=== PATIENT | female | born 1995 | race Caucasian/White ===

== ENCOUNTER 2023-05-11 10:51 | Emergency (ER) | payer BC, SELFPAY ==
[2023-05-11 10:57] VITALS: BP 110/87; PULSE 101; RESP 18; TEMP 36.6; O2SAT 100; BMI 22.8
--- NOTE | 2023-05-11 11:11 | PC.NURSE ---
PT 7 WEEKS . C/O NAUSEA AND VOMITING X 2 WEEKS.. PT HAS ZOFRAN AT HOME AND STATES NOT HELPING. PT ALSO HAS PHENERGAN AT HOME BUT DOESN'T WANT TO TAKE IT BECAUSE IT MAKES HER TIRED
--- NOTE | 2023-05-11 11:36 | ED_ITS ---
HPI - Nausea/Vomiting/Diarrhea General Chief complaint: Nausea/Vomiting/Diarrhea Stated complaint: ISSUES 7 WEEKS Time Seen by Provider: 05/11/23 11:36 Source: patient Mode of arrival: walk-in Limitations: no limitations History of Present Illness HPI Narrative: this patient's here with continued nausea and vomiting. She is seven weeks by dates. She has an appointment see her INSTRUCTOR WARPER in about two weeks. She does not have a bleeding spotting or abdominal pain cramping or any type of discomfort. Just has the nausea. She has by mouth Zofran but no sublingual Zofran. She says that the Phenergan seems to make her sleepy. She is voiding a little bit less than usual. She does not have a burning discomfort or symptoms of urinary tract infection. Related Data Allergies Allergy/AdvReac Type Severity Reaction Status Date / Time No Known Drug Allergies Allergy Verified 05/11/23 10:57 Exam Narrative Exam Narrative: awake alert appears in no distress vital signs are stable slight increase in pulse rate. She has no abdominal tenderness her skin color is good mucous membranes are moist and pink she does not appear ill. Constitutional Vital Signs - 24 hr 05/11/23 10:57 Temperature 97.8 F Pulse Rate [Monitor] 101 H Respiratory Rate 18 Blood Pressure [Left Arm] 110/87 H Pulse Oximetry 100 Oxygen Delivery Method Room Air Course Vital Signs Vital signs: Vital Signs Temperature 97.8 F 05/11/23 10:57 Pulse Rate 101 H 05/11/23 10:57 Respiratory Rate 18 05/11/23 10:57 Blood Pressure 110/87 H 05/11/23 10:57 Pulse Oximetry 100 05/11/23 10:57 Oxygen Delivery Method Room Air 05/11/23 10:57 Temperature 97.8 F 05/11/23 10:57 Pulse Rate 101 H 05/11/23 10:57 Respiratory Rate 18 05/11/23 10:57 Blood Pressure 110/87 H 05/11/23 10:57 Pulse Oximetry 100 05/11/23 10:57 Oxygen Delivery Method Room Air 05/11/23 10:57 MDM - Nausea/Vomiting/Diarrhea MDM Narrative Medical decision making narrative: patient's comprehensive metabolic profile and CBC are unremarkable. She was given nearly 2 L of crystalloid fluid and does show some improvement. We will give her prescription for sublingual Zofran. She does not have a specific INSTRUCTOR W[employer]PER complaints at this time. She already has a follow-up appointment with her INSTRUCTOR WARPER. Discharge Plan Discharge Chief Complaint: Nausea/Vomiting/Diarrhea Clinical Impression: Hyperemesis affecting , antepartum Patient Disposition: Home, Self-Care Time of Disposition Decision: 13:10 Instructions: Hyperemesis Gravidarum (ED) Stand Alone Forms: Portal Instructions Referrals: Victorino Deleon MD [Primary Care Provider] - 1 week
[2023-05-11 11:57] LABS: Basophils Percent Auto 0.3 % (0.2-2.0); Eosinophils Percent Auto 0.1 % (0.9-7.0); Hematocrit 41.1 % (36.0-48.0); Hemoglobin 14.7 g/dL (12.0-16.0); Immature Granulocytes Abs Auto 0.04 10^3/uL (0.00-0.03); Immature Granulocytes Pct Auto 0.4 % (0.0-0.5); Lymphocytes Absolute Auto 1.8 10^3/uL (1.2-3.8); Lymphocytes Percent Auto 17.1 % (20.5-60.0); Mean Corpuscular HGB Conc 35.8 g/dL (29.9-35.2); Mean Corpuscular Hemoglobin 31.8 pg (26.7-34.0); Mean Platelet Volume 10.2 fL (9.5-13.5); Monocytes Absolute Auto 0.6 10^3/uL (0.3-0.8); Monocytes Percent Auto 6.2 % (1.7-12.0); Neutrophils Absolute Auto 7.8 10^3/uL (1.4-6.5); Neutrophils Percent Auto 75.9 % (43.0-75.0); Platelet Count 260 10^3/uL (150-450); Red Blood Count 4.62 10^6/uL (4.20-5.40); Red Cell Distribution Width 11.3 % (11.0-15.0); White Blood Count 10.3 10^3/uL (4.0-11.0)
[2023-05-11] MEDS: 0.9 % SODIUM CHLORIDE 1,000 ML 999 ML IV ×2 (12:04→12:45)
[2023-05-11] MEDS: ONDANSETRON PF 4 MG/2 ML VIAL IV (12:05)
[2023-05-11 12:13] LABS: Alanine Aminotransferase 20 U/L (14-59); Albumin Level 3.8 g/dL (3.4-5.0); Alkaline Phosphatase 55 U/L (46-116); Anion Gap 13.8; Aspartate Amino Transferase 13 U/L (15-37); BUN Creatinine Ratio 13.8; Bilirubin Total 0.7 mg/dL (0.2-1.0); Calcium 9.3 mg/dL (8.5-10.1); Carbon Dioxide 25.3 mmol/L (21.0-32.0); Chloride 102 mmol/L (98-107); Estimated GFR (African America >60 (>=60); Estimated GFR (Non-African Ame >60 (>=60); Globulin 3.9 g/dL; Glucose 89 mg/dL (74-106); Potassium 4.1 mmol/L (3.5-5.1); Sodium 137 mmol/L (136-145); Total Protein 7.7 g/dL (6.4-8.2)
[2023-05-11 12:15] LABS: Lactate/Lactic Acid 1.1 mmol/L (0.4-2.0)
== END 2023-05-11 13:27 | disposition home or self-care (01) ==
PROVIDERS: Emergency Provider Emergency Medicine Emergency Medical Services; PCP Family Medicine
DX: O21.0 Mild hyperemesis gravidarum (principal); Z3A.01 Less than 8 weeks gestation of pregnancy
CPT/HCPCS: 36415; 80053; 81003; 83605; 85025; 96374; 99284

== ENCOUNTER 2023-05-22 08:27 | Outpatient (OUT) | payer BC, SELFPAY ==
--- NOTE | 2023-05-22 08:31 | US_ITS ---
The [address] [address] Patient Name: SURJIT MORALES MRN: [id number] date: 1995 Sex: F Assigned Patient Location: US Current Patient Location: US Accession/Order Number: [id number] Exam Date: 05/22/2023 08:32 Report Date: 05/22/2023 19:12 At the request of: HARSHA OCHOA Procedure: US OB transvaginal EXAMINATION: US OB transvaginal HISTORY: MISSED PERIOD COMPARISON: No relevant comparison available. FINDINGS: GESTATIONAL SAC: Present and normal appearing. YOLK SAC: Present and normal appearing. POLE: Present and normal appearing. CARDIAC: Present. UTERUS: Normal size and appearance. OVARIES: Right: Normal. Left: Normal. CERVIX: 4.0 cm in length and closed. CUL-DE-SAC: Normal. OTHER: None. AGE BY LMP: 9 weeks 0 days ADRIANA BY LMP: 12/25/2023 AGE BY US CRL: 9 weeks 3 days ADRIANA BY US CRL: 12/22/2023 US/US OB transvaginal IMPRESSION: 1. Single live intrauterine . Electronically authenticated by: CHANEL LING Date: 05/22/2023 19:12
== END 2023-05-22 08:28 | disposition home or self-care (01) ==
LOC: US 08:27
PROVIDERS: PCP Family Medicine; Visit Provider Obstetrics & Gynecology
DX: Z34.91 Encounter for supervision of normal pregnancy, unspecified, first trimester (principal); Z3A.09 9 weeks gestation of pregnancy; N92.6 Irregular menstruation, unspecified
CPT/HCPCS: 76817

== ENCOUNTER 2023-05-23 12:40 | Emergency (ER) | payer BC, SELFPAY ==
[2023-05-23 12:45] VITALS: BP 110/85; PULSE 100; RESP 18; TEMP 36.6; O2SAT 97; BMI 22.1
--- NOTE | 2023-05-23 15:00 | ED.GENADUL1 ---
HPI - General Adult General Chief complaint: Nausea/Vomiting/Diarrhea Stated complaint: 9 weeks , states need fluids Time Seen by Provider: 05/23/23 15:00 Source: patient Mode of arrival: walk-in Limitations: no limitations History of Present Illness HPI narrative: He should persist emergency department requesting IV fluids. Patient states she is 9 weeks gestation and she had nausea and vomiting at least 6 times every day from the . She states she was seen here a week ago had IV fluids and Zofran via IV to help her symptoms. She has anti-emetics at home but she did not try any today. She denies any weakness, fever, chills, cough, chest pain, shortness of breath. She denies any abdominal pain. She denies any flank pain, hematuria, dysuria. She denies any vaginal bleeding, discharge. Related Data Home Medications Medication Instructions Recorded Confirmed ondansetron HCl 4 mg tablet 4 mg PO Q6H PRN nausea and vomiting 05/11/23 05/11/23 metoclopramide HCl 10 mg tablet 10 mg PO Q6H PRN nausea and 05/23/23 05/23/23 vomiting Allergies Allergy/AdvReac Type Severity Reaction Status Date / Time No Known Drug Allergies Allergy Verified 05/11/23 10:57 Review of Systems ROS Status of ROS 10 or more systems reviewed and unremarkable except as noted in history and below Exam Narrative Exam Narrative: Nurses notes and vital signs reviewed and patient is not hypoxic. General: Nontoxic, Well-appearing and in no apparent distress. Skin: Warm, dry, no pallor noted. No Rash Head: Normocephalic, atraumatic. Neck: Supple, non-tender. Eye: Pupils are equal, round and EOMI. No scleral icterus. Ears, Nose, Mouth, and Throat: TM clear, no posterior oropharynx erythema or nasal mucosal hypertrophy, uvula is mid-line Oral mucosa is moist Cardiovascular: Regular Rate and Rhythm without murmur, gallop or rub. Respiratory: No accessory muscle use or respiratory distress. Lungs are clear to auscultation, no wheezing, rales or rhonchi Chest Wall: no tenderness Back: No midline thoracic or lumbar vertebral tenderness. No CVA tenderness Musculoskeletal: normal ROM, no calf or popliteal tenderness, no lower extremity edema/swelling GI: Abdomen is soft, non-distended. Normal bowel sounds. No masses appreciated. No tenderness to palpation. No rebound, guarding, or rigidity noted. Neurological: A&O x4. No cranial nerve dysfunction observed. No truncal ataxia. Moves all extremities. Sensation intact. Psychiatric: Cooperative and interactive. Normal mood and affect. Constitutional Vital Signs, click to edit/add: Last Vital Signs Temp 98 F 05/23/23 12:45 Pulse 100 H 05/23/23 12:45 Resp 18 05/23/23 12:45 BP 110/85 H 05/23/23 12:45 Pulse Ox 97 05/23/23 12:45 Course Vital Signs Vital signs: Vital Signs Temperature 98 F 05/23/23 12:45 Pulse Rate 100 H 05/23/23 12:45 Respiratory Rate 18 05/23/23 12:45 Blood Pressure 110/85 H 05/23/23 12:45 Pulse Oximetry 97 05/23/23 12:45 Temperature 98 F 05/23/23 12:45 Pulse Rate 100 H 05/23/23 12:45 Respiratory Rate 18 05/23/23 12:45 Blood Pressure 110/85 H 05/23/23 12:45 Pulse Oximetry 97 05/23/23 12:45 Medical Decision Making MDM Narrative Medical decision making narrative: Lab work was ordered and a urinalysis was ordered. The patient refused any blood work stating that she did not need to have this done as she had blood work done last week and she was here only to get IV fluids. Patient was given 1 L normal saline. She was discharged home with Zofran. The patient has remained hemodynamically stable. No additional indication for emergent studies at this time. I answered all questions. Discussed discharge instructions including standard anticipatory guidance and what should prompt a return to the emergency department, including if they get worse are not getting better or develops any new or concerning symptoms. I've given them specific time frame in which to follow-up, and who to follow-up with. The patient demonstrates understanding. Patient is nontoxic and stable for discharge with outpatient follow-up. This note was created with the assistance of a speech recognition program. Although the intention is to generate documents that actually reflects the content of the visit, no guarantees can be provided that every mistake has been identified and corrected by editing. Discharge Plan Discharge Chief Complaint: Nausea/Vomiting/Diarrhea Clinical Impression: Nausea & vomiting Patient Disposition: Home, Self-Care Time of Disposition Decision: 16:06 Condition: Good Mode of Transportation: Private Vehicle Prescriptions / Home Meds: No Action metoclopramide HCl 10 mg tablet 10 mg PO Q6H PRN (Reason: nausea and vomiting) ondansetron HCl 4 mg tablet 4 mg PO Q6H PRN (Reason: nausea and vomiting) Instructions: Nausea and Vomiting in (ED) Stand Alone Forms: Portal Instructions Referrals: Franck Moraes DO [Physician] - 1 week Victorino Deleon MD [Primary Care Provider] - 1 week Discharge Date/Time: 05/23/23 17:16
[2023-05-23] MEDS: 0.9 % SODIUM CHLORIDE 1,000 ML 999 ML IV (15:49)
[2023-05-23] MEDS: ONDANSETRON PF 4 MG/2 ML VIAL IV (15:52)
== END 2023-05-23 17:16 | disposition home or self-care (01) ==
PROVIDERS: Emergency Provider Emergency Medicine; PCP Family Medicine
DX: O26.891 Other specified pregnancy related conditions, first trimester (principal); R11.2 Nausea with vomiting, unspecified; Z3A.09 9 weeks gestation of pregnancy
CPT/HCPCS: 80048; 81003; 85025; 96361; 96374; 99284

== ENCOUNTER 2023-05-29 09:46 | Outpatient (OUT) | payer BC, SELFPAY ==
[2023-05-29 10:41] LABS: Basophils Percent Auto 0.4 % (0.2-2.0); Eosinophils Percent Auto 0.2 % (0.9-7.0); Hematocrit 37.5 % (36.0-48.0); Hemoglobin 13.5 g/dL (12.0-16.0); Immature Granulocytes Abs Auto 0.03 10^3/uL (0.00-0.03); Immature Granulocytes Pct Auto 0.4 % (0.0-0.5); Lymphocytes Absolute Auto 1.7 10^3/uL (1.2-3.8); Mean Corpuscular Hemoglobin 32.1 pg (26.7-34.0); Mean Corpuscular Volume 89.3 fL (81.0-99.0); Mean Platelet Volume 10.9 fL (9.5-13.5); Monocytes Absolute Auto 0.5 10^3/uL (0.3-0.8); Monocytes Percent Auto 6.3 % (1.7-12.0); Neutrophils Percent Auto 72.7 % (43.0-75.0); Platelet Count 260 10^3/uL (150-450); Red Cell Distribution Width 11.7 % (11.0-15.0); White Blood Count 8.3 10^3/uL (4.0-11.0)
[2023-05-29 10:49] LABS: Estimated Average Glucose 91 mg/dL; Glycohemoglobin A1C 4.8 % (4.5-6.2)
[2023-05-29 11:20] LABS: Thyroid Stimulating Hormone 1.155 uIU/mL (0.358-3.740)
[2023-05-30 06:11] LABS: HBsAg Screen Negative (Negative); HCV Ab Non Reactive (Non Reactive); HIV Ab/p24 Ag Screen Non Reactive (Non Reactive); Rubella Antibodies, IgG <0.90 index (Immune >0.99)
[2023-05-30 09:09] LABS: Rapid Plasma Reagin, Quant Non Reactive (NonRea<1:1)
== END 2023-05-29 09:47 | disposition home or self-care (01) ==
LOC: LAB 09:47
PROVIDERS: PCP Family Medicine; Visit Provider Obstetrics & Gynecology
DX: Z34.81 Encounter for supervision of other normal pregnancy, first trimester (principal); Z31.430 Encounter of female for testing for genetic disease carrier status for procreative management; N92.6 Irregular menstruation, unspecified
CPT/HCPCS: 36415; 83036; 84443; 85025; 86592; 86706; 86762; 86803; 86850; 86900; 86901; 87086; 87389

== ENCOUNTER 2023-07-01 09:51 | Outpatient (OUT) | payer BC, SELFPAY ==
[2023-07-01 09:50] VITALS: BP 110/71; PULSE 86; RESP 18; TEMP 36.6; O2SAT 98
[2023-07-01] MEDS: MULTIVIT INFUSN,ADULT 4,VIT K 10 ML in 0.9 % SODIUM CHLORIDE 1,000 ML 500 ML IV (10:13)
== END 2023-07-01 09:52 | disposition home or self-care (01) ==
LOC: INF 09:51
PROVIDERS: PCP Family Medicine; Visit Provider Obstetrics & Gynecology
DX: O21.9 Vomiting of pregnancy, unspecified (principal); Z3A.00 Weeks of gestation of pregnancy not specified; O99.280 Endocrine, nutritional and metabolic diseases complicating pregnancy, unspecified trimester; E86.0 Dehydration
CPT/HCPCS: 96365; 96366

== ENCOUNTER 2023-07-09 09:18 | Outpatient (OUT) | payer BC, SELFPAY ==
[2023-07-09 09:26] VITALS: BP 110/74; PULSE 82; RESP 18; TEMP 36.9; O2SAT 99
[2023-07-09] MEDS: MULTIVIT INFUSN,ADULT 4,VIT K 10 ML in 0.9 % SODIUM CHLORIDE 1,000 ML 500 ML IV (09:45)
--- NOTE | 2023-07-09 10:24 | PC.NURSE ---
Patient is here hydration with multivitamins, she tolerated her previous infusion well. IV was started and tolerated well. She denies any issues or concerns at this time.
== END 2023-07-09 09:19 | disposition home or self-care (01) ==
LOC: INF 09:19
PROVIDERS: PCP Family Medicine; Visit Provider Obstetrics & Gynecology
DX: O99.280 Endocrine, nutritional and metabolic diseases complicating pregnancy, unspecified trimester (principal); E86.0 Dehydration; O21.9 Vomiting of pregnancy, unspecified; Z3A.00 Weeks of gestation of pregnancy not specified
CPT/HCPCS: 96365; 96366

== ENCOUNTER 2023-07-20 21:07 | Outpatient (REF) | payer BC, SELFPAY ==
[2023-07-24 11:08] LABS: Age Gdln ACOG Testing Note (.); IGP, rfx Aptima HPV ASCU Note (.)
== END 2023-07-20 21:08 | disposition home or self-care (01) ==
LOC: LAB 21:07
PROVIDERS: PCP Family Medicine; Visit Provider Obstetrics & Gynecology
DX: Z12.4 Encounter for screening for malignant neoplasm of cervix (principal)
CPT/HCPCS: G0145

== ENCOUNTER 2023-07-22 07:35 | Outpatient (RCR) | payer BC, SELFPAY ==
[2023-07-17 14:13] VITALS: BP 98/67; PULSE 79; RESP 16; TEMP 36.8; O2SAT 98
[2023-07-17] MEDS: MULTIVIT INFUSN,ADULT 4,VIT K 10 ML in 0.9 % SODIUM CHLORIDE 1,000 ML 500 ML IV (14:26)
--- NOTE | 2023-07-17 14:35 | PC.NURSE ---
1400- Pt arrived to unit, registration contacted and assisted with process. Pharmacy has orders, making IV fluids. Pt assisted to room IV started to left hand, attempted right arm and not successful. IV infusion running at 500mls/hr. Pt stated she is 17 weeks gestation, having excess nausea and vomiting. Provided with call light, water on table, no further needs at this time.
--- NOTE | 2023-07-17 16:33 | PC.NURSE ---
1632- IV infusion completed, IV discontinued. Pt stated she feels comfortable walking out without assistace.
[2023-07-22 13:23] VITALS: BP 115/73; PULSE 92; RESP 16; TEMP 37.1; O2SAT 98
--- NOTE | 2023-07-22 13:23 | PC.NURSE ---
1323: Pt to [facility] amb. per self. Seated in recliner. VSS. Relays feeling nauseated off and on for past couple of days. No pain or dyspnea. #24 gauge IV inserted to left arm on first attempt without difficulty. Flushes easily with good blood return. Pt. tolerates without c/o pain. IV infusion initiated as ordered. Pt. denies need for snack. Drinking water.
[2023-07-22] MEDS: MULTIVIT INFUSN,ADULT 4,VIT K 10 ML in 0.9 % SODIUM CHLORIDE 1,000 ML 500 ML IV (13:44)
--- NOTE | 2023-07-22 14:00 | PC.NURSE ---
1400: Pt. without change. Denies needs or c/o.
--- NOTE | 2023-07-22 14:56 | PC.NURSE ---
Pt. cont. to deny needs or c/o. IV site remains clear. IVF maintained.
--- NOTE | 2023-07-22 15:40 | PC.NURSE ---
1540: IV therapy complete. Pt. relays feeling good . Denies c/o. IV d/c'd, pressure to site. D/c'd amb to home.
== END 2023-08-08 23:59 | disposition home or self-care (01) ==
LOC: INF 07:35
PROVIDERS: PCP Family Medicine; Visit Provider Obstetrics & Gynecology
DX: O99.280 Endocrine, nutritional and metabolic diseases complicating pregnancy, unspecified trimester (principal); E86.0 Dehydration; O21.9 Vomiting of pregnancy, unspecified; Z3A.00 Weeks of gestation of pregnancy not specified
CPT/HCPCS: 96365; 96366

== ENCOUNTER 2023-08-08 08:56 | Outpatient (OUT) | payer BC, SELFPAY ==
--- NOTE | 2023-08-08 | US_ITS ---
[address] [address] Patient Name: SURJIT MORALES MRN: [id number] date: 1995 Sex: F Assigned Patient Location: US Current Patient Location: Accession/Order Number: [id number] Exam Date: 08/08/2023 09:05 Report Date: 08/10/2023 08:59 At the request of: KIKE PERDOMO Procedure: US OB anatomy EXAMINATION: US OB anatomy, US OB cervical length HISTORY: ENCOUNTER FOR ANATOMIC SURVEY Z36. 89 COMPARISON: No relevant comparison available. TECHNIQUE: Transabdominal sonographic examination was performed for obstetrical and evaluation. FINDINGS: Number: 1 Heart Rate: 149.2 bpm H.B. /min Amniotic Fluid Volume: Subjectively normal position: Cephalic presentation, variable lie Placental Location: ANTERIOR, grade 0. Placental edge is 7.0 cm from the internal os Cervix Length: 4.5 cm , closed Normal anatomy: Lateral ventricles, cerebellum, posterior fossa, nose, lips, orbits, four-chamber heart, RVOT, LVOT, diaphragm, stomach, kidneys, abdominal cord insertion, bladder, umbilical arteries, three-vessel cord, spine, extremities BIOMETRY: BPD: 4.8 cm 20 weeks 4 days , 69% HC: 18.3 cm 20 weeks 5 days, 68% AC: 15.2 cm 20 weeks 3 days, 52% FL: 3.1 cm 19 weeks 4 days, 23% EFW:331.7 grams; , 12 ounces, 42% FL/AC: 20.4 FL/BPD: 64.0 HC/AC: 1.2 GESTATIONAL AGE: Age by EDC: 20 weeks 1 days ADRIANA by EDC: 12/25/2023 Age by current US: 20 weeks 2 days ADRIANA by current US: 12/24/2023 US/US OB anatomy IMPRESSION: Normal anatomy scan Closed cervix measuring 4.5 cm in length *Reference: [employer] Practice Guideline for the performance of Obstetric Ultrasound Examinations, August 09, 2007. Electronically authenticated by: CARLOS MULLIGAN Date: 08/10/2023 08:59
--- NOTE | 2023-08-08 | US_ITS ---
[address] [address] Patient Name: SURJIT MORALES MRN: [id number] date: 1995 Sex: F Assigned Patient Location: US Current Patient Location: Accession/Order Number: [id number] Exam Date: 08/08/2023 09:05 Report Date: 08/10/2023 08:59 At the request of: KIKE PERDOMO Procedure: US OB cervical length EXAMINATION: US OB anatomy, US OB cervical length HISTORY: ENCOUNTER FOR ANATOMIC SURVEY Z36. 89 COMPARISON: No relevant comparison available. TECHNIQUE: Transabdominal sonographic examination was performed for obstetrical and evaluation. FINDINGS: Number: 1 Heart Rate: 149.2 bpm H.B. /min Amniotic Fluid Volume: Subjectively normal position: Cephalic presentation, variable lie Placental Location: ANTERIOR, grade 0. Placental edge is 7.0 cm from the internal os Cervix Length: 4.5 cm , closed Normal anatomy: Lateral ventricles, cerebellum, posterior fossa, nose, lips, orbits, four-chamber heart, RVOT, LVOT, diaphragm, stomach, kidneys, abdominal cord insertion, bladder, umbilical arteries, three-vessel cord, spine, extremities BIOMETRY: BPD: 4.8 cm 20 weeks 4 days , 69% HC: 18.3 cm 20 weeks 5 days, 68% AC: 15.2 cm 20 weeks 3 days, 52% FL: 3.1 cm 19 weeks 4 days, 23% EFW:331.7 grams; , 12 ounces, 42% FL/AC: 20.4 FL/BPD: 64.0 HC/AC: 1.2 GESTATIONAL AGE: Age by EDC: 20 weeks 1 days ADRIANA by EDC: 12/25/2023 Age by current US: 20 weeks 2 days ADRIANA by current US: 12/24/2023 US/US OB cervical length IMPRESSION: Normal anatomy scan Closed cervix measuring 4.5 cm in length *Reference: [employer] Practice Guideline for the performance of Obstetric Ultrasound Examinations, August 09, 2007. Electronically authenticated by: CARLOS MULLIGAN Date: 08/10/2023 08:59
[2023-08-11 22:06] LABS: AFP Value 45.3 ng/mL (.); Gest. Age on Collection Date 20.6 weeks (.); Gestat. Age Based On As provided (.); Insulin Dep Diabetes No (.); Maternal Age At EDD 28.5 yr (.); OSBR Risk 1 IN 10000 (.); Results Report (.)
== END 2023-08-08 08:57 | disposition home or self-care (01) ==
LOC: US 08:56
PROVIDERS: PCP Family Medicine; Visit Provider Physician Assistant
DX: Z34.92 Encounter for supervision of normal pregnancy, unspecified, second trimester (principal); Z36.89 Encounter for other specified antenatal screening; Z3A.20 20 weeks gestation of pregnancy
CPT/HCPCS: 36415; 76805; 76817; 82105

== ENCOUNTER 2023-09-11 08:20 | Outpatient (OUT) | payer BC, SELFPAY ==
[2023-09-11 10:09] LABS: Basophils Percent Auto 0.4 % (0.2-2.0); Eosinophils Percent Auto 0.4 % (0.9-7.0); Hematocrit 35.7 % (36.0-48.0); Hemoglobin 11.9 g/dL (12.0-16.0); Immature Granulocytes Abs Auto 0.03 10^3/uL (0.00-0.03); Immature Granulocytes Pct Auto 0.4 % (0.0-0.5); Lymphocytes Absolute Auto 1.4 10^3/uL (1.2-3.8); Lymphocytes Percent Auto 16.2 % (20.5-60.0); Mean Corpuscular HGB Conc 33.3 g/dL (29.9-35.2); Mean Corpuscular Volume 98.9 fL (81.0-99.0); Mean Platelet Volume 11.2 fL (9.5-13.5); Monocytes Absolute Auto 0.4 10^3/uL (0.3-0.8); Monocytes Percent Auto 5.2 % (1.7-12.0); Neutrophils Absolute Auto 6.6 10^3/uL (1.4-6.5); Neutrophils Percent Auto 77.4 % (43.0-75.0); Platelet Count 223 10^3/uL (150-450); Red Blood Count 3.61 10^6/uL (4.20-5.40); Red Cell Distribution Width 12.5 % (11.0-15.0); White Blood Count 8.5 10^3/uL (4.0-11.0)
[2023-09-11 10:33] LABS: Glucose 1 Hour 81 mg/dL
== END 2023-09-11 08:21 | disposition home or self-care (01) ==
LOC: LAB 08:20
PROVIDERS: PCP Family Medicine; Visit Provider Obstetrics & Gynecology
DX: Z34.92 Encounter for supervision of normal pregnancy, unspecified, second trimester (principal)
CPT/HCPCS: 36415; 82950; 85025

== ENCOUNTER 2023-11-04 10:13 | Outpatient (OUT) | payer BC, SELFPAY ==
--- NOTE | 2023-11-04 10:14 | US_ITS ---
[address] [address] Patient Name: SURJIT MORALES MRN: [id number] date: 1995 Sex: F Assigned Patient Location: US Current Patient Location: US Accession/Order Number: [id number] Exam Date: 11/04/2023 10:18 Report Date: 11/04/2023 21:42 At the request of: HARSHA OCHOA Procedure: US OB growth EXAMINATION: US OB growth HISTORY: SIZE INCONSISTENT WITH DATES O26.849 COMPARISON: Ultrasound OB anatomy 08/08/2023 FINDINGS: Heart Rate: 142.0 bpm Number: 1.0 Position: CEPHALIC Amniotic Fluid Volume: 12.8 cm Maximum Vertical Pocket: 6.3 cm BIOMETRY: BPD: 8.8 cm cm; 35 weeks 3 days; 95% HC: 32.1 cmcm; 36 weeks 1 days ; 93% AC: 27.7 cm cm; 31 weeks 5 days 23% FL: 6.2 cm cm; 32 weeks 2 days; 27% EFW: 2023.7 grams; 38% FL/AC: 22.5 FL/BPD: 71.1 HC/AC: 1.2 GESTATIONAL AGE: Age by EDC: 32 weeks 5 days ADRIANA by EDC: 12/25/2023 Age by US: 33 weeks 6 days ADRIANA by US: 12/17/2023 US/US OB growth IMPRESSION: 1. Single live intrauterine with growth detailed above. 2. Limited head measurements due to position. Electronically authenticated by: CHANEL LING Date: 11/04/2023 21:42
== END 2023-11-04 10:14 | disposition home or self-care (01) ==
LOC: US 10:13
PROVIDERS: PCP Family Medicine; Visit Provider Obstetrics & Gynecology
DX: O26.849 Uterine size-date discrepancy, unspecified trimester (principal); Z3A.32 32 weeks gestation of pregnancy
CPT/HCPCS: 76816

== ENCOUNTER 2023-11-25 22:05 | Outpatient (REF) | payer BC, SELFPAY ==
--- OUTSIDE RECORDS SUMMARY | 2023-11-25 22:08 | XMS_ITS | CCD ---
Author Name Unknown Address [address] [facility] [facility] [address] [place] [address] Organization [facility] Care Team Providers Care Physical Therapy Coordinator Name Role Phone MASON DELEON Attending Unavailable Mason Deleon Primary Care Unavailable BEBETO AMEZQUITA Referring Unavailable MASON DELEON Primary Care Unavailable BRIAN VARNER Attending Unavailable BRIAN VARNER Consulting Unavailable BRIAN VARNER Admitting Unavailable DR MASON DELEON Primary Care Unavailable KIKE PERDOMO Attending Unavailable HARSHA OCHOA Attending Unavailable HARSHA OCHOA Attending Unavailable Results Test Name Value Interpretation Reference Range [facility] HPV DNA High Riskon 12-06-19 22 HPV Interp Normal [facility] Comment on above: Result Comment: This test amplifies and detects DNA of 14 high-risk HPV types associated with cervical cancer and its precursor lesions (HPV types 16,18, 31, 33, 35, 39, 45, 51, 52, 56, 58, 59, 66, and 68). Sensitivity may be affected by specimen collection methods, stage of infection, and the presence of interfering substances. Results should be interpreted in conjunction with other available laboratory and clinical data. A negative high-risk HPV result does not exclude the possibility of future cytologic HSIL or underlying CIN2-3 or cancer. This test is intended for medical purposes only and is not valid for the evaluation of suspected sexual abuse or for other forensic purposes. Performed By: #### H PV #### [facility] [place], [place] [id number] Plate Gauger: Ulisses Gold MD HPV Type 16 Not detected Normal [facility] Comment on above: Performed By: #### H PVH #### [facility] [place] [address] Plate Gauger: Ulisses Gold MD HPV Type 18 Not detected Normal [facility] Comment on above: Performed By: #### H PVH #### [facility] [address] [place] [address] Plate Gauger: Ulisses Gold MD Other High Risk HPV Not detected [facility] Comment on above: Performed By: #### H PVH #### [facility] [address] [place] [address] Plate Gauger: Ulisses Gold MD HPV DNA High Riskon 12-05-19 22 Source .GENITAL - NOT SPECIFIED Normal [facility] Comment on above: Performed By: #### H PVH #### [address] [place] [address] Plate Gauger: Ulisses Gold MD HPV Sample .THIN PREP [facility] Comment on above: Performed By: #### H PVH #### [facility] [address] [place] [address] Plate Gauger: Ulisses Gold MD Cytologyon 12-04-2021 Cytology (NOTE) INTERPRETATION Cervical material, (ThinPrep vial, Imaging-assisted review): Specimen Adequacy: Satisfactory for evaluation. -Endocervical/transform ation zone component is absent. Descriptive Diagnosis: Negative for intraepithelial lesion or malignancy. Kitchen Help Handyman: RONY Ugalde(ASCP) Electronically Signed Out /12/17/2021 Procedure/Addendum HPV Procedure Report Date Ordered: 12/05/2021 Status: Signed Out Date Complete: 12/06/2021 By: System Interface Date Reported: 12/06/2021 Sample: HPV Type 16 Result: Not Detected Ref Range: (Not Detected) Sample: HPV Type 18 Result: Not Detected Ref Range: (Not Detected) Sample: Other High Risk HPV Result: Not Detected Ref Range: (Not Detected) Sample: HPV Interp Result: Ref Range: (Not Detected) This test amplifies and detects DNA of 14 high-risk HPV types associated with cervical cancer and its precursor lesions (HPV types 16,18, 31, 33, 35, 39, 45, 51, 52, 56, 58, 59, 66, and 68). Sensitivity may be affected by specimen collection methods, stage of infection, and the presence of interfering substances. Results should be interpreted in conjunction with other available laboratory and clinical data. A negative high-risk HPV result does not exclude the possibility of future cytologic HSIL or underlying CIN2-3 or cancer. This test is intended for medical purposes only and is not valid for the evaluation of suspected sexual abuse or for other forensic purposes. Source: 1: Cervical material, (ThinPrep vial, Imaging-assisted review) Clinical History Intrauterine device Z01.419 Routine ob/gyn physician exam without abnormal findings Co-Test: ThinPrep Pap with high risk HPV testing GYNECOLOGIC CYTOLOGY REPORT Patient Name: SURJIT MORALES [facility] Rec: [id number] Path Number: [id number] [facility] CONSULTING PATHOLOGISTS [facility] EMERGENCY DEPARTMENT ANATOMIC PATHOLOGY [address] [place] [id number] [facility] Comment on above: Performed By: #### P PPVP #### [address] [id number] Plate Gauger: Ulisses Gold MD QUANTIFERON TB GOLD PLUS (NO N-INC)on 09-05-2021 Comment Incubation performed. Normal [facility] Comment on above: Performed By: #### Q NTTBG #### [facility] [address] [place] [address] Dr. Hetal Linn Criteria Comment [facility] Comment on above: Result Comment: The QuantiFERON-TB Gold Plus result is determined by subtracting the Nil value from either TB antigen (Ag) tube. The mitogen tube serves as a control for the test. Performed By: #### Q NTTBG #### [facility] [address] [place] [address] Dr. Hetal Linn Mitogen Value >10.00 Normal [facility] Comment on above: Performed By: #### Q NTTBG #### [facility] [address] [place] [address] Dr. Hetal Linn Nill Value 0.06 IU/mL Normal [facility] Comment on above: Performed By: #### Q NTTBG #### [facility] [address] [place] [address] Dr. Hetal Linn Quantiferon Gold Plus Negative Normal Negative [facility] Comment on above: Result Comment: Chem iluminescence immunoassay methodology Performed By: #### Q NTTBG #### [facility] [address] [place] [address] Dr. Hetal Linn TB1 Ag Value 0.10 IU/mL Normal [facility] Comment on above: Performed By: #### Q NTTBG #### [facility] [address] [place] [address] Dr. Hetal Linn TB2 Ag Value 0.08 IU/mL Normal [facility] Comment on above: Performed By: #### Q NTTBG #### [facility] [address] [place] [address] Dr. Hetal Linn HEPATITIS B SURFACE ANTIBODY , QUANTon 08-31-2021 Hepatitis B Surf AB Quant 202.1 mIU/mL Normal Immunity>9.9 [facility] Comment on above: Result Comment: Stat us of Immunity Anti-HBs Level Inconsistent with Immunity 0.0 - 9.9 Consistent with Immunity >9.9 Performed By: #### H EPBSRF #### [facility] [address] [place] [address] Dr. Hetal Linn MMR IMMUNITYon 08-31-2021 Mumps Abs, IgG 24.8 AU/mL Normal Immune >10.9 [facility] Comment on above: Result Comment: Nega tive <9.0 Equivocal 9.0 - 10.9 Positive >10.9 A positive result generally indicates past exposure to Mumps virus or previous vaccination. Performed By: #### M MRIMMU #### [facility] [address] [place] [address] Dr. Hetal Linn Rubella Antibodies, IgG 1.14 index Normal Immune >0.99 [facility] Comment on above: Result Comment: Non- immune <0.90 Equivocal 0.90 - 0.99 Immune >0.99 Performed By: #### M MRIMMU #### [facility] [address] [place], [place] [address] Dr. Hetal Linn Rubeola Ab, IgG 26.6 AU/mL Normal Immune >16.4 [facility] Comment on above: Result Comment: Nega tive <13.5 Equivocal 13.5 - 16.4 Positive >16.4 Presence of antibodies to Rubeola is presumptive evidence of immunity except when acute infection is suspected. Performed By: #### M MRIMMU #### [facility] [address] [place], [place] [address] Dr. Hetal Linn VARICELLA IGG ABon 1 Varicella Zoster IgG 1376 index Normal Immune >165 [facility] Comment on above: Result Comment: Nega tive <135 Equivocal 135 - 165 Positive >165 A positive result generally indicates exposure to the pathogen or administration of specific immunoglobulins, but it is not indication of active infection or stage of disease. Performed By: #### V ARCEL #### [facility] [address] [place], [place] [address] Dr. Hetal Linn Addendum Reporton 04-10-2020 Addendum Report Missing Attachment Chartable Reference Lab Reports Can be viewed in source system Addendum Discussion [facility], MLABS, #[id number], Date reported: 04/10/2020: Diagnosis: A. Skin of right shoulder, excision: Irritated compound nevus, See comment. B. Skin of left shoulder, excision: Irritated compound nevus with congenital features. See comment. Comment: Both skin specimens demonstrate compound melanocytic nevi that are well-circumscribed and symmetrical. The lesions lack architectural features of atypical or dysplastic nevi. moreover, the dermal component of both lesions evenly matures with dermal descent and in the lesion from the left shoulder (specimen B) concentrates around adnexal epithelium and neurovascular bundles at the base in keeping with congenital features. Dermal mitoses are not observed. Both lesions show some features superimposed irritation but melanocytic atypia is not observed. [id number] NAL [id number] NAL [id number] NAL [id number] ONAL T-[id number] NAL M-[id number] NAL [id number] NAL M-[id number] NAL [id number] NAL Ronna Jenkins MD (Electronically signed by) Verified: 04/10/20 13:15 ADD Pathologist Requested Consult Comment by Ronna Jenkins M.D.: The above consultation report was reviewed. I essentially concur with the diagnosis given. Normal [facility] Comment on above: Performed By: #### C #### [facility] [address] [place] [id number] Surgery Office/Clinic Noteon 04-04-2020 Surgery Office/Clinic Note Chief Complaint Mole removal x2. History of Present Illness Patient presents for excision of two raised darkly pigmented nevi. Review of Systems Constitutional: No Unexpected weight loss No History of diabetes Respiratory: No Shortness of breath Cardiovascular: NoChest pain or pressure, NoEdema, NoHistory of [place]/CAD, NoHistory of A-Fib : NoHesitancy, NoNocturia, NoPrior kidney disease Gastrointestinal: NoAbdominal Pain, NoConstipation, NoDiarrhea, NoHeart Burn, NoDysphagia, NoNausea, NoBlack/bloody Stools, NoVomiting, NoVomiting Blood Skin: NoLesions, NoChange in moles Musculoskeletal: NoJoint Pain Neuro: NoSeizures, NoHistory of stroke Psychiatric: NoAnxiety, NoDepression Hematological/Lymphatic : NoBruising, NoBleeding Tendencies, NoHistory of Transfusions COVID-19 Questionnaire: Symptoms: Fever No Cough No Shortness of breath No Difficulty breathing No Have you traveled outside the [place] in the past 14 days? No Have you had close contact with a confirmed COVID-19 patient? No Patient asked to call office if answers change prior to appointment. Yes Patient asked to come alone or with 1 visitor. Yes Physical Exam Two raised darkly pigmented nevi one of the left posterior shoulder region and one of the right upper shoulder/back region are excised. Each of these done through a 1cm incision. The left shoulder/back lesion was approximately 3.5 to 4mm's in diameter and the right back lesion was about 3mm's to 3.5mm's in diameter. Both of these are completely excised with full thickness skin. Both sent for path analysis. Uncertain significance of both of these lesions but have some underlying potential concern for malignancy. Both closed with deep and subcuticular 5-0 undyed Vicryl. Steristrips applied. Additional Vitals No qualifying data available. Assessment/Plan Impression:Nevi left posterior shoulder, right upper shoulder/back. Plan: I will call the patient with the path result. Scribed for Dr. Dimas by Shaina Kang. Scribe Attestation: The information in this document, created by the medical administrative for me, accurately reflects the services I personally performed and the decisions made by me. Problem List/Past Medical History Ongoing Mole Historical No qualifying data Medications ibuprofen Allergies No Known Allergies Social History Tobacco Never (less than 100 in lifetime) Use:. Family History Colon cancer: Grandfather (P). Esophageal cancer: Grandfather (M). Electronically signed by ___ Charanjit Dimas MD 04/04/20 18:28 EDT Electronically signed by ___ Lexi Brown 04/03/2020 14:13 EDT Electronically signed by ___ Shaina Kang 04/04/2020 12:16 EDT Normal [facility] Surgical Pathology Reporton 04-04-2020 Surgical Pathology Report Clinical Information Procedure: Excision of right shoulder mole Pre-operative diagnosis: Mole right shoulder SP Specimen A Right Shoulder Mole B Left Shoulder Mole Gross Description Part A: Received in formalin labeled 'right shoulder mole' is an unoriented light mendoza skin ellipse measuring 0.7 x 0.2 x 0.4 cm. There is an exophytic, oblong, charles-mendoza lesion measuring 0.4 cm in greatest dimension. The excision margin is painted with black ink. The specimen is trisected and entirely submitted in cassette A1. Part B: Received in formalin labeled 'left shoulder mole' is an unoriented, light mendoza skin ellipse measuring 0.9 x 0.4 x 0.4 cm. There is an exophytic, oblong, charles-mendoza lesion measuring 0.4 cm in greatest dimension. The excision margin is painted with black ink. The specimen is trisected and entirely submitted in cassette B1. Microscopic Description Part A: The biopsy from the right shoulder shows mostly an intradermal nevus with cells showing maturation at deeper levels. At the epidermal/dermal junction however, there are clusters of atypical melanocytes and melanophages with pigment. The findings most likely represent an irritated compound nevus. The case will be sent to [facility] for consultation to rule out an atypical or dysplastic nevus. Part B: Sections show mostly intradermal nevus with maturation at deeper levels. There are clusters of markedly atypical melanocytes at the epidermal/dermal junction. There are pigment filled macrophages. The findings most likely represent an irritated compound nevus, however the case will be sent to [facility] to rule out an atypical or dysplastic nevus. Diagnosis Part A: Right shoulder, punch biopsy: Atypical melanocytic lesion. Part B: Left shoulder, biopsy: Atypical melanocytic lesion. This case is going to [facility] for consultation. [id number] NAL [id number] ONAL [id number] [facility] [id number] NAL [id number] ONAL Ronna Jenkins MD (Electronically signed by) Verified: 04/09/20 10:08 Normal [facility] Comment on above: Performed By: #### S MO #### [facility] (DEFAULT) [address] [place] [address] .eGFRon 08-04-2019 eGFR AA >60 Normal >=60 [facility] Comment on above: Result Comment: Resu lt = 0-14.9 mL/min/1.73 m2 Kidney failure or Dialysis Result = 15-29 mL/min/1.73 m2 Severe decrease in GFR Result = 30-59 mL/min/1.73 m2 Moderate decrease in GFR Result >= 60 mL/min/1.73 m2 Normal or increased GFR Performed By: #### E GFR #### [address] [address] eGFR Non-AA >60 Normal >=60 [facility] Comment on above: Result Comment: Resu lt = 0-14.9 mL/min/1.73 m2 Kidney failure or Dialysis Result = 15-29 mL/min/1.73 m2 Severe decrease in GFR Result = 30-59 mL/min/1.73 m2 Moderate decrease in GFR Result >= 60 mL/min/1.73 m2 Normal or increased GFR Chronic kidney disease is defined as either kidney damage or GFR < 60 mL/min/1.73 m2 for >= 3 months. Kidney damage is defined as pathologic abnormalities or markers of damage including abnormalities in blood or urine tests or imaging studies. This GFR is NOT used for medication dosing. Performed By: #### E GFR #### [address] [address] CBC w/ Diffon 08-04-2019 Erythrocyte distribution width (RBC) [Ratio] 12.9 % Normal 11.6-14.8 [facility] Comment on above: Performed By: #### C BC #### [address] [address] Hematocrit (Bld) [Volume fraction] 40.4 % Normal 36.0-46.0 [facility] Comment on above: Performed By: #### C BC #### [address] [address] Hemoglobin (Bld) [Mass/Vol] 13.5 g/dL Normal 12.0-16.0 [facility] Comment on above: Performed By: #### C BC #### [address] [address] MCH (RBC) [Entitic mass] 32.0 pg Normal 27.0-35.0 [facility] Comment on above: Performed By: #### C BC #### [address] [address] MCHC (RBC) [Mass/Vol] 33.5 % Normal 31.0-37.0 [facility] Comment on above: Performed By: #### C BC #### [address] [address] MCV (RBC) [Entitic vol] 95.7 fL Normal 80.0-100.0 [facility] Comment on above: Performed By: #### C BC #### [address] [address] Platelet mean volume (Bld) [Entitic vol] 9.8 fL Normal 6.7-10.6 [facility] Comment on above: Performed By: #### C BC #### [address] [address] Platelets (Bld) [#/Vol] 226 x10*3/mcL Normal 150-350 [facility] Comment on above: Performed By: #### C BC #### [address] [address] RBC (Bld) [#/Vol] 4.23 x10*6/mcL Normal 3.80-5.20 [facility] Comment on above: Performed By: #### C BC #### [address] [address] WBC (Bld) [#/Vol] 7.4 x10*3/mcL Normal 4.5-11.0 [facility] Comment on above: Performed By: #### C BC #### [address] [address] CMPon 08-04-2019 Albumin [Mass/Vol] 4.0 g/dL Normal 3.2-4.9 [facility] [place] Comment on above: Result Comment: [facility] Laboratory updated the methodology used for albumin testing on 06/16/18. Albumin measurement was performed using a bromcresol purple dye-binding assay. Performed By: #### C OMP #### [address] [address] Albumin/Globulin [Mass ratio] 1.2 {ratio} Normal 1.1-2.2 [facility] Comment on above: Performed By: #### C OMP #### [address] [address] Alk Phos 51 IU/L Normal 32-91 [facility] Comment on above: Performed By: #### C OMP #### [address] [address] ALT [Catalytic activity/Vol] 13 U/L Low 14-54 [facility] Comment on above: Performed By: #### C OMP #### [address] [address] Anion gap [Moles/Vol] 10 mmol/L Normal 7-17 [facility] Comment on above: Performed By: #### C OMP #### [address] [address] AST [Catalytic activity/Vol] 17 U/L Normal 15-41 [facility] Comment on above: Performed By: #### C OMP #### [address] [address] Bili Total 0.8 mg/dL Normal 0.3-1.2 [facility] Comment on above: Performed By: #### C OMP #### [address] [address] Calcium [Mass/Vol] 8.9 mg/dL Normal 8.5-10.3 [facility] [place] Comment on above: Performed By: #### C OMP #### [address] [address] Chloride [Moles/Vol] 107 mmol/L Normal 98-110 [facility] Comment on above: Performed By: #### C OMP #### [address] [address] CO2 [Moles/Vol] 27 mmol/L Normal 22-32 [facility] Comment on above: Performed By: #### C OMP #### [address] [address] Creatinine [Mass/Vol] 0.84 mg/dL Normal 0.44-1.03 [facility] Comment on above: Performed By: #### C OMP #### [address] [address] Glucose [Mass/Vol] 84 mg/dL Normal 74-118 [facility] [place] Comment on above: Performed By: #### C OMP #### [address] [address] Potassium [Moles/Vol] 4.3 mmol/L Normal 3.4-4.8 [facility] Comment on above: Performed By: #### C OMP #### [address] [address] Protein [Mass/Vol] 7.2 g/dL Normal 6.5-8.1 [facility] [place] Comment on above: Performed By: #### C OMP #### [address] [address] Sodium [Moles/Vol] 140 mmol/L Normal 133-142 [facility] [place] Comment on above: Performed By: #### C OMP #### [address] [address] Urea nitrogen [Mass/Vol] 10 mg/dL Normal 8-26 [facility] Comment on above: Performed By: #### C OMP #### [address] [address] Urea nitrogen/Creatinin e [Mass ratio] 11.9 mg/mg Normal 10.0-20.0 [facility] Comment on above: Performed By: #### C OMP #### [address] [address] Diff Autoon 08-04-2019 Baso Absolute 0.0 x10*3/mcL Normal 0.0-0.2 [facility] Comment on above: Performed By: #### . Automated Diff #### [address] [address] Basophils/100 WBC (Bld) 0.2 % Normal 0.0-1.5 [facility] Comment on above: Performed By: #### . Automated Diff #### [address] [address] Eos Absolute 0.0 x10*3/mcL Normal 0.0-0.4 [facility] Comment on above: Performed By: #### . Automated Diff #### [address] [address] Eosinophils/100 WBC (Bld) 0.6 % Normal 0.0-5.4 [facility] Comment on above: Performed By: #### . Automated Diff #### [address] [address] Lymphocytes (Bld) [#/Vol] 2.3 x10*3/mcL Normal 1.0-4.8 [facility] Comment on above: Performed By: #### . Automated Diff #### [address] [address] Lymphocytes/100 WBC (Bld) 30.5 % Normal 27.2-40.8 [facility] Comment on above: Performed By: #### . Automated Diff #### [address] [address] [place] Absolute 0.5 x10*3/mcL Normal 0.1-1.1 [facility] Comment on above: Performed By: #### . Automated Diff #### [address] [address] Monocytes/100 WBC (Bld) 7.0 % Normal 3.7-11.9 [facility] Comment on above: Performed By: #### . Automated Diff #### [address] [address] Neutro Absolute 4.6 x10*3/mcL Normal 1.8-7.7 [facility] [place] Comment on above: Performed By: #### . Automated Diff #### [address] [address] Neutro Auto 61.7 % Normal 47.2-70.8 [facility] Comment on above: Performed By: #### . Automated Diff #### [address] [address] Lipid Panelon 08-04-2019 Cholesterol in LDL [Mass/Vol] 79 mg/dL Normal 0-99 [facility] Comment on above: Result Comment: The equation being used in this calculation is LDL = (Chol - HDL) - (Trig / 5) The optimal value of LDL for individual patients may vary. The patient's history of Artherosclerosis and other cardiac risk factors should be considered. Performed By: #### L BONILLA #### [address] [address] Cardiac Risk 3.1 Normal [facility] Comment on above: Result Comment: Men Women 1/2 Average 3.43 3.27 Average 4.97 4.44 2x Average 9.55 7.05 3x Average 23.99 11.04 Performed By: #### L BONILLA #### [address] [address] Cholesterol [Mass/Vol] 131 mg/dL Normal 25-199 [facility] Comment on above: Result Comment: 0 - 17 years of age: Desirable 0-170 Borderline High 170-199 High >=200 18 years and older: Acceptable <200 Borderline High 200-239 High >=240 Performed By: #### L BONILLA #### [address] [address] Cholesterol in HDL [Mass/Vol] 42.0 mg/dL Normal 40.0-60.0 [facility] Comment on above: Performed By: #### L BONILLA #### [address] [address] Cholesterol in VLDL [Mass/Vol] 10 mg/dL Normal 8-39 [facility] Comment on above: Performed By: #### L BONILLA #### [address] [address] Triglyceride [Mass/Vol] 48 mg/dL Normal [facility] Comment on above: Result Comment: 0 - 17 years of age: Trig 90 - 129 Borderline High Trig => 130 High 18 years and older: Trig 150 - 199 Borderline High Trig 200 - 499 High Trig =>500 Very High Performed By: #### L BONILLA #### [address] [address] TSHon 08-04-2019 TSH Qn 1.45 mcIU/mL Normal 0.45-5.33 [facility] Comment on above: Result Comment: Refe rence Ranges for individuals from to 18 years of age were obtained from The [employer] Edmondson Handbook (20 ed) published by [facility]. Reference Ranges for Females: Females, 1st Trimester 0.05 ? 3.7 uIU/mL Females, 2nd Trimester 0.31 ? 4.35 uIU/mL Females, 3rd Trimester 0.41 ? 5.18 uIU/mL Performed By: #### T SH #### [address] [address] Total T3on 08-04-2019 T3 Total 0.95 ng/mL Normal 0.87-1.78 [facility] Comment on above: Performed By: #### T 3R #### [address] [address] Total T4on 08-04-2019 T4 Total 6.6 mcg/dL Normal 5.0-11.5 [facility] Comment on above: Performed By: #### T 4 #### [address] [address] Encounters Encounter Date Encounter Type Care Provider Facility Start: 11-19-2023 End: 11-19-2023 ambulatory HARSHA ARMASO Not Available Start: 11-04-2023 End: 11-04-2023 ambulatory KIKE PERDOMO Not Available Start: 10-13-2023 End: 10-13-2023 ambulatory HARSHA DON Not Available Start: 12-04-2021 End: 12[facility]05[facility] 09-27-[facility]21 [facility]: 08-30-2021 End: 08-31-2021 ambulatory BRIAN VARNER Facility:[facility] Start: 08-30-2021 End: 08-31-2021 Encounter for general adult medical examination without abnormal findings BRIAN VARNER Facility:[facility] Start: 08-04-2019 End: 08-05-2019 Patient encounter procedure MASON DELEON Facility:[facility] Payers Date Payer Category Payer Unknown [id number] 2019 Unknown 1995 Unknown [id number] 2.16.8 [id number] 1995 Unknown [id number] 2.16.8 [id number] 1995 Unknown [id number] 2.16.84 [id number] 1995 Unknown [id number] 2.16.84 [id number] 1995 Unknown [id number] 1995 Unknown [id number] 1959 Unknown [id number] Summary Purpose Family History No Family History Records FoundNo Family History Records FoundNo Family History Records FoundNo Family History Records Found Advance Directives No Advanced Directives Records FoundNo Advanced Directives Records FoundNo Advanced Directives Records FoundNo Advanced Directives Records Found Additional Source Comments INFORMATION SOURCE (unrecogn ized section and content) DATE CREATED AUTHOR 04/13/2020 [facility] DATE CREATED AUTHOR AUTHOR'S ORGANIZ ATION 12/17/2021 [facility] DATE CREATED AUTHOR AUTHOR'S ORGANIZ ATION 07/04/[address] [facility] DATE CREATED AUTHOR AUTHOR'S ORGANIZ ATION 11/20/2023 [facility] EPIC FOR RECORDS PERTAINING TO PATIENTS WHO ARE OR HAVE BEEN ENROLLED IN A CHEMICAL DEPENDENCY/SUBSTANCEABUSE PROGRAM, SOME INFORMATION MAY BE OMITTED. This clinical summary was aggregated from multiple sources. Caution should be exercised in using it in the provision of clinical care. This summary normalizes information from multiple sources, and as a consequence, information in this document may materially change the coding, format and clinical context of patient data. In addition, data may be omitted in some cases. CLINICAL DECISIONS SHOULD BE BASED ON THE PRIMARY CLINICAL RECORDS. [facility]. provides no warranty or guarantee of the accuracy or completeness of information in this document.
== END 2023-11-25 22:06 | disposition home or self-care (01) ==
LOC: LAB 22:05
PROVIDERS: PCP Family Medicine; Visit Provider Obstetrics & Gynecology
DX: Z34.93 Encounter for supervision of normal pregnancy, unspecified, third trimester (principal)
CPT/HCPCS: 87081

== ENCOUNTER 2023-12-26 17:00 | Inpatient (IN) | payer BC, SELFPAY ==
[2023-12-26] VITALS (27 sets, daily range): BP systolic 97–166; BP diastolic 52–77; PULSE 83–126; RESP 16–18; TEMP 36.1–36.6
--- OUTSIDE RECORDS SUMMARY | 2023-12-26 15:47 | XMS_ITS | CCD ---
Author Name Unknown Address [address] [place] [address] Organization [facility] Care Team Providers Care Campaign Advisor Name Role Phone MASON DELEON Attending Unavailable Mason Deleon Primary Care Unavailable BEBETO AMEZQUITA Referring Unavailable MASON DELEON Primary Care Unavailable BRIAN VARNER Attending Unavailable BRIAN VARNER Consulting Unavailable BRIAN VARNER Admitting Unavailable DR MASON DELEON Primary Care Unavailable aMson Deleon MD Primary Care Provider [phone] KIKE PERDOMO Attending Unavailable HARSHA MORAES Attending Unavailable DIMITRY, HARSHA Attending Unavailable KIKE PERDOMO Attending Unavailable DIMITRY, HARSHA Attending Unavailable DIMITRY, HARSHA Attending Unavailable DIMITRY, HARSHA Attending Unavailable HARSHA MORAES Attending Unavailable Problems Problem Classification Problem Date Documented Da te Episodic/Chronic Other and delivery including normal (8 sources) Third trimester ; Translations: [Encounter for supervision of normal , unspecified, third trimester] Onset: 11-19-2023 12-10-2023 Episodic Prolonged (2 sources) Post-term ; Translations: [Post-term ] 12-23-2023 Episodic Results Test Name Value Interpretation Reference Range Facility Urinalysis macro (dipstick) panel (U)on 12-23-2023 Bilirubin, UA Negative Negative - 4(70) +++ mg/dL [facility] Blood, UA Negative Negative - 50 Gulshan/mcL [facility] Clarity, UA Clear [facility] Color, UA Yellow [facility] Glucose, UA Negative Negative - 2000(110) ++++ mg/dL [facility] Interpretation and review of laboratory results Normal [facility] Ketones, UA Negative Negative - 160(16) ++++ mg/dL [facility] Leukocytes, UA Negative Negative - 500+++ Stefan/mcL [facility] Nitrite, UA Negative Negative - Positive [facility] pH, UA 5.5 5 - 9 [facility] Protein, UA Negative Negative - 1999(20) ++++ mg/dL [facility] Spec Grav, UA 1.020 1 - 1.03 [facility] Urobilinogen, UA 1.0 0.2 - 12 mg/dL [facility]inalysis macro (dipstick) panel (U)on 12-16-2023 Bilirubin, UA Negative Negative - 4(70) +++ mg/dL [facility] Blood, UA Negative Negative - 50 Gulshan/mcL [facility] Clarity, UA Clear [facility] re Color, UA Yellow [facility] Health[facility] e Glucose, UA Negative Negative - 1999(110) ++++ mg/dL [facility] Interpretation and review of laboratory results [facility] Ketones, UA Negative Negative - 160(16) ++++ mg/dL [facility] Leukocytes, UA Negative Negative - 500+++ Stefan/mcL [facility] Nitrite, UA Negative Negative - Positive [facility] pH, UA 5.5 5 - 9 [facility] Health[facility] Protein, UA Negative Negative - 1999(20) ++++ mg/dL [facility] Spec Grav, UA 1.005 1 - 1.03 [facility] Urobilinogen, UA 0.2 0.2 - 12 mg/dL [facility] HPV DNA High Riskon 12-06-19 22 [facility] Comment on above: Result Comment: This test [...] other forensic purposes. Performed By: #### H PVH #### [address] [address] Representative Personal Service: Ulisses Gold MD HPV Type 16 Not detected [facility] Comment on above: Performed By: #### H PVH #### [address] [address] Representative Personal Service: Ulisses Gold MD HPV Type 18 Not detected [facility] Comment on above: Performed By: #### H PVH #### [address] [address] Representative Personal Service: Ulisses Gold MD Other High Risk HPV Not detected [facility] Comment on above: Performed By: #### H PVH #### [address] [address] Representative Personal Service: Ulisses Gold MD HPV DNA High Riskon 12-05-19 22 Source .GENITAL - NOT SPECIFIED [facility] Comment on above: Performed By: #### H PVH #### [address] [address] Representative Personal Service: Ulisses Gold MD HPV Sample .THIN PREP [facility] Comment on above: Performed By: #### H PVH #### [address] [address] Representative Personal Service: Ulisses Gold MD Cytologyon 12-04-2021 Cytology (NOTE) INTERPRETATION Cervical material, (ThinPrep vial, Imaging-assisted review): Specimen Adequacy: Satisfactory for evaluation. -Endocervical/transfor mation zone component is absent. Descriptive Diagnosis: Negative for intraepithelial lesion or malignancy. 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 Co-Test: ThinPrep Pap with high risk HPV testing GYNECOLOGIC CYTOLOGY REPORT Patient Name: SURJIT AVINA [facility] Rec: [id number] Path Number: [id number] [facility] ANATOMIC PATHOLOGY [address] [place] [phone] Normal [facility] Comment on above: Performed By: #### P PPVP #### [facility] [employer] [address] [place] [address] [phone] Representative Personal Service: Ulisses Gold MD QUANTIFERON TB GOLD PLUS (NO N-INC)on 09-05-2021 Comment Incubation performed. Normal [facility] Comment on above: Performed By: #### Q NTTBG #### [facility] [id number] Hetal Linn Criteria Comment Normal [facility] Comment on above: Result Comment: The QuantiFERON-TB Gold Plus result is determined by subtracting the Nil value from either TB antigen (Ag) tube. The mitogen tube serves as a control for the test. Performed By: #### Q NTTBG #### [facility] [address] [place] [address] Dr. Hetal Linn Mitogen Value >10.[address] [facility] Comment on above: Performed By: #### Q NTTBG #### [facility] [address] [place] [address] Dr. Hetal Linn Nill Value 0.06 IU/mL Normal [facility] Comment on above: Performed By: #### Q NTTBG #### [facility] [address] [place] [address] Dr. Hetal Linn Quantiferon Gold Plus Negative Normal Negative [facility] Comment on above: Result Comment: Chem iluminescence immunoassay methodology Performed By: #### Q NTTBG #### [facility] [address] [place] [address] Dr. Hetal Linn TB1 Ag Value 0.10 IU/mL Normal [facility] Comment on above: Performed By: #### Q NTTBG #### [facility] [address] [place] [address] Dr. Hetal Linn TB2 Ag Value 0.08 IU/mL Normal [facility] Comment on above: Performed By: #### Q NTTBG #### [facility] [address] [place] [address] Dr. Hetal Linn HEPATITIS B SURFACE ANTIBODY , QUANTon 08-31-2021 Hepatitis B Surf AB Quant 202.1 mIU/mL Normal Immunity>9.9 [facility] Comment on above: Result Comment: Stat us of Immunity Anti-HBs Level Inconsistent with Immunity 0.0 - 9.9 Consistent with Immunity >9.9 Performed By: #### H EPBSRF #### [facility] [address] [place] [address] Dr. Hetal Linn MMR IMMUNITYon 08-31-2021 Mumps Abs, IgG 24.8 AU/mL Normal Immune >10.9 [facility] Comment on above: Result Comment: Nega tive <9.0 Equivocal 9.0 - 10.9 Positive >10.9 A positive result generally indicates past exposure to Mumps virus or previous vaccination. Performed By: #### M MRIMMU #### [facility] [address] [address] [address] Hetal Linn Rubella Antibodies, IgG 1.14 index Normal Immune >0.99 [facility] Comment on above: Result Comment: Non- immune <0.90 Equivocal 0.90 - 0.99 Immune >0.99 Performed By: #### M MRIMMU #### [facility] [address] [address] [address] Hetal Linn Rubeola Ab, IgG 26.6 AU/mL Normal Immune >16.4 [facility] Comment on above: Result Comment: Nega tive <13.5 Equivocal 13.5 - 16.4 Positive >16.4 Presence of antibodies to Rubeola is presumptive evidence of immunity except when acute infection is suspected. Performed By: #### M MRIMMU #### [facility] [address] [place] [address] Dr. Hetal Linn VARICELLA IGG ABon 1 Varicella Zoster IgG 1376 index Normal Immune >165 [facility] Comment on above: Result Comment: Nega tive <135 Equivocal 135 - 165 Positive >165 A positive result generally indicates exposure to the pathogen or administration of specific immunoglobulins, but it is not indication of active infection or stage of disease. Performed By: #### V ARCEL #### [facility] [address] [place] [address] Dr. Hetal Linn Addendum Reporton 04-10-2020 Addendum Report Missing Attachment Chartable Reference Lab Reports Can be viewed in source system Addendum Discussion [facility], SILVANA, #[id number], Date reported: 04/10/2020: Diagnosis: A. Skin of [...] irritation but melanocytic atypia is not observed. [id number] ONAL [id number] ONAL [id number] ONAL [id number] IONAL [id number] ONAL [id number] ONAL [id number] ONAL [id number] ONAL [id number] ONAL Ronna Jenkins MD (Electronically signed by) Verified: 04/10/20 13:15 ADD Pathologist Requested Consult Comment by Ronna Jenkins M.D.: The above consultation report was reviewed. I essentially concur with the diagnosis given. Normal [facility] Comment on above: Performed By: #### C #### [place] [address] Surgery Office/Clinic Noteon 04-04-2020 Surgery Office/Clinic Note Chief Complaint Mole removal x2. History of Present Illness Patient presents for excision of two raised darkly pigmented nevi. Review of Systems Constitutional: No Unexpected weight loss No History of diabetes Respiratory: No Shortness of breath Cardiovascular: NoChest pain or pressure, NoEdema, NoHistory of IN/CAD, NoHistory of A-Fib : NoHesitancy, NoNocturia, NoPrior kidney disease Gastrointestinal: NoAbdominal Pain, NoConstipation, NoDiarrhea, NoHeart Burn, NoDysphagia, NoNausea, NoBlack/bloody Stools, NoVomiting, NoVomiting Blood Skin: NoLesions, NoChange in moles Musculoskeletal: NoJoint Pain Neuro: NoSeizures, NoHistory of stroke Psychiatric: NoAnxiety, NoDepression Hematological/Lymphati c: NoBruising, NoBleeding Tendencies, NoHistory of Transfusions COVID-19 [...] in this document, created by the medical office representative for me, accurately reflects the services I personally performed and the decisions made by me. Problem List/Past Medical History Ongoing Mole Historical No qualifying data Medications ibuprofen Allergies No Known Allergies Social History Tobacco Never (less than 100 in lifetime) Use:. Family History Colon cancer: Grandfather (P). Esophageal cancer: Grandfather (M). Electronically signed by Charanjit Dimas MD 04/04/20 18:28 EDT Electronically signed by Lexi Brown 04/03/2020 14:13 EDT Electronically signed by Shaina Kang 04/04/2020 12:16 EDT Normal [facility] Surgical Pathology Reporton 04-04-2020 Surgical Pathology Report [...] case is going to [facility] for consultation. [id number] ONAL [id number] IONAL [id number] ONAL [id number] ONAL [id number] IONAL Ronna Jenkins MD (Electronically signed by) Verified: 04/09/20 10:08 Normal [facility] Comment on above: Performed By: #### S [place] #### [facility] (DEFAULT) [address] [place] [address] .eGFRon 08-04-2019 eGFR AA >60 Normal >=60 [facility] Comment on above: Result Comment: Resu lt = 0-14.9 mL/min/1.73 m2 Kidney failure or Dialysis Result = 15-29 mL/min/1.73 m2 Severe decrease in GFR Result = 30-59 mL/min/1.73 m2 Moderate decrease in GFR Result >= 60 mL/min/1.73 m2 Normal or increased GFR Performed By: #### E GFR #### [address] [address] eGFR Non-AA >60 Normal >=60 [facility] Comment on above: Result Comment: Resu lt [...] dosing. Performed By: #### E GFR #### [address] [address] CBC w/ Diffon 08-04-2019 Erythrocyte distribution width (RBC) [Ratio] 12.9 % Normal 11.6-14.8 [facility] Comment on above: Performed By: #### C BC #### [address] [address] Hematocrit (Bld) [Volume fraction] 40.4 % Normal 36.0-46.0 [facility] Comment on above: Performed By: #### C BC #### [address] [address] Hemoglobin (Bld) [Mass/Vol] 13.5 g/dL Normal 12.0-16.0 [facility] Comment on above: Performed By: #### C BC #### [address] [address] MCH (RBC) [Entitic mass] 32.0 pg Normal 27.0-35.0 [facility] Comment on above: Performed By: #### C BC #### [address] [address] MCHC (RBC) [Mass/Vol] 33.5 % Normal 31.0-37.0 [facility] Comment on above: Performed By: #### C BC #### [address] [address] MCV (RBC) [Entitic vol] 95.7 fL Normal 80.0-100.0 [facility] Comment on above: Performed By: #### C BC #### [address] [address] Platelet mean volume (Bld) [Entitic vol] 9.8 fL Normal 6.7-10.6 [facility] Comment on above: Performed By: #### C BC #### [address] [address] Platelets (Bld) [#/Vol] 226 x10*3/mcL Normal 150-350 [facility] Comment on above: Performed By: #### C BC #### [address] [address] RBC (Bld) [#/Vol] 4.23 x10*6/mcL Normal 3.80-5.20 [facility] Comment on above: Performed By: #### C BC #### [address] [address] WBC (Bld) [#/Vol] 7.4 x10*3/mcL Normal 4.5-11.0 [facility] Comment on above: Performed By: #### C BC #### [address] [address] CMPon 08-04-2019 Albumin [Mass/Vol] 4.0 g/dL Normal 3.2-4.9 [facility] Comment on above: Result Comment: [facility] Laboratory updated the methodology used for albumin testing on 06/16/18. Albumin measurement was performed using a bromcresol purple dye-binding assay. Performed By: #### C OMP #### [address] [address] Albumin/Globulin [Mass ratio] 1.2 {ratio} Normal 1.1-2.2 [facility] Comment on above: Performed By: #### C OMP #### [address] [address] Alk Phos 51 IU/L Normal 32-91 [facility] Comment on above: Performed By: #### C OMP #### [address] [address] ALT [Catalytic activity/Vol] 13 U/L Low 14-54 [facility] Comment on above: Performed By: #### C OMP #### [address] [address] Anion gap [Moles/Vol] 10 mmol/L Normal 7-17 [facility] Comment on above: Performed By: #### C OMP #### [address] [address] AST [Catalytic activity/Vol] 17 U/L Normal 15-41 [facility] Comment on above: Performed By: #### C OMP #### [address] [address] Bili Total 0.8 mg/dL Normal 0.3-1.2 [facility] Comment on above: Performed By: #### C OMP #### [address] [address] Calcium [Mass/Vol] 8.9 mg/dL Normal 8.5-10.3 [facility] Comment on above: Performed By: #### C OMP #### [address] [address] Chloride [Moles/Vol] 107 mmol/L Normal 98-110 [facility] Comment on above: Performed By: #### C OMP #### [address] [address] CO2 [Moles/Vol] 27 mmol/L Normal 22-32 [facility] Comment on above: Performed By: #### C OMP #### [address] [address] Creatinine [Mass/Vol] 0.84 mg/dL Normal 0.44-1.03 [facility] Comment on above: Performed By: #### C OMP #### [address] [address] Glucose [Mass/Vol] 84 mg/dL Normal 74-118 [facility] Comment on above: Performed By: #### C OMP #### [address] [address] Potassium [Moles/Vol] 4.3 mmol/L Normal 3.4-4.8 [facility] Comment on above: Performed By: #### C OMP #### [address] [address] Protein [Mass/Vol] 7.2 g/dL Normal 6.5-8.1 [facility] Comment on above: Performed By: #### C OMP #### [address] [address] Sodium [Moles/Vol] 140 mmol/L Normal 133-142 [facility] Comment on above: Performed By: #### C OMP #### [address] [address] Urea nitrogen [Mass/Vol] 10 mg/dL Normal 8-26 [facility] Comment on above: Performed By: #### C OMP #### [address] [place] [address] Urea nitrogen/Creatinine [Mass ratio] 11.9 mg/mg Normal 10.0-20.0 [facility] Comment on above: Performed By: #### C OMP #### [address] [address] Diff Autoon 08-04-2019 Baso Absolute 0.0 x10*3/mcL Normal 0.0-0.2 [facility] Comment on above: Performed By: #### . Automated Diff #### [address] [address] Basophils/100 WBC (Bld) 0.2 % Normal 0.0-1.5 [facility] Comment on above: Performed By: #### . Automated Diff #### [address] [address] Eos Absolute 0.0 x10*3/mcL Normal 0.0-0.4 [facility] Comment on above: Performed By: #### . Automated Diff #### [address] [address] Eosinophils/100 WBC (Bld) 0.6 % Normal 0.0-5.4 [facility] Comment on above: Performed By: #### . Automated Diff #### [address] [address] Lymphocytes (Bld) [#/Vol] 2.3 x10*3/mcL Normal 1.0-4.8 [facility] Comment on above: Performed By: #### . Automated Diff #### [address] [address] Lymphocytes/100 WBC (Bld) 30.5 % Normal 27.2-40.8 [facility] Comment on above: Performed By: #### . Automated Diff #### [address] [address] Swift Absolute 0.5 x10*3/mcL Normal 0.1-1.1 [facility] Comment on above: Performed By: #### . Automated Diff #### [address] [address] Monocytes/100 WBC (Bld) 7.0 % Normal 3.7-11.9 [facility] Comment on above: Performed By: #### . Automated Diff #### [address] [address] Neutro Absolute 4.6 x10*3/mcL Normal 1.8-7.7 [facility] Comment on above: Performed By: #### . Automated Diff #### [address] [address] Neutro Auto 61.7 % Normal 47.2-70.8 [facility] Comment on above: Performed By: #### . Automated Diff #### [address] [address] Lipid Panelon 08-04-2019 Cholesterol in LDL [Mass/Vol] 79 mg/dL Normal 0-99 [facility] Comment on above: Result Comment: The equation being used in this calculation is LDL = (Chol - HDL) - (Trig / 5) The optimal value of LDL for individual patients may vary. The patient's history of Artherosclerosis and other cardiac risk factors should be considered. Performed By: #### L BONILLA #### [address] [address] Cardiac Risk 3.1 Normal [facility] Comment on above: Result Comment: Men Women 1/2 Average 3.43 3.27 Average 4.97 4.44 2x Average 9.55 7.05 3x Average 23.99 11.04 Performed By: #### L BONILLA #### [address] [address] Cholesterol [Mass/Vol] 131 mg/dL Normal 25-199 [facility] Comment on above: Result Comment: 0 - 17 years of age: Desirable 0-170 Borderline High 170-199 High >=200 18 years and older: Acceptable <200 Borderline High 200-239 High >=240 Performed By: #### L BONILLA #### [address] [address] Cholesterol in HDL [Mass/Vol] 42.0 mg/dL Normal 40.0-60.0 [facility] Comment on above: Performed By: #### L BONILLA #### [address] [address] Cholesterol in VLDL [Mass/Vol] 10 mg/dL Normal 8-39 [facility] Comment on above: Performed By: #### L BONILLA #### [address] [address] Triglyceride [Mass/Vol] 48 mg/dL Normal [facility] Comment on above: Result Comment: 0 - 17 years of age: Trig 90 - 129 Borderline High Trig => 130 High 18 years and older: Trig 150 - 199 Borderline High Trig 200 - 499 High Trig =>500 Very High Performed By: #### L BONILLA #### [address] [address] TSHon 08-04-2019 TSH Qn 1.45 mcIU/mL Normal 0.45-5.33 [facility] Comment on above: Result Comment: Refe rence Ranges for individuals from to 18 years of age were obtained from The [employer] Handbook (20 ed) published by [facility]. Reference Ranges for Females: Females, 1st Trimester 0.05 ? 3.7 uIU/mL Females, 2nd Trimester 0.31 ? 4.35 uIU/mL Females, 3rd Trimester 0.41 ? 5.18 uIU/mL Performed By: #### T SH #### [address] [address] Total T3on 08-04-2019 T3 Total 0.95 ng/mL Normal 0.87-1.78 [facility] Comment on above: Performed By: #### T 3R #### [address] [address] Total T4on 08-04-2019 T4 Total 6.6 mcg/dL Normal 5.0-11.5 [facility] Comment on above: Performed By: #### T 4 #### [address] [address] Vital Signs Date Time Vital Sign Value Performing Clinician [place] 12-23-2023 14:45-0500 Body mass index (BMI) [Ratio] 29.49 kg/m2 Harsha Dimitry DO Work Phone: [facility] 12-23-2023 14:45-0500 Body weight 77.93 kg Harsha Dimitry DO Work Phone: [facility] 12-23-2023 14:45-0500 Diastolic blood pressure 76 mm[Hg] Harsha Dimitry DO Work Phone: [facility] 12-23-2023 14:45-0500 Systolic blood pressure 118 mm[Hg] Harsha Dimitry DO Work Phone: [facility] 12-16-2023 14:06-0500 Body mass index (BMI) [Ratio] 29.32 kg/m2 Harsha Dimitry DO Work Phone: [facility] 12-16-2023 14:06-0500 Body weight 77.47 kg Harsha Dimitry DO Work Phone: [facility] 12-16-2023 14:06-0500 Diastolic blood pressure 70 mm[Hg] Harsha Dimitry DO Work Phone: [facility] 12-16-2023 14:06-0500 Systolic blood pressure 120 mm[Hg] Harsha Dimitry DO Work Phone: [facility] Healthcare Encounters Encounter Date Encounter Type Care Provider Facility Start: 12-23-2023 End: 12-23-2023 ambulatory HARSHA DIMITRY Not Available Start: 12-23-2023 End: 12-23-2023 flow sheet Harsha Dimitry DO Work Phone: [facility] Comment on above: Third trimester preg rajinder; Post term over 40 weeks Start: 12-16-2023 End: 12-16-2023 ambulatory HARSHA DIMITRY Not Available Start: 12-16-2023 End: 12-16-2023 flow sheet Harsha Dimitry DO Work Phone: [facility] Comment on above: Third trimester preg rajinder Start: 12-09-2023 End: 12-09-2023 ambulatory HARSHA DIMITRY Not Available Start: 12-03-2023 End: 12-03-2023 ambulatory KIKE PERDOMO Not Available Start: 11-25-2023 End: 11-25-2023 ambulatory HARSHA DIMITRY Not Available Start: 11-19-2023 End: 11-19-2023 ambulatory HARSHA DIMITRY Not Available Start: 11-04-2023 End: 11-04-2023 ambulatory KIKE PERDOMO Not Available Start: 10-13-2023 End: 10-13-2023 ambulatory HARSHA DIMITRY Not Available Start: 12-04-2021 End: 12-05-2021 [facility] Start: 09-27-2021 Encounter for genera l adult medical examination without abnormal findings BRIAN VARNER [facility] Start: 08-30-2021 End: 08-31-2021 ambulatory BRIAN VARNER Facility:[facility] Start: 08-30-2021 End: 08-31-2021 Encounter for general adult medical examination without abnormal findings BRIAN VARNER Facility: Start: 08-04-2019 End: 08-05-2019 Patient encounter procedure MASON DELEON Facility:[facility] Procedures Date Procedure Procedure Detail Performing Clinician Start: 12-23-2023 Urnls dip stick/tabl et rgnt non-auto w/o micrscp Harsha Dimitry DO Work Phone: Start: 12-16-2023 Urnls dip stick/tabl et rgnt non-auto w/o micrscp Harsha Dimitry DO Work Phone: Plan of Treatment Date Care Activity Detail Author Start: 12-23-2023 End: 12-23-2023 Patient encounter procedure 12/23/2023 2:30 PM EST Routine [facility] [address] [place] [id number] Harsha Moraes, DO [address] [place] [address] Third trimester [facility] Comment on above: Third trimester preg rajinder Start: 12-23-2023 End: 12-23-2024 US biophysical profile w non stress test US biophysical profile w non stress test Imaging Routine Post term over 40 weeks Expected: 12/23/2023 (Approximate), Expires: 12/23/2024 [facility] Healthcare Work Phone: Comment on above: Expected: 12/23/2023 (Approximate), Expires: 12/23/2024 Payers Date Payer Category Payer Unknown [id number] 2019 Unknown 1995 Unknown [id number] 2.16.8 [id number] 1995 Unknown [id number] 2.16.8 [id number] 1995 Unknown [id number] 2.16.84 [id number] 1995 Unknown [id number] 2.16.84 [id number] 1995 Unknown [id number] 2.16.84 [id number] 1995 Unknown [id number] 2.16.84 [id number] 1995 Unknown [id number] 2.16.84 [id number] 1995 Unknown [id number] 2.16.84 [id number] 1995 Unknown [id number] 2.16.84 [id number] 1995 Unknown [id number] 2.16.840 .[id number] 1995 Unknown [id number] 2.16.840 .[id number] 1959 Unknown [id number] Social History Date Type Detail Facility Start: 06-18-2023 Tobacco smoking status HIIS Never sm oked tobacco [facility] Start: 12-16-2023 End: 12-23-2023 Alcohol intake Current drinker of alcohol (finding) [facility] Start: 06-18-2023 End: 08-31-2023 [facility] of [facility] Start: 06-18-2023 End: 08-31-2023 Alcohol Use Disorder Identification Test - Consumption [AUDIT-C] [facility] Frequency of Alcohol Consumption Not on file [facility] How often do you hav e 6 or more drinks on 1 occasion? Never [facility] Start: 04-03-2023 [facility] Start: 1995 Sex Assigned At Female [facility] Start: 04-23-2023 Gender identity Identifies as female gender (finding) [facility] Start: 04-23-2023 Sexual orientation Heterosexual (fin ding) [facility] History of Present illness Narrative 12-23-2023 Payton Mauro, FORD - 12/23/2023 2:30 PM EST Note Date & Type Note Facility 12-23-2023 History of Presen t illness Narrative Reason for Appointment: Patient ID: Surjit Avina is a 28 y.o. female who presents for Routine Visit Patient presents today for Return OB appointment. Current Medications: currently has no medications in their medication list. Medical History: Active Ambulatory Problems Diagnosis Date Noted Third trimester 11/19/2023 Resolved Ambulatory Problems Diagnosis Date Noted No Resolved Ambulatory Problems No Additional Past Medical History No family history on file. Social History Tobacco Use Smoking status: Never Smokeless tobacco: Not on file Substance Use Topics Alcohol use: Yes Drug use: Not on file History reviewed. No pertinent surgical history. No Known Allergies Review of Systems: Review of Systems Constitutional: Negative. HENT: Negative. Eyes: Negative. Respiratory: Negative. Cardiovascular: Negative. Gastrointestinal: Negative. Genitourinary: Negative. Musculoskeletal: Negative. Skin: Negative. Neurological: Negative. All other systems reviewed and are negative. Hematological: Negative. Endocrine: Negative. Allergic/Immunologic: Negative. Objective Physical Exam Constitutional: Appearance: Normal appearance. She is well-developed. Genitourinary: Vulva normal. Cardiovascular: Rate and Rhythm: Normal rate and regular rhythm. Pulmonary: Effort: Pulmonary effort is normal. Breath sounds: Normal breath sounds. Abdominal: General: Bowel sounds are normal. There is no distension. Palpations: Abdomen is soft. Tenderness: There is no abdominal tenderness. There is no guarding or rebound. Musculoskeletal: General: No swelling. Normal range of motion. Right lower leg: No edema. Left lower leg: No edema. Neurological: Mental Status: She is alert and oriented to person, place, and time. Skin: General: Skin is warm and dry. Psychiatric: Mood and Affect: Mood normal. Behavior: Behavior normal. Vitals and nursing note reviewed. Exam conducted with a senior sales assistant present. Vitals: Estimated body mass index is 29.49 kg/m as calculated from the following: Height as of 05/22/23: 5' 4 . Weight as of this encounter: 171 lb 12.8 oz. BP: 118/76 Patient's last menstrual period was 03/20/2023 (exact date). Assessment/Plan Encounter Diagnosis Name Primary? Third trimester Patient presents today for a routine obstetrics appointment. Patient is currently 39w5d . Patient states she is doing well but has complaints of being tired due to current . Patient has verbalizes frequent movement. labor precautions was discussed/given and patient was instructed to perform kick counts three times a day. Pt is getting to postdates- NST/BPPs ordered Follow Up: Patient is to return to office in 1 week for routine OB appointment. Documented by Payton Mauro LPN on behalf of: Harsha Moraes DO documented in this encounter [facility] History of Present illness Narrative 12-16-2023 Payton Mauro LPN - 12/16/2023 2:00 PM EST Note Date & Type Note Facility 12-16-2023 History of Presen t illness Narrative Reason for Appointment: Patient ID: Surjit Avina is a 28 y.o. female who presents for Routine Visit Patient presents today for Return OB appointment. Current Medications: currently has no medications in their medication list. Medical History: Active Ambulatory Problems Diagnosis Date Noted Third trimester 11/19/2023 Resolved Ambulatory Problems Diagnosis Date Noted No Resolved Ambulatory Problems No Additional Past Medical History No family history on file. Social History Tobacco Use Smoking status: Never Smokeless tobacco: Not on file Substance Use Topics Alcohol use: Yes Drug use: Not on file History reviewed. No pertinent surgical history. No Known Allergies Review of Systems: Review of Systems Constitutional: Negative. HENT: Negative. Eyes: Negative. Respiratory: Negative. Cardiovascular: Negative. Gastrointestinal: Negative. Genitourinary: Negative. Musculoskeletal: Negative. Skin: Negative. Neurological: Negative. All other systems reviewed and are negative. Hematological: Negative. Endocrine: Negative. Allergic/Immunologic: Negative. Objective Physical Exam Constitutional: Appearance: Normal appearance. She is well-developed. Genitourinary: Vulva normal. Cardiovascular: Rate and Rhythm: Normal rate and regular rhythm. Pulmonary: Effort: Pulmonary effort is normal. Breath sounds: Normal breath sounds. Abdominal: General: Bowel sounds are normal. There is no distension. Palpations: Abdomen is soft. Tenderness: There is no abdominal tenderness. There is no guarding or rebound. Musculoskeletal: General: No swelling. Normal range of motion. Right lower leg: No edema. Left lower leg: No edema. Neurological: Mental Status: She is alert and oriented to person, place, and time. Skin: General: Skin is warm and dry. Psychiatric: Mood and Affect: Mood normal. Behavior: Behavior normal. Vitals and nursing note reviewed. Exam conducted with a senior sales assistant present. Vitals: Estimated body mass index is 29.32 kg/m as calculated from the following: Height as of 05/22/23: 5' 4 . Weight as of this encounter: 170 lb 12.8 oz. BP: 120/70 Patient's last menstrual period was 03/20/2023 (exact date). Assessment/Plan Encounter Diagnosis Name Primary? Third trimester Patient presents today for a routine obstetrics appointment. Patient is currently 38w5d . Patient states she is doing well but has complaints of being tired due to current . Patient has verbalizes frequent movement. labor precautions was discussed/given and patient was instructed to perform kick counts three times a day. Follow Up: Patient is to return to office in 1 week for routine OB appointment. Documented by Payton Mauro LPN on behalf of: Harsha Moraes DO documented in this encounter [facility] Evaluation note Note Date & Type Note Facility Evaluation note Diagnosis Third trimester state, incidental Third trimester state, incidental documented in this encounter [facility] Evaluation note Note Date & Type Note Facility Evaluation note Diagnosis Third trimester state, incidental Post term over 40 weeks documented in this encounter [facility] Summary Purpose Family History No Family History Records FoundNo Family History Records FoundNo Family History Records FoundNo Family History Records Found Advance Directives No Advanced Directives Records FoundNo Advanced Directives Records FoundNo Advanced Directives Records FoundNo Advanced Directives Records Found Additional Source Comments INFORMATION SOURCE (unrecogn ized section and content) DATE CREATED AUTHOR 04/13/2020 [facility] DATE CREATED AUTHOR AUTHOR'S ORGANIZ ATION 12/17/2021 [facility] DATE CREATED AUTHOR AUTHOR'S ORGANIZ ATION 07/04/2022 [facility] DATE CREATED AUTHOR AUTHOR'S ORGANIZ ATION 12/25/2023 [facility] EP[facility] Reason for Visit (unrecogniz ed section and content) Reason Comments Routine Visit Care Teams (unrecognized sec tion and content) Campaign Advisor Relationship Specialty Start Date End Date Mason Deleon MD [address] [place] [id number] PCP - General 05/15/23 FOR RECORDS PERTAINING TO PATIENTS WHO ARE [...] BE BASED ON THE PRIMARY CLINICAL RECORDS. [facility] [employer] [facility]. provides no warranty or guarantee of the accuracy or completeness of information in this document.
[2023-12-26 16:59] LABS: Bilirubin Urine NEGATIVE (NEGATIVE); Blood Urine MODERATE (NEGATIVE); Clarity Urine CLEAR (CLEAR); Color Urine LT. YELLOW (YELLOW); Glucose Urine UA NEGATIVE (NEGATIVE); Ketones Urine 15 mg/dL (NEGATIVE); Leukocyte Esterase Urine LARGE (NEGATIVE); Nitrite Urine NEGATIVE (NEGATIVE); Protein Urine NEGATIVE (NEG/TRACE); Specific Gravity Urine 1.025 (1.005-1.025); Urobilinogen Urine 0.2 EU/dL (0.2-1.0)
[2023-12-26 17:03] LABS: Urine Microscopic Indicated YES
[2023-12-26 17:11] LABS: Bacteria Urine MODERATE #/HPF (NONE SEEN); Mucus Urine NONE SEEN (NONE SEEN); Squamous Epithelial Cell Urine MODERATE #/LPF (NONE/RARE); WBC Urine 20-50 #/HPF (NONE SEEN)
[2023-12-26 17:12] LABS: Cast Seen? NONE SEEN #/LPF (NONE SEEN); Crystals Seen? None Seen #/HPF (None Seen); Urine Culture Indicated YES
--- OUTSIDE RECORDS SUMMARY | 2023-12-26 17:14 | XMS_ITS | CCD ---
Author Name Unknown Address [address] [place] [address] Organization [facility] Care Team Providers Care Hog Sticker Name Role Phone MASON DELEON Attending Unavailable Mason Deleon Primary Care Unavailable BEBETO AMEZQUITA Referring Unavailable MASON DELEON Primary Care Unavailable BRIAN VARNER Attending Unavailable BRIAN VARNER Consulting Unavailable BRIAN VARNER Admitting Unavailable DR MASON DELEON Primary Care Unavailable Mason Deleon MD Primary Care Provider [phone] KIKE PERDOMO Attending Unavailable HARSHA MORAES Attending [...] UA Negative Negative - 4(70) +++ mg/dL [facility] Blood, UA Negative Negative - 50 Gulshan/mcL [facility] Clarity, UA Clear [facility] Color, UA Yellow [facility] Glucose, UA Negative Negative - 2000(110) ++++ mg/dL [facility] Interpretation and review of laboratory results Normal [facility] Ketones, UA Negative Negative - 160(16) ++++ mg/dL [facility] Leukocytes, UA Negative Negative - 500+++ Stefan/mcL [facility] Nitrite, UA Negative Negative - Positive [facility] pH, UA 5.5 5 - 9 [facility] Protein, UA Negative Negative - 1999(20) ++++ mg/dL [facility] Spec Grav, UA 1.020 1 - 1.03 [facility] Urobilinogen, UA 1.0 0.2 - 12 mg/dL [facility] Urinalysis macro (dipstick) panel (U)on 12-16-2023 Bilirubin, UA Negative Negative - 4(70) +++ mg/dL [facility] Blood, UA Negative Negative - 50 Gulshan/mcL [facility] Clarity, UA Clear [facility] re Color, UA Yellow [facility] Glucose, UA Negative Negative - 1999(110) ++++ mg/dL [facility] Interpretation and review of laboratory results [facility] Ketones, UA Negative Negative - 160(16) ++++ mg/dL [facility] Leukocytes, UA Negative Negative - 500+++ Stefan/mcL [facility] Nitrite, UA Negative Negative - Positive [facility] pH, UA 5.5 5 - 9 [facility] Protein, UA Negative Negative - 1999(20) ++++ mg/dL [facility] Spec Grav, UA 1.005 1 - 1.03 [facility] Urobilinogen, UA 0.2 0.2 - 12 mg/dL [facility] HPV DNA High Riskon 12-06-19 22 HPV [facility] Comment on above: Result Comment: This [...] purposes. Performed By: #### H PVH #### [address] [address] Cloud Security Architect: Ulisses Gold MD HPV Type 16 Not detected [facility] Comment on above: Performed By: #### H PVH #### [address] [address] Cloud Security Architect: Ulisses Gold MD HPV Type 18 Not detected [facility] Comment on above: Performed By: #### H PVH #### [address] [address] Cloud Security Architect: Ulisses Gold MD Other High Risk HPV Not detected [facility] Comment on above: Performed By: #### H PVH #### [address] [address] Cloud Security Architect: Ulisses Gold MD HPV DNA High Riskon 12-05-19 22 Source .GENITAL - NOT SPECIFIED [facility] Comment on above: Performed By: #### H PVH #### [address] [address] Cloud Security Architect: Ulisses Gold MD HPV Sample .THIN PREP [facility] Comment on above: Performed By: #### H PVH #### [address] [address] Cloud Security Architect: Ulisses Gold MD Cytologyon 12-04-2021 Cytology (NOTE) INTERPRETATION Cervical material, (ThinPrep vial, Imaging-assisted review): Specimen Adequacy: Satisfactory for evaluation. -Endocervical/transfor mation zone component is absent. Descriptive Diagnosis: Negative for intraepithelial lesion or malignancy. Marshmallow Machine Worker: RONY Ugalde(ASCP) Electronically Signed Out ss/12/17/2021 Procedure/Addendum [...] review) Clinical History Intrauterine device Z01.419 Routine dietetic technician registered exam without abnormal findings Co-Test: ThinPrep Pap with high risk HPV testing GYNECOLOGIC CYTOLOGY REPORT Patient Name: SURJIT AVINA [facility] Rec: [id number] Path Number: [id number] [facility] [employer] [facility] ANATOMIC PATHOLOGY [address] [place] [phone] Normal [facility] Comment on above: Performed By: #### P PPVP #### [facility] [employer] [address] [place] [address] [id number] Cloud Security Architect: Ulisses Gold MD QUANTIFERON TB GOLD PLUS (NO N-INC)on 09-05-2021 Comment Incubation performed. Normal [facility] Comment on above: Performed By: #### Q NTTBG #### [facility] [address] [id number] Hetal Linn Criteria Comment Normal [facility] Comment on above: Result Comment: The QuantiFERON-TB Gold Plus result is determined by subtracting the Nil value from either TB antigen (Ag) tube. The mitogen tube serves as a control for the test. Performed By: #### Q NTTBG #### [facility] [address] [place] [address] Dr. Hetal Linn Mitogen Value >10.00 Normal [facility] Comment on above: Performed By: #### Q NTTBG #### [facility] [address] [place] [address] Dr. Hetal Linn Nill Value 0.06 IU/mL Normal [facility] Comment on above: Performed By: #### Q NTTBG #### [facility] [address] [place] [address] Dr. Hetal Linn Quantiferon Gold Plus Negative Normal Negative [facility] Comment on above: Result Comment: Chem iluminescence immunoassay methodology Performed By: #### Q NTTBG #### [facility] [address] [place] [address] Dr. Hetal Linn TB1 Ag Value 0.10 IU/mL Normal [facility] Comment on above: Performed By: #### Q NTTBG #### [facility] [address] [place] [address] Dr. Hetal Linn TB2 Ag Value 0.08 IU/mL Normal [facility] Comment on above: Performed By: #### Q NTTBG #### [facility] [address] [place] [address] Dr. Hetal Linn HEPATITIS B SURFACE ANTIBODY , QUANTon 08-31-2021 Hepatitis B Surf AB Quant 202.1 mIU/mL Normal Immunity>9.9 [facility] Comment on above: Result Comment: Stat us of Immunity Anti-HBs Level Inconsistent with Immunity 0.0 - 9.9 Consistent with Immunity >9.9 Performed By: #### H EPBSRF #### [facility] [address] [place] [address] Dr. Hetal Linn MMR IMMUNITYon 08-31-2021 Mumps Abs, IgG 24.8 AU/mL Normal Immune >10.9 [facility] Comment on above: Result Comment: Nega tive <9.0 Equivocal 9.0 - 10.9 Positive >10.9 A positive result generally indicates past exposure to Mumps virus or previous vaccination. Performed By: #### M MRIMMU #### [facility] [address] [address] [address] Hetal Linn Rubella Antibodies, IgG 1.14 index Normal Immune >0.99 [facility] Comment on above: Result Comment: Non- immune <0.90 Equivocal 0.90 - 0.99 Immune >0.99 Performed By: #### M MRIMMU #### [facility] [address] [address] [address] Hetal Linn Rubeola Ab, IgG 26.6 AU/mL Normal Immune >16.4 [facility] Comment on above: Result Comment: Nega tive <13.5 Equivocal 13.5 - 16.4 Positive >16.4 Presence of antibodies to Rubeola is presumptive evidence of immunity except when acute infection is suspected. Performed By: #### M MRIMMU #### [facility] [address] [place] [address] Dr. Hetal Linn VARICELLA IGG ABon 1 Varicella Zoster IgG 1376 index Normal Immune >165 [facility] Comment on above: Result Comment: Nega tive <135 Equivocal 135 - 165 Positive >165 A positive result generally indicates exposure to the pathogen or administration of specific immunoglobulins, but it is not indication of active infection or stage of disease. Performed By: #### V ARCEL #### [facility] [address] [place] [address] Dr. Hetal Linn Addendum Reporton 04-10-2020 Addendum Report Missing Attachment Chartable Reference Lab Reports Can be viewed in source system Addendum Discussion [facility], SILVANA, #[id number], Date reported: 04/10/2020: Diagnosis: A. Skin of [...] irritation but melanocytic atypia is not observed. [id number] ONAL [id number] ONAL [id number] ONAL [id number] IONAL [id number] ONAL M-[id number] ONAL [id number] ONAL [id number] ONAL [id number] ONAL Ronna Jenkins MD (Electronically signed by) Verified: 04/10/20 13:15 ADD Pathologist Requested Consult Comment by Ronna Jenkins M.D.: The above consultation report was reviewed. I essentially concur with the diagnosis given. Normal [facility] Comment on above: Performed By: #### C #### [place] [address] Surgery Office/Clinic Noteon 04-04-2020 Surgery Office/Clinic Note Chief Complaint Mole removal x2. History of Present Illness Patient presents for excision of two raised darkly pigmented nevi. Review of Systems Constitutional: No Unexpected weight loss No History of diabetes Respiratory: No Shortness of breath Cardiovascular: NoChest pain or pressure, NoEdema, NoHistory of PA/CAD, NoHistory of A-Fib : NoHesitancy, NoNocturia, NoPrior [...] in this document, created by the medical technologist for me, accurately reflects the services I [...] by Shaina Kang 04/04/2020 12:16 EDT Normal [facility] Surgical Pathology Reporton 04-04-2020 Surgical Pathology Report [...] case is going to [facility] for consultation. [id number] ONAL [id number] IONAL [id number] ONAL [id number] ONAL [id number] IONAL Ronna Jenkins MD (Electronically signed by) Verified: 04/09/20 10:08 Normal [facility] Comment on above: Performed By: #### S PA #### [facility] (DEFAULT) [address] [place] [address] .eGFRon 08-04-2019 eGFR AA >60 Normal >=60 [facility] Comment on above: Result Comment: Resu lt = 0-14.9 mL/min/1.73 m2 Kidney failure or Dialysis Result = 15-29 mL/min/1.73 m2 Severe decrease in GFR Result = 30-59 mL/min/1.73 m2 Moderate decrease in GFR Result >= 60 mL/min/1.73 m2 Normal or increased GFR Performed By: #### E GFR #### [address] [address] eGFR Non-AA >60 Normal >=60 [facility] Comment on above: Result Comment: Resu lt [...] dosing. Performed By: #### E GFR #### [address] [address] CBC w/ Diffon 08-04-2019 Erythrocyte distribution width (RBC) [Ratio] 12.9 % Normal 11.6-14.8 [facility] Comment on above: Performed By: #### C BC #### [address] [address] Hematocrit (Bld) [Volume fraction] 40.4 % Normal 36.0-46.0 [facility] Comment on above: Performed By: #### C BC #### [address] [address] Hemoglobin (Bld) [Mass/Vol] 13.5 g/dL Normal 12.0-16.0 [facility] Comment on above: Performed By: #### C BC #### [address] [address] MCH (RBC) [Entitic mass] 32.0 pg Normal 27.0-35.0 [facility] Comment on above: Performed By: #### C BC #### [address] [address] MCHC (RBC) [Mass/Vol] 33.5 % Normal 31.0-37.0 [facility] Comment on above: Performed By: #### C BC #### [address] [address] MCV (RBC) [Entitic vol] 95.7 fL Normal 80.0-100.0 [facility] Comment on above: Performed By: #### C BC #### [address] [address] Platelet mean volume (Bld) [Entitic vol] 9.8 fL Normal 6.7-10.6 [facility] Comment on above: Performed By: #### C BC #### [address] [address] Platelets (Bld) [#/Vol] 226 x10*3/mcL Normal 150-350 [facility] Comment on above: Performed By: #### C BC #### [address] [address] RBC (Bld) [#/Vol] 4.23 x10*6/mcL Normal 3.80-5.20 [facility] Comment on above: Performed By: #### C BC #### [address] [address] WBC (Bld) [#/Vol] 7.4 x10*3/mcL Normal 4.5-11.[address] [facility] Comment on above: Performed By: #### C BC #### [address] [address] CMPon 08-04-2019 Albumin [Mass/Vol] 4.0 g/dL Normal 3.2-4.9 [facility] Comment on above: Result Comment: [facility] Laboratory updated the methodology used for albumin testing on 06/16/18. Albumin measurement was performed using a bromcresol purple dye-binding assay. Performed By: #### C OMP #### [address] [address] Albumin/Globulin [Mass ratio] 1.2 {ratio} Normal 1.1-2.2 [facility] Comment on above: Performed By: #### C OMP #### [address] [address] Alk Phos 51 IU/L Normal 32-91 [facility] Comment on above: Performed By: #### C OMP #### [address] [address] ALT [Catalytic activity/Vol] 13 U/L Low 14-54 [facility] Comment on above: Performed By: #### C OMP #### [address] [address] Anion gap [Moles/Vol] 10 mmol/L Normal 7-17 [facility] Comment on above: Performed By: #### C OMP #### [address] [address] AST [Catalytic activity/Vol] 17 U/L Normal 15-41 [facility] Comment on above: Performed By: #### C OMP #### [address] [address] Bili Total 0.8 mg/dL Normal 0.3-1.2 [facility] Comment on above: Performed By: #### C OMP #### [address] [address] Calcium [Mass/Vol] 8.9 mg/dL Normal 8.5-10.3 [facility] Comment on above: Performed By: #### C OMP #### [address] [address] Chloride [Moles/Vol] 107 mmol/L Normal 98-110 [facility] Comment on above: Performed By: #### C OMP #### [address] [address] CO2 [Moles/Vol] 27 mmol/L Normal 22-32 [facility] Comment on above: Performed By: #### C OMP #### [address] [address] Creatinine [Mass/Vol] 0.84 mg/dL Normal 0.44-1.03 [facility] Comment on above: Performed By: #### C OMP #### [address] [address] Glucose [Mass/Vol] 84 mg/dL Normal 74-118 [facility] Comment on above: Performed By: #### C OMP #### [address] [address] Potassium [Moles/Vol] 4.3 mmol/L Normal 3.4-4.8 [facility] Comment on above: Performed By: #### C OMP #### [address] [address] Protein [Mass/Vol] 7.2 g/dL Normal 6.5-8.1 [facility] Comment on above: Performed By: #### C OMP #### [address] [address] Sodium [Moles/Vol] 140 mmol/L Normal 133-142 [facility] Comment on above: Performed By: #### C OMP #### [address] [address] Urea nitrogen [Mass/Vol] 10 mg/dL Normal 8-26 [facility] Comment on above: Performed By: #### C OMP #### [address] [place] [address] Urea nitrogen/Creatinine [Mass ratio] 11.9 mg/mg Normal 10.0-20.0 [facility] Comment on above: Performed By: #### C OMP #### [address] [address] Diff Autoon 08-04-2019 Baso Absolute 0.0 x10*3/mcL Normal 0.0-0.2 [facility] Comment on above: Performed By: #### . Automated Diff #### [address] [address] Basophils/100 WBC (Bld) 0.2 % Normal 0.0-1.5 [facility] Comment on above: Performed By: #### . Automated Diff #### [address] [address] Eos Absolute 0.0 x10*3/mcL Normal 0.0-0.4 [facility] Comment on above: Performed By: #### . Automated Diff #### [address] [address] Eosinophils/100 WBC (Bld) 0.6 % Normal 0.0-5.4 [facility] Comment on above: Performed By: #### . Automated Diff #### [address] [address] Lymphocytes (Bld) [#/Vol] 2.3 x10*3/mcL Normal 1.0-4.8 [facility] Comment on above: Performed By: #### . Automated Diff #### [address] [address] Lymphocytes/100 WBC (Bld) 30.5 % Normal 27.2-40.8 [facility] Comment on above: Performed By: #### . Automated Diff #### [address] [address] [place] Absolute 0.5 x10*3/mcL Normal 0.1-1.1 [facility] Comment on above: Performed By: #### . Automated Diff #### [address] [address] Monocytes/100 WBC (Bld) 7.0 % Normal 3.7-11.9 [facility] Comment on above: Performed By: #### . Automated Diff #### [address] [address] Neutro Absolute 4.6 x10*3/mcL Normal 1.8-7.7 [facility] Comment on above: Performed By: #### . Automated Diff #### [address] [address] Neutro Auto 61.7 % Normal 47.2-70.8 [facility] Comment on above: Performed By: #### . Automated Diff #### [address] [address] Lipid Panelon 08-04-2019 Cholesterol in LDL [Mass/Vol] 79 mg/dL Normal 0-99 [facility] Comment on above: Result Comment: The equation being used in this calculation is LDL = (Chol - HDL) - (Trig / 5) The optimal value of LDL for individual patients may vary. The patient's history of Artherosclerosis and other cardiac risk factors should be considered. Performed By: #### L BONILLA #### [address] [address] Cardiac Risk 3.1 Normal [facility] Comment on above: Result Comment: Men Women 1/2 Average 3.43 3.27 Average 4.97 4.44 2x Average 9.55 7.05 3x Average 23.99 11.04 Performed By: #### L BONILLA #### [address] [address] Cholesterol [Mass/Vol] 131 mg/dL Normal 25-199 [facility] Comment on above: Result Comment: 0 - 17 years of age: Desirable 0-170 Borderline High 170-199 High >=200 18 years and older: Acceptable <200 Borderline High 200-239 High >=240 Performed By: #### L BONILLA #### [address] [address] Cholesterol in HDL [Mass/Vol] 42.0 mg/dL Normal 40.0-60.0 [facility] Comment on above: Performed By: #### L BONILLA #### [address] [address] Cholesterol in VLDL [Mass/Vol] 10 mg/dL Normal 8-39 [facility] Comment on above: Performed By: #### L BONILLA #### [address] [address] Triglyceride [Mass/Vol] 48 mg/dL Normal [facility] Comment on above: Result Comment: 0 - 17 years of age: Trig 90 - 129 Borderline High Trig => 130 High 18 years and older: Trig 150 - 199 Borderline High Trig 200 - 499 High Trig =>500 Very High Performed By: #### L BONILLA #### [address] [address] TSHon 08-04-2019 TSH Qn 1.45 mcIU/mL Normal 0.45-5.33 [facility] Comment on above: Result Comment: Refe rence Ranges for individuals from to 18 years of age were obtained from The Marychuy Edmondson Handbook (20 ed) published by [facility]. Reference Ranges for Females: Females, 1st Trimester 0.05 ? 3.7 uIU/mL Females, 2nd Trimester 0.31 ? 4.35 uIU/mL Females, 3rd Trimester 0.41 ? 5.18 uIU/mL Performed By: #### T SH #### [address] [address] Total T3on 08-04-2019 T3 Total 0.95 ng/mL Normal 0.87-1.78 [facility] Comment on above: Performed By: #### T 3R #### [address] [address] Total T4on 08-04-2019 T4 Total 6.6 mcg/dL Normal 5.0-11.5 [facility] Comment on above: Performed By: #### T 4 #### [address] [address] Vital Signs Date Time Vital Sign Value Performing Clinician [place]iana park 12-23-2023 14:45-0500 Body mass index (BMI) [Ratio] 29.49 kg/m2 Harsha Dimitry DO Work Phone: [facility] 12-23-2023 14:45-0500 Body weight 77.93 kg Harsha Dimitry DO Work Phone: [facility] 12-23-2023 14:45-0500 Diastolic blood pressure 76 mm[Hg] Harsha Dimitry DO Work Phone: [facility] 12-23-2023 14:45-0500 Systolic blood pressure 118 mm[Hg] Harsha Dimitry DO Work Phone: [facility] 12-16-2023 14:06-0500 Body mass index (BMI) [Ratio] 29.32 kg/m2 Harsha Dimitry DO Work Phone: [facility] 12-16-2023 14:06-0500 Body weight 77.47 kg Harsha Dimitry DO Work Phone: [facility] 12-16-2023 14:06-0500 Diastolic blood pressure 70 mm[Hg] Harsha Dimitry DO Work Phone: [facility] 12-16-2023 14:06-0500 Systolic blood pressure 120 mm[Hg] Harsha Dimitry DO Work Phone: [facility] Encounters Encounter Date Encounter Type Care [...] Start: 12-04-2021 End: 12-05-2021 ambulatory [facility]QU[facility] Start: 09-27-2021 Encounter for genera l adult medical examination without abnormal findings BRIAN VARNER [facility] Start: 08-30-2021 End: 08-31-2021 ambulatory BRIAN VARNER Facility:[facility] Start: 08-30-2021 End: 08-31-2021 Encounter for general adult medical examination without abnormal findings BRIAN VARNER Facility: Start: 08-04-2019 End: 08-05-2019 Patient encounter procedure MASON DELEON Facility:[facility] Procedures Date Procedure Procedure Detail Performing Clinician Start: 12-23-2023 Urnls dip stick/tabl et rgnt non-auto w/o micrscp Harsha Dimitry DO Work Phone: Start: 12-16-2023 Urnls dip stick/tabl et rgnt non-auto w/o micrscp Harsha Dimitry DO Work Phone: Plan of Treatment Date Care Activity Detail Author Start: 12-23-2023 End: 12-23-2023 Patient encounter procedure 12/23/2023 2:30 PM EST Routine [facility] [address] [place] [id number] Harsha Moraes, DO [address] [place] [address] Third trimester [facility] Comment on above: Third trimester preg rajinder Start: 12-23-2023 End: 12-23-2024 US biophysical profile w non stress test US biophysical profile w non stress test Imaging Routine Post term over 40 weeks Expected: 12/23/2023 (Approximate), Expires: 12/23/2024 [facility] Work Phone: Comment on above: Expected: 12/23/2023 (Approximate), Expires: 12/23/2024 Payers Date Payer Category Payer Unknown [id number] 2019 Unknown 1995 Unknown [id number] 2.16.8 [id number] 1995 Unknown [id number] 2.16.8 [id number] 1995 Unknown [id number] 2.16.84 [id number] 1995 Unknown [id number] 2.16.84 [id number] 1995 Unknown [id number] 2.16.84 [id number] 1995 Unknown [id number] 2.16.84 [id number] 1995 Unknown [id number] 2.16.84 [id number] 1995 Unknown [id number] 2.16.84 [id number] 1995 Unknown [id number] 2.16.84 [id number] 1995 Unknown [id number] 2.16.840 .[id number] 1995 Unknown [id number] 2.16.840 .[id number] 1959 Unknown [id number] Social History Date Type Detail Facility Start: 06-18-2023 Tobacco smoking status NCIS Never sm oked tobacco [facility] Start: [...] Start: 04-23-2023 Sexual orientation Heterosexual (fin ding) [facility] History of Present illness Narrative 12-23-2023 [...] nursing note reviewed. Exam conducted with a electrical project manager present. Vitals: Estimated body mass index is [...] nursing note reviewed. Exam conducted with a electrical project manager present. Vitals: Estimated body mass index is [...] section and content) DATE CREATED AUTHOR 04/13/2020 [facility] DATE CREATED AUTHOR AUTHOR'S ORGANIZ ATION 12/17/2021 [facility] DATE CREATED AUTHOR AUTHOR'S ORGANIZ ATION 07/04/2022 [facility] DATE CREATED AUTHOR AUTHOR'S ORGANIZ ATION 12/25/2023 [facility] d[facility] Specialists [employer] Reason for Visit (unrecogniz ed section and content) Reason Comments Routine Visit Care Teams (unrecognized sec tion and content) Hog Sticker Relationship Specialty Start Date End Date Mason Deleon MD [address] [place] [address] PCP - General 05/15/23 FOR RECORDS PERTAINING [...] BE BASED ON THE PRIMARY CLINICAL RECORDS. [facility] [employer] [facility]. provides no warranty or guarantee of the accuracy or completeness of information in this document.
[2023-12-26 17:38] LABS: Basophils Percent Auto 0.2 % (0.2-2.0); Eosinophils Percent Auto 0.2 % (0.9-7.0); Hematocrit 33.2 % (36.0-48.0); Hemoglobin 10.7 g/dL (12.0-16.0); Immature Granulocytes Abs Auto 0.11 10^3/uL (0.00-0.03); Immature Granulocytes Pct Auto 0.7 % (0.0-0.5); Lymphocytes Absolute Auto 2.1 10^3/uL (1.2-3.8); Lymphocytes Percent Auto 13.1 % (20.5-60.0); Mean Corpuscular HGB Conc 32.2 g/dL (29.9-35.2); Mean Corpuscular Hemoglobin 29.7 pg (26.7-34.0); Mean Corpuscular Volume 92.2 fL (81.0-99.0); Mean Platelet Volume 10.7 fL (9.5-13.5); Monocytes Percent Auto 6.1 % (1.7-12.0); Neutrophils Absolute Auto 12.7 10^3/uL (1.4-6.5); Neutrophils Percent Auto 79.7 % (43.0-75.0); Platelet Count 233 10^3/uL (150-450); Red Cell Distribution Width 14.2 % (11.0-15.0); White Blood Count 15.9 10^3/uL (4.0-11.0)
[2023-12-26 17:39] LABS: Amphetamine Screen Urine NEGATIVE (NEGATIVE); Barbiturates Screen Urine NEGATIVE (NEGATIVE); Benzodiazepines Screen Urine NEGATIVE (NEGATIVE); Buprenorphine Screen Urine NEGATIVE (NEGATIVE); Cannabinoid Screen Urine NEGATIVE (NEGATIVE); Cocaine Screen Urine NEGATIVE (NEGATIVE); Methadone Screen Urine NEGATIVE (NEGATIVE); Methamphetamines Screen Urine NEGATIVE (NEGATIVE); Opiate Screen Urine NEGATIVE (NEGATIVE); Oxycodone Screen Urine NEGATIVE (NEGATIVE); Phencyclidine Screen Urine NEGATIVE (NEGATIVE); Tricyclic Antidepressant Urine NEGATIVE (NEGATIVE)
[2023-12-26] MEDS: 0.9 % SODIUM CHLORIDE 1,000 ML 125 ML IV (18:58)
[2023-12-26] MEDS: ROPIVACAINE HCL/PF 400 MG/200 ML PREMIX 6 MG EPIDURAL (19:30)
[2023-12-26] MEDS: OXYTOCIN/0.9 % SODIUM CHLORIDE 20 UNITS/1,000 ML PLAST..BAG 125 UNIT IV (20:10)
--- NOTE | 2023-12-26 20:21 | PM.OBPRCVD ---
Procedure Intrapartal events: None Induction method: none Delivery augmentation: rupture of membranes Delivery monitor: external FHT and external uterine Route of delivery: L&D Laceration Description: periurethral - 1st degree Delivery repair: Vicryl Estimated blood loss (mL): 200 Anesthesia type: Epidural Disposition: floor Delivery date: 12/26/23 Gender: female presentation: vertex Placental delivery description: Spontaneous cord description: 3 Vessels
--- NOTE | 2023-12-26 22:16 | PC.NURSE ---
247-Epidural removed. Tip intact
[2023-12-27 00:05] VITALS: BP 111/62; PULSE 95; TEMP 36.1
[2023-12-27 00:15] VITALS: RESP 16; TEMP 36.1
--- NOTE | 2023-12-27 04:15 | P.OBPN_ITS ---
OB - PN: Subj Subjective Patient comments: no complaints [place] status: doing well Exam Constitutional Vital Signs, click to edit/add: Last Vital Signs Temp 97.0 F L 12/27/23 00:15 Pulse 95 H 12/27/23 00:05 Resp 16 12/27/23 00:15 BP 111/62 12/27/23 00:05 O2 Del Method Room Air 12/27/23 00:15 Documenting provider has reviewed patient's vital signs: yes Common normals: no apparent distress Respiratory Common normals: clear to auscultation bilaterally Cardio Common normals: regular rate and regular rhythm GI Common normals: Normal to inspection, nondistended, normoactive bowel sounds present Extremity Common normals: no clubbing, cyanosis or edema Results Labs Labs: Short CBC 12/26/23 Range/Units 17:33 WBC 15.9 H (4.0-11.0) 10^3/uL Hgb 10.7 L (12.0-16.0) g/dL Hct 33.2 L (36.0-48.0) % Plt Count 233 (150-450) 10^3/uL Urine 12/26/23 Range/Units 16:15 Urine Color Lt. yellow (YELLOW) Urine Clarity Clear (CLEAR) Urine pH 7.0 (5.0-9.0) Ur Specific [place] 1.025 (1.005-1.025) Urine Protein Negative (NEG/TRACE) mg/dL Urine Glucose (UA) Negative (NEGATIVE) mg/dL OB - PN: A/P Plan - Vaginal Delivery day: 1 Plan: routine care Time Spent with Patient Time: Total time spent is greater than 50% in coordination of care (as documented) at patient's floor/unit and/or counseling patient: Total time spent with greater than 50% in coordination of care (as documented) at patient's floor/unit and/or counseling patient: less than 15 minutes
[2023-12-27 06:24] LABS: Basophils Percent Auto 0.2 % (0.2-2.0); Eosinophils Percent Auto 0.1 % (0.9-7.0); Hematocrit 30.8 % (36.0-48.0); Hemoglobin 9.9 g/dL (12.0-16.0); Immature Granulocytes Abs Auto 0.09 10^3/uL (0.00-0.03); Immature Granulocytes Pct Auto 0.5 % (0.0-0.5); Lymphocytes Absolute Auto 2.4 10^3/uL (1.2-3.8); Lymphocytes Percent Auto 14.6 % (20.5-60.0); Mean Corpuscular HGB Conc 32.1 g/dL (29.9-35.2); Mean Corpuscular Hemoglobin 29.7 pg (26.7-34.0); Mean Corpuscular Volume 92.5 fL (81.0-99.0); Monocytes Absolute Auto 1.4 10^3/uL (0.3-0.8); Monocytes Percent Auto 8.4 % (1.7-12.0); Neutrophils Absolute Auto 12.5 10^3/uL (1.4-6.5); Neutrophils Percent Auto 76.2 % (43.0-75.0); Platelet Count 223 10^3/uL (150-450); Red Blood Count 3.33 10^6/uL (4.20-5.40); Red Cell Distribution Width 14.4 % (11.0-15.0); White Blood Count 16.5 10^3/uL (4.0-11.0)
--- NOTE | 2023-12-27 06:30 | PC.NURSE ---
Assesments done by nurse management internship found to be true and accurate by this RN.
--- NOTE | 2023-12-27 07:12 | PC.NURSE ---
Report given to Frantz Carr RN.
[2023-12-27 08:48] VITALS: BP 100/70; PULSE 80; RESP 16; TEMP 36.7
[2023-12-27] MEDS: DOCUSATE SODIUM 100 MG CAPSULE PO ×2 (08:51→20:02)
[2023-12-27 17:00] VITALS: BP 110/73; PULSE 71; RESP 16; TEMP 36.9
[2023-12-27] MEDS: IBUPROFEN 600 MG TABLET PO ×2 (17:00→23:25)
[2023-12-27 23:25] VITALS: RESP 16
[2023-12-27 23:27] VITALS: BP 117/72; PULSE 89
--- NOTE | 2023-12-28 05:45 | PM.OBPN ---
OB - PN: Subj Subjective Patient comments: no complaints and pain well controlled [place] status: doing well Exam Constitutional Vital Signs, click to edit/add: Last Vital Signs Temp 98.4 F 12/27/23 17:00 Pulse 89 12/27/23 23:27 Resp 16 12/27/23 23:25 BP 117/72 12/27/23 23:27 O2 Del Method Room Air 12/27/23 23:25 Documenting provider has reviewed patient's vital signs: yes Common normals: no apparent distress Respiratory Common normals: clear to auscultation bilaterally Cardio Common normals: regular rate and regular rhythm GI Common normals: Normal to inspection, nondistended, normoactive bowel sounds present Extremity Common normals: no calf tenderness Results Labs Labs: Short CBC 12/27/23 Range/Units 06:14 WBC 16.5 H (4.0-11.0) 10^3/uL Hgb 9.9 L (12.0-16.0) g/dL Hct 30.8 L (36.0-48.0) % Plt Count 223 (150-450) 10^3/uL OB - PN: A/P Plan - Vaginal Delivery day: 1 Plan: routine care, discharge home and follow up 6 weeks Time Spent with Patient Time: Total time spent is greater than 50% in coordination of care (as documented) at patient's floor/unit and/or counseling patient: Total time spent with greater than 50% in coordination of care (as documented) at patient's floor/unit and/or counseling patient: less than 15 minutes
[2023-12-28 07:24] VITALS: BP 110/70; PULSE 73
[2023-12-28 07:35] VITALS: BP 110/70; PULSE 73; RESP 18; TEMP 36.7
--- NOTE | 2023-12-28 09:23 | W.PC.ACHO ---
Registration Status: ADM IN Primary Language: Cambodian Preferred Language: Cambodian Report given to Ava Joy RN at 0710. Active Medications Generic Name Dose Route Start Last Admin Trade Name Freq PRN Reason Stop Dose Admin Acetaminophen 650 mg 12/26/23 20:22 Acetaminophen 325 Mg Tablet PO Q6H PRN Mild Pain Al Hydroxide/Mg Hydroxide 2,400 mg 12/26/23 20:22 Magnesium Hydroxide 2,400 Mg/10 Ml Oral.Susp PO Q6H PRN Dyspepsia Benzocaine/Menthol 1 applic 12/26/23 20:22 Benzocaine/Menthol 85 Gram [place] Bottle TOPICAL Q2H PRN Pain Docusate Sodium 100 mg 12/27/23 09:00 12/27/23 20:02 Docusate Sodium 100 Mg Capsule PO 100 mg BID MALLORY Administration Sodium Chloride 1,000 mls @ 125 mls/hr 12/26/23 17:30 12/26/23 18:58 Sodium Chloride 0.9% 1,000 Ml IV 125 mls/hr .Q8H MALLORY Administration Ibuprofen 600 mg 12/26/23 20:22 12/27/23 23:25 Ibuprofen 600 Mg Tablet PO 600 mg Q6H PRN Administration Moderate Pain Ondansetron HCl 4 mg 12/26/23 17:17 Ondansetron Pf 4 Mg/2 Ml Vial IV Q6H PRN Nausea And Vomiting Ondansetron HCl 4 mg 12/26/23 17:17 Ondansetron 4 Mg Rapdis Tablet SL Q6H PRN Nausea And Vomiting Senna 17.2 mg 12/26/23 20:00 Sennosides 8.6 Mg Tablet PO QHS PRN Constipation Simethicone 80 mg 12/26/23 20:22 Simethicone 80 Mg Tab.Chew PO QID PRN Abdominal Distention Temazepam 15 mg 12/26/23 20:22 Temazepam 15 Mg Capsule PO QHS PRN Sleep Witch Rosario/Glycerin 1 pad 12/26/23 20:22 Glycerin/Witch Rosario Pads TOPICAL Q2H PRN Pain Respiratory Oxygen Delivery Method Room Air Oxygen Delivery Method Room Air Bowels Bowel Pattern No Bowel Movement Renal Bladder Pattern Continent Bladder Pattern Continent
--- NOTE | 2023-12-28 09:23 | PC.NURSE ---
Awake and talking with . Making plans for discharge today. States is feeling well, no complaints to offer at this time. States had successful feed at 0505, latched baby independently for 25 min on left side. State last few feeds have been very good Denies nipple pain or damage at this time.
[2023-12-28] MEDS: MEASLES,MUMPS,RUBELLA VACC/PF 0.5 ML VIAL SQ (12:28)
--- NOTE | 2023-12-28 13:41 | PC.NURSE ---
Leaves unit without complaints, NB in car seat and driving. Will return 12/30/2023 for follow up appointment at [facility]. No distress in NB or mom noted at time of discharge.
== END 2023-12-28 12:45 | disposition home or self-care (01) | DRG 807 ==
LOC: FBCO 17:13 → FBC 17:13
PROVIDERS: Admitting Provider Obstetrics & Gynecology; PCP Family Medicine; Visit Provider Obstetrics & Gynecology
DX: O48.0 Post-term pregnancy (principal); Z37.0 Single live birth; O70.0 First degree perineal laceration during delivery; Z3A.40 40 weeks gestation of pregnancy
CPT/HCPCS: 36415; 59050; 59410; 80307; 81001; 85025; 86850; 86900; 86901; 87086; 90471; 90707; 96374; J2795

== ENCOUNTER 2023-12-30 08:30 | Outpatient (OUT) | payer BC, SELFPAY ==
--- OUTSIDE RECORDS SUMMARY | 2023-12-30 09:01 | XMS_ITS | CCD ---
Author Name Unknown Address [address] [place] [address] Organization [facility] Care Team Providers Care Disability Case Manager Name Role Phone MASON DELEON Attending Unavailable Mason Deleon Primary Care Unavailable BEBETO AMEZQUITA Referring Unavailable MASON DELEON Primary Care Unavailable BRIAN VARNER Attending Unavailable BRIAN VARNER Consulting Unavailable BRIAN VARNER Admitting Unavailable DR MASON DELEON Primary Care Unavailable Mason Deleon MD Primary Care Provider [phone] KIKE PERDOMO Attending Unavailable HARSHA MORAES Attending [...] UA Negative Negative - 4(70) +++ mg/dL [facility] Blood, UA Negative Negative - 50 Gulshan/mcL [facility] Clarity, UA Clear [facility] Color, UA Yellow [facility] Glucose, UA Negative Negative - 2000(110) ++++ mg/dL [facility] Interpretation and review of laboratory results Normal [facility] re Ketones, UA Negative Negative - 160(16) ++++ mg/dL [facility] Leukocytes, UA Negative Negative - 500+++ Stefan/mcL [facility] Nitrite, UA Negative Negative - Positive [facility] pH, UA 5.5 5 - 9 [facility] e Protein, UA Negative Negative - 1999(20) ++++ mg/dL [facility] Spec Grav, UA 1.020 1 - 1.03 [facility] Urobilinogen, UA 1.0 0.2 - 12 mg/dL [facility]inalysis macro (dipstick) panel (U)on 12-16-2023 Bilirubin, UA Negative Negative - 4(70) +++ mg/dL [facility] Blood, UA Negative Negative - 50 Gulshan/mcL [facility] Clarity, UA [facility] re Color, UA Yellow [facility] Healthcar e Glucose, UA Negative Negative - 1999(110) ++++ mg/dL [facility] Interpretation and review of laboratory results [facility] Ketones, UA Negative Negative - 160(16) ++++ mg/dL [facility] Leukocytes, UA Negative Negative - 500+++ Stefan/mcL [facility] Nitrite, UA Negative Negative - Positive [facility] pH, UA 5.5 5 - 9 [facility] e Protein, UA Negative Negative - 1999(20) ++++ mg/dL [facility] Spec Grav, UA 1.005 1 - 1.03 [facility] Urobilinogen, UA 0.2 0.2 - 12 mg/dL [facility] HPV DNA High Riskon 12-06-19 22 HPV [facility] Comment on above: Result Comment: [...] purposes. Performed By: #### H PVH #### [address] [address] Relationship Consultant: Ulisses Gold MD HPV Type 16 Not detected [facility] Comment on above: Performed By: #### H PVH #### [address] [address] Relationship Consultant: Ulisses Gold MD HPV Type 18 Not detected [facility] Comment on above: Performed By: #### H PVH #### [address] [address] Relationship Consultant: Ulisses Gold MD Other High Risk HPV Not detected [facility] Comment on above: Performed By: #### H PVH #### [address] [address] Relationship Consultant: Ulisses Gold MD HPV DNA High Riskon 12-05-19 22 Source .GENITAL - NOT SPECIFIED [facility] Comment on above: Performed By: #### H PVH #### [address] [address] Relationship Consultant: Ulisses Gold MD HPV Sample .THIN PREP [facility] Comment on above: Performed By: #### H PVH #### [address] [address] Relationship Consultant: Ulisses Gold MD Cytologyon 12-04-2021 Cytology (NOTE) INTERPRETATION Cervical material, (ThinPrep vial, Imaging-assisted review): Specimen Adequacy: Satisfactory for evaluation. -Endocervical/transfor mation zone component is absent. Descriptive Diagnosis: Negative for intraepithelial lesion or malignancy. 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 Comment on above: Performed By: #### P PPVP #### [facility] Keegy [address] [place] [address] [id number] Relationship Consultant: Ulisses Gold MD QUANTIFERON TB GOLD PLUS (NO N-INC)on 09-05-2021 Comment Incubation performed. Normal [facility] Comment on above: Performed By: #### Q NTTBG #### [facility] [id number] Hetal Linn Criteria Comment Normal [facility] Comment on above: Result Comment: The QuantiFERON-TB Gold Plus result is determined by subtracting the Nil value from either TB antigen (Ag) tube. The mitogen tube serves as a control for the test. Performed By: #### Q NTTBG #### [facility] [address] [place] [address] Dr. Hetal Linn Mitogen Value >10.00 Normal [facility] Comment on above: Performed By: #### Q NTTBG #### [facility] [address] [place] [address] Dr. Hetal Linn Nill Value 0.06 IU/mL Normal [facility] Comment on above: Performed By: #### Q NTTBG #### [facility] [address] [place] [address] Dr. Hetal Linn Quantiferon Gold Plus Negative Normal Negative [facility] Comment on above: Result Comment: Chem iluminescence immunoassay methodology Performed By: #### Q NTTBG #### [facility] [address] [place] [address] Dr. Hetal Linn TB1 Ag Value 0.10 IU/mL Normal [facility] Comment on above: Performed By: #### Q NTTBG #### [facility] [address] [place] [address] Dr. Hetal Linn TB2 Ag Value 0.08 IU/mL Normal [facility] Comment on above: Performed By: #### Q NTTBG #### [facility] [address] [place] [address] Dr. Hetal Linn HEPATITIS B SURFACE ANTIBODY , QUANTon 08-31-2021 Hepatitis B Surf AB Quant 202.1 mIU/mL Normal Immunity>9.9 [facility] Comment on above: Result Comment: Stat us of Immunity Anti-HBs Level Inconsistent with Immunity 0.0 - 9.9 Consistent with Immunity >9.9 Performed By: #### H EPBSRF #### [facility] [address] [place] [address] Dr. Hetal Linn MMR IMMUNITYon 08-31-2021 Mumps Abs, IgG 24.8 AU/mL Normal Immune >10.9 [facility] Comment on above: Result Comment: Nega tive <9.0 Equivocal 9.0 - 10.9 Positive >10.9 A positive result generally indicates past exposure to Mumps virus or previous vaccination. Performed By: #### M MRIMMU #### [facility] [address] [address] [address] Hetal Linn Rubella Antibodies, IgG 1.14 index Normal Immune >0.99 [facility] Comment on above: Result Comment: Non- immune <0.90 Equivocal 0.90 - 0.99 Immune >0.99 Performed By: #### M MRIMMU #### [facility] [address] [address] [address] Hetal Linn Rubeola Ab, IgG 26.6 AU/mL Normal Immune >16.4 [facility] Comment on above: Result Comment: Nega tive <13.5 Equivocal 13.5 - 16.4 Positive >16.4 Presence of antibodies to Rubeola is presumptive evidence of immunity except when acute infection is suspected. Performed By: #### M MRIMMU #### [facility] [address] [place] [address] Dr. Hetal Linn VARICELLA IGG ABon 1 Varicella Zoster IgG 1376 index Normal Immune >165 [facility] Comment on above: Result Comment: Nega tive <135 Equivocal 135 - 165 Positive >165 A positive result generally indicates exposure to the pathogen or administration of specific immunoglobulins, but it is not indication of active infection or stage of disease. Performed By: #### V ARCEL #### [facility] [address] [place] [address] Dr. Hetal Linn Addendum Reporton 04-10-2020 Addendum Report Missing Attachment Chartable Reference Lab Reports Can be viewed in source system Addendum Discussion [facility], SILVA[place], #[id number], Date reported: 04/10/2020: Diagnosis: A. Skin of [...] irritation but melanocytic atypia is not observed. [id number] ONAL [id number] ONAL [id number] ONAL [id number] IONAL [id number] ONAL M-[id number] ONAL [id number] ONAL [id number] ONAL [id number] ONAL Ronna Jenkins MD (Electronically signed by) Verified: 04/10/20 13:15 ADD Pathologist Requested Consult Comment by Ronna Jenkins M.D.: The above consultation report was reviewed. I essentially concur with the diagnosis given. Normal [facility] Comment on above: Performed By: #### C #### [place] [address] Surgery Office/Clinic Noteon 04-04-2020 Surgery Office/Clinic Note Chief Complaint Mole removal x2. History of Present Illness Patient presents for excision of two raised darkly pigmented nevi. Review of Systems Constitutional: No Unexpected weight loss No History of diabetes Respiratory: No Shortness of breath Cardiovascular: NoChest pain or pressure, NoEdema, NoHistory of OK/CAD, NoHistory of A-Fib : NoHesitancy, NoNocturia, NoPrior [...] in this document, created by the medical donation professional for me, accurately reflects the services I [...] by Shaina Kang 04/04/2020 12:16 EDT Normal [facility] Surgical Pathology Reporton 04-04-2020 Surgical Pathology Report [...] case is going to [facility] for consultation. [id number] ONAL [id number] IONAL [id number] ONAL [id number] ONAL [id number] IONAL Ronna Jenkins MD (Electronically signed by) Verified: 04/09/20 10:08 Normal [facility] Comment on above: Performed By: #### S MO #### [facility] (DEFAULT) [address] [place] [address] .eGFRon 08-04-2019 eGFR AA >60 Normal >=60 [facility] Comment on above: Result Comment: Resu lt = 0-14.9 mL/min/1.73 m2 Kidney failure or Dialysis Result = 15-29 mL/min/1.73 m2 Severe decrease in GFR Result = 30-59 mL/min/1.73 m2 Moderate decrease in GFR Result >= 60 mL/min/1.73 m2 Normal or increased GFR Performed By: #### E GFR #### [address] [address] eGFR Non-AA >60 Normal >=60 [facility] Comment on above: Result Comment: Resu lt [...] dosing. Performed By: #### E GFR #### [address] [address] CBC w/ Diffon 08-04-2019 Erythrocyte distribution width (RBC) [Ratio] 12.9 % Normal 11.6-14.8 [facility] Comment on above: Performed By: #### C BC #### [address] [address] Hematocrit (Bld) [Volume fraction] 40.4 % Normal 36.0-46.0 [facility] Comment on above: Performed By: #### C BC #### [address] [address] Hemoglobin (Bld) [Mass/Vol] 13.5 g/dL Normal 12.0-16.0 [facility] Comment on above: Performed By: #### C BC #### [address] [address] MCH (RBC) [Entitic mass] 32.0 pg Normal 27.0-35.0 [facility] Comment on above: Performed By: #### C BC #### [address] [address] MCHC (RBC) [Mass/Vol] 33.5 % Normal 31.0-37.0 [facility] Comment on above: Performed By: #### C BC #### [address] [address] MCV (RBC) [Entitic vol] 95.7 fL Normal 80.0-100.0 [facility] Comment on above: Performed By: #### C BC #### [address] [address] Platelet mean volume (Bld) [Entitic vol] 9.8 fL Normal 6.7-10.6 [facility] Comment on above: Performed By: #### C BC #### [address] [address] Platelets (Bld) [#/Vol] 226 x10*3/mcL Normal 150-350 [facility] Comment on above: Performed By: #### C BC #### [address] [address] RBC (Bld) [#/Vol] 4.23 x10*6/mcL Normal 3.80-5.20 [facility] Comment on above: Performed By: #### C BC #### [address] [address] WBC (Bld) [#/Vol] 7.4 x10*3/mcL Normal 4.5-11.0 [facility] Comment on above: Performed By: #### C BC #### [address] [address] CMPon 08-04-2019 Albumin [Mass/Vol] 4.0 g/dL Normal 3.2-4.9 [facility] Comment on above: Result Comment: [facility] Laboratory updated the methodology used for albumin testing on 06/16/18. Albumin measurement was performed using a bromcresol purple dye-binding assay. Performed By: #### C OMP #### [address] [address] Albumin/Globulin [Mass ratio] 1.2 {ratio} Normal 1.1-2.2 [facility] Comment on above: Performed By: #### C OMP #### [address] [address] Alk Phos 51 IU/L Normal 32-91 [facility] Comment on above: Performed By: #### C OMP #### [address] [address] ALT [Catalytic activity/Vol] 13 U/L Low 14-54 [facility] Comment on above: Performed By: #### C OMP #### [address] [address] Anion gap [Moles/Vol] 10 mmol/L Normal 7-17 [facility] Comment on above: Performed By: #### C OMP #### [address] [address] AST [Catalytic activity/Vol] 17 U/L Normal 15-41 [facility] Comment on above: Performed By: #### C OMP #### [address] [address] Bili Total 0.8 mg/dL Normal 0.3-1.2 [facility] Comment on above: Performed By: #### C OMP #### [address] [address] Calcium [Mass/Vol] 8.9 mg/dL Normal 8.5-10.3 [facility] Comment on above: Performed By: #### C OMP #### [address] [address] Chloride [Moles/Vol] 107 mmol/L Normal 98-110 [facility] Comment on above: Performed By: #### C OMP #### [address] [address] CO2 [Moles/Vol] 27 mmol/L Normal 22-32 [facility] Comment on above: Performed By: #### C OMP #### [address] [address] Creatinine [Mass/Vol] 0.84 mg/dL Normal 0.44-1.03 [facility] Comment on above: Performed By: #### C OMP #### [address] [address] Glucose [Mass/Vol] 84 mg/dL Normal 74-118 [facility] Comment on above: Performed By: #### C OMP #### [address] [address] Potassium [Moles/Vol] 4.3 mmol/L Normal 3.4-4.8 [facility] Comment on above: Performed By: #### C OMP #### [address] [address] Protein [Mass/Vol] 7.2 g/dL Normal 6.5-8.1 [facility] Comment on above: Performed By: #### C OMP #### [address] [address] Sodium [Moles/Vol] 140 mmol/L Normal 133-142 [facility] Comment on above: Performed By: #### C OMP #### [address] [address] Urea nitrogen [Mass/Vol] 10 mg/dL Normal 8-26 [facility] Comment on above: Performed By: #### C OMP #### [address] [place] [address] Urea nitrogen/Creatinine [Mass ratio] 11.9 mg/mg Normal 10.0-20.0 [facility] Comment on above: Performed By: #### C OMP #### [address] [address] Diff Autoon 08-04-2019 Baso Absolute 0.0 x10*3/mcL Normal 0.0-0.2 [facility] Comment on above: Performed By: #### . Automated Diff #### [address] [address] Basophils/100 WBC (Bld) 0.2 % Normal 0.0-1.5 [facility] Comment on above: Performed By: #### . Automated Diff #### [address] [address] Eos Absolute 0.0 x10*3/mcL Normal 0.0-0.4 [facility] Comment on above: Performed By: #### . Automated Diff #### [address] [address] Eosinophils/100 WBC (Bld) 0.6 % Normal 0.0-5.4 [facility] Comment on above: Performed By: #### . Automated Diff #### [address] [address] Lymphocytes (Bld) [#/Vol] 2.3 x10*3/mcL Normal 1.0-4.8 [facility] Comment on above: Performed By: #### . Automated Diff #### [address] [address] Lymphocytes/100 WBC (Bld) 30.5 % Normal 27.2-40.8 [facility] Comment on above: Performed By: #### . Automated Diff #### [address] [address] Kinney Absolute 0.5 x10*3/mcL Normal 0.1-1.1 [facility] Comment on above: Performed By: #### . Automated Diff #### [address] [address] Monocytes/100 WBC (Bld) 7.0 % Normal 3.7-11.9 [facility] Comment on above: Performed By: #### . Automated Diff #### [address] [address] Neutro Absolute 4.6 x10*3/mcL Normal 1.8-7.7 [facility] Comment on above: Performed By: #### . Automated Diff #### [address] [address] Neutro Auto 61.7 % Normal 47.2-70.8 [facility] Comment on above: Performed By: #### . Automated Diff #### [address] [address] Lipid Panelon 08-04-2019 Cholesterol in LDL [Mass/Vol] 79 mg/dL Normal 0-99 [facility] Comment on above: Result Comment: The equation being used in this calculation is LDL = (Chol - HDL) - (Trig / 5) The optimal value of LDL for individual patients may vary. The patient's history of Artherosclerosis and other cardiac risk factors should be considered. Performed By: #### L BONILLA #### [address] [address] Cardiac Risk 3.1 Normal [facility] Comment on above: Result Comment: Men Women 1/2 Average 3.43 3.27 Average 4.97 4.44 2x Average 9.55 7.05 3x Average 23.99 11.04 Performed By: #### L BONILLA #### [address] [address] Cholesterol [Mass/Vol] 131 mg/dL Normal 25-199 [facility] Comment on above: Result Comment: 0 - 17 years of age: Desirable 0-170 Borderline High 170-199 High >=200 18 years and older: Acceptable <200 Borderline High 200-239 High >=240 Performed By: #### L BONILLA #### [address] [address] Cholesterol in HDL [Mass/Vol] 42.0 mg/dL Normal 40.0-60.0 [facility] Comment on above: Performed By: #### L BONILLA #### [address] [address] Cholesterol in VLDL [Mass/Vol] 10 mg/dL Normal 8-39 [facility] Comment on above: Performed By: #### L BONILLA #### [address] [address] Triglyceride [Mass/Vol] 48 mg/dL Normal [facility] Comment on above: Result Comment: 0 - 17 years of age: Trig 90 - 129 Borderline High Trig => 130 High 18 years and older: Trig 150 - 199 Borderline High Trig 200 - 499 High Trig =>500 Very High Performed By: #### L BONILLA #### [address] [address] TSHon 08-04-2019 TSH Qn 1.45 mcIU/mL Normal 0.45-5.33 [facility] Comment on above: Result Comment: Refe rence Ranges for individuals from to 18 years of age were obtained from The Marychuy Edmondson Handbook (20 ed) published by [facility]. Reference Ranges for Females: Females, 1st Trimester 0.05 ? 3.7 uIU/mL Females, 2nd Trimester 0.31 ? 4.35 uIU/mL Females, 3rd Trimester 0.41 ? 5.18 uIU/mL Performed By: #### T SH #### [address] [address] Total T3on 08-04-2019 T3 Total 0.95 ng/mL Normal 0.87-1.78 [facility] Comment on above: Performed By: #### T 3R #### [address] [address] Total T4on 08-04-2019 T4 Total 6.6 mcg/dL Normal 5.0-11.5 [facility] Comment on above: Performed By: #### T 4 #### [address] [address] Vital Signs Date Time Vital Sign Value Performing Clinician [place] 12-23-2023 14:45-0500 Body mass index (BMI) [Ratio] 29.49 kg/m2 Harsha Dimitry DO Work Phone: [facility] 12-23-2023 14:45-0500 Body weight 77.93 kg Harsha Dimitry DO Work Phone: [facility] 12-23-2023 14:45-0500 Diastolic blood pressure 76 mm[Hg] Harsha Dimitry DO Work Phone: [facility] 12-23-2023 14:45-0500 Systolic blood pressure 118 mm[Hg] Harsha Dimitry DO Work Phone: [facility] 12-16-2023 14:06-0500 Body mass index (BMI) [Ratio] 29.32 kg/m2 Harsha Dimitry DO Work Phone: [facility] 12-16-2023 14:06-0500 Body weight 77.47 kg Harsha Dimitry DO Work Phone: [facility] 12-16-2023 14:06-0500 Diastolic blood pressure 70 mm[Hg] Harsha Dimitry DO Work Phone: [facility] 12-16-2023 14:06-0500 Systolic blood pressure 120 mm[Hg] Harsha Dimitry DO Work Phone: [facility] Healthcare Encounters Encounter Date Encounter Type [...] Start: 12-04-2021 End: 12-05-2021 ambulatory [facility]O [facility]QU[facility] Start: 09-27-2021 Encounter for genera l adult medical examination without abnormal findings BRIAN VARNER [facility] Start: 08-30-2021 End: 08-31-2021 ambulatory BRIAN VARNER Facility:[facility] Start: 08-30-2021 End: 08-31-2021 Encounter for general adult medical examination without abnormal findings BRIAN VARNER Facility: Start: 08-04-2019 End: 08-05-2019 Patient encounter procedure MASON DELEON Facility:[facility] Procedures Date Procedure Procedure Detail Performing [...] Routine [facility] [address] [place] [id number] Harsha Moraes, DO [address] [place] [address] Third trimester [facility] Comment on above: Third trimester preg rajinder Start: 12-23-2023 End: 12-23-2024 US biophysical profile w non stress test US biophysical profile w non stress test Imaging Routine Post term over 40 weeks Expected: 12/23/2023 (Approximate), Expires: 12/23/2024 [facility] Work Phone: Comment on above: Expected: 12/23/2023 (Approximate), Expires: 12/23/2024 Payers Date Payer Category Payer Unknown [id number] 2019 Unknown 1995 Unknown [id number] 2.16.8 [id number] 1995 Unknown [id number] 2.16.8 [id number] 1995 Unknown [id number] 2.16.84 [id number] 1995 Unknown [id number] 2.16.84 [id number] 1995 Unknown [id number] 2.16.84 [id number] 1995 Unknown [id number] 2.16.84 [id number] 1995 Unknown [id number] 2.16.84 [id number] 1995 Unknown [id number] 2.16.84 [id number] 1995 Unknown [id number] 2.16.84 [id number] 1995 Unknown [id number] 2.16.840 .[id number] 1995 Unknown [id number] 2.16.840 .[id number] 1959 Unknown [id number] Social History Date Type Detail Facility Start: 06-18-2023 Tobacco smoking status UTIS Never sm oked tobacco [facility] Start: [...] Start: 04-23-2023 Sexual orientation Heterosexual (fin ding) [facility] History of Present illness Narrative [...] nursing note reviewed. Exam conducted with a varnish cooker present. Vitals: Estimated body mass index is [...] nursing note reviewed. Exam conducted with a varnish cooker present. Vitals: Estimated body mass index is [...] section and content) DATE CREATED AUTHOR 04/13/2020 [facility] DATE CREATED AUTHOR AUTHOR'S ORGANIZ ATION 12/17/2021 [facility] DATE CREATED AUTHOR AUTHOR'S ORGANIZ ATION 07/04/2022 [facility] DATE CREATED AUTHOR AUTHOR'S ORGANIZ ATION 12/25/2023 [facility] Special[facility] EPIC Reason for Visit (unrecogniz ed section and content) Reason Comments Routine Visit Care Teams (unrecognized sec tion and content) Disability Case Manager Relationship Specialty Start Date End Date Mason Deleon MD [address] [place] [address] PCP - General 05/15/23 FOR RECORDS PERTAINING [...] BE BASED ON THE PRIMARY CLINICAL RECORDS. [facility] [employer] [facility]. provides no warranty or guarantee of the accuracy or completeness of information in this document.
--- NOTE | 2023-12-30 13:07 | PC.NURSE ---
Mery an 4 day old Sandra arrive for follow up visit. Mery states doing pretty good States is tired, but does nap during the day when the baby naps. States milk came in yesterday PM. Remains full and firm, has pumped after feeds to make it go away Reviewed engorgement and care of breasts. Reviewed appropriate pumping for relief, motrin and cool compresses. Verbalized understanding. Mery's VSS and assessment WNL. No concerns voiced regarding her recovery post delivery. Sandra out of car seat, and assessed. VSS and assessment WNL. 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 Mom does have concerns with infant as she continues to have mucous emesis throughout the day. Denies projectile vomiting, or green colored emesis. Just clear mucus and small amount of yellow/cream colored milk does become gaggy during assessment, easily brings up mucus to mouth, swallows prior to being able to remove from mouth. No color changes, no resp distress, or other concerns noted. clears mucus on her own. Offered breast, infant not interested in latch. Mom reports she nursed just prior to leaving the house. Baby to be seen on Thursday by PCP and will return 01/04/2024 for further support. Mom aware of support group and to call as needs for questions. Leaves ambulatory for home.
[2023-12-30 13:09] VITALS: BP 127/82; PULSE 110; RESP 18; TEMP 36.7; O2SAT 97
== END 2023-12-30 10:00 | disposition home or self-care (01) ==
LOC: FBCO 08:42
PROVIDERS: PCP Family Medicine; Visit Provider Obstetrics & Gynecology
DX: Z39.2 Encounter for routine postpartum follow-up (principal)

== ENCOUNTER 2024-01-04 08:54 | Outpatient (OUT) | payer BC, SELFPAY | END 2024-01-04 08:55 | disposition home or self-care (01) | LOC: FBCO 08:55 | PROVIDERS: PCP Family Medicine; Visit Provider Obstetrics & Gynecology | DX: Z39.2 Encounter for routine postpartum follow-up (principal) | CPT/HCPCS: G0463 ==

== ENCOUNTER 2024-12-07 07:35 | Outpatient (RCR) | payer BC, SELFPAY ==
[2024-12-07 10:01] VITALS: BP 109/76; PULSE 81; TEMP 36.5; O2SAT 97
[2024-12-07] MEDS: MULTIVIT INFUSN,ADULT 4,VIT K 10 ML in 0.9 % SODIUM CHLORIDE 1,000 ML 500 ML IV (10:13)
== END 2024-12-09 23:59 | disposition home or self-care (01) ==
LOC: INF 07:35
PROVIDERS: PCP Family Medicine; Visit Provider Obstetrics & Gynecology
DX: O21.1 Hyperemesis gravidarum with metabolic disturbance (principal); Z3A.00 Weeks of gestation of pregnancy not specified
CPT/HCPCS: 96365; 96366

== ENCOUNTER 2024-12-10 09:20 | Outpatient (OUT) | payer BC, SELFPAY ==
--- OUTSIDE RECORDS SUMMARY | 2024-12-10 09:25 | XMS_ITS | CCD ---
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 Name Role Phone MASON DELEON Attending Unavailable Mason Deleon Primary Care Unavailable BEBETO AMEZQUITA Referring Unavailable MASON DELEON Primary Care Unavailable BRIAN VARNER Attending Unavailable BRIAN VARNER Consulting Unavailable BRIAN VARNER Admitting Unavailable DR MASON DELEON Primary Care Unavailable Mason Deleon MD Primary Care Provider [phone] KIKE PERDOMO Attending Unavailable HARSHA MORAES Attending Unavailable HARSHA MORAES Attending Unavailable KIKE PERDOMO Attending Unavailable HARSHA MORAES Attending Unavailable HARSHA MORAES Attending Unavailable HARSHA MORAES Attending Unavailable KIKE PERDOMO Attending Unavailable HARSHA MORAES Attending Unavailable Medications Current Medications Medication Drug Class(es) Dates Sig (Normalized) Sig (Original) ondansetron 4 mg disintegrating oral tablet (1 source) Serotonin-3 Receptor Antagonist Start: 11-29-2024 take 1 tablet by mouth every six hours as needed for nausea and vomiting and nausea and nausea ondansetron ODT (Zofran-ODT) 4 MG disintegrating tablet Indications: Nausea Take 1 tablet (4 mg) by mouth every 6 (six) hours if needed for nausea or vomiting for up to 30 doses 30 tablet 3 11/29/2024 Active Problems Problem Classification Problem Date Documented Da te Episodic/Chronic Menstrual disorders (1 source) Missed period; Translations: [Irregular menstruation, unspecified] 12-09-2024 Chronic Other and delivery including normal (11 sources) Third trimester ; Translations: [Encounter for supervision of normal , unspecified, third trimester] Onset: 11-19-2023 12-10-2023 Episodic Prolonged (2 sources) Post-term ; Translations: [Post-term ] 12-23-2023 Episodic Results Test Name Value Interpretation Reference Range Facility HCG ( test) Ql (U)o n 12-09-2024 Interpretation and review of laboratory results Abnormal [facility] Preg Test, Ur Positive Negative [facility] care [facility] Urinalysis macro (dipstick) panel (U)on 12-09-2024 Bilirubin, UA Negative Negative - 4(70) +++ mg/dL [facility] Blood, UA Negative Negative - 50 Gulshan/mcL [facility] Healthcare Clarity, UA Clear [facility] Color, UA Yellow [facility] Glucose, UA Negative Negative - 1999(110) ++++ mg/dL [facility] Interpretation and review of laboratory results Abnormal [facility] Ketones, UA Positive Negative - 160(16) ++++ mg/dL [facility] Comment on above: trace Leukocytes, UA Negative Negative - 500+++ Stefan/mcL [facility] Nitrite, UA Negative Negative - Positive [facility] pH, UA 5.5 5 - 9 [facility] Protein, UA Positive Negative - 1999(20) ++++ mg/dL [facility] Comment on above: 30 Spec Grav, UA 1.03 1 - 1.03 [facility] Urobilinogen, UA 0.2 0.2 - 12 mg/dL [facility] Urinalysis macro (dipstick) panel (U)on 12-23-2023 Bilirubin, UA Negative Negative - 4(70) +++ mg/dL [facility] Blood, UA Negative Negative - 50 Gulshan/mcL [facility] Clarity, UA Clear [facility] Color, UA Yellow [facility] Glucose, UA Negative Negative - 1999(110) ++++ mg/dL [facility] Interpretation and review of laboratory results [facility] Ketones, UA Negative Negative - 160(16) ++++ mg/dL [facility] Leukocytes, UA Negative Negative - 500+++ Stefan/mcL [facility] Nitrite, UA Negative Negative - Positive [facility] pH, UA 5.5 5 - 9 [facility] Protein, UA Negative Negative - 1999(20) ++++ mg/dL [facility] Spec Grav, UA 1.020 1 - 1.[address] [facility] Urobilinogen, UA 1.0 0.2 - 12 mg/dL [facility] Urinalysis macro (dipstick) panel (U)on 12-16-2023 Bilirubin, UA Negative Negative - 4(70) +++ mg/dL [facility] Blood, UA Negative Negative - 50 Gulshan/mcL [facility] Clarity, UA Clear [facility] Color, UA Yellow [facility] Glucose, UA Negative Negative - 1999(110) ++++ mg/dL [facility] Interpretation and review of laboratory results Normal [facility] Ketones, UA Negative Negative - 160(16) ++++ mg/dL [facility] Leukocytes, UA Negative Negative - 500+++ Stefan/mcL [facility] Nitrite, UA Negative Negative - Positive [facility] pH, UA 5.5 5 - 9 [facility] Protein, UA Negative Negative - 1999(20) ++++ mg/dL [facility] Spec Grav, UA 1.005 1 - 1.03 [facility] Urobilinogen, UA 0.2 0.2 - 12 mg/dL [facility] HPV DNA High Riskon 12-06-19 22 HPV Interp [facility] Comment on above: [...] purposes. Performed By: #### H PV #### [facility] [place] [address] Branch Associate Teller: Ulisses Gold MD HPV Type 16 Not detected [facility] Comment on above: Performed By: #### H PV #### [facility] [address] [place] [address] Branch Associate Teller: Ulisses Gold MD HPV Type 18 Not detected [facility] Comment on above: Performed By: #### H PVH #### [facility] [address] [place] [address] Branch Associate Teller: Ulisses Gold MD Other High Risk HPV Not detected Normal [facility] Comment on above: Performed By: #### H PVH #### [facility] [address] [place] [address] Branch Associate Teller: Ulisses Gold MD HPV DNA High Riskon 12-05-19 22 Source .GENITAL - NOT SPECIFIED Normal [facility] Comment on above: Performed By: #### H PVH #### [facility] [address] [place] [address] Branch Associate Teller: Ulisses oGld MD HPV Sample .THIN PREP [facility] Comment on above: Performed By: #### H PVH #### [facility] [address] [place] [address] Branch Associate Teller: Ulisses Gold MD Cytologyon 12-04-2021 Cytology (NOTE) INTERPRETATION Cervical material, (ThinPrep vial, Imaging-assisted review): Specimen Adequacy: Satisfactory for evaluation. -Endocervical/transfor mation zone component is absent. Descriptive Diagnosis: Negative for intraepithelial lesion or malignancy. 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 Comment on above: Performed By: #### P PPVP #### [address] [id number] Branch Associate Teller: Ulisses Gold MD QUANTIFERON TB GOLD PLUS (NO N-INC)on 09-05-2021 Comment Incubation performed. Normal [facility] Comment on above: Performed By: #### Q NTTBG #### [facility] [address] [place] [address] Dr. Hetal Linn Criteria Comment [facility] Comment on above: Result Comment: The QuantiFERON-TB Gold Plus result is determined by subtracting the Nil value from either TB antigen (Ag) tube. The mitogen tube serves as a control for the test. Performed By: #### Q NTTBG #### [facility] [address] [place] [address] Dr. Hetal Linn Mitogen Value >10.00 Normal [facility] Comment on above: Performed By: #### Q NTTBG #### [facility] [address] [place] [address] Dr. Hetal Linn Nill Value 0.06 IU/mL Normal [facility] Comment on above: Performed By: #### Q NTTBG #### [facility] [address] [place] [address] Dr. Hetal Linn Quantiferon Gold Plus Negative Normal Negative [facility] Comment on above: Result Comment: Chem iluminescence immunoassay methodology Performed By: #### Q NTTBG #### [facility] [address] [place] [address] Dr. Hetal Linn TB1 Ag Value 0.10 IU/mL Normal [facility] Comment on above: Performed By: #### Q NTTBG #### [facility] [address] [place] [address] Dr. Hetal Linn TB2 Ag Value 0.08 IU/mL Normal [facility] Comment on above: Performed By: #### Q NTTBG #### [facility] [address] [place] [address] Dr. Hetal Linn HEPATITIS B SURFACE ANTIBODY , QUANTon 08-31-2021 Hepatitis B Surf AB Quant 202.1 mIU/mL Normal Immunity>9.9 [facility] Comment on above: Result Comment: Stat us of Immunity Anti-HBs Level Inconsistent with Immunity 0.0 - 9.9 Consistent with Immunity >9.9 Performed By: #### H EPBSRF #### [facility] [address] [place] [address] Dr. Hetal Linn MMR IMMUNITYon 08-31-2021 Mumps Abs, IgG 24.8 AU/mL Normal Immune >10.9 [facility] Comment on above: Result Comment: Nega tive <9.0 Equivocal 9.0 - 10.9 Positive >10.9 A positive result generally indicates past exposure to Mumps virus or previous vaccination. Performed By: #### M MRIMMU #### [facility] [address] [place] [address] Dr. Hetal Linn Rubella Antibodies, IgG 1.14 index Normal Immune >0.99 [facility] Comment on above: Result Comment: Non- immune <0.90 Equivocal 0.90 - 0.99 Immune >0.99 Performed By: #### M MRIMMU #### [facility] [address] [place], [place] [address] Dr. Hetal Linn Rubeola Ab, IgG 26.6 AU/mL Normal Immune >16.4 [facility] Comment on above: Result Comment: Nega tive <13.5 Equivocal 13.5 - 16.4 Positive >16.4 Presence of antibodies to Rubeola is presumptive evidence of immunity except when acute infection is suspected. Performed By: #### M MRIMMU #### [facility] [address] [place], [place] [address] Dr. Hetal Linn VARICELLA IGG ABon 1 Varicella Zoster IgG 1376 index Normal Immune >165 [facility] Comment on above: Result Comment: Nega tive <135 Equivocal 135 - 165 Positive >165 A positive result generally indicates exposure to the pathogen or administration of specific immunoglobulins, but it is not indication of active infection or stage of disease. Performed By: #### V ARCEL #### [facility] [address] [place] [id number] [address] Hetal Linn Addendum Reporton 04-10-2020 Addendum Report Missing Attachment Chartable Reference Lab Reports Can be viewed in source system Addendum Discussion [facility], MLABS, #[id number], Date reported: 04/10/2020: Diagnosis: A. Skin of [...] irritation but melanocytic atypia is not observed. [id number] ONAL [id number] ONAL [id number] ONAL [id number] IONAL [id number] ONAL M-[id number] ONAL [id number] ONAL M-[id number] ONAL [id number] ONAL Ronna Jenkins MD (Electronically signed by) Verified: 04/10/20 13:15 ADD Pathologist Requested Consult Comment by Ronna Jenkins M.D.: The above consultation report was reviewed. I essentially concur with the diagnosis given. Normal [facility] Comment on above: Performed By: #### C #### [facility] [address] [place] [address] Surgery Office/Clinic Noteon 04-04-2020 Surgery Office/Clinic Note Chief Complaint Mole removal x2. History of Present Illness Patient presents for excision of two raised darkly pigmented nevi. Review of Systems Constitutional: No Unexpected weight loss No History of diabetes Respiratory: No Shortness of breath Cardiovascular: NoChest pain or pressure, NoEdema, NoHistory of CO/CAD, NoHistory of A-Fib : NoHesitancy, NoNocturia, NoPrior [...] in this document, created by the medical record transcriber for me, accurately reflects the services I [...] by Shaina Kang 04/04/2020 12:16 EDT Normal [facility] Surgical Pathology Reporton 04-04-2020 Surgical [...] case is going to [facility] for consultation. [id number] ONAL [id number] IONAL [id number] ONAL [id number] ONAL [id number] IONAL Ronna Jenkins MD (Electronically signed by) Verified: 04/09/20 10:08 Normal [facility] Comment on above: Performed By: #### S NE #### [facility] (DEFAULT) [address] [place] [address] .eGFRon 08-04-2019 eGFR AA >60 Normal >=60 [facility] Comment on above: Result Comment: Resu lt = 0-14.9 mL/min/1.73 m2 Kidney failure or Dialysis Result = 15-29 mL/min/1.73 m2 Severe decrease in GFR Result = 30-59 mL/min/1.73 m2 Moderate decrease in GFR Result >= 60 mL/min/1.73 m2 Normal or increased GFR Performed By: #### E GFR #### [place] [id number] eGFR Non-AA >60 Normal >=60 [facility] Comment on above: Result Comment: [...] dosing. Performed By: #### E GFR #### [address] [address] CBC w/ Diffon 08-04-2019 Erythrocyte distribution width (RBC) [Ratio] 12.9 % Normal 11.6-14.8 [facility] Comment on above: Performed By: #### C BC #### [address] [address] Hematocrit (Bld) [Volume fraction] 40.4 % Normal 36.0-46.0 [facility] Comment on above: Performed By: #### C BC #### [address] [address] Hemoglobin (Bld) [Mass/Vol] 13.5 g/dL Normal 12.0-16.0 [facility] Comment on above: Performed By: #### C BC #### [address] [address] MCH (RBC) [Entitic mass] 32.0 pg Normal 27.0-35.0 [facility] Comment on above: Performed By: #### C BC #### [address] [address] MCHC (RBC) [Mass/Vol] 33.5 % Normal 31.0-37.0 [facility] Comment on above: Performed By: #### C BC #### [address] [address] MCV (RBC) [Entitic vol] 95.7 fL Normal 80.0-100.0 [facility] Comment on above: Performed By: #### C BC #### [address] [address] Platelet mean volume (Bld) [Entitic vol] 9.8 fL Normal 6.7-10.6 [facility] Comment on above: Performed By: #### C BC #### [address] [address] Platelets (Bld) [#/Vol] 226 x10*3/mcL Normal 150-350 [facility] Comment on above: Performed By: #### C BC #### [address] [address] RBC (Bld) [#/Vol] 4.23 x10*6/mcL Normal 3.80-5.20 [facility] Comment on above: Performed By: #### C BC #### [address] [address] WBC (Bld) [#/Vol] 7.4 x10*3/mcL Normal 4.5-11.0 [facility] Comment on above: Performed By: #### C BC #### [address] [address] CMPon 08-04-2019 Albumin [Mass/Vol] 4.0 g/dL Normal 3.2-4.[address] [facility] Comment on above: Result Comment: [facility] Laboratory updated the methodology used for albumin testing on 06/16/18. Albumin measurement was performed using a bromcresol purple dye-binding assay. Performed By: #### C OMP #### [address] [address] Albumin/Globulin [Mass ratio] 1.2 {ratio} Normal 1.1-2.2 [facility] Comment on above: Performed By: #### C OMP #### [address] [address] Alk Phos 51 IU/L Normal 32-91 [facility] Comment on above: Performed By: #### C OMP #### [address] [address] ALT [Catalytic activity/Vol] 13 U/L Low 14-54 [facility] Comment on above: Performed By: #### C OMP #### [address] [address] Anion gap [Moles/Vol] 10 mmol/L Normal 7-17 [facility] Comment on above: Performed By: #### C OMP #### [address] [address] AST [Catalytic activity/Vol] 17 U/L Normal 15-41 [facility] Comment on above: Performed By: #### C OMP #### [address] [address] Bili Total 0.8 mg/dL Normal 0.3-1.2 [facility] Comment on above: Performed By: #### C OMP #### [address] [address] Calcium [Mass/Vol] 8.9 mg/dL Normal 8.5-10.[address] [facility] Comment on above: Performed By: #### C OMP #### [address] [address] Chloride [Moles/Vol] 107 mmol/L Normal 98-110 [facility] Comment on above: Performed By: #### C OMP #### [address] [address] CO2 [Moles/Vol] 27 mmol/L Normal 22-32 [facility] Comment on above: Performed By: #### C OMP #### [address] [address] Creatinine [Mass/Vol] 0.84 mg/dL Normal 0.44-1.03 [facility] Comment on above: Performed By: #### C OMP #### [address] [address] Glucose [Mass/Vol] 84 mg/dL Normal 74-[address] [facility] Comment on above: Performed By: #### C OMP #### [address] [address] Potassium [Moles/Vol] 4.3 mmol/L Normal 3.4-4.8 [facility] Comment on above: Performed By: #### C OMP #### [address] [address] Protein [Mass/Vol] 7.2 g/dL Normal 6.5-8.[address] [facility] Comment on above: Performed By: #### C OMP #### [address] [address] Sodium [Moles/Vol] 140 mmol/L Normal 133-[address] [facility] Comment on above: Performed By: #### C OMP #### [address] [address] Urea nitrogen [Mass/Vol] 10 mg/dL Normal 8-26 [facility] Comment on above: Performed By: #### C OMP #### [address] [address] Urea nitrogen/Creatinine [Mass ratio] 11.9 mg/mg Normal 10.0-20.0 [facility] Comment on above: Performed By: #### C OMP #### [address] [address] Diff Autoon 08-04-2019 Baso Absolute 0.0 x10*3/mcL Normal 0.0-0.2 [facility] Comment on above: Performed By: #### . Automated Diff #### [address] [address] Basophils/100 WBC (Bld) 0.2 % Normal 0.0-1.5 [facility] Comment on above: Performed By: #### . Automated Diff #### [address] [address] Eos Absolute 0.0 x10*3/mcL Normal 0.0-0.4 [facility] Comment on above: Performed By: #### . Automated Diff #### [address] [address] Eosinophils/100 WBC (Bld) 0.6 % Normal 0.0-5.4 [facility] Comment on above: Performed By: #### . Automated Diff #### [address] [address] Lymphocytes (Bld) [#/Vol] 2.3 x10*3/mcL Normal 1.0-4.8 [facility] Comment on above: Performed By: #### . Automated Diff #### [address] [address] Lymphocytes/100 WBC (Bld) 30.5 % Normal 27.2-40.8 [facility] Comment on above: Performed By: #### . Automated Diff #### [address] [address] [place] Absolute 0.5 x10*3/mcL Normal 0.1-1.1 [facility] Comment on above: Performed By: #### . Automated Diff #### [address] [address] Monocytes/100 WBC (Bld) 7.0 % Normal 3.7-11.9 [facility] Comment on above: Performed By: #### . Automated Diff #### [address] [address] Neutro Absolute 4.6 x10*3/mcL Normal 1.8-7.[address] [facility] Comment on above: Performed By: #### . Automated Diff #### [address] [address] Neutro Auto 61.7 % Normal 47.2-70.8 [facility] Comment on above: Performed By: #### . Automated Diff #### [address] [address] Lipid Panelon 08-04-2019 Cholesterol in LDL [Mass/Vol] 79 mg/dL Normal 0-99 [facility] Comment on above: Result Comment: The equation being used in this calculation is LDL = (Chol - HDL) - (Trig / 5) The optimal value of LDL for individual patients may vary. The patient's history of Artherosclerosis and other cardiac risk factors should be considered. Performed By: #### L BONILLA #### [address] [address] Cardiac Risk 3.1 Normal [facility] Comment on above: Result Comment: Men Women 1/2 Average 3.43 3.27 Average 4.97 4.44 2x Average 9.55 7.05 3x Average 23.99 11.04 Performed By: #### L BONILLA #### [address] [address] Cholesterol [Mass/Vol] 131 mg/dL Normal 25-199 [facility] Comment on above: Result Comment: 0 - 17 years of age: Desirable 0-170 Borderline High 170-199 High >=200 18 years and older: Acceptable <200 Borderline High 200-239 High >=240 Performed By: #### L BONILLA #### [address] [address] Cholesterol in HDL [Mass/Vol] 42.0 mg/dL Normal 40.0-60.0 [facility] Comment on above: Performed By: #### L BONILLA #### [address] [address] Cholesterol in VLDL [Mass/Vol] 10 mg/dL Normal 8-39 [facility] Comment on above: Performed By: #### L BONILLA #### [address] [address] Triglyceride [Mass/Vol] 48 mg/dL Normal [facility] Comment on above: Result Comment: 0 - 17 years of age: Trig 90 - 129 Borderline High Trig => 130 High 18 years and older: Trig 150 - 199 Borderline High Trig 200 - 499 High Trig =>500 Very High Performed By: #### L BONILLA #### [address] [address] TSHon 08-04-2019 TSH Qn 1.45 mcIU/mL Normal 0.45-5.33 [facility] Comment on above: Result Comment: Refe rence Ranges for individuals from to 18 years of age were obtained from The [employer] Edmondson Handbook (20 ed) published by [facility]. Reference Ranges for Females: Females, 1st Trimester 0.05 ? 3.7 uIU/mL Females, 2nd Trimester 0.31 ? 4.35 uIU/mL Females, 3rd Trimester 0.41 ? 5.18 uIU/mL Performed By: #### T SH #### [address] [address] Total T3on 08-04-2019 T3 Total 0.95 ng/mL Normal 0.87-1.78 [facility] Comment on above: Performed By: #### T 3R #### [address] [address] Total T4on 08-04-2019 T4 Total 6.6 mcg/dL Normal 5.0-11.5 [facility] Comment on above: Performed By: #### T 4 #### [address] [address] Vital Signs Date Time Vital Sign Value Performing Clinician Faci lity 12-09-2024 10:33-0500 Body mass index (BMI) [Ratio] 23.69 kg/m2 Nom Nurse [facility] 12-09-2024 10:33-0500 Body weight 62.6 kg [facility] Nurse [facility] 12-09-2024 10:33-0500 Diastolic blood pressure 70 mm[Hg] [facility] Nurse [facility] 12-09-2024 10:33-0500 Systolic blood pressure 118 mm[Hg] [facility] Nurse [facility] 12-23-2023 14:45-0500 Body mass index (BMI) [Ratio] 29.49 kg/m2 Harsha Dimitry DO Work Phone: [facility] 12-23-2023 14:45-0500 Body weight 77.93 kg Harsha Dimitry DO Work Phone: [facility] 12-23-2023 14:45-0500 Diastolic blood pressure 76 mm[Hg] Harsha Dimitry DO Work Phone: [facility] 12-23-2023 14:45-0500 Systolic blood pressure 118 mm[Hg] Harsha Dimitry DO Work Phone: [facility] 12-16-2023 14:06-0500 Body mass index (BMI) [Ratio] 29.32 kg/m2 Harsha Dimitry DO Work Phone: [facility] 12-16-2023 14:06-0500 Body weight 77.47 kg Harsha Dimitry DO Work Phone: [facility] 12-16-2023 14:06-0500 Diastolic blood pressure 70 mm[Hg] Harsha Dimitry DO Work Phone: [facility] [facility] 12-16-2023 14:06-0500 Systolic blood pressure 120 mm[Hg] Harsha Dimitry DO Work Phone: [facility] Healthcare Encounters Encounter Date Encounter Type Care Provider Facility Start: 12-09-2024 End: 12-09-2024 Office outpatient visit 5 minutes [facility] Dimitry Nurse [facility] Comment on above: GA: 8w6d Start: 02-08-2024 End: 02-08-2024 ambulatory KIKE LEANNE Not Available Start: 12-23-2023 End: 12-23-2023 ambulatory HARSHA DIMITRY Not Available Start: 12-23-2023 End: 12-23-2023 flow sheet Harsha Dimitry DO Work Phone: [facility] Comment on above: Third trimester [...] Available Start: 11-04-2023 End: 11-04-2023 ambulatory KIKE LEANNE Not Available Start: 10-13-2023 End: 10-13-2023 ambulatory HARSHA DIMITRY Not Available Start: 12-04-2021 End: 12-05-2021 [facility] Start: 09-27-2021 Encounter for genera l adult medical examination without abnormal findings BRIAN VARNER [facility] Start: 08-30-2021 End: 08-31-2021 ambulatory BRIAN VARNER Facility:[facility] Start: 08-30-2021 End: 08-31-2021 Encounter for general adult medical examination without abnormal findings BRIAN VARNER Facility:[facility] Start: 08-04-2019 End: 08-05-2019 Patient encounter procedure MASON SIN GABBY Facility:[facility] Procedures Date Procedure Procedure Detail Performing Clinician Start: 12-09-2024 Urnls dip stick/tabl et rgnt non-auto w/o micrscp Harsha Dimitry DO Work Phone: Start: 12-23-2023 Urnls dip stick/tabl et rgnt non-auto w/o micrscp Harsha Dimitry DO Work Phone: Start: 12-16-2023 Urnls dip stick/tabl et rgnt non-auto w/o micrscp Harsha Dimitry DO Work Phone: Plan of Treatment Date Care Activity Detail Author Start: 01-10-2025 End: 01-10-2025 Patient encounter procedure 01/10/2025 9:10 AM EST Routine [facility] [address] [place] [id number] Harsha Moraes, [address] [place], [place] [address] [address] [facility] Start: 12-09-2024 End: 12-09-2025 ABO/Rh ABO/Rh Lab Routine Missed menses , unspecified gestational age Expected: 12/09/2024 (Approximate), Expires: 12/09/2025 [facility] Healthcare Comment on above: Expected: 12/09/2024 (Approximate), Expires: 12/09/2025 Start: 12-09-2024 End: 12-09-2025 Blood type and Indirect antibody screen panel - Blood Type and screen Lab Routine Missed menses , unspecified gestational age Expected: 12/09/2024 (Approximate), Expires: 12/09/2025 [facility] Work Phone: Comment on above: Expected: 12/09/2024 (Approximate), Expires: 12/09/2025 Start: 12-09-2024 End: 12-09-2025 Drugs of abuse panel - Urine by Screen method Rapid drug screen, urine Lab Routine , unspecified gestational age Encounter for supervision of normal first in first trimester Expected: 12/09/2024 (Approximate), Expires: 12/09/2025 [facility] Comment on above: Expected: 12/09/2024 (Approximate), Expires: 12/09/2025 Start: 12-23-2023 End: 12-23-2023 Patient encounter procedure 12/23/2023 2:30 PM EST Routine [facility] [address] [place] [id number] Harsha Moraes, [address] [place] [address] Third trimester [facility] Comment on above: Third trimester preg rajinder Start: 12-23-2023 End: 12-23-2024 US biophysical profile w non stress test US biophysical profile w non stress test Imaging Routine Post term over 40 weeks Expected: 12/23/2023 (Approximate), Expires: 12/23/2024 [facility] Work Phone: Comment on above: Expected: 12/23/2023 (Approximate), Expires: 12/23/2024 Bacteria identified in Urine by Culture Urine culture Microbiology Routine Missed menses Ordered: 12/09/2024 [facility] Comment on above: Ordered: 12/09/2024 CBC W Auto Different ial panel - Blood CBC and differential Lab Routine Missed menses , unspecified gestational age Ordered: 12/09/2024 [facility] Comment on above: Ordered: 12/09/2024 Hemoglobin A1c/Hemoglobin.total in Blood Hemoglobin A1c Lab Routine Missed menses , unspecified gestational age Ordered: 12/09/2024 [facility] Comment on above: Ordered: 12/09/2024 Hepatitis B virus surface Ag [Presence] in Serum or Plasma by Immunoassay Hepatitis B surface antigen Lab Routine Missed menses , unspecified gestational age Ordered: 12/09/2024 [facility] Comment on above: Ordered: 12/09/2024 Hepatitis C virus Ab [Presence] in Serum or Plasma by Immunoassay Hepatitis C antibody Lab Routine Missed menses , unspecified gestational age Ordered: 12/09/2024 [facility] Comment on above: Ordered: 12/09/2024 HIV-1/HIV-2 antigen/antibody combination immunoassay HIV-1 and HIV-2 antibodies Lab Routine Missed menses , unspecified gestational age Ordered: 12/09/2024 [facility] Comment on above: Ordered: 12/09/2024 Reagin Ab [Presence] in Serum by RPR RPR Lab Routine Missed menses , unspecified gestational age Ordered: 12/09/2024 [facility] Comment on above: Ordered: 12/09/2024 Rubella antibody, IgG Rubella an tibody, IgG Lab Routine Missed menses , unspecified gestational age Ordered: 12/09/2024 [facility] Comment on above: Ordered: 12/09/2024 Payers Date Payer Category Payer [employer] [place] [employer] [id number] 2022 Unknown [id number] 2019 Unknown 1995 Unknown [id number]. 2.196 1995 Unknown [id number] [id number]. 2.173 1995 Unknown [id number] 2.16.840.1.166032.3.579. 2.593 1995 Unknown [id number] 2.16.840.1.568031.3.579. 2.9 1995 Unknown [id number] 2.16.840.1.894251.3.579. 2.9 1995 Unknown [id number] 2.16.840.1.388512.3.579. 2.1259 1995 Unknown [id number] 2.16.840.1.976760.3.579. 2.1259 1995 Unknown [id number] 2.16.840.1.055703.3.579. 2.9 1995 Unknown [id number] 2.16.840.1.789397.3.579. 2.1259 1995 Unknown [id number] 2.16.840.1.846810.3.579. 2.9 1995 Unknown [id number] 2.16.840.1.825330.3.579. 2.1259 1995 Unknown [id number] [id number]. 2.1259 1959 Unknown [id number] Social History Date Type Detail Facility Start: 06-18-2023 Tobacco smoking status NHIS Never sm oked tobacco [facility] Start: 12-16-2023 End: 12-09-2024 Alcohol intake Current drinker of alcohol (finding) [facility] Start: 08-31-2023 End: 12-16-2023 [facility] Start: 08-31-2023 End: 12-16-2023 Alcohol Use Disorder Identification Test - Consumption [AUDIT-C] [facility] Frequency of Alcohol Consumption Not on file [facility] How often do you hav e 6 or more drinks on 1 occasion? Never [facility] Start: 04-03-2023 [facility] Start: 1995 Sex Assigned At Female [facility] Start: 04-23-2023 Gender identity Identifies as female gender (finding) [facility] Start: 04-23-2023 Sexual orientation Heterosexual (fin ding) [facility] History of Present illness Narrative 12-09-2024 Albania Garay MA - 12/09/2024 10:30 AM EST Note Date & Type Note Facility 12-09-2024 History of Presen t illness Narrative Reason for Appointment: Patient ID: Surjit Avina is a 29 y.o. female who presents for Routine Visit Patient presents today for a Nurse OB Intake appointment. Patient is 8w6d with a Estimated Date of Delivery: 07/15/25 OB History Para Term AB Living 2 1 1 1 SAB IAB Ectopic Multiple Live Births 1 # Outcome Date GA Lbr Cortes/2nd Weight Sex Type Anes PTL Lv 2 Current 1 Term 12/26/23 40w1d F Vag-Spont NIKOLAI Current Medications: has a current medication list which includes the following prescription(s): ondansetron odt. Medical History: Active Ambulatory Problems Diagnosis Date Noted Third trimester 11/19/2023 Resolved Ambulatory Problems Diagnosis Date Noted No Resolved Ambulatory Problems No Additional Past Medical History No family history on file. Social History Tobacco Use Smoking status: Never Smokeless tobacco: Not on file Substance Use Topics Alcohol use: Yes Drug use: Not on file History reviewed. No pertinent surgical history. No Known Allergies Vitals: Estimated body mass index is 23.69 kg/m as calculated from the following: Height as of 05/22/23: 5' 4 . Weight as of this encounter: 138 lb. BP: 118/70 Patient's last menstrual period was 10/08/2024. Assessment/Plan Diagnoses and all orders for this visit: Missed menses - Type and screen; Future - ABO/Rh; Future - CBC and differential - Hemoglobin A1c - RPR - Rubella antibody, IgG - Hepatitis B surface antigen - Hepatitis C antibody - HIV-1 and HIV-2 antibodies - Urine culture - POCT , urine manually resulted - POCT urinalysis dipstick manually resulted , unspecified gestational age - Type and screen; Future - ABO/Rh; Future - CBC and differential - Hemoglobin A1c - RPR - Rubella antibody, IgG - Hepatitis B surface antigen - Hepatitis C antibody - HIV-1 and HIV-2 antibodies - Rapid drug screen, urine; Future Encounter for supervision of normal first in first trimester - Rapid drug screen, urine; Future Nurse Note: OB Intake: Patient presents today for first OB visit. Patients history has been reviewed in great detail including any potential risks. Patient signed consent forms and patient desires testing in both trimesters. Patient currently has no complaints and has been advised to drink 6-8 glasses of water a day, eat no raw or undercooked meat, and stay away from [facility]. Patient has also been advised to not change litter boxes and eat 6 small meals a day. Patient has been consulted regarding the do's and don'ts of . Patient was given labs and all questions and concerns were answered. Follow Up: Patient is to return in 4 weeks for routine OB appointment. Follow Up: Patient is to have labs drawn at directed and return to office for initial OB appointment with provider. Patient may call office as needed with any concerns or questions. Nurse Visit Completed by: [place] Garay MA documented in this encounter [facility] History of Present illness Narrative 12-23-2023 Payton aMuro LPN - 12/23/2023 2:30 PM EST Note Date [...] nursing note reviewed. Exam conducted with a infantry officer present. Vitals: Estimated body mass index is [...] nursing note reviewed. Exam conducted with a infantry officer present. Vitals: Estimated body mass index is [...] weeks documented in this encounter [facility] Evaluation note Note Date & Type Note Facility Evaluation note Diagnosis Missed menses , unspecified gestational age Encounter for supervision of normal first in first trimester documented in this encounter [facility] Summary Purpose Family History No Family History Records FoundNo Family History Records FoundNo Family History Records FoundNo Family History Records Found Advance Directives No Advanced Directives Records FoundNo Advanced Directives Records FoundNo Advanced Directives Records FoundNo Advanced Directives Records Found Additional Source Comments INFORMATION SOURCE (unrecogn ized section and content) DATE CREATED AUTHOR 04/13/2020 [facility] DATE CREATED AUTHOR 'S ORGANIZ ATION 12/17/2021 [facility] DATE CREATED AUTHOR AUTHOR'S ORGANIZ ATION 07/04/2022 [facility] DATE CREATED AUTHOR AUTHOR'S ORGANIZ ATION 02/09/2024 [facility] EPIC Reason for Visit (unrecogniz ed section and content) Reason Comments Routine Visit Care Teams (unrecognized sec tion and content) 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 [facility] [employer]. provides no warranty or guarantee of the accuracy or completeness of information in this document.
[2024-12-10 09:47] LABS: Basophils Percent Auto 0.4 % (0.2-2.0); Eosinophils Absolute Auto 0.1 10^3/uL (0.0-0.7); Eosinophils Percent Auto 0.7 % (0.9-7.0); Hematocrit 37.5 % (36.0-48.0); Hemoglobin 12.6 g/dL (12.0-16.0); Immature Granulocytes Abs Auto 0.03 10^3/uL (0.00-0.03); Immature Granulocytes Pct Auto 0.4 % (0.0-0.5); Lymphocytes Absolute Auto 1.9 10^3/uL (1.2-3.8); Lymphocytes Percent Auto 22.5 % (20.5-60.0); Mean Corpuscular HGB Conc 33.6 g/dL (29.9-35.2); Mean Corpuscular Hemoglobin 30.7 pg (26.7-34.0); Mean Corpuscular Volume 91.5 fL (81.0-99.0); Mean Platelet Volume 10.1 fL (9.5-13.5); Monocytes Absolute Auto 0.5 10^3/uL (0.3-0.8); Monocytes Percent Auto 5.6 % (1.7-12.0); Neutrophils Absolute Auto 5.8 10^3/uL (1.4-6.5); Neutrophils Percent Auto 70.4 % (43.0-75.0); Platelet Count 305 10^3/uL (150-450); Red Cell Distribution Width 12.5 % (11.0-15.0); White Blood Count 8.3 10^3/uL (4.0-11.0)
[2024-12-10 09:59] LABS: Estimated Average Glucose 100 mg/dL; Glycohemoglobin A1C 5.1 % (4.5-6.2)
[2024-12-10 09:59] LABS: Amphetamine Screen Urine NEGATIVE (NEGATIVE); Barbiturates Screen Urine NEGATIVE (NEGATIVE); Benzodiazepines Screen Urine NEGATIVE (NEGATIVE); Buprenorphine Screen Urine NEGATIVE (NEGATIVE); Cannabinoid Screen Urine NEGATIVE (NEGATIVE); Cocaine Screen Urine NEGATIVE (NEGATIVE); Methadone Screen Urine NEGATIVE (NEGATIVE); Methamphetamines Screen Urine NEGATIVE (NEGATIVE); Opiate Screen Urine NEGATIVE (NEGATIVE); Oxycodone Screen Urine NEGATIVE (NEGATIVE); Phencyclidine Screen Urine NEGATIVE (NEGATIVE); Tricyclic Antidepressant Urine NEGATIVE (NEGATIVE)
[2024-12-10 10:06] LABS: BOX Test Reference Lab UNITY; BOX Test Sent Out UNITY
[2024-12-11 08:10] LABS: HBsAg Screen Negative (Negative); HCV Ab Non Reactive (Non Reactive); HIV Ab/p24 Ag Screen Non Reactive (Non Reactive)
[2024-12-11 09:09] LABS: Rapid Plasma Reagin, Quant Non Reactive titer (NonRea<1:1); Rubella Antibodies, IgG 1.51 index (Immune >0.99)
== END 2024-12-10 09:21 | disposition home or self-care (01) ==
LOC: LAB 09:20
PROVIDERS: PCP Family Medicine; Visit Provider Obstetrics & Gynecology
DX: Z34.01 Encounter for supervision of normal first pregnancy, first trimester (principal); Z36.0 Encounter for antenatal screening for chromosomal anomalies; N92.6 Irregular menstruation, unspecified
CPT/HCPCS: 36415; 80307; 83036; 85025; 86592; 86762; 86803; 86850; 86900; 86901; 87086; 87340; 87389

== ENCOUNTER 2024-12-30 07:42 | Outpatient (RCR) | payer BC, SELFPAY ==
[2024-12-13 12:57] VITALS: BP 103/72; PULSE 83; TEMP 36.1; O2SAT 98
[2024-12-13] MEDS: MULTIVIT INFUSN,ADULT 4,VIT K 10 ML in 0.9 % SODIUM CHLORIDE 1,000 ML 500 ML IV (13:15)
--- NOTE | 2024-12-13 15:22 | PC.NURSE ---
Pt rec'd hydration + multivitamin over 2 hrs w/o incident, d/c'd stable.
[2024-12-21 12:36] VITALS: BP 113/72; PULSE 80; TEMP 36; O2SAT 98
[2024-12-21] MEDS: MULTIVIT INFUSN,ADULT 4,VIT K 10 ML in 0.9 % SODIUM CHLORIDE 1,000 ML 500 ML IV (12:51)
[2024-12-30 12:47] VITALS: BP 110/75; PULSE 80; TEMP 36.8; O2SAT 98
[2024-12-30] MEDS: MULTIVIT INFUSN,ADULT 4,VIT K 10 ML in 0.9 % SODIUM CHLORIDE 1,000 ML 500 ML IV (12:54)
== END 2025-01-06 23:59 | disposition home or self-care (01) ==
LOC: INF 07:42
PROVIDERS: PCP Family Medicine; Visit Provider Obstetrics & Gynecology
DX: O21.9 Vomiting of pregnancy, unspecified (principal); O99.280 Endocrine, nutritional and metabolic diseases complicating pregnancy, unspecified trimester; E86.0 Dehydration; Z3A.00 Weeks of gestation of pregnancy not specified
CPT/HCPCS: 96365; 96366

== ENCOUNTER 2025-02-07 14:36 | Outpatient (REF) | payer BC, SELFPAY ==
[2025-02-09 11:10] LABS: Age Gdln ACOG Testing Note (.); IGP, rfx Aptima HPV ASCU Note (.)
== END 2025-02-07 14:37 | disposition home or self-care (01) ==
LOC: LAB 14:36
PROVIDERS: PCP Family Medicine; Visit Provider Physician Assistant
DX: Z01.419 Encounter for gynecological examination (general) (routine) without abnormal findings (principal)
CPT/HCPCS: 88175

== ENCOUNTER 2025-02-25 09:51 | Outpatient (OUT) | payer BC, SELFPAY ==
--- NOTE | 2025-02-25 | US_ITS ---
The [address] [address] Patient Name: SURJIT MORALES MRN: [id number] date: 1995 Sex: F Assigned Patient Location: Current Patient Location: Accession/Order Number: [id number] Exam Date: 02/27/2025 09:44 Report Date: 02/27/2025 09:52 At the request of: KIKE PERDOMO Procedure: US OB cervical length Obstetrical Ultrasound for Fetus greater than 14 weeks HISTORY: anatomy assessment heart rate is 148 bpm. The fetus is in transverse presentation. Transverse lie. The placenta is in a posterior position with marginalappearance. Amniotic fluid index is subjectively normal The cervix is closed. The estimated weight is 382 g. with percentile of 88.7%. The ovaries are not visualized. No fluid identified in the cul-de-sac. Following anatomy identifiedlateral ventricles, cerebellum, posterior fossa, nose and lips, orbits, four-chamber heart, diaphragm, stomach, kidneys, cord insertion, bladder, umbilical arteries, two-vessel cord, spine, extremities visualized. There is suboptimal assessment of the right ventricular outflow track and the left ventricular outflow track. The biparietal diameter measures 5.1cm consistent with 21 weeks 4 days. Head circumference measures 18.5cm consistent with 20 weeks 6 days. Abdominal circumference measures 16.4cm consistent with 21 weeks 3 days. Femur length is 3.2cm consistent with 20 weeks 1 day. The average gestational age is 21 weeks 0 days. Estimated due date is 07/08/2025. somatic motion identified. US/US OB cervical length IMPRESSION: Single live intrauterine gestation 21 weeks 0 days. The anatomy as above. Limited assessment of the right and left ventricular outflow tract. Impression dictated by: Rick Garsia M.D.02/27/2025 9:52 AM Dictation Location: [place] [address] Electronically authenticated by: [id number] Y Date: 02/27/2025 09:52
--- OUTSIDE RECORDS SUMMARY | 2025-02-25 09:54 | XMS_ITS | CCD ---
Author Organization [facility] [place] [facility] Care Team Providers Care Auto Locator Name Role Phone MASON DELEON Attending Unavailable Mason Deleon Primary Care Unavailable BEBETO AMEZQUITA Referring Unavailable MASON DELEON Primary Care Unavailable BRIAN VARNER Attending Unavailable BRIAN VARNER Consulting Unavailable BRIAN VARNER Admitting Unavailable DR MASON DELEON Primary Care Unavailable Mason Deleon MD Primary Care Provider [phone] HARSHA MORAES Attending Unavailable FAWN PERDOMO Attending Unavailable Medications Current Medications Medication Drug Class(es) Dates Sig (Normalized) Sig (Original) ondansetron 4 mg disintegrating oral tablet (10 sources) Serotonin-3 Receptor Antagonist Start: 11-29-2024 take 1 tablet by mouth every six hours as needed for nausea and vomiting and nausea and nausea ondansetron ODT (Zofran-ODT) 4 MG disintegrating tablet Indications: Nausea Take 1 tablet (4 mg) by mouth every 6 (six) hours if needed for nausea or vomiting for up to 30 doses 30 tablet 3 11/29/2024 Active Problems Active Problems Problem Classification Problem Date Documented Da te Episodic/Chronic Immunizations and screening for infectious disease (2 sources) Exposure to sexually transmissible disorder; Translations: [Contact with and (suspected) exposure to infections with a predominantly sexual mode of transmission] 02-07-2025 Episodic Menstrual disorders (1 source) Missed period; Translations: [Irregular menstruation, unspecified] 12-09-2024 Chronic Other screening for suspected conditions (not mental disorders or infectious disease) (4 sources) Alpha-fetoprotein blood test status; Translations: [Encounter for screening for raised alphafetoprotein level] 02-07-2025 Episodic Prolonged (2 sources) Post-term ; Translations: [Post-term ] 12-23-2023 Episodic Residual codes; unclassified (2 sources) Gestation period, 13 weeks; Translations: [13 weeks gestation of ] 01-10-2025 Episodic Residual codes; unclassified (2 sources) Gestation period, 16 weeks; Translations: [16 weeks gestation of ] 02-07-2025 Episodic Past or Other Problems Problem Classification Problem Date Documented Da te Episodic/Chronic Other and delivery including normal (20 sources) Third trimester ; Translations: [Encounter for supervision of normal , unspecified, third trimester] Onset: 11-19-2023 12-10-2023 Episodic Results Test Name Value Interpretation Reference Range Facility IGP,APTIMA HPV,AGE GDLNon AGE GDLN ACOG TESTING Note . [facility] Comment on above: TESTS RESULT FLAG UN ITS REF RANGE LAB Clinician Provided Cytology Information Source.............Cervix Other.............. No. of containers..01 ThinPrep Vial Age Algo ACOG Tracie... 21- 01 FLAG LEGEND: L-Low Normal,H-High Normal,LL-Alert Low,HH-Alert High <-Panic Low,>-Panic High,A-Abnormal,AA-Critical Abnormal Performed at: 01 =G [facility] [address] [address] Socorro Benavidez MD, IGP, RFX APTIMA HPV ASCU Note . [facility] Comment on above: TESTS RESULT FLAG UN ITS REF RANGE LAB DIAGNOSIS: 02 NEGATIVE FOR INTRAEPITHELIAL LESION OR MALIGNANCY. Specimen adequacy: 02 Satisfactory for evaluation. No endocervical component is identified. An endocervical component is not commonly seen in the patient. Performed by: 02 Pema Gonzalez, Textiles And Clothing Teacher ([facility]) . 02 Note: Note 02 The Pap smear is a screening test designed to aid in the detection of premalignant and malignant conditions of the uterine cervix. It is not a diagnostic procedure and should not be used as the sole means of detecting cervical cancer. Both false-positive and false-negative reports do occur. Test Methodology: Note 02 This liquid based ThinPrep(R) pap test was screened with the use of an image guided system. . 02 The HPV DNA reflex criteria were not met with this specimen result therefore, no HPV testing was performed. FLAG LEGEND: L-Low Normal,H-High Normal,LL-Alert Low,HH-Alert High <-Panic Low,>-Panic High,A-Abnormal,AA-Critical Abnormal Performed at: [address] [place] [address] Socorro Benavidez MD, Performed at: = - [facility] [id number] Glaze Handler: Socorro Benavidez MD, Phone: [phone] Performed at: [facility] [id number] Glaze Handler: Socorro Benavidez MD, Phone: [phone] SPATULA-ALONE CERVIX [facility] Healthcar e RECURRENT VAGINITIS (HTRX)on 02-08-2025 ATOPOBIUM VAGINAE 0 [facility] ATOPOBIUM VAGINAE Not detected [facility] BVAB 2,3 (BACTERIAL VAGINOSIS ASSOCIATED BACTERIA 2, 3); MOBILUNCUS SPP 26.639 Abnormal [facility] BVAB 2,3 (BACTERIAL VAGINOSIS ASSOCIATED BACTERIA 2, 3); MOBILUNCUS SPP Detected Abnormal [facility] VIVIANA ALBICANS, PARAPSILOSIS, TROPICALIS 0 [facility] VIVIANA ALBICANS, PARAPSILOSIS, TROPICALIS Not detected [facility] Healthcare VIVIANA GLABRATA 0 [facility] Hea lthcare VIVIANA GLABRATA Not detected [facility] ealthcare VIVIANA KRUSEI 0 [facility] Healt hcare VIVIANA KRUSEI Not detected [facility] Hea lthcare CHLAMYDIA TRACHOMATIS 0 [facility] CHLAMYDIA TRACHOMATIS Not detected [facility] Healthcare GARDNERELLA VAGINALIS 0 [facility] GARDNERELLA VAGINALIS Not detected [facility] Interpretation and review of laboratory results Abnormal [facility] Healthca re MEGASPHAERA (TYPES 1, 2) 0 [facility] Healthcare MEGASPHAERA (TYPES 1, 2) Not detected [facility] MYCOPLASMA GENITALIUM 0 [facility] MYCOPLASMA GENITALIUM Not detected [facility] NEISSERIA GONORRHOEAE 0 [facility] NEISSERIA GONORRHOEAE Not detected [facility] TRICHOMONAS VAGINALIS 0 [facility] TRICHOMONAS VAGINALIS Not detected [facility] Urinalysis macro (dipstick) panel (U)on 02-07-2025 Bilirubin, UA Negative Negative - 4(70) +++ mg/dL [facility] Blood, UA Negative Negative - 50 Gulshan/mcL [facility] Clarity, UA Clear [facility] Healthca re Color, UA Yellow [facility] Glucose, UA Negative Negative - 2000(110) ++++ mg/dL [facility] Interpretation and review of laboratory results Normal [facility] Healthca re Ketones, UA Negative Negative - 160(16) ++++ mg/dL [facility] Leukocytes, UA Trace Negative - 500+++ Stefan/mcL [facility] Nitrite, UA Negative Negative - Positive [facility] pH, UA 5.5 5 - 9 [facility] Healthcar e Protein, UA Negative Negative - 1999(20) ++++ mg/dL [facility] Spec Grav, UA 1.025 1 - 1.03 [facility] Urobilinogen, UA 0.2 0.2 - 12 mg/dL [facility] Health[facility] e Urinalysis macro (dipstick) panel (U)on 01-10-2025 Bilirubin, UA Positive Negative - 4(70) +++ mg/dL [facility] Comment on above: small Blood, UA Negative Negative - 50 Gulshan/mcL [facility] Clarity, UA Clear [facility] re Color, UA Yellow [facility] Glucose, UA Negative Negative - 1999(110) ++++ mg/dL [facility] Interpretation and review of laboratory results Abnormal [facility] Ketones, UA Negative Negative - 160(16) ++++ mg/dL [facility] Leukocytes, UA Negative Negative - 500+++ Stefan/mcL [facility] Nitrite, UA Negative Negative - Positive [facility] pH, UA 5.5 5 - 9 [facility] Healthcar e Protein, UA Positive Negative - 1999(20) ++++ mg/dL [facility] Comment on above: 30mg/dL Spec Grav, UA 1.03 1 - 1.03 [facility] Urobilinogen, UA 0.2 0.2 - 12 mg/dL [facility] Healthcar e ALL CBC WITH AUTO DIFFon BASOPHILS ABSOLUTE AUTO 0 [facility] Basophils/100 WBC (Bld) 0.4 % 0.2 - 2.0 % [facility] Eosinophils/100 WBC (Bld) 0.7 % Low 0.9 - 7.0 % [facility] Erythrocyte distribution width (RBC) [Ratio] 12.5 % 11.0 - 15.0 % [facility] Hematocrit (Bld) [Volume fraction] 37.5 % 36.0 - 48.0 % [facility] Healthcar e Hemoglobin (Bld) [Mass/Vol] 12.6 g/dL 12.0 - 16.0 g/dL [facility] IMMATURE GRANULOCYTES ABS AUTO 0.03 [facility] Immature granulocytes/100 WBC (Bld) 0.4 % 0.0 - 0.5 % [facility] Interpretation and review of laboratory results Abnormal [facility] LYMPHOCYTES ABSOLUTE AUTO 1.9 [facility] Lymphocytes/100 WBC (Bld) 22.5 % 20.5 - 60.0 % [facility] MCH (RBC) [Entitic mass] 30.7 pg 26.7 - 34.0 pg [facility] MCHC (RBC) [Mass/Vol] 33.6 g/dL 29.9 - 35.2 g/dL [facility] MCV (RBC) [Entitic vol] 91.5 fL 81.0 - 99.0 fL [facility] MONOCYTES ABSOLUTE AUTO 0.5 [facility] Monocytes/100 WBC (Bld) 5.6 % 1.7 - 12.0 % [facility] NEUTROPHILS ABSOLUTE AUTO 5.8 [facility] Neutrophils/100 WBC (Bld) 70.4 % 43.0 - 75.0 % [facility] Platelet mean volume (Bld) [Entitic vol] 10.1 fL 9.5 - 13.5 fL [facility] TBH EO # 0.1 [facility] Healthcar e TBH PLT 305 [facility] e TB RBC 4.1 Low [facility] Healthcar e TBH WBC 8.3 [facility] Healthcar e [facility] Healthcar e HCG ( test) Ql (U)o n 12-09-2024 Interpretation and review of laboratory results Abnormal [facility] re Preg Test, Ur Positive Negative [facility] Health[facility] e US OB TRANSVAGINALon 025 US OB TRANSVAGINAL TITLE OF EXAM: OB Ultrasound: REASON FOR EXAM: Dating. COMPARISON: None TECHNIQUE: Grayscale and M-mode Doppler imaging is performed. FINDINGS: Measurements: heart rate: 178 bpm Sac: 4.0 cm CRL: 2.5 cm GA for sonogram: 9.2 wk (08.5-10.0) based on (CRL) Cervix Length: 3.8 cm ADRIANA: 07/15/2025 Anatomy Observed: Gestational Sac: Visualized Yolk Sac: Visualized Pole: Visualized Cardiac Activity: Visualized 177 bpm Uterus: Normal Uterine Position: Retroverted, retroflexed Right Ovary: 3.3 x 2.0 x 2.6 cm Volume: 9.1 cc Corpus luteal Left Ovary: 2.4 x 1.4 x 1.5 cm Volume: 2.7 cc Cervical Length: 3.8 cm Closed AUA: 9 w 1 d ADRIANA: 07/13/2025 LMP: 8 w 6 d ADRIANA: 07/15/2025 IMPRESSION: 1. Single living intrauterine gestation. cardiac activity 177 bpm. 8.9 weeks gestational age based on LMP. ADRIANA July 15, 2025. 2. Follow-up ultrasound at 20 to 22 weeks gestational age for growth and anatomy. 3. Small right corpus luteum ovarian cyst. 4. Retroverted retroflexed uterus. *This report is generated using voice recognition reporting (HackerRank). On occasion [employer] erroneously drops words from the report or replaces the spoken word with similar sounding words. Please call with any questions/concerns regarding this report.* Dictated and transcribed 12/09/24/dpd This report has been electronically signed and approved by the interpreting radiologist. Normal Not Available Comment on above: Order Comment: US OB TRANSVAGINAL No LMP recorded. Urinalysis macro (dipstick) panel (U)on 12-09-2024 Bilirubin, UA Negative Negative - 4(70) +++ mg/dL [facility] Blood, UA Negative Negative - 50 Gulshan/mcL [facility] Clarity, UA Clear [facility] Healthca re Color, UA Yellow [facility] Healthcar e Glucose, UA Negative Negative - 1999(110) ++++ mg/dL [facility] Interpretation and review of laboratory results Abnormal [facility] Ketones, UA Positive Negative - 160(16) ++++ mg/dL [facility] Comment on above: trace Leukocytes, UA Negative Negative - 500+++ Stefan/mcL [facility] Nitrite, UA Negative Negative - Positive [facility] pH, UA 5.5 5 - 9 [facility] Healthcar e Protein, UA Positive Negative - 1999(20) ++++ mg/dL [facility] Comment on above: 30 Spec Grav, UA 1.03 1 - 1.03 [facility] Urobilinogen, UA 0.2 0.2 - 12 mg/dL [facility] Urinalysis macro (dipstick) panel (U)on 12-23-2023 Bilirubin, UA Negative Negative - 4(70) +++ mg/dL [facility] Blood, UA Negative Negative - 50 Gulshan/mcL [facility] Clarity, UA Clear [facility] Color, UA Yellow [facility] Healthcar e Glucose, UA Negative Negative - 1999(110) ++++ mg/dL [facility] Interpretation and review of laboratory results Normal [facility] Healthca re Ketones, UA Negative Negative - 160(16) ++++ mg/dL [facility] Leukocytes, UA Negative Negative - 500+++ Stefan/mcL [facility] Nitrite, UA Negative Negative - Positive [facility] pH, UA 5.5 5 - 9 [facility] Healthcar e Protein, UA Negative Negative - 1999(20) ++++ mg/dL [facility] Spec Grav, UA 1.020 1 - 1.03 [facility] Urobilinogen, UA 1.0 0.2 - 12 mg/dL [facility] Urinalysis macro (dipstick) panel (U)on 12-16-2023 Bilirubin, UA Negative Negative - 4(70) +++ mg/dL [facility] Blood, UA Negative Negative - 50 Gulshan/mcL [facility] Clarity, UA Clear [facility] re Color, UA Yellow [facility] Healthcar e Glucose, UA Negative Negative - 1999(110) ++++ mg/dL [facility] Interpretation and review of laboratory results Normal [facility] Healthca re Ketones, UA Negative Negative - 160(16) ++++ mg/dL [facility] Leukocytes, UA Negative Negative - 500+++ Stefan/mcL [facility] Nitrite, UA Negative Negative - Positive [facility] pH, UA 5.5 5 - 9 [facility] Healthcar e Protein, UA Negative Negative - 1999(20) ++++ mg/dL [facility] Spec Grav, UA 1.005 1 - 1.03 [facility] Urobilinogen, UA 0.2 0.2 - 12 mg/dL [facility] Health[facility] e HPV DNA High Riskon 12-06-19 22 HPV Inter Normal [facility] Comment on above: Result Comment: This test [...] purposes. Performed By: #### H PVH #### [address] [place] [address] Glaze Handler: Ulisses Gold MD HPV Type 16 Not detected [facility] Comment on above: Performed By: #### H PVH #### [address] [address] Glaze Handler: Ulisses Gold MD HPV Type 18 Not detected [facility] Comment on above: Performed By: #### H PVH #### [address] [address] Glaze Handler: Ulisses Gold MD Other High Risk HPV Not detected [facility] Comment on above: Performed By: #### H PVH #### [address] [address] Glaze Handler: Ulisses Gold MD HPV DNA High Riskon 12-05-19 22 Source .GENITAL - NOT SPECIFIED [facility] Comment on above: Performed By: #### H PVH #### [address] [address] Glaze Handler: Ulisses Gold MD HPV Sample .THIN PREP [facility] Comment on above: Performed By: #### H PVH #### [address] [address] Glaze Handler: Ulisses Gold MD Cytologyon 12-04-2021 Cytology (NOTE) INTERPRETATION Cervical material, (ThinPrep vial, Imaging-assisted review): Specimen Adequacy: Satisfactory for evaluation. -Endocervical/transfor mation zone component is absent. Descriptive Diagnosis: Negative for intraepithelial lesion or malignancy. Textiles And Clothing Teacher: RONY Ugalde(ASCP) Electronically Signed Out ss/12/17/2021 Procedure/Addendum [...] review) Clinical History Intrauterine device Z01.419 Routine [employer] exam without abnormal findings Co-Test: ThinPrep Pap with high risk HPV testing GYNECOLOGIC CYTOLOGY REPORT Patient Name: SURJIT AVINA [facility] Rec: [id number] Path Number: [id number] [facility] [employer] CONSULTING PATHOLOGISTS [facility] [address] [place], [place] [address] Normal [facility] Comment on above: Performed By: #### P PPVP #### [facility] [address] [place] [address] Glaze Handler: Ulisses Gold MD QUANTIFERON TB GOLD PLUS (NO N-INC)on 09-05-2021 Comment Incubation performed. [facility] Comment on above: Performed By: #### Q NTTBG #### [facility] [address] [place], [place] [address] Dr. Hetal Linn Criteria Comment [facility] Comment on above: Result Comment: The QuantiFERON-TB Gold Plus result is determined by subtracting the Nil value from either TB antigen (Ag) tube. The mitogen tube serves as a control for the test. Performed By: #### Q NTTBG #### [facility] [address] [place] [address] Dr. Hetal Linn Mitogen Value >10.00 Normal [facility] Comment on above: Performed By: #### Q NTTBG #### [facility] [address] [place] [address] Dr. Hetal Linn Nill Value 0.06 IU/mL Normal [facility] Comment on above: Performed By: #### Q NTTBG #### [facility] [address] [place] [address] Dr. Hetal Linn Quantiferon Gold Plus Negative Normal Negative [facility] Comment on above: Result Comment: Chem iluminescence immunoassay methodology Performed By: #### Q NTTBG #### [facility] [address] [place] [address] Dr. Hetal Linn TB1 Ag Value 0.10 IU/mL Normal [facility] Comment on above: Performed By: #### Q NTTBG #### [facility] [address] [place] [address] Dr. Hetal Linn TB2 Ag Value 0.08 IU/mL Normal [facility] Comment on above: Performed By: #### Q NTTBG #### [facility] [address] [place] [address] Dr. Hetal Linn HEPATITIS B SURFACE ANTIBODY , QUANTon 08-31-2021 Hepatitis B Surf AB Quant 202.1 mIU/mL Normal Immunity>9.9 [facility] Comment on above: Result Comment: Stat us of Immunity Anti-HBs Level Inconsistent with Immunity 0.0 - 9.9 Consistent with Immunity >9.9 Performed By: #### H EPBSRF #### [facility] [address] [place] [address] Dr. Hetal Linn MMR IMMUNITYon 08-31-2021 Mumps Abs, IgG 24.8 AU/mL Normal Immune >10.9 [facility] Comment on above: Result Comment: Nega tive <9.0 Equivocal 9.0 - 10.9 Positive >10.9 A positive result generally indicates past exposure to Mumps virus or previous vaccination. Performed By: #### M MRIMMU #### [facility] [address] [address] [address] Hetal Linn Rubella Antibodies, IgG 1.14 index Normal Immune >0.99 [facility] Comment on above: Result Comment: Non- immune <0.90 Equivocal 0.90 - 0.99 Immune >0.99 Performed By: #### M MRIMMU #### [facility] [address] [address] [address] Heatl Linn Rubeola Ab, IgG 26.6 AU/mL Normal Immune >16.4 [facility] Comment on above: Result Comment: Nega tive <13.5 Equivocal 13.5 - 16.4 Positive >16.4 Presence of antibodies to Rubeola is presumptive evidence of immunity except when acute infection is suspected. Performed By: #### M MRIMMU #### [facility] [address] [address] [address] Hetal Linn VARICELLA IGG ABon Varicella Zoster IgG 1376 index Normal Immune >165 [facility] Comment on above: Result Comment: Nega tive <135 Equivocal 135 - 165 Positive >165 A positive result generally indicates exposure to the pathogen or administration of specific immunoglobulins, but it is not indication of active infection or stage of disease. Performed By: #### V ARCEL #### [facility] [address] [address] [address] Hetal Linn Addendum Reporton 04-10-2020 Addendum Report Missing Attachment Chartable Reference Lab Reports Can be viewed in source system Addendum Discussion [facility], MLSILVANA, #[id number], Date reported: 04/10/2020: Diagnosis: A. Skin of [...] irritation but melanocytic atypia is not observed. T-[id number] ONAL [id number] ONAL [id number] ONAL [id number] IONAL T-[id number] ONAL [id number] ONAL [id number] ONAL [id number] ONAL [id number] ONAL Ronna Jenkins MD (Electronically signed by) Verified: 04/10/20 13:15 ADD Pathologist Requested Consult Comment by Ronna Jenkins M.D.: The above consultation report was reviewed. I essentially concur with the diagnosis given. Normal [facility] Comment on above: Performed By: #### C #### [id number] Surgery Office/Clinic Noteon 04-04-2020 Surgery Office/Clinic Note Chief Complaint Mole removal x2. History of Present Illness Patient presents for excision of two raised darkly pigmented nevi. Review of Systems Constitutional: No Unexpected weight loss No History of diabetes Respiratory: No Shortness of breath Cardiovascular: NoChest pain or pressure, NoEdema, NoHistory of ND/CAD, NoHistory of A-Fib : NoHesitancy, NoNocturia, NoPrior [...] in this document, created by the medical secretary receptionist for me, accurately reflects the services I [...] by Shaina Kang 04/04/2020 12:16 EDT Normal [facility] Surgical Pathology Reporton 04-04-2020 Surgical Pathology Report [...] case is going to [facility] for consultation. -[id number] ONAL [id number] IONAL [id number] ONAL [id number] ONAL [id number] IONAL Ronna Jenkins MD (Electronically signed by) Verified: 04/09/20 10:08 Normal [facility] Comment on above: Performed By: #### S [place] #### [facility] (DEFAULT) [address] [place] [address] .eGFRon 08-04-2019 eGFR AA >60 Normal >=60 [facility] Comment on above: Result Comment: Resu lt = 0-14.9 mL/min/1.73 m2 Kidney failure or Dialysis Result = 15-29 mL/min/1.73 m2 Severe decrease in GFR Result = 30-59 mL/min/1.73 m2 Moderate decrease in GFR Result >= 60 mL/min/1.73 m2 Normal or increased GFR Performed By: #### E GFR #### [id number] eGFR Non-AA >60 Normal >=60 [facility] Comment on above: Result Comment: Resu lt [...] dosing. Performed By: #### E GFR #### [facility] [address] [place] [id number] CBC w/ Diffon 08-04-2019 Erythrocyte distribution width (RBC) [Ratio] 12.9 % Normal 11.6-14.8 [facility] Comment on above: Performed By: #### C BC #### [address] [address] Hematocrit (Bld) [Volume fraction] 40.4 % Normal 36.0-46.0 [facility] Comment on above: Performed By: #### C BC #### [address] [address] Hemoglobin (Bld) [Mass/Vol] 13.5 g/dL Normal 12.0-16.0 [facility] Comment on above: Performed By: #### C BC #### [address] [address] MCH (RBC) [Entitic mass] 32.0 pg Normal 27.0-35.0 [facility] Comment on above: Performed By: #### C BC #### [address] [address] MCHC (RBC) [Mass/Vol] 33.5 % Normal 31.0-37.0 [facility] Comment on above: Performed By: #### C BC #### [address] [address] MCV (RBC) [Entitic vol] 95.7 fL Normal 80.0-100.0 [facility] Comment on above: Performed By: #### C BC #### [address] [address] Platelet mean volume (Bld) [Entitic vol] 9.8 fL Normal 6.7-10.6 [facility] Comment on above: Performed By: #### C BC #### [address] [address] Platelets (Bld) [#/Vol] 226 x10*3/mcL Normal 150-350 [facility] Comment on above: Performed By: #### C BC #### [address] [address] RBC (Bld) [#/Vol] 4.23 x10*6/mcL Normal 3.80-5.20 [facility] Comment on above: Performed By: #### C BC #### [address] [address] WBC (Bld) [#/Vol] 7.4 x10*3/mcL Normal 4.5-11.0 [facility] Comment on above: Performed By: #### C BC #### [address] [address] CMPon 08-04-2019 Albumin [Mass/Vol] 4.0 g/dL Normal 3.2-4.9 [facility] Comment on above: Result Comment: [facility] Laboratory updated the methodology used for albumin testing on 06/16/18. Albumin measurement was performed using a bromcresol purple dye-binding assay. Performed By: #### C OMP #### [address] [address] Albumin/Globulin [Mass ratio] 1.2 {ratio} Normal 1.1-2.2 [facility] Comment on above: Performed By: #### C OMP #### [address] [address] Alk Phos 51 IU/L Normal 32-91 [facility] Comment on above: Performed By: #### C OMP #### [address] [address] ALT [Catalytic activity/Vol] 13 U/L Low 14-54 [facility] Comment on above: Performed By: #### C OMP #### [address] [address] Anion gap [Moles/Vol] 10 mmol/L Normal 7-17 [facility] Comment on above: Performed By: #### C OMP #### [address] [address] AST [Catalytic activity/Vol] 17 U/L Normal 15-41 [facility] Comment on above: Performed By: #### C OMP #### [address] [address] Bili Total 0.8 mg/dL Normal 0.3-1.2 [facility] Comment on above: Performed By: #### C OMP #### [address] [address] Calcium [Mass/Vol] 8.9 mg/dL Normal 8.5-10.3 [facility] Comment on above: Performed By: #### C OMP #### [address] [address] Chloride [Moles/Vol] 107 mmol/L Normal 98-110 [facility] Comment on above: Performed By: #### C OMP #### [address] [address] CO2 [Moles/Vol] 27 mmol/L Normal 22-32 [facility] Comment on above: Performed By: #### C OMP #### [address] [address] Creatinine [Mass/Vol] 0.84 mg/dL Normal 0.44-1.03 [facility] Comment on above: Performed By: #### C OMP #### [address] [address] Glucose [Mass/Vol] 84 mg/dL Normal 74-118 [facility] Comment on above: Performed By: #### C OMP #### [address] [address] Potassium [Moles/Vol] 4.3 mmol/L Normal 3.4-4.8 [facility] Comment on above: Performed By: #### C OMP #### [address] [address] Protein [Mass/Vol] 7.2 g/dL Normal 6.5-8.1 [facility] Comment on above: Performed By: #### C OMP #### [address] [address] Sodium [Moles/Vol] 140 mmol/L Normal 133-142 [facility] Comment on above: Performed By: #### C OMP #### [address] [address] Urea nitrogen [Mass/Vol] 10 mg/dL Normal 8-26 [facility] Comment on above: Performed By: #### C OMP #### [address] [address] Urea nitrogen/Creatinine [Mass ratio] 11.9 mg/mg Normal 10.0-20.0 [facility] Comment on above: Performed By: #### C OMP #### [address] [address] Diff Autoon 08-04-2019 Baso Absolute 0.0 x10*3/mcL Normal 0.0-0.2 [facility] Comment on above: Performed By: #### . Automated Diff #### [address] [address] Basophils/100 WBC (Bld) 0.2 % Normal 0.0-1.5 [facility] Comment on above: Performed By: #### . Automated Diff #### [address] [address] Eos Absolute 0.0 x10*3/mcL Normal 0.0-0.4 [facility] Comment on above: Performed By: #### . Automated Diff #### [address] [address] Eosinophils/100 WBC (Bld) 0.6 % Normal 0.0-5.4 [facility] Comment on above: Performed By: #### . Automated Diff #### [address] [address] Lymphocytes (Bld) [#/Vol] 2.3 x10*3/mcL Normal 1.0-4.8 [facility] Comment on above: Performed By: #### . Automated Diff #### [address] [address] Lymphocytes/100 WBC (Bld) 30.5 % Normal 27.2-40.8 [facility] Comment on above: Performed By: #### . Automated Diff #### [address] [address] [place] Absolute 0.5 x10*3/mcL Normal 0.1-1.1 [facility] Comment on above: Performed By: #### . Automated Diff #### [address] [address] Monocytes/100 WBC (Bld) 7.0 % Normal 3.7-11.9 [facility] Comment on above: Performed By: #### . Automated Diff #### [address] [address] Neutro Absolute 4.6 x10*3/mcL Normal 1.8-7.7 [facility] Comment on above: Performed By: #### . Automated Diff #### [address] [address] Neutro Auto 61.7 % Normal 47.2-70.8 [facility] Comment on above: Performed By: #### . Automated Diff #### [address] [address] Lipid Panelon 08-04-2019 Cholesterol in LDL [Mass/Vol] 79 mg/dL Normal 0-99 [facility] Comment on above: Result Comment: The equation being used in this calculation is LDL = (Chol - HDL) - (Trig / 5) The optimal value of LDL for individual patients may vary. The patient's history of Artherosclerosis and other cardiac risk factors should be considered. Performed By: #### L BONILLA #### [address] [address] Cardiac Risk 3.1 Normal [facility] Comment on above: Result Comment: Men Women 1/2 Average 3.43 3.27 Average 4.97 4.44 2x Average 9.55 7.05 3x Average 23.99 11.04 Performed By: #### L BONILLA #### [address] [address] Cholesterol [Mass/Vol] 131 mg/dL Normal 25-199 [facility] Comment on above: Result Comment: 0 - 17 years of age: Desirable 0-170 Borderline High 170-199 High >=200 18 years and older: Acceptable <200 Borderline High 200-239 High >=240 Performed By: #### L BONILLA #### [address] [address] Cholesterol in HDL [Mass/Vol] 42.0 mg/dL Normal 40.0-60.0 [facility] Comment on above: Performed By: #### L BONILLA #### [address] [address] Cholesterol in VLDL [Mass/Vol] 10 mg/dL Normal 8-39 [facility] Comment on above: Performed By: #### L BONILLA #### [address] [address] Triglyceride [Mass/Vol] 48 mg/dL Normal [facility] Comment on above: Result Comment: 0 - 17 years of age: Trig 90 - 129 Borderline High Trig => 130 High 18 years and older: Trig 150 - 199 Borderline High Trig 200 - 499 High Trig =>500 Very High Performed By: #### L BONILLA #### [address] [address] TSHon 08-04-2019 TSH Qn 1.45 mcIU/mL Normal 0.45-5.33 [facility] Comment on above: Result Comment: Refe rence Ranges for individuals from to 18 years of age were obtained from The Marychuy Edmondson Handbook (20 ed) published by [facility]. Reference Ranges for Females: Females, 1st Trimester 0.05 ? 3.7 uIU/mL Females, 2nd Trimester 0.31 ? 4.35 uIU/mL Females, 3rd Trimester 0.41 ? 5.18 uIU/mL Performed By: #### T SH #### [address] [address] Total T3on 08-04-2019 T3 Total 0.95 ng/mL Normal 0.87-1.78 [facility] Comment on above: Performed By: #### T 3R #### [address] [address] Total T4on 08-04-2019 T4 Total 6.6 mcg/dL Normal 5.0-11.5 [facility] Comment on above: Performed By: #### T 4 #### [address] [address] Vital Signs Date Time Vital Sign Value Performing Clinician Liliana park 02-07-2025 09:49-0400 Body mass index (BMI) [Ratio] 25.06 kg/m2 Fawn PIONN Work Phone: [facility] 02-07-2025 09:49-0400 Body weight 66.22 kg Fawn Abdulkadir PINON Work Phone: [facility] 02-07-2025 09:49-0400 Diastolic blood pressure 70 mm[Hg] Fawn Abdulkadir PA Work Phone: [facility] 02-07-2025 09:49-0400 Systolic blood pressure 112 mm[Hg] Fawn Abdulkadir PA Work Phone: [facility] 01-10-2025 09:27-0500 Body mass index (BMI) [Ratio] 24.2 kg/m2 Harsha Dimitry DO Work Phone: [facility] 01-10-2025 09:27-0500 Body weight 63.96 kg Harsha Dimitry DO Work Phone: [facility] 01-10-2025 09:27-0500 Diastolic blood pressure 72 mm[Hg] Harsha Dimitry DO Work Phone: [facility] 01-10-2025 09:27-0500 Systolic blood pressure 102 mm[Hg] Harsha Dimitry DO Work Phone: [facility] 12-09-2024 10:33-0500 Body mass index (BMI) [Ratio] 23.69 kg/m2 [facility] Nurse [facility] 12-09-2024 10:33-0500 Body weight 62.6 kg [facility] Nurse [facility] 12-09-2024 10:33-0500 Diastolic blood pressure 70 mm[Hg] [facility] Nurse [facility] 12-09-2024 10:33-0500 Systolic blood pressure 118 mm[Hg] [facility] Nurse [facility] 12-23-2023 14:45-0500 Body mass index (BMI) [Ratio] 29.49 kg/m2 Harsha Dimitry DO Work Phone: [facility] 12-23-2023 14:45-0500 Body weight 77.93 kg Harsha Dimitry DO Work Phone: [facility] 12-23-2023 14:45-0500 Diastolic blood pressure 76 mm[Hg] Harsha Dimitry DO Work Phone: [facility] 12-23-2023 14:45-0500 Systolic blood pressure 118 mm[Hg] Harsha Dimitry DO Work Phone: [facility] 12-16-2023 14:06-0500 Body mass index (BMI) [Ratio] 29.32 kg/m2 Harsha Dimitry DO Work Phone: [facility] 12-16-2023 14:06-0500 Body weight 77.47 kg Harsha Dimitry DO Work Phone: [facility] 12-16-2023 14:06-0500 Diastolic blood pressure 70 mm[Hg] Harsha Dimitry DO Work Phone: [facility] 12-16-2023 14:06-0500 Systolic blood pressure 120 mm[Hg] Harsha Dimitry DO Work Phone: [facility] Healthcare Encounters Encounter Date Encounter Type Care Provider Facility Start: 02-07-2025 End: 02-07-2025 Bamboo flowsheet Fawn PINON Work Phone: [facility] Start: 02-07-2025 End: 02-09-2025 Bamboo flowsheet Fawn PINON Work Phone: [facility] Start: 02-07-2025 End: 02-09-2025 Clinisync Result Encounter Fawn PINON Work Phone: [facility] External Department Unsolicited Start: 02-07-2025 End: 02-08-2025 External Result Encounter Fawn PINON Work Phone: [facility] External Department Unsolicited Start: 02-07-2025 End: 02-07-2025 Patient encounter procedure Fawn PINON Work Phone: [facility] Healthcare Start: 02-07-2025 End: 02-07-2025 Periodic preventive med est patient 18-39 yrs Fawn Perdomo PA Work Phone: [facility] Comment on above: Well woman exam with routine gynecological exam; Exposure to STD; Need for maternal serum alpha-protein (MSAFP) screening; Second trimester ; 16 weeks gestation of ; Screening, , for anatomic survey Start: 02-07-2025 End: 02-07-2025 ambulatory FAWN PERDOMO Not Available Start: 01-10-2025 End: 01-10-2025 Bamboo flowsheet Harsha Dimitry DO Work Phone: [facility] Start: 01-10-2025 End: 01-10-2025 Bamboo flowsheet Harsha Dimitry DO Work Phone: [facility] Start: 01-10-2025 End: 01-10-2025 flow sheet Harsha Dimitry DO Work Phone: [facility] Comment on above: First trimester preg rajinder; 13 weeks gestation of Start: 01-10-2025 End: 01-10-2025 ambulatory HARSHA DIMITRY Not Available Start: 12-10-2024 End: 12-10-2024 Clinisync Result Encounter Harsha Dimitry DO Work Phone: [facility] External Department Unsolicited Start: 12-10-2024 End: 12-10-2024 Clinisync Result Encounter Harsha Dimitry DO Work Phone: [facility] Unsolicited Start: 12-09-2024 End: 12-09-2024 Office outpatient visit 5 minutes [facility] Dimitry Nurse [facility] Comment on above: GA: 8w6d Start: 12-09-2024 End: 12-09-2024 ambulatory HARSHA DIMITRY Not Available Start: 12-23-2023 End: 12-23-2023 flow sheet Harsha Dimitry DO Work Phone: [facility] Comment on above: Third trimester preg rajinder; Post term over 40 weeks Start: 12-16-2023 End: 12-16-2023 flow sheet Harsha Dimitry DO Work Phone: [facility] Comment on above: Third trimester preg rajinder Start: 12-04-2021 End: 12-05-2021 ambulatory [facility] Start: 09-27-2021 Encounter for genera l adult medical examination without abnormal findings BRIANLEIGH HALLMER [facility] Start: 08-30-2021 End: 08-31-2021 ambulatory BRIAN VARNER Facility:[facility] Start: 08-30-2021 End: 08-31-2021 Encounter for general adult medical examination without abnormal findings BRIANLEIGH HALLMER Facility:[facility] Start: 08-04-2019 End: 08-05-2019 Patient encounter procedure MASON SIN Allan Facility:[facility] Procedures Date Procedure Procedure Detail Performing Clinician Start: 02-07-2025 RECURRENT VAGINITIS (HTRX) Fawn PINON Work Phone: Start: 02-07-2025 Urnls dip stick/tabl et rgnt non-auto w/o micrscp Fawn PINON Work Phone: Start: 02-07-2025 IGP,APTIMA HPV,AGE GDLN Fawn PINON Work Phone: Start: 01-10-2025 Urnls dip stick/tabl et rgnt non-auto w/o micrscp Harsha Dimitry DO Work Phone: Start: 12-10-2024 ALL CBC WITH AUTO DIFF Harsha Dimitry DO Work Phone: Start: 12-09-2024 Urnls dip stick/tabl et rgnt non-auto w/o micrscp Harsha Dimitry DO Work Phone: Start: 12-23-2023 Urnls dip stick/tabl et rgnt non-auto w/o micrscp Harsha Dimitry DO Work Phone: Start: 12-16-2023 Urnls dip stick/tabl et rgnt non-auto w/o micrscp Harsha Dimitry DO Work Phone: Plan of Treatment Date Care Activity Detail Author Start: 03-07-2025 End: 03-07-2025 Patient encounter procedure 03/07/2025 10:20 AM EDT Routine [facility] [address] [place] [id number] Harsha Moraes, [address] [place] [address] [place] [address] [facility] Start: 02-07-2025 End: 03-09-2025 Alpha fetoprotein, maternal Alpha fetoprotein, maternal Lab Routine Need for maternal serum alpha-protein (MSAFP) screening Expected: 02/07/2025 (Approximate), Expires: 03/09/2025 [facility] Healthcare Comment on above: Expected: 02/07/2025 (Approximate), Expires: 03/09/2025 Start: 02-07-2025 End: 02-07-2026 US for US OB 14+ weeks anatomy scan Imaging Routine Screening, , for anatomic survey Expected: 02/07/2025, Expires: 02/07/2026 [facility] Healthcare Comment on above: Expected: 02/07/2025 , Expires: 02/07/2026 Start: 02-07-2025 End: 02-07-2025 Patient encounter procedure [facility] Comment on above: Arrived Start: 01-10-2025 End: 01-10-2025 Patient encounter procedure [facility] Comment on above: Arrived Start: 12-09-2024 End: 12-09-2025 ABO/Rh ABO/Rh Lab Routine Missed menses , unspecified gestational age Expected: 12/09/2024 (Approximate), Expires: 12/09/2025 [facility] Healthcare Comment on above: Expected: 12/09/2024 (Approximate), Expires: 12/09/2025 Start: 12-09-2024 End: 12-09-2025 Blood type and Indirect antibody screen panel - Blood Type and screen Lab Routine Missed menses , unspecified gestational age Expected: 12/09/2024 (Approximate), Expires: 12/09/2025 [facility] Work Phone: Comment on above: Expected: 12/09/2024 (Approximate), Expires: 12/09/2025 Start: 12-09-2024 End: 12-09-2025 Drugs of abuse panel - Urine by Screen method Rapid drug screen, urine Lab Routine , unspecified gestational age Encounter for supervision of normal first in first trimester Expected: 12/09/2024 (Approximate), Expires: 12/09/2025 [facility] Healthcare Comment on above: Expected: 12/09/2024 (Approximate), Expires: 12/09/2025 Start: 12-23-2023 End: 12-23-2023 Patient encounter procedure 12/23/2023 2:30 PM EST Routine [facility] [address] [place] [place] [phone] Harsha Moraes DO [address] [place] [address] Third trimester [facility] Comment on above: Third trimester preg rajinder Start: 12-23-2023 End: 12-23-2024 US biophysical profile w non stress test US biophysical profile w non stress test Imaging Routine Post term over 40 weeks Expected: 12/23/2023 (Approximate), Expires: 12/23/2024 [facility] Work Phone: Comment on above: Expected: 12/23/2023 (Approximate), Expires: 12/23/2024 Bacteria identified in Urine by Culture Urine culture Microbiology Routine Missed menses Ordered: 12/09/2024 [facility] Comment on above: Ordered: 12/09/2024 CBC W Auto Different ial panel - Blood CBC and differential Lab Routine Missed menses , unspecified gestational age Ordered: 12/09/2024 [facility] Comment on above: Ordered: 12/09/2024 CHLAMYDIA TRACHOMATI S (GENITO/STI) CHLAMYDIA TRACHOMATIS (GENITO/STI) Lab Routine Exposure to STD Ordered: 02/07/2025 [facility] Comment on above: Ordered: 02/07/2025 Cytology Cervical or vaginal smear or scraping study Pap Smear Pathology and Cytology Routine Well woman exam with routine gynecological exam Ordered: 02/07/2025 [facility] Work Phone: Comment on above: Ordered: 02/07/2025 Hemoglobin A1c/Hemoglobin.total in Blood Hemoglobin A1c Lab Routine Missed menses , unspecified gestational age Ordered: 12/09/2024 [facility] Comment on above: Ordered: 12/09/2024 Hepatitis B virus surface Ag [Presence] in Serum or Plasma by Immunoassay Hepatitis B surface antigen Lab Routine Missed menses , unspecified gestational age Ordered: 12/09/2024 [facility] Comment on above: Ordered: 12/09/2024 Hepatitis C virus Ab [Presence] in Serum or Plasma by Immunoassay Hepatitis C antibody Lab Routine Missed menses , unspecified gestational age Ordered: 12/09/2024 [facility] Comment on above: Ordered: 12/09/2024 HIV-1/HIV-2 antigen/antibody combination immunoassay HIV-1 and HIV-2 antibodies Lab Routine Missed menses , unspecified gestational age Ordered: 12/09/2024 [facility] Comment on above: Ordered: 12/09/2024 Neisseria gonorrhoea e DNA [Presence] in Unspecified specimen by LAZARA with probe detection Neisseria gonorrhea DNA probe, direct Lab Routine Exposure to STD Ordered: 02/07/2025 [facility] Comment on above: Ordered: 02/07/2025 Reagin Ab [Presence] in Serum by RPR RPR Lab Routine Missed menses , unspecified gestational age Ordered: 12/09/2024 [facility] Comment on above: Ordered: 12/09/2024 Rubella antibody, IgG Rubella an tibody, IgG Lab Routine Missed menses , unspecified gestational age Ordered: 12/09/2024 [facility] Comment on above: Ordered: 12/09/2024 SURESWAB(R) ADVANCED VAGINITIS PLUS, TMA SURESWAB(R) ADVANCED VAGINITIS PLUS, TMA Pathology and Cytology Routine Exposure to STD Ordered: 02/07/2025 [facility] Comment on above: Ordered: 02/07/2025 Payers Date Payer Category [id number] 2022 Unknown [id number] 2019 Unknown 1995 Unknown [id number] [id number] 1995 Unknown [id number] [id number] 1995 Unknown [id number] [id number] 1995 Unknown [id number] [id number] 1995 Unknown [id number] [id number] 1995 Unknown [id number] 1995 Unknown [id number] 1959 Unknown [id number] Social History Date Type Detail Facility Start: 06-18-2023 Tobacco smoking status DEIS Never sm oked tobacco [facility] Start: 12-16-2023 End: 02-07-2025 Alcohol intake Current drinker of alcohol (finding) [facility] Start: 08-31-2023 End: 02-08-2024 [facility] Start: 08-31-2023 End: 02-08-2024 Alcohol Use Disorder Identification Test - Consumption [AUDIT-C] [facility] Frequency of Alcohol Consumption Not on file [facility] How often do you hav e 6 or more drinks on 1 occasion? Never [facility] Start: 04-03-2023 [facility] Start: 1995 Sex Assigned At Female [facility] Start: 04-23-2023 Gender identity Identifies as female gender (finding) [facility] Start: 04-23-2023 Sexual orientation Heterosexual (fin ding) [facility] History of Present illness Narrative 02-07-2025 ZI Collins - 02/07/2025 9:30 AM EDT Note Date & Type Note Facility 02-07-2025 History of Presen t illness Narrative Reason for Appointment: Patient ID: Surjit Avina is a 29 y.o. female who presents for Routine Visit Patient presents today for Annual Exam., STD Check., and Return OB appointment. MEDICATIONS Current Outpatient Medications Medication Instructions ondansetron ODT (ZOFRAN-ODT) 4 mg, Oral, Every 6 hours PRN ALLERGIES No Known Allergies PROBLEMS Active Ambulatory Problems Diagnosis Date Noted Third trimester 11/19/2023 Resolved Ambulatory Problems Diagnosis Date Noted No Resolved Ambulatory Problems No Additional Past Medical History HISTORY PAST MEDICAL HISTORY SOCIAL HISTORY No past medical history on file. Social History Tobacco Use Smoking status: Never Smokeless tobacco: Not on file Substance Use Topics Alcohol use: Yes Drug use: Not on file FAMILY HISTORY No family history on file. SURGICAL HISTORY History reviewed. No pertinent surgical history. REVIEW OF SYSTEMS Review of Systems: Review of Systems Constitutional: Negative. HENT: Negative. Eyes: Negative. Respiratory: Negative. Cardiovascular: Negative. Gastrointestinal: Negative. Genitourinary: Negative. Musculoskeletal: Negative. Skin: Negative. Neurological: Negative. All other systems reviewed and are negative. Hematological: Negative. Endocrine: Negative. Allergic/Immunologic: Negative. OBJECTIVE Objective: Physical Exam Constitutional: Appearance: Normal appearance. Genitourinary: Right Adnexa: not tender and no mass present. Left Adnexa: not tender and no mass present. No cervical discharge. Breasts: Breasts are soft. Right: Normal. Left: Normal. HENT: Head: Normocephalic. Nose: Nose normal. Mouth/Throat: Mouth: Mucous membranes are moist. Cardiovascular: Rate and Rhythm: Normal rate. Pulmonary: Effort: Pulmonary effort is normal. Abdominal: General: Bowel sounds are normal. Palpations: Abdomen is soft. Musculoskeletal: General: Normal range of motion. Cervical back: Normal range of motion. Neurological: General: No focal deficit present. Mental Status: She is alert. Skin: General: Skin is warm and dry. Psychiatric: Mood and Affect: Mood normal. Vitals and nursing note reviewed. Exam conducted with a promotions executive present. Vitals: Estimated body mass index is 25.06 kg/m as calculated from the following: Height as of 05/22/23: 5' 4 . Weight as of this encounter: 146 lb. BP: 112/70 Patient's last menstrual period was 10/08/2024. ASSESSMENT & PLAN ICD-10-CM 1. Well woman exam with routine gynecological exam Z01.419 Pap Smear 2. Exposure to STD Z20.2 SURESWAB(R) ADVANCED VAGINITIS PLUS, TMA CHLAMYDIA TRACHOMATIS (GENITO/STI) Neisseria gonorrhea DNA probe, direct 3. Need for maternal serum alpha-protein (MSAFP) screening Z36.1 Alpha fetoprotein, maternal Alpha fetoprotein, maternal 4. Second trimester Z34.92 POCT urinalysis dipstick manually resulted 5. 16 weeks gestation of Z3A.16 6. Screening, , for anatomic survey Z36.89 US OB 14+ weeks anatomy scan Return OB/Annual Exam: Patient presents today for an annual exam/routine obstetrics appointment. Patient is currently 17w3d . Patient is doing well and states she has no complaints. Pap/cultures was obtained without difficulty and patient was given msAFP and anatomy scan order to have obtained. Orders Placed This Encounter Procedures US OB 14+ weeks anatomy scan Alpha fetoprotein, maternal CHLAMYDIA TRACHOMATIS (GENITO/STI) Neisseria gonorrhea DNA probe, direct POCT urinalysis dipstick manually resulted Follow Up: Patient is to return to our office in 4 weeks for routine OB appointment Documented by Payton Mauro LPN on behalf of: ZI Collins documented in this encounter [facility] History of Present illness Narrative 01-10-2025 Audra Franco LPN - 01/10/2025 9:10 AM EST Note Date & Type Note Facility 01-10-2025 History of Presen t illness Narrative Reason for Appointment: Patient ID: Surjit Avina is a 29 y.o. female who presents for Routine Visit Patient presents today for Return OB appointment. MEDICATIONS Current Outpatient Medications Medication Instructions ondansetron ODT (ZOFRAN-ODT) 4 mg, Oral, Every 6 hours PRN ALLERGIES No Known Allergies PROBLEMS Active Ambulatory Problems Diagnosis Date Noted Third trimester 11/19/2023 Resolved Ambulatory Problems Diagnosis Date Noted No Resolved Ambulatory Problems No Additional Past Medical History HISTORY PAST MEDICAL HISTORY SOCIAL HISTORY No past medical history on file. Social History Tobacco Use Smoking status: Never Smokeless tobacco: Not on file Substance Use Topics Alcohol use: Yes Drug use: Not on file FAMILY HISTORY No family history on file. SURGICAL HISTORY No past surgical history on file. REVIEW OF SYSTEMS Review of Systems: Review of Systems All other systems reviewed and are negative. OBJECTIVE Objective: Physical Exam Constitutional: Appearance: Normal appearance. She is well-developed. Cardiovascular: Rate and Rhythm: Normal rate and [...] nursing note reviewed. Exam conducted with a promotions executive present. Vitals: Estimated body mass index is 24.2 kg/m as calculated from the following: Height as of 05/22/23: 5' 4 . Weight as of this encounter: 141 lb. BP: 102/72 Patient's last menstrual period was 10/08/2024. ASSESSMENT & PLAN ICD-10-CM 1. First trimester Z34.91 POCT urinalysis dipstick manually resulted 2. 13 weeks gestation of Z3A.13 New OB: Patient presents today for 1st time obstetrics appointment with provider. Patient is currently 13w3d . Patients history has been reviewed in great detail including any potential risks. Patient stated she currently has no complaints. Expectations throughout regarding labs, ultrasounds, and appointments have been discussed with the patient in detail. It was reiterated that the patient is to drink 6-8 glasses of water a day, eat 6 small meals a day, do not consume raw or undercooked meat, and stay away from [facility]. Patient has been consulted regarding any further do's and don'ts of . Patient voiced understanding and all questions and concerns were answered. Orders Placed This Encounter Procedures POCT urinalysis dipstick manually resulted Follow Up: Patient is to return in 4 weeks for routine OB appointment. Documented by Audra Franco LPN on behalf of: Harsha Moraes DO documented in this encounter [facility] History of Present illness Narrative 12-09-2024 [...] or undercooked meat, and stay away from [facility]. Patient has also been advised to [...] History of Present illness Narrative 12-23-2023 Payton Mauro LPN - 12/23/2023 2:30 PM EST Note [...] nursing note reviewed. Exam conducted with a promotions executive present. Vitals: Estimated body mass index is [...] Harsha Moraes DO documented in this encounter [facility] History of Present illness Narrative 12-16-2023 Payton MauroFORD - 12/16/2023 2:00 PM EST Note Date [...] nursing note reviewed. Exam conducted with a promotions executive present. Vitals: Estimated body mass index is [...] trimester documented in this encounter [facility] Evaluation note Note Date & Type Note Facility Evaluation note Diagnosis First trimester state, incidental 13 weeks gestation of documented in this encounter [facility] Evaluation note Note Date & Type Note Facility Evaluation note Diagnosis Well woman exam with routine gynecological exam Routine gynecological examination Exposure to STD Need for maternal serum alpha-protein (MSAFP) screening Second trimester state, incidental 16 weeks gestation of Screening, , for anatomic survey Encounter for anatomic survey documented in this encounter [facility] Summary Purpose Family History No Family History Records FoundNo Family History Records FoundNo Family History Records FoundNo Family History Records Found Advance Directives No Advanced Directives Records FoundNo Advanced Directives Records FoundNo Advanced Directives Records FoundNo Advanced Directives Records Found Additional Source Comments INFORMATION SOURCE (unrecogn ized section and content) DATE CREATED AUTHOR 04/13/2020 [facility] DATE CREATED AUTHOR AUTHOR'S ORGANIZ ATION 12/17/2021 [facility] DATE CREATED AUTHOR AUTHOR'S ORGANIZ ATION 07/04/2022 [facility] DATE CREATED AUTHOR AUTHOR'S ORGANIZ ATION 02/08/2025 [facility] EP[facility] Reason for Visit (unrecogniz ed section and content) Reason Comments Routine Visit Care Teams (unrecognized sec tion and content) Auto Locator Relationship Specialty Start Date End Date Mason Deleon MD [address] [place] [address] PCP - General 05/15/23 Auto Locator Relationship Specialty Start Date End Date Mason Deleon MD [address] [place] [address] PCP - General 05/15/23 Auto Locator Relationship Specialty Start Date End Date Mason Deleon MD [address] [place] [address] PCP - General 05/15/23 Auto Locator Relationship Specialty Start Date End Date Mason Deleon MD [address] [place] [address] PCP - General 05/15/23 Auto Locator Relationship Specialty Start Date End Date Mason Deleon MD [address] [facility] [place] [address] PCP - General 05/15/23 FOR RECORDS PERTAINING [...] BE BASED ON THE PRIMARY CLINICAL RECORDS. [facility] [employer] [facility]. provides no warranty or guarantee of the accuracy or completeness of information in this document.
== END 2025-02-25 09:52 | disposition home or self-care (01) ==
LOC: US 09:52
PROVIDERS: PCP Family Medicine; Visit Provider Physician Assistant
DX: Z36.89 Encounter for other specified antenatal screening (principal); Z3A.21 21 weeks gestation of pregnancy
CPT/HCPCS: 76805; 76817

== ENCOUNTER 2025-03-25 09:47 | Outpatient (OUT) | payer BC, SELFPAY ==
--- NOTE | 2025-03-25 | US_ITS ---
The [address] [address] Patient Name: SURJIT MORALES MRN: [id number] date: 1995 Sex: F Assigned Patient Location: US Current Patient Location: US Accession/Order Number: [id number] Exam Date: 03/25/2025 10:55 Report Date: 03/25/2025 10:57 At the request of: HARSHA OCHOA DO Procedure: US OB incomplete anatomy Limited obstetrical ultrasound HISTORY: Follow-up assessment for left ventricular outflow track and right ventricular outflow track Fetus in cephalic presentation with longitudinal lie. The amniotic fluid is subjectively normal. The heart rate is 150 bpm. Left ventricular outflow track and right ventricular outflow track and 4 chambered heart unremarkable. US/US OB incomplete anatomy IMPRESSION: Unremarkable left ventricular outflow track and right ventricular outflow track and 4 chambered heart. Impression dictated by: Rick Garsia M.D. 03/25/2025 10:57 AM Dictation Location: [place]nary Electronically authenticated by: [id number] Y Date: 03/25/2025 10:57
--- OUTSIDE RECORDS SUMMARY | 2025-03-25 09:49 | XMS_ITS | CCD ---
Author Organization [facility] Care Team Providers Care Warehouse Director Name Role Phone MASON DELEON Attending Unavailable Mason Deleon Primary Care Unavailable BEBETO AMEZQUITA Referring Unavailable MASON DELEON Primary Care Unavailable BRIAN VARNER Attending Unavailable BRIAN VARNER Consulting Unavailable BRIAN VARNER Admitting Unavailable DR MASON DELEON Primary Care Unavailable Mason Deleon MD Primary Care Provider [phone] HARSHA MORAES Attending Unavailable FAWN PERDOMO Attending Unavailable HASRHA MORAES Attending Unavailable Medications Current Medications Medication Drug Class(es) Dates Sig (Normalized) Sig (Original) ondansetron 4 mg disintegrating oral tablet (14 sources) Serotonin-3 Receptor Antagonist Start: 11-29-2024 End: 03-07-2025 take 1 tablet by mouth every six hours as needed for nausea and vomiting and nausea and nausea ondansetron ODT (Zofran-ODT) 4 MG disintegrating tablet Indications: Nausea Take 1 tablet (4 mg) by mouth every 6 (six) hours if needed for nausea or vomiting for up to 30 doses 30 tablet 3 11/29/2024 03/07/2025 Discontinued (Therapy completed) Problems Problem Classification Problem Date Documented Date Episodic/Chronic Immunizations and screening for infectious disease (2 sources) Exposure to sexually transmissible disorder; Translations: [Contact with and (suspected) exposure to infections with a predominantly sexual mode of transmission] 02-07-2025 Episodic Menstrual disorders (1 source) Missed period; Translations: [Irregular menstruation, unspecified] 12-09-2024 Chronic Other and delivery including normal (20 sources) Third trimester ; Translations: [Encounter for supervision of normal , unspecified, third trimester] Onset: 11-19-2023 12-10-2023 Episodic Other screening for suspected conditions (not mental [...] [16 weeks gestation of ] 02-07-2025 Episodic Residual codes; unclassified (2 sources) Gestation period, 21 weeks; Translations: [21 weeks gestation of ] 03-07-2025 Episodic Results Test Name Value Interpretation Reference Range Facility Urinalysis macro (dipstick) panel (U)on 03-07-2025 Bilirubin, UA Negative Negative - 4(70) +++ mg/dL [facility] Blood, UA Negative Negative - 50 Gulshan/mcL [facility] Clarity, UA Clear [facility] re Color, UA Yellow [facility] Healthcar e Glucose, UA Negative Negative - 1999(110) ++++ mg/dL [facility] Interpretation and review of laboratory results Normal [facility] re Ketones, UA Negative Negative - 160(16) ++++ mg/dL [facility] Leukocytes, UA Negative Negative - 500+++ Stefan/mcL [facility] Nitrite, UA Negative Negative - Positive [facility] pH, UA 5.5 5 - 9 [facility] Healthcar e Protein, UA Negative Negative - 1999(20) ++++ mg/dL [facility] Spec Grav, UA 1.03 1 - 1.03 [facility] Urobilinogen, UA 0.2 0.2 - 12 mg/dL [facility] CERVICAL LENGTHon 02-08 [place] [address] Ultrasound Report Signed Patient: SURJIT AVINA MR#: [id number] : 1995 Acct:[id number] Age/Sex: 29 / F ADM Date: 02/25/25 Loc: US Attending Dr: Fawn Perdomo Ordering Physician: Fawn Perdomo Date of Service: 02/25/25 Procedure(s): US OB cervical length Accession Number(s): [id number] cc: Fawn Perdomo; Mason Deleon M.D. The [place] [id number] Patient Name: SURJIT AVINA MRN: [id number] date: 1995 Sex: F Assigned Patient Location: US Current Patient Location: Accession/Order Number: [id number] Exam Date: 02/27/2025 09:44 Report Date: 02/27/2025 09:52 At the request of: FAWN PERDOMO Procedure: US OB cervical length Obstetrical Ultrasound for Fetus greater than 14 weeks HISTORY: anatomy assessment heart rate is 148 bpm. The fetus is in transverse presentation. Transverse lie. The placenta is in a posterior position with marginalappearance. Amniotic fluid index is subjectively normal The cervix is closed. The estimated weight is 382 g. with percentile of 88.7%. The ovaries are not visualized. No fluid identified in the cul-de-sac. Following anatomy identifiedlateral ventricles, cerebellum, posterior fossa, nose and lips, orbits, four-chamber heart, diaphragm, stomach, kidneys, cord insertion, bladder, umbilical arteries, two-vessel cord, spine, extremities visualized. There is suboptimal assessment of the right ventricular outflow track and the left ventricular outflow track. The biparietal diameter measures 5.1cm consistent with 21 weeks 4 days. Head circumference measures 18.5cm consistent with 20 weeks 6 days. Abdominal circumference measures 16.4cm consistent with 21 weeks 3 days. Femur length is 3.2cm consistent with 20 weeks 1 day. The average gestational age is 21 weeks 0 days. Estimated due date is 07/08/2025. somatic motion identified. US/US OB cervical length IMPRESSION: Single live intrauterine gestation 21 weeks 0 days. The anatomy as above. Limited assessment of the right and left ventricular outflow tract. Impression dictated by: Rick Garsia M.D.02/27/2025 9:52 AM Dictation Location: [place] [address] Electronically authenticated by: [id number] Y Date: 02/27/2025 09:52 Dictated By: Rick Garsia D.O. Signed By: 02/27/25 0954 DD/ 0952 TD/TT: Senior Safety Management Consultant: [facility] Radiology, Radiologist, MD - 02/27/[address] [address] Ultrasound Report Signed Patient: SURJIT AVINA MR#: [id number] : 1995 Acct:[id number] Age/Sex: 29 / F ADM Date: 02/25/25 Loc: US Attending Dr: Fawn Perdomo Ordering Physician: Fawn Perdomo Date of Service: 02/25/25 Procedure(s): US OB cervical length Accession Number(s): [id number] cc: Fawn Perdomo; Mason Deleon M.D. The [address] [address] Patient Name: SURJIT AVINA MRN: [facility]:[id number] date: 1995 Sex: F Assigned Patient Location: US Current Patient Location: Accession/Order Number: [id number] Exam Date: 02/27/2025 09:44 Report Date: 02/27/2025 09:52 At the request of: FAWN PERDOMO Procedure: US OB cervical length Obstetrical Ultrasound for Fetus greater than 14 weeks HISTORY: anatomy assessment heart rate is 148 bpm. The fetus is in transverse presentation. Transverse lie. The placenta is in a posterior position with marginalappearance. Amniotic fluid index is subjectively normal The cervix is closed. The estimated weight is 382 g. with percentile of 88.7%. The ovaries are not visualized. No fluid identified in the cul-de-sac. Following anatomy identifiedlateral ventricles, cerebellum, posterior fossa, nose and lips, orbits, four-chamber heart, diaphragm, stomach, kidneys, cord insertion, bladder, umbilical arteries, two-vessel cord, spine, extremities visualized. There is suboptimal assessment of the right ventricular outflow track and the left ventricular outflow track. The biparietal diameter measures 5.1cm consistent with 21 weeks 4 days. Head circumference measures 18.5cm consistent with 20 weeks 6 days. Abdominal circumference measures 16.4cm consistent with 21 weeks 3 days. Femur length is 3.2cm consistent with 20 weeks 1 day. The average gestational age is 21 weeks 0 days. Estimated due date is 07/08/2025. somatic motion identified. US/US OB cervical length IMPRESSION: Single live intrauterine gestation 21 weeks 0 days. The anatomy as above. Limited assessment of the right and left ventricular outflow tract. Impression dictated by: Rick Garsia M.D.02/27/2025 9:52 AM Dictation Location: [employer] Electronically authenticated by: [id number] Y Date: 02/27/2025 09:52 Dictated By: Rick aGrsia D.O. Signed By: 02/27/2554 DD/ 1 TD/TT: Senior Safety Management Consultant: [employer] Radiology Study observation (narrative) [facility] [employer] US OB CERVICAL LENGTHOrdered By: Radiologist Radiology on 02-27-2025 [employer] Work Phone: IGP,APTIMA HPV,AGE GDLNon AGE GDLN ACOG TESTING Note . [facility] [employer] Comment on above: TESTS RESULT FLAG UN ITS REF RANGE LAB Clinician Provided Cytology Information Source.............Cervix Other.............. No. of containers..01 ThinPrep Vial Age Algo ACOG Tracie... FLAG LEGEND: L-Low Normal,H-High Normal,LL-Alert Low,HH-Alert High <-Panic Low,>-Panic High,A-Abnormal,AA-Critical Abnormal Performed at: 01 =G [facility] [place] [address] Socorro Benavidez MD, IGP, RFX APTIMA HPV ASCU Note . [facility] Comment on above: TESTS RESULT FLAG UN ITS REF RANGE LAB DIAGNOSIS: 02 NEGATIVE FOR INTRAEPITHELIAL LESION OR MALIGNANCY. Specimen adequacy: 02 Satisfactory for evaluation. No endocervical component is identified. An endocervical component is not commonly seen in the patient. Performed by: 02 Pema Gonzalez, Gas Main Fitter Helper ([facility]) . 02 Note: Note 02 [...] <-Panic Low,>-Panic High,A-Abnormal,AA-Critical Abnormal Performed at: 02 WB [facility] [address] [facility], [place] [address] Socorro Benavidez MD, Performed at: = - [facility] [id number] Value Analysis Coordinator: Socorro Benavidez MD, Phone: [phone] Performed at: [facility] [address] [id number] Value Analysis Coordinator: Socorro Benavidez MD, Phone: [phone] SPATULA[facility]AL[facility]IX [facility] RECURRENT VAGINITIS (HTRX)on 02-08-2025 ATOPOBIUM VAGINAE 0 [facility] ATOPOBIUM VAGINAE Not detected [facility] BVAB 2,3 (BACTERIAL VAGINOSIS ASSOCIATED BACTERIA 2, 3); MOBILUNCUS SPP 26.639 Abnormal [facility] BVAB 2,3 (BACTERIAL VAGINOSIS ASSOCIATED BACTERIA 2, 3); MOBILUNCUS SPP Detected Abnormal [facility] Healthcare VIVIANA ALBICANS, PARAPSILOSIS, TROPICALIS 0 [facility] VIVIANA ALBICANS, PARAPSILOSIS, TROPICALIS Not detected [facility] VIVIANA GLABRATA 0 [facility] VIVIANA GLABRATA Not detected [facility] VIVIANA KRUSEI 0 [facility] VIVIANA KRUSEI Not detected N[facility] CHLAMYDIA TRACHOMATIS 0 [facility] CHLAMYDIA TRACHOMATIS Not detected [facility] GARDNERELLA VAGINALIS 0 [facility] GARDNERELLA VAGINALIS Not detected [facility] Interpretation and review of laboratory results Abnormal [facility] Healthca re MEGASPHAERA (TYPES 1, 2) 0 [facility] MEGASPHAERA (TYPES 1, 2) Not detected [facility] MYCOPLASMA GENITALIUM 0 [facility] MYCOPLASMA GENITALIUM Not detected [facility] NEISSERIA GONORRHOEAE 0 [facility] NEISSERIA GONORRHOEAE Not detected [facility] TRICHOMONAS VAGINALIS 0 [facility] TRICHOMONAS VAGINALIS Not detected [facility] Urinalysis macro (dipstick) panel (U)on 02-07-2025 Bilirubin, UA Negative Negative - 4(70) +++ mg/dL [facility] Blood, UA Negative Negative - 50 Gulshan/mcL [facility] Clarity, UA Clear [facility] Color, UA Yellow [facility] Healthcar e Glucose, UA Negative Negative - 2000(110) ++++ mg/dL [facility] Interpretation and review of laboratory results Normal [facility] re Ketones, UA Negative Negative - 160(16) ++++ mg/dL [facility] Leukocytes, UA Trace Negative - 500+++ Stefan/mcL [facility] Nitrite, UA Negative Negative - Positive [facility] pH, UA 5.5 5 - 9 [facility] Healthcar e Protein, UA Negative Negative - 1999(20) ++++ mg/dL [facility] Spec Grav, UA 1.025 1 - 1.03 [facility] Urobilinogen, UA 0.2 0.2 - 12 mg/dL [facility] Health[facility] e Urinalysis macro (dipstick) panel (U)on 01-10-2025 Bilirubin, UA Positive Negative - (70) +++ mg/dL [facility] Comment on above: small Blood, UA Negative Negative - 50 Gulshan/mcL [facility] Clarity, UA Clear [facility] re Color, UA Yellow [facility] Healthcar e Glucose, UA Negative Negative - 1999(110) ++++ mg/dL [facility] Interpretation and review of laboratory results Abnormal [facility] re Ketones, UA Negative Negative - 160(16) ++++ mg/dL [facility] Leukocytes, UA Negative Negative - 500+++ Stefan/mcL [facility] Nitrite, UA Negative Negative - Positive [facility] pH, UA 5.5 5 - 9 [facility] Healthcar e Protein, UA Positive Negative - 1999(20) ++++ mg/dL [facility] Comment on above: 30mg/dL Spec Grav, UA 1.03 1 - 1.03 [facility] Urobilinogen, UA 0.2 0.2 - 12 mg/dL [facility] Health[facility] e ALL CBC WITH AUTO DIFFon BASOPHILS ABSOLUTE AUTO 0 [facility] Basophils/100 WBC (Bld) 0.4 % 0.2 - 2.0 % [facility] Eosinophils/100 WBC (Bld) 0.7 % Low 0.9 - 7.0 % [facility] Erythrocyte distribution width (RBC) [Ratio] 12.5 % 11.0 - 15.0 % [facility] Hematocrit (Bld) [Volume fraction] 37.5 % 36.0 - 48.0 % [facility] Healthcar e Hemoglobin (Bld) [Mass/Vol] 12.6 g/dL 12.0 - 16.0 g/dL [facility] IMMATURE GRANULOCYTES ABS AUTO 0.03 [facility] Immature granulocytes/100 WBC (Bld) 0.4 % 0.0 - 0.5 % [facility] Interpretation and review of laboratory results Abnormal [facility] Healthca re LYMPHOCYTES ABSOLUTE AUTO 1.9 [facility] Lymphocytes/100 WBC (Bld) 22.5 % 20.5 - 60.0 % [facility] MCH (RBC) [Entitic mass] 30.7 pg 26.7 - 34.0 pg [facility] MCHC (RBC) [Mass/Vol] 33.6 g/dL 29.9 - 35.2 g/dL [facility] MCV (RBC) [Entitic vol] 91.5 fL 81.0 - 99.0 fL [facility] MONOCYTES ABSOLUTE AUTO 0.5 [facility] Monocytes/100 WBC (Bld) 5.6 % 1.7 - 12.0 % [facility] NEUTROPHILS ABSOLUTE AUTO 5.8 [facility] Neutrophils/100 WBC (Bld) 70.4 % 43.0 - 75.0 % [facility] Platelet mean volume (Bld) [Entitic vol] 10.1 fL 9.5 - 13.5 fL [facility] TBH EO # 0.1 [facility] Healthcar e TBH PLT 305 [facility] TB RBC 4.1 Low [facility] Health[facility] e TBH WBC 8.3 [facility] Healthcar e [facility] Health[facility] e HCG ( test) Ql (U)o n 12-09-2024 Interpretation and review of laboratory results Abnormal [facility] re Preg Test, Ur Positive Negative [facility] OB TRANSVAGINALon 025 US [...] report is generated using voice recognition reporting (Vovici). On occasion Vovici erroneously drops words from the report or [...] UA Negative Negative - 4(70) +++ mg/dL [facility] Blood, UA Negative Negative - 50 Gulshan/mcL [facility] Clarity, UA Clear [facility] re Color, UA Yellow [facility] Glucose, UA Negative Negative - 1999(110) ++++ mg/dL [facility] Interpretation and review of laboratory results Abnormal [facility] re Ketones, UA Positive Negative - 160(16) ++++ mg/dL [facility] Comment on above: trace Leukocytes, UA Negative Negative - 500+++ Stefan/mcL [facility] Nitrite, UA Negative Negative - Positive [facility] pH, UA 5.5 5 - 9 [facility] Protein, UA Positive Negative - 1999(20) ++++ mg/dL [facility] Comment on above: 30 Spec Grav, UA 1.03 1 - 1.03 [facility] Urobilinogen, UA 0.2 0.2 - 12 mg/dL [facility] Urinalysis macro (dipstick) panel (U)on 12-23-2023 Bilirubin, UA Negative Negative - 4(70) +++ mg/dL [facility] Blood, UA Negative Negative - 50 Gulshan/mcL [facility] Clarity, UA Clear [facility] Color, UA Yellow [facility] Glucose, UA Negative Negative - 1999(110) ++++ mg/dL [facility] Interpretation and review of laboratory results Normal [facility] Ketones, UA Negative Negative - 160(16) ++++ mg/dL [facility] Leukocytes, UA Negative Negative - 500+++ Stefan/mcL [facility] Nitrite, UA Negative Negative - Positive [facility] pH, UA 5.5 5 - 9 [facility] Protein, UA Negative Negative - 1999(20) ++++ mg/dL [facility] Spec Grav, UA 1.020 1 - 1.03 [facility] Urobilinogen, UA 1.0 0.2 - 12 mg/dL [facility] Urinalysis macro (dipstick) panel (U)on 12-16-2023 Bilirubin, UA Negative Negative - 4(70) +++ mg/dL [facility] Healthcare Blood, UA Negative Negative - 50 Gulshan/mcL [facility] Clarity, UA Clear [facility] Color, UA Yellow [facility] Glucose, UA Negative Negative - 1999(110) ++++ mg/dL [facility] Healthcare Interpretation and review of laboratory results Normal [facility] Ketones, UA Negative Negative - 160(16) ++++ mg/dL [facility] Leukocytes, UA Negative Negative - 500+++ Stefan/mcL [facility] Nitrite, UA Negative Negative - Positive [facility] pH, UA 5.5 5 - 9 [facility] Protein, UA Negative Negative - 1999(20) ++++ mg/dL [facility] Spec Grav, UA 1.005 1 - 1.03 [facility] Urobilinogen, UA 0.2 0.2 - 12 mg/dL [facility] HPV DNA High Riskon 12-06-19 22 [facility] Comment on above: Result Comment: This [...] purposes. Performed By: #### H PVH #### [address] [address] Value Analysis Coordinator: Ulisses Gold MD HPV Type 16 Not detected [facility] Comment on above: Performed By: #### H PVH #### [address] [address] Value Analysis Coordinator: Ulisses Gold MD HPV Type 18 Not detected [facility] Comment on above: Performed By: #### H PVH #### [address] [address] Value Analysis Coordinator: Ulisses Gold MD Other High Risk HPV Not detected [facility] Comment on above: Performed By: #### H PVH #### [address] [address] Value Analysis Coordinator: Ulisses Gold MD HPV DNA High Riskon 12-05-19 22 Source .GENITAL - NOT SPECIFIED [facility] Comment on above: Performed By: #### H PVH #### [facility] [address] [place] [address] Value Analysis Coordinator: Ulisses Gold MD HPV Sample .THIN PREP [facility] Comment on above: Performed By: #### H PVH #### [address] [address] Value Analysis Coordinator: Ulisses Gold MD Cytologyon 12-04-2021 Cytology (NOTE) INTERPRETATION Cervical material, (ThinPrep vial, Imaging-assisted review): Specimen Adequacy: Satisfactory for evaluation. -Endocervical/transfor mation zone component is absent. Descriptive Diagnosis: Negative for intraepithelial lesion or malignancy. Gas Main Fitter Helper: RONY Ugalde(ASCP) Electronically Signed Out 12/17/2021 Procedure/Addendum HPV Procedure Report Date Ordered: 12/05/2021 [...] review) Clinical History Intrauterine device Z01.419 Routine agricultural engineer exam without abnormal findings Co-Test: ThinPrep Pap with high risk HPV testing GYNECOLOGIC CYTOLOGY REPORT Patient Name: SURJIT AVINA [facility] Rec: [id number] Path Number: [id number] [facility] ANATOMIC PATHOLOGY [address] [place] [id number] [facility] Comment on above: Performed By: #### P PPVP #### [employer] [address] [place] [address] Value Analysis Coordinator: Ulisses Gold MD QUANTIFERON TB GOLD PLUS (NO N-INC)on 09-05-2021 Comment Incubation performed. Normal [facility] Comment on above: Performed By: #### Q NTTBG #### [facility] [address] [place] [address] Dr. Hetal Linn Criteria Comment Normal [facility] Comment on above: Result Comment: The QuantiFERON-TB Gold Plus result is determined by subtracting the Nil value from either TB antigen (Ag) tube. The mitogen tube serves as a control for the test. Performed By: #### Q NTTBG #### [facility] [address] [place] [address] Dr. Hetal Linn Mitogen Value >10.00 Normal [facility] Comment on above: Performed By: #### Q NTTBG #### [facility] [address] [place] [address] Dr. Hetal Linn Nill Value 0.06 IU/mL Normal [facility] Comment on above: Performed By: #### Q NTTBG #### [facility] [address] [place] [address] Dr. Hetal Linn Quantiferon Gold Plus Negative Normal Negative [facility] Comment on above: Result Comment: Chem iluminescence immunoassay methodology Performed By: #### Q NTTBG #### [facility] [address] [place] [address] Dr. Hetal Linn TB1 Ag Value 0.10 IU/mL Normal [facility] Comment on above: Performed By: #### Q NTTBG #### [facility] [address] [place] [address] Dr. Hetal Linn TB2 Ag Value 0.08 IU/mL Normal [facility] Comment on above: Performed By: #### Q NTTBG #### [facility] [address] [place] [address] Dr. Hetal Linn HEPATITIS B SURFACE ANTIBODY , QUANTon 08-31-2021 Hepatitis B Surf AB Quant 202.1 mIU/mL Normal Immunity>9.9 [facility] Comment on above: Result Comment: Stat us of Immunity Anti-HBs Level Inconsistent with Immunity 0.0 - 9.9 Consistent with Immunity >9.9 Performed By: #### H EPBSRF #### [facility] [address] [place] [address] Dr. Hetal Linn MMR IMMUNITYon 08-31-2021 Mumps Abs, IgG 24.8 AU/mL Normal Immune >10.9 [facility] Comment on above: Result Comment: Nega tive <9.0 Equivocal 9.0 - 10.9 Positive >10.9 A positive result generally indicates past exposure to Mumps virus or previous vaccination. Performed By: #### M MRIMMU #### [facility] [address] [place] [address] Dr. Hetal Linn Rubella Antibodies, IgG 1.14 index Normal Immune >0.99 [facility] Comment on above: Result Comment: Non- immune <0.90 Equivocal 0.90 - 0.99 Immune >0.99 Performed By: #### M MRIMMU #### [facility] [address] [place] [address] Dr. Hetal Linn Rubeola Ab, IgG 26.6 AU/mL Normal Immune >16.4 [facility] Comment on above: Result Comment: Nega tive <13.5 Equivocal 13.5 - 16.4 Positive >16.4 Presence of antibodies to Rubeola is presumptive evidence of immunity except when acute infection is suspected. Performed By: #### M MRIMMU #### [facility] [address] [place] [address] Dr. Hetal Linn VARICELLA IGG ABon Varicella Zoster IgG 1376 index Normal Immune >165 [facility] Comment on above: Result Comment: Nega tive <135 Equivocal 135 - 165 Positive >165 A positive result generally indicates exposure to the pathogen or administration of specific immunoglobulins, but it is not indication of active infection or stage of disease. Performed By: #### V ARCEL #### [facility] [address] [place] [address] Dr. Hetal Linn Addendum Reporton 04-10-2020 Addendum Report Missing Attachment Chartable Reference Lab Reports Can be viewed in source system Addendum Discussion [facility], MLSILVANA, #[id number], Date reported: 04/10/2020: Diagnosis: A. Skin of [...] irritation but melanocytic atypia is not observed. [id number] ONAL [id number] ONAL [id number] ONAL [id number] IONAL [id number] ONAL M-[id number] ONAL [id number] ONAL [id number] ONAL T-[id number] ONAL Ronna Jenkins MD (Electronically signed by) Verified: 04/10/20 13:15 ADD Pathologist Requested Consult Comment by Ronna Jenkins M.D.: The above consultation report was reviewed. I essentially concur with the diagnosis given. Normal [facility] Comment on above: Performed By: #### C #### [address] [address] Surgery Office/Clinic Noteon 04-04-2020 Surgery Office/Clinic Note [...] in this document, created by the medical radiation therapist for me, accurately reflects the services I [...] by Shaina Kang 04/04/2020 12:16 EDT Normal [facility] Surgical Pathology Reporton 04-04-2020 Surgical Pathology [...] case is going to [facility] for consultation. T-[id number] ONAL [id number] IONAL [id number] ONAL [id number] ONAL [id number] IONAL Ronna Jenkins MD (Electronically signed by) Verified: 04/09/20 10:08 Normal [facility] Comment on above: Performed By: #### S OK #### [facility] (DEFAULT) [address] [place] [id number] .eGFRon 08-04-2019 eGFR AA >60 Normal >=60 [facility] Comment on above: Result Comment: Resu lt = 0-14.9 mL/min/1.73 m2 Kidney failure or Dialysis Result = 15-29 mL/min/1.73 m2 Severe decrease in GFR Result = 30-59 mL/min/1.73 m2 Moderate decrease in GFR Result >= 60 mL/min/1.73 m2 Normal or increased GFR Performed By: #### E GFR #### [place] [id number] eGFR Non-AA >60 Normal >=60 [facility] Comment on above: Result Comment: Resu [...] dosing. Performed By: #### E GFR #### [place] [id number] CBC w/ Diffon 08-04-2019 Erythrocyte distribution width (RBC) [Ratio] 12.9 % Normal 11.6-14.8 [facility] Comment on above: Performed By: #### C BC #### [address] [address] Hematocrit (Bld) [Volume fraction] 40.4 % Normal 36.0-46.0 [facility] Comment on above: Performed By: #### C BC #### [address] [address] Hemoglobin (Bld) [Mass/Vol] 13.5 g/dL Normal 12.0-16.0 [facility] Comment on above: Performed By: #### C BC #### [address] [address] MCH (RBC) [Entitic mass] 32.0 pg Normal 27.0-35.0 [facility] Comment on above: Performed By: #### C BC #### [address] [address] MCHC (RBC) [Mass/Vol] 33.5 % Normal 31.0-37.0 [facility] Comment on above: Performed By: #### C BC #### [address] [address] MCV (RBC) [Entitic vol] 95.7 fL Normal 80.0-100.0 [facility] Comment on above: Performed By: #### C BC #### [address] [address] Platelet mean volume (Bld) [Entitic vol] 9.8 fL Normal 6.7-10.6 [facility] Comment on above: Performed By: #### C BC #### [address] [address] Platelets (Bld) [#/Vol] 226 x10*3/mcL Normal 150-350 [facility] Comment on above: Performed By: #### C BC #### [address] [address] RBC (Bld) [#/Vol] 4.23 x10*6/mcL Normal 3.80-5.20 [facility] Comment on above: Performed By: #### C BC #### [address] [address] WBC (Bld) [#/Vol] 7.4 x10*3/mcL Normal 4.5-11.0 [facility] Comment on above: Performed By: #### C BC #### [address] [address] CMPon 08-04-2019 Albumin [Mass/Vol] 4.0 g/dL Normal 3.2-4.9 [facility] Comment on above: Result Comment: [facility] Laboratory updated the methodology used for albumin testing on 06/16/18. Albumin measurement was performed using a bromcresol purple dye-binding assay. Performed By: #### C OMP #### [address] [address] Albumin/Globulin [Mass ratio] 1.2 {ratio} Normal 1.1-2.2 [facility] Comment on above: Performed By: #### C OMP #### [address] [address] Alk Phos 51 IU/L Normal 32-91 [facility] Comment on above: Performed By: #### C OMP #### [address] [address] ALT [Catalytic activity/Vol] 13 U/L Low 14-54 [facility] Comment on above: Performed By: #### C OMP #### [address] [address] Anion gap [Moles/Vol] 10 mmol/L Normal 7-17 [facility] Comment on above: Performed By: #### C OMP #### [address] [address] AST [Catalytic activity/Vol] 17 U/L Normal 15-41 [facility] Comment on above: Performed By: #### C OMP #### [address] [address] Bili Total 0.8 mg/dL Normal 0.3-1.2 [facility] Comment on above: Performed By: #### C OMP #### [address] [address] Calcium [Mass/Vol] 8.9 mg/dL Normal 8.5-10.3 [facility] Comment on above: Performed By: #### C OMP #### [address] [address] Chloride [Moles/Vol] 107 mmol/L Normal 98-110 [facility] Comment on above: Performed By: #### C OMP #### [address] [address] CO2 [Moles/Vol] 27 mmol/L Normal 22-32 [facility] Comment on above: Performed By: #### C OMP #### [address] [address] Creatinine [Mass/Vol] 0.84 mg/dL Normal 0.44-1.03 [facility] Comment on above: Performed By: #### C OMP #### [address] [address] Glucose [Mass/Vol] 84 mg/dL Normal 74-118 [facility] Comment on above: Performed By: #### C OMP #### [address] [address] Potassium [Moles/Vol] 4.3 mmol/L Normal 3.4-4.8 [facility] Comment on above: Performed By: #### C OMP #### [address] [address] Protein [Mass/Vol] 7.2 g/dL Normal 6.5-8.1 [facility] Comment on above: Performed By: #### C OMP #### [address] [address] Sodium [Moles/Vol] 140 mmol/L Normal 133-142 [facility] Comment on above: Performed By: #### C OMP #### [address] [address] Urea nitrogen [Mass/Vol] 10 mg/dL Normal 8-26 [facility] Comment on above: Performed By: #### C OMP #### [address] [address] Urea nitrogen/Creatinine [Mass ratio] 11.9 mg/mg Normal 10.0-20.0 [facility] Comment on above: Performed By: #### C OMP #### [address] [address] Diff Autoon 08-04-2019 Baso Absolute 0.0 x10*3/mcL Normal 0.0-0.2 [facility] Comment on above: Performed By: #### . Automated Diff #### [address] [address] Basophils/100 WBC (Bld) 0.2 % Normal 0.0-1.5 [facility] Comment on above: Performed By: #### . Automated Diff #### [address] [address] Eos Absolute 0.0 x10*3/mcL Normal 0.0-0.4 [facility] Comment on above: Performed By: #### . Automated Diff #### [address] [address] Eosinophils/100 WBC (Bld) 0.6 % Normal 0.0-5.4 [facility] Comment on above: Performed By: #### . Automated Diff #### [address] [address] Lymphocytes (Bld) [#/Vol] 2.3 x10*3/mcL Normal 1.0-4.8 [facility] Comment on above: Performed By: #### . Automated Diff #### [address] [address] Lymphocytes/100 WBC (Bld) 30.5 % Normal 27.2-40.8 [facility] Comment on above: Performed By: #### . Automated Diff #### [address] [address] Cooke Absolute 0.5 x10*3/mcL Normal 0.1-1.1 [facility] Comment on above: Performed By: #### . Automated Diff #### [address] [address] Monocytes/100 WBC (Bld) 7.0 % Normal 3.7-11.9 [facility] Comment on above: Performed By: #### . Automated Diff #### [address] [address] Neutro Absolute 4.6 x10*3/mcL Normal 1.8-7.7 [facility] Comment on above: Performed By: #### . Automated Diff #### [address] [address] Neutro Auto 61.7 % Normal 47.2-70.8 [facility] Comment on above: Performed By: #### . Automated Diff #### [address] [address] Lipid Panelon 08-04-2019 Cholesterol in LDL [Mass/Vol] 79 mg/dL Normal 0-99 [facility] Comment on above: Result Comment: The equation being used in this calculation is LDL = (Chol - HDL) - (Trig / 5) The optimal value of LDL for individual patients may vary. The patient's history of Artherosclerosis and other cardiac risk factors should be considered. Performed By: #### L BONILLA #### [address] [address] Cardiac Risk 3.1 Normal [facility] Comment on above: Result Comment: Men Women 1/2 Average 3.43 3.27 Average 4.97 4.44 2x Average 9.55 7.05 3x Average 23.99 11.04 Performed By: #### L BONILLA #### [address] [address] Cholesterol [Mass/Vol] 131 mg/dL Normal 25-199 [facility] Comment on above: Result Comment: 0 - 17 years of age: Desirable 0-170 Borderline High 170-199 High >=200 18 years and older: Acceptable <200 Borderline High 200-239 High >=240 Performed By: #### L BONILLA #### [address] [address] Cholesterol in HDL [Mass/Vol] 42.0 mg/dL Normal 40.0-60.0 [facility] Comment on above: Performed By: #### L BONILLA #### [address] [address] Cholesterol in VLDL [Mass/Vol] 10 mg/dL Normal 8-39 [facility] Comment on above: Performed By: #### L BONILLA #### [address] [address] Triglyceride [Mass/Vol] 48 mg/dL Normal [facility] Comment on above: Result Comment: 0 - 17 years of age: Trig 90 - 129 Borderline High Trig => 130 High 18 years and older: Trig 150 - 199 Borderline High Trig 200 - 499 High Trig =>500 Very High Performed By: #### L BONILLA #### [address] [address] TSHon 08-04-2019 TSH Qn 1.45 mcIU/mL Normal 0.45-5.33 [facility] Comment on above: Result Comment: Refe rence Ranges for individuals from to 18 years of age were obtained from The Marychuy Edmondson Handbook (20 ed) published by [facility]. Reference Ranges for Females: Females, 1st Trimester 0.05 ? 3.7 uIU/mL Females, 2nd Trimester 0.31 ? 4.35 uIU/mL Females, 3rd Trimester 0.41 ? 5.18 uIU/mL Performed By: #### T SH #### [address] [address] Total T3on 08-04-2019 T3 Total 0.95 ng/mL Normal 0.87-1.78 [facility] Comment on above: Performed By: #### T 3R #### [address] [place] [address] Total T4on 08-04-2019 T4 Total 6.6 mcg/dL Normal 5.0-11.5 [facility] Comment on above: Performed By: #### T 4 #### [facility] [address] [place] [address] Vital Signs Date Time Vital Sign Value Performing Clinician [place]iana park 03-07-2025 10:39-0400 Body mass index (BMI) [Ratio] 26.52 kg/m2 Harsha Dimitry DO Work Phone: [facility] 03-07-2025 10:39-0400 Body weight 70.08 kg Harsha Dimitry DO Work Phone: [facility] 03-07-2025 10:39-0400 Diastolic blood pressure 74 mm[Hg] Harsha Dimitry DO Work Phone: [facility] 03-07-2025 10:39-0400 Systolic blood pressure 106 mm[Hg] Harsha Dimitry DO Work Phone: [facility] 02-07-2025 09:49-0400 Body mass index (BMI) [Ratio] 25.06 kg/m2 Fawn PINON Work Phone: [facility] 02-07-2025 09:49-0400 Body weight 66.22 kg Fawn Perdomo PA Work Phone: [facility] 02-07-2025 09:49-0400 Diastolic blood pressure 70 mm[Hg] Fawn Perdomo PA Work Phone: [facility] 02-07-2025 09:49-0400 Systolic blood pressure 112 mm[Hg] Fawn Perdomo PA Work Phone: [facility] 01-10-2025 09:27-0500 Body mass index (BMI) [Ratio] 24.2 kg/m2 Harsha Dimitry DO Work Phone: [facility] 01-10-2025 09:27-0500 Body weight 63.96 kg Harsha Dimitry DO Work Phone: [facility] 01-10-2025 09:27-0500 Diastolic blood pressure 72 mm[Hg] Harsha Dimitry DO Work Phone: [facility] 01-10-2025 09:27-0500 Systolic blood pressure 102 mm[Hg] Harsha Dimitry DO Work Phone: [facility] 12-09-2024 10:33-0500 Body mass index (BMI) [Ratio] 23.69 kg/m2 Nom Nurse [facility] 12-09-2024 10:33-0500 Body weight 62.6 kg Nom Nurse [facility] 12-09-2024 10:33-0500 Diastolic blood pressure 70 mm[Hg] [facility] Nurse [facility] 12-09-2024 10:33-0500 Systolic blood pressure 118 mm[Hg] [facility] Nurse [facility] 12-23-2023 14:45-0500 Body mass index (BMI) [Ratio] 29.49 kg/m2 Harsha Dimitry DO Work Phone: [facility] 12-23-2023 14:45-0500 Body weight 77.93 kg Harsha Dimitry DO Work Phone: [facility] 12-23-2023 14:45-0500 Diastolic blood pressure 76 mm[Hg] Harsha Dimitry DO Work Phone: [facility] 12-23-2023 14:45-0500 Systolic blood pressure 118 mm[Hg] Harsha Dimitry DO Work Phone: [facility] 12-16-2023 14:06-0500 Body mass index (BMI) [Ratio] 29.32 kg/m2 Harsha Dimitry DO Work Phone: [facility] 12-16-2023 14:06-0500 Body weight 77.47 kg Harsha Dimitry DO Work Phone: [facility] 12-16-2023 14:06-0500 Diastolic blood pressure 70 mm[Hg] Harsha Dimitry DO Work Phone: [facility] 12-16-2023 14:06-0500 Systolic blood pressure 120 mm[Hg] Harsha Dimitry DO Work Phone: [facility] Encounters Encounter Date Encounter Type Care Provider Facility Start: 03-07-2025 End: 03-07-2025 Bamboo flowsheet Harsha Dimitry DO Work Phone: [facility] Start: 03-07-2025 End: 03-07-2025 Bamboo flowsheet Harsha Dimitry DO Work Phone: [facility] Start: 03-07-2025 End: 03-07-2025 flow sheet Harsha Dimitry DO Work Phone: [facility] Comment on above: Second trimester pre gnancy; 21 weeks gestation of Start: 03-07-2025 End: 03-07-2025 ambulatory HARSHA DIIMTRY Not Available Start: 02-27-2025 End: 02-27-2025 Clinisync Result Encounter Fawn PINON Work Phone: [facility] Unsolicited Start: 02-27-2025 End: 02-27-2025 Clinisync Result Encounter Fawn PINON Work Phone: [facility]solic[facility] Start: 02-07-2025 End: 02-07-2025 Bamboo flowsheet Fawn PINON Work Phone: [facility] Start: 02-07-2025 End: 02-09-2025 Bamboo flowsheet Fawn PINON Work Phone: [facility] Start: 02-07-2025 End: 02-09-2025 Clinisync Result Encounter Fawn PINON Work Phone: [facility] Unsolicited Start: 02-07-2025 End: 02-08-2025 External Result Encounter Fawn PINON Work Phone: [facility] Unsolic[facility] Start: 02-07-2025 End: 02-07-2025 Patient encounter procedure Fawn PINON Work Phone: [facility] Start: 02-07-2025 End: 02-07-2025 Periodic preventive med est patient 18-39 yrs Fawn Guadalupita PA Work Phone: [facility] Comment [...] Start: 12-04-2021 End: 12-05-2021 ambulatory [facility] Start: 09-27-2021 Encounter for genera l adult medical examination without abnormal findings BRIAN VARNER [facility] Start: 08-30-2021 End: 08-31-2021 ambulatory BRIAN VARNER Facility:[facility] Start: 08-30-2021 End: 08-31-2021 Encounter for general adult medical examination without abnormal findings BRIANLEIGH VARNER Facility:[facility] Start: 08-04-2019 End: 08-05-2019 Patient encounter procedure MASON DELEON Facility:[facility] Procedures Date Procedure Procedure Detail Performing Clinician Start: 03-07-2025 Urnls dip stick/tabl et rgnt non-auto w/o micrscp Harsha Dimitry DO Work Phone: Start: 02-27-2025 US OB CERVICAL LENGTH A tushar PINON Work Phone: Start: 02-07-2025 RECURRENT VAGINITIS (HTRX) Fawn PINON [...] stick/tabl et rgnt non-auto w/o micrscp Harsha Moraes DO Work Phone: Plan of Treatment Date Care Activity Detail Author Start: 04-05-2025 End: 04-05-2025 Patient encounter procedure 04/05/2025 8:30 AM EDT Routine [facility] [address] [place] [id number] Fawn Perdomo PA [address] [place] [address] [facility] Start: 03-07-2025 End: 03-07-2025 Patient encounter procedure [facility] Comment on above: Arrived Start: 02-07-2025 End: 03-09-2025 Alpha fetoprotein, maternal Alpha fetoprotein, maternal Lab Routine Need for maternal serum alpha-protein (MSAFP) screening Expected: 02/07/2025 (Approximate), Expires: 03/09/2025 [facility] Comment on above: Expected: 02/07/2025 (Approximate), Expires: 03/09/2025 Start: 02-07-2025 End: 02-07-2026 US for US OB 14+ weeks anatomy scan Imaging Routine Screening, , for anatomic survey Expected: 02/07/2025, Expires: 02/07/2026 [facility] Comment on above: Expected: 02/07/2025 , Expires: 02/07/2026 Start: 02-07-2025 End: 02-07-2025 Patient encounter procedure [facility] Comment on above: Arrived Start: 01-10-2025 End: 01-10-2025 Patient encounter procedure [facility] Comment on above: Arrived Start: 12-09-2024 End: 12-09-2025 ABO/Rh ABO/Rh Lab Routine Missed menses , unspecified gestational age Expected: 12/09/2024 (Approximate), Expires: 12/09/2025 [facility] Comment on above: Expected: 12/09/2024 (Approximate), [...] first trimester Expected: 12/09/2024 (Approximate), Expires: 12/09/2025 [facility] Comment on above: Expected: 12/09/2024 (Approximate), Expires: 12/09/2025 Start: 12-23-2023 End: 12-23-2023 Patient encounter procedure 12/23/2023 2:30 PM EST Routine [facility] [address] [place] [id number] Harsha Moraes DO [address] [place] [address] Third trimester [facility] Comment on above: Third trimester preg rajinder Start: 12-23-2023 End: 12-23-2024 US biophysical profile w non stress test US biophysical profile w non stress test Imaging Routine Post term over 40 weeks Expected: 12/23/2023 (Approximate), Expires: 12/23/2024 [facility] Work Phone: Comment on above: Expected: 12/23/2023 (Approximate), Expires: 12/23/2024 Bacteria identified in Urine by Culture Urine culture Microbiology Routine Missed menses Ordered: 12/09/2024 [facility] Comment on above: Ordered: 12/09/2024 CBC W Auto Different ial panel - Blood CBC and differential Lab Routine Missed menses , unspecified gestational age Ordered: 12/09/2024 [facility] Comment on above: Ordered: 12/09/2024 CHLAMYDIA TRACHOMATI S (GENITO/STI) CHLAMYDIA TRACHOMATIS (GENITO/STI) Lab Routine Exposure to STD Ordered: 02/07/2025 [facility] Comment on above: Ordered: 02/07/2025 Cytology Cervical or vaginal smear or scraping study Pap Smear Pathology and Cytology Routine Well woman exam with routine gynecological exam Ordered: 02/07/2025 [facility] Work Phone: Comment on above: Ordered: 02/07/2025 Hemoglobin A1c/Hemoglobin.total in Blood Hemoglobin A1c Lab Routine Missed menses , unspecified gestational age Ordered: 12/09/2024 [facility] Comment on above: Ordered: 12/09/2024 Hepatitis B virus surface Ag [Presence] in Serum or Plasma by Immunoassay Hepatitis B surface antigen Lab Routine Missed menses , unspecified gestational age Ordered: 12/09/2024 [facility] Comment on above: Ordered: 12/09/2024 Hepatitis C virus Ab [Presence] in Serum or Plasma by Immunoassay Hepatitis C antibody Lab Routine Missed menses , unspecified gestational age Ordered: 12/09/2024 [facility] Comment on above: Ordered: 12/09/2024 HIV-1/HIV-2 antigen/antibody combination immunoassay HIV-1 and HIV-2 antibodies Lab Routine Missed menses , unspecified gestational age Ordered: 12/09/2024 [facility] Comment on above: Ordered: 12/09/2024 Neisseria gonorrhoea e DNA [Presence] in Unspecified specimen by LAZARA with probe detection Neisseria gonorrhea DNA probe, direct Lab Routine Exposure to STD Ordered: 02/07/2025 [facility] Comment on above: Ordered: 02/07/2025 Reagin Ab [Presence] in Serum by RPR RPR Lab Routine Missed menses , unspecified gestational age Ordered: 12/09/2024 [facility] Comment on above: Ordered: 12/09/2024 Rubella antibody, IgG Rubella an tibody, IgG Lab Routine Missed menses , unspecified gestational age Ordered: 12/09/2024 [facility] Comment on above: Ordered: 12/09/2024 SURESWAB(R) ADVANCED VAGINITIS PLUS, TMA SURESWAB(R) ADVANCED VAGINITIS PLUS, TMA Pathology and Cytology Routine Exposure to STD Ordered: 02/07/2025 [facility] Comment on above: Ordered: 02/07/2025 Payers Date Payer Category Payer [facility] [id number] 2022 Unknown [id number] 2019 Unknown 1995 Unknown [id number] [id number] 1995 Unknown [id number] [id number] 1995 Unknown [id number] [id number] 1995 Unknown [id number] [id number] 1995 Unknown [id number] [id number] 1995 Unknown [id number] [id number] 1995 Unknown [id number] [id number]. 2.9 1995 Unknown [id number] [id number] 1959 Unknown [id number] Social History Date Type Detail Facility Start: 08-10-2023 Tobacco smoking status NHIS Never sm oked tobacco [facility] Start: 12-16-2023 End: 02-07-2025 Alcohol intake Current drinker of alcohol (finding) [facility] Start: 08-31-2023 End: 02-08-2024 [facility] of Social [facility] Start: 08-31-2023 End: 02-08-2024 Alcohol Use Disorder Identification Test - Consumption [AUDIT-C] [facility] Frequency of Alcohol Consumption Not on file [facility] How often do you hav e 6 or more drinks on 1 occasion? Never [facility] Start: 04-03-2023 [facility] Start: 1995 Sex Assigned At Female [facility] Start: 04-23-2023 Gender identity Identifies as female gender (finding) [facility] Start: 04-23-2023 Sexual orientation Heterosexual (fin ding) [facility] Clinical Notes 12-16-2023 to 03-07-2025 Payton Mauro, [facility] - 03/07/2025 10:20 AM ZI Bear - 02/07/2025 9:30 AM Uriah Franco [employer] DEVEL[employer] - 01/10/2025 9:10 AM Rahel Garay MA - 12/09/2024 10:30 AM EST Note Date & Type Note Facility 03-07-2025 History of Presen t illness Narrative Reason for Appointment: Patient ID: Surjit Avina is a 29 y.o. female who presents for Routine Visit Patient presents today for Return OB appointment. MEDICATIONS No current outpatient medications ALLERGIES No Known Allergies PROBLEMS Active Ambulatory [...] nursing note reviewed. Exam conducted with a cyber reverse engineer present. Vitals: Estimated body mass index is 26.52 kg/m as calculated from the following: Height as of 05/22/23: 5' 4 . Weight as of this encounter: 154 lb 8 oz. BP: 106/74 Patient's last menstrual period was 10/08/2024. ASSESSMENT & PLAN ICD-10-CM 1. Second trimester Z34.92 POCT urinalysis dipstick manually resulted 2. 21 weeks gestation of Z3A.21 Patient presents today for a routine obstetrics appointment. Patient is currently 21w3d with a Estimated Date of Delivery: 07/15/25. Pt given repeat ultrasound to view for outflow tracts. Pt to return in 4 weeks for scheduled OB appt. Documented by Payton Mauro LPN on behalf of: Harsha Moraes DO documented in this encounter [facility] 02-07-2025 History of Presen t illness Narrative [...] nursing note reviewed. Exam conducted with a cyber reverse engineer present. Vitals: Estimated body mass index is [...] of: ZI Collins documented in this encounter [facility] 01-10-2025 History of Presen t illness Narrative [...] nursing note reviewed. Exam conducted with a cyber reverse engineer present. Vitals: Estimated body mass index is [...] undercooked meat, and stay away from [facility]. Patient has been consulted regarding any further do's and don'ts of . Patient voiced understanding and all questions and concerns were answered. Orders Placed This Encounter Procedures POCT urinalysis dipstick manually resulted Follow Up: Patient is to return in 4 weeks for routine OB appointment. Documented by Audra Franco LPN on behalf of: Harsha Moraes DO documented in this encounter [facility] 12-09-2024 History of Presen t illness Narrative [...] undercooked meat, and stay away from [facility]. Patient has also been advised to [...] Albania Garay MA documented in this encounter [facility] 12-23-2023 History of Presen t illness Narrative [...] nursing note reviewed. Exam conducted with a cyber reverse engineer present. Vitals: Estimated body mass index is [...] Harsha Moraes DO documented in this encounter [facility] 12-16-2023 History of Presen t illness Narrative [...] nursing note reviewed. Exam conducted with a cyber reverse engineer present. Vitals: Estimated body mass index is [...] Harsha Moraes DO documented in this encounter [facility] Healthcare Evaluation note Diagnosis Third trimester state, incidental Third trimester state, incidental documented [facility] Diagnosis Third trimester state, incidental Post term over 40 weeks documented [facility] this encounter [facility]* Diagnosis Missed menses , unspecified gestational age Encounter for supervision of normal first in first trimester documented [facility] this encounter [facility] Diagnosis First trimester state, incidental 13 weeks gestation of documented [facility] this encounter [facility]* Diagnosis Well woman exam with routine gynecological exam Routine gynecological examination Exposure to STD Need for maternal serum alpha-protein (MSAFP) screening Second trimester state, incidental 16 weeks gestation of Screening, , for anatomic survey Encounter for anatomic survey documented [facility] Diagnosis Second trimester state, incidental 21 weeks gestation of documented in this encounter [facility] Summary Purpose Family History No Family History Records FoundNo Family History Records FoundNo Family History Records FoundNo Family History Records Found Advance Directives No Advanced Directives Records FoundNo Advanced Directives Records FoundNo Advanced Directives Records FoundNo Advanced Directives Records Found Additional Source Comments INFORMATION SOURCE (unrecogn ized section and content) DATE CREATED AUTHOR 04/13/2020 [facility] DATE CREATED AUTHOR AUTHOR'S ORGANIZ ATION 12/17/2021 [facility] DATE CREATED AUTHOR AUTHOR'S ORGANIZ ATION 07/04/2022 [facility] DATE CREATED AUTHOR AUTHOR'S ORGANIZ ATION 03/08/2025 [facility] EPIC Reason for Visit (unrecogniz ed section and content) Reason Comments Routine Visit Care Teams (unrecognized sec tion and content) Warehouse Director Relationship Specialty Start Date End Date Mason Deleon MD [address] [place] [address] PCP - General 05/15/23 Warehouse Director Relationship Specialty Start Date End Date Mason Deleon MD [address] [place] [address] PCP - General 05/15/23 Warehouse Director Relationship Specialty Start Date End Date Mason Deleon MD [address] [place] [address] PCP - General 05/15/23 Warehouse Director Relationship Specialty Start Date End Date Mason Deleon MD [address] [place] [address] PCP - General 05/15/23 Warehouse Director Relationship Specialty Start Date End Date Mason Deleon MD [address] [place] [address] PCP - General 05/15/23 FOR RECORDS PERTAINING [...] BE BASED ON THE PRIMARY CLINICAL RECORDS. [facility]. provides no warranty or guarantee of the accuracy or completeness of information in this document.
== END 2025-03-25 09:48 | disposition home or self-care (01) ==
LOC: US 09:47
PROVIDERS: PCP Family Medicine; Visit Provider Obstetrics & Gynecology
DX: Z34.92 Encounter for supervision of normal pregnancy, unspecified, second trimester (principal); Z36.1 Encounter for antenatal screening for raised alphafetoprotein level; Z36.2 Encounter for other antenatal screening follow-up
CPT/HCPCS: 36415; 76815; 82105

== ENCOUNTER 2025-03-25 09:55 | Outpatient (OUT) | payer BC, SELFPAY ==
--- OUTSIDE RECORDS SUMMARY | 2025-03-25 09:58 | XMS_ITS | CCD ---
Author Organization [facility] CliniSyin Care Team Providers Care Customs Officer Name Role Phone MASON DELEON Attending Unavailable Mason Deleon Primary Care Unavailable BEBETO AMEZQUITA Referring Unavailable MASON DELEON Primary Care Unavailable BRIAN VARNER Attending Unavailable BRIAN VARNER Consulting Unavailable BRIAN VARNER Admitting Unavailable DR MASON DELEON Primary Care Unavailable Mason Deleon MD Primary Care Provider [phone] HARSHA MORAES Attending Unavailable FAWN PERDOMO Attending Unavailable HARSHA MORAES Attending Unavailable [...] UA Negative Negative - 4(70) +++ mg/dL [facility] Blood, UA Negative Negative - 50 Gulshan/mcL [facility] Clarity, UA Clear [facility] re Color, UA Yellow [facility] Glucose, UA Negative Negative - 1999(110) ++++ mg/dL [facility] Interpretation and review of laboratory results Normal [facility] re Ketones, UA Negative Negative - 160(16) ++++ mg/dL [facility] Leukocytes, UA Negative Negative - 500+++ Stefan/mcL [facility] Nitrite, UA Negative Negative - Positive [facility] pH, UA 5.5 5 - 9 [facility] Protein, UA Negative Negative - 1999(20) ++++ mg/dL [facility] Spec Grav, UA 1.03 1 - 1.03 [facility] Urobilinogen, UA 0.2 0.2 - 12 mg/dL [facility] US OB CERVICAL LENGTHon 02-08 [place] [address] Ultrasound Report Signed Patient: SURJIT AVINA MR#: [id number] : 1995 Acct:[id number] Age/Sex: 29 / F ADM Date: 02/25/25 Loc: US Attending Dr: Fawn Perdomo Ordering Physician: Fawn Perdomo Date of Service: 02/25/25 Procedure(s): US OB cervical length Accession Number(s): [id number] cc: Fawn Perdomo; Mason Deleon M.D. The [place] [id number] Patient Name: SURJIT AVINA MRN: [id number] date: 1995 Sex: F Assigned Patient Location: US Current Patient Location: Accession/Order Number: [id number] Exam Date: 02/27/2025 09:44 Report Date: 02/27/2025 [...] Rick Garsia M.D.02/27/2025 9:52 AM Dictation Location: [place] [address] Electronically authenticated by: [id number] Y Date: 02/27/2025 09:52 Dictated By: Rick Garsia D.O. Signed By: 02/27/25 0954 DD/ 0952 TD/TT: Public Affairs Officer: [facility] Radiology, Radiologist, MD - 02/27/[address] [address] Ultrasound Report Signed Patient: SURJIT AVINA MR#: [id number] : 1995 Acct:[id number] Age/Sex: 29 / F ADM Date: 02/25/25 Loc: US Attending Dr: Fawn Perdomo Ordering Physician: Fawn Perdomo Date of Service: 02/25/25 Procedure(s): US OB cervical length Accession Number(s): [id number] cc: Fawn Perdomo; Mason Deleon M.D. The [address] [address] Patient Name: SURJIT AVINA MRN: [facility]:[id number] date: 1995 Sex: F Assigned Patient Location: US Current Patient Location: Accession/Order Number: [id number] Exam Date: 02/27/2025 09:44 Report Date: 02/27/2025 [...] Rick Garsia M.D.02/27/2025 9:52 AM Dictation Location: [facility] Electronically authenticated by: [id number] Y Date: 02/27/2025 09:52 Dictated By: Rick Garsia D.O. Signed By: 02/27/2554 DD/ 1 TD/TT: Public Affairs Officer: [facility] Radiology Study observation (narrative) [facility] US OB CERVICAL LENGTHOrdered By: Radiologist Radiology on 02-27-2025 [facility] Work Phone: IGP,APTIMA HPV,AGE GDLNon AGE GDLN ACOG TESTING Note . [facility] Comment on above: TESTS RESULT FLAG UN ITS REF RANGE LAB Clinician Provided Cytology Information Source.............Cervix Other.............. No. of containers..01 ThinPrep Vial Age Algo ACOG Tracie... FLAG LEGEND: L-Low Normal,H-High Normal,LL-Alert Low,HH-Alert High <-Panic Low,>-Panic High,A-Abnormal,AA-Critical Abnormal Performed at: 01 =G [facility] [address] [place] [address] Socorro Benavidez MD, IGP, RFX APTIMA HPV ASCU Note . [facility] Comment on above: TESTS RESULT FLAG UN ITS REF RANGE LAB DIAGNOSIS: 02 NEGATIVE FOR INTRAEPITHELIAL LESION OR MALIGNANCY. Specimen adequacy: 02 Satisfactory for evaluation. No endocervical component is identified. An endocervical component is not commonly seen in the patient. Performed by: 02 Pema Gonzalez, Equity Sales Assistant ([facility]) . 02 Note: Note 02 [...] Performed at: 02 WB [facility] [facility] [place] [address] Socorro Benavidez MD, Performed at: = - [facility] [id number] Public Health Worker: Socorro Benavidez MD, Phone: [phone] Performed at: [facility] [address] [id number] Public Health Worker: Socorro Benavidez MD, Phone: [phone] SPATULA-ALONE CERVIX [facility] RECURRENT VAGINITIS (HTRX)on 02-08-2025 ATOPOBIUM VAGINAE 0 [facility] ATOPOBIUM VAGINAE Not detected [facility] BVAB 2,3 (BACTERIAL VAGINOSIS ASSOCIATED BACTERIA 2, 3); MOBILUNCUS SPP 26.639 Abnormal [facility] BVAB 2,3 (BACTERIAL VAGINOSIS ASSOCIATED BACTERIA 2, 3); MOBILUNCUS SPP Detected Abnormal [facility] Healthcare VIVIANA ALBICANS, PARAPSILOSIS, TROPICALIS 0 [facility] VIVIANA ALBICANS, PARAPSILOSIS, TROPICALIS Not detected [facility] VIVIANA GLABRATA 0 [facility] VIVIANA GLABRATA Not detected [facility] VIVIANA KRUSEI 0 [facility] VIVIANA KRUSEI Not detected [facility] CHLAMYDIA TRACHOMATIS 0 [facility] CHLAMYDIA TRACHOMATIS Not detected [facility] GARDNERELLA VAGINALIS 0 [facility] GARDNERELLA VAGINALIS Not detected [facility] Interpretation and review of laboratory results Abnormal [facility] re MEGASPHAERA (TYPES 1, 2) 0 [facility] MEGASPHAERA (TYPES 1, 2) Not detected [facility] MYCOPLASMA GENITALIUM 0 [facility] MYCOPLASMA GENITALIUM Not detected [facility] NEISSERIA GONORRHOEAE 0 [facility] NEISSERIA GONORRHOEAE Not detected [facility] TRICHOMONAS VAGINALIS 0 [facility] TRICHOMONAS VAGINALIS Not detected [facility] Urinalysis macro (dipstick) panel (U)on 02-07-2025 Bilirubin, UA Negative Negative - 4(70) +++ mg/dL [facility] Blood, UA Negative Negative - 50 Gulshan/mcL [facility] Clarity, UA Clear [facility] Color, UA Yellow [facility] Glucose, UA Negative Negative - 2000(110) ++++ mg/dL [facility] Interpretation and review of laboratory results Normal [facility] re Ketones, UA Negative Negative - 160(16) ++++ mg/dL [facility] Leukocytes, UA Trace Negative - 500+++ Stefan/mcL [facility] Nitrite, UA Negative Negative - Positive [facility] pH, UA 5.5 5 - 9 [facility] Protein, UA Negative Negative - 1999(20) ++++ mg/dL [facility] Spec Grav, UA 1.025 1 - 1.03 [facility] Urobilinogen, UA 0.2 0.2 - 12 mg/dL [facility] Urinalysis macro (dipstick) panel (U)on 01-10-2025 Bilirubin, UA Positive Negative - (70) +++ mg/dL [facility] Comment on above: small Blood, UA Negative Negative - 50 Gulshan/mcL [facility] Clarity, UA Clear [facility] re Color, UA Yellow [facility] Glucose, UA Negative Negative - 1999(110) ++++ mg/dL [facility] Interpretation and review of laboratory results Abnormal [facility] re Ketones, UA Negative Negative - 160(16) ++++ mg/dL [facility] Leukocytes, UA Negative Negative - 500+++ Stefan/mcL [facility] Nitrite, UA Negative Negative - Positive [facility] pH, UA 5.5 5 - 9 [facility] Protein, UA Positive Negative - 1999(20) ++++ mg/dL [facility] Comment on above: 30mg/dL Spec Grav, UA 1.03 1 - 1.03 [facility] Urobilinogen, UA 0.2 0.2 - 12 mg/dL [facility] ALL CBC WITH AUTO DIFFon BASOPHILS ABSOLUTE AUTO 0 [facility] Basophils/100 WBC (Bld) 0.4 % 0.2 - 2.0 % [facility] Eosinophils/100 WBC (Bld) 0.7 % Low 0.9 - 7.0 % [facility] Erythrocyte distribution width (RBC) [Ratio] 12.5 % 11.0 - 15.0 % [facility] Hematocrit (Bld) [Volume fraction] 37.5 % 36.0 - 48.0 % [facility] Hemoglobin (Bld) [Mass/Vol] 12.6 g/dL 12.0 - 16.0 g/dL [facility] IMMATURE GRANULOCYTES ABS AUTO 0.03 [facility] Immature granulocytes/100 WBC (Bld) 0.4 % 0.0 - 0.5 % [facility] Interpretation and review of laboratory results Abnormal [facility] LYMPHOCYTES ABSOLUTE AUTO 1.9 [facility] Lymphocytes/100 WBC (Bld) 22.5 % 20.5 - 60.0 % [facility] MCH (RBC) [Entitic mass] 30.7 pg 26.7 - 34.0 pg [facility] MCHC (RBC) [Mass/Vol] 33.6 g/dL 29.9 - 35.2 g/dL [facility] MCV (RBC) [Entitic vol] 91.5 fL 81.0 - 99.0 fL [facility] MONOCYTES ABSOLUTE AUTO 0.5 [facility] Monocytes/100 WBC (Bld) 5.6 % 1.7 - 12.0 % [facility] NEUTROPHILS ABSOLUTE AUTO 5.8 [facility] Neutrophils/100 WBC (Bld) 70.4 % 43.0 - 75.0 % [facility] Platelet mean volume (Bld) [Entitic vol] 10.1 fL 9.5 - 13.5 fL [facility] TBH EO # 0.1 [facility] TBH PLT 305 [facility] TB RBC 4.1 Low [facility] TBH WBC 8.3 [facility] HCG ( test) Ql (U)o n 12-09-2024 Interpretation and review of laboratory results Abnormal [facility] re Preg Test, Ur Positive Negative [facility] US OB TRANSVAGINALon 025 US [...] report is generated using voice recognition reporting (Simple Admit). On occasion Simple Admit erroneously drops words from the report or [...] UA Negative Negative - 4(70) +++ mg/dL [facility] Blood, UA Negative Negative - 50 Gulshan/mcL [facility] Clarity, UA Clear [facility] re Color, UA Yellow [facility] e Glucose, UA Negative Negative - 1999(110) ++++ mg/dL [facility] Interpretation and review of laboratory results Abnormal [facility] re Ketones, UA Positive Negative - 160(16) ++++ mg/dL [facility] Comment on above: trace Leukocytes, UA Negative Negative - 500+++ Stefan/mcL [facility] Nitrite, UA Negative Negative - Positive [facility] pH, UA 5.5 5 - 9 [facility] e Protein, UA Positive Negative - 1999(20) ++++ mg/dL [facility] Comment on above: 30 Spec Grav, UA 1.03 1 - 1.03 [facility] Urobilinogen, UA 0.2 0.2 - 12 mg/dL [facility] Urinalysis macro (dipstick) panel [...] UA Negative Negative - 4(70) +++ mg/dL [facility] Healthcare Blood, UA Negative Negative - 50 Gulshan/mcL [facility] Clarity, UA Clear [facility] Color, UA Yellow [facility] Glucose, UA Negative Negative - 1999(110) ++++ mg/dL [facility] Healthcare Interpretation and review of laboratory results [...] HPV DNA High Riskon 12-06-19 22 [facility] Comment on above: Result Comment: This test [...] purposes. Performed By: #### H PVH #### [address] [address] Public Health Worker: Ulisses Gold MD HPV Type 16 Not detected [facility] Comment on above: Performed By: #### H PVH #### [address] [address] Public Health Worker: Ulisses Gold MD HPV Type 18 Not detected [facility] Comment on above: Performed By: #### H PVH #### [address] [address] Public Health Worker: Ulisses Gold MD Other High Risk HPV Not detected [facility] Comment on above: Performed By: #### H PVH #### [address] [address] Public Health Worker: Ulisses Gold MD HPV DNA High Riskon 12-05-19 22 Source .GENITAL - NOT SPECIFIED [facility] Comment on above: Performed By: #### H PVH #### [facility] [address] [place] [address] Public Health Worker: Ulisses Gold MD HPV Sample .THIN PREP [facility] Comment on above: Performed By: #### H PVH #### [address] [address] Public Health Worker: Ulisses Gold MD Cytologyon 12-04-2021 Cytology (NOTE) INTERPRETATION Cervical material, (ThinPrep vial, Imaging-assisted review): Specimen Adequacy: Satisfactory for evaluation. -Endocervical/transfor mation zone component is absent. Descriptive Diagnosis: Negative for intraepithelial lesion or malignancy. 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 Normal [facility] Comment on above: Performed By: #### Q NTTBG #### [facility] [address] [place] [address] Dr. Hetal Linn Criteria Comment Normal [facility] Comment on above: Result Comment: The QuantiFERON-TB Gold Plus result is determined by subtracting the Nil value from either TB antigen (Ag) tube. The mitogen tube serves as a control for the test. Performed By: #### Q NTTBG #### [facility] [address] [place] [address] Dr. Hetal Linn Mitogen Value >10.00 Normal [facility] Comment on above: Performed By: #### Q NTTBG #### [facility] [address] [place] [address] Dr. Hetal Linn Nill Value 0.06 IU/mL Normal [facility] Comment on above: Performed By: #### Q NTTBG #### [facility] [address] [place] [address] Dr. Hetal Linn Quantiferon Gold Plus Negative Normal Negative [facility] Comment on above: Result Comment: Chem iluminescence immunoassay methodology Performed By: #### Q NTTBG #### [facility] [address] [place] [address] Dr. Hetal Linn TB1 Ag Value 0.10 IU/mL Normal [facility] Comment on above: Performed By: #### Q NTTBG #### [facility] [address] [place] [address] Dr. Hetal Linn TB2 Ag Value 0.08 IU/mL Normal [facility] Comment on above: Performed By: #### Q NTTBG #### [facility] [address] [place] [address] Dr. Hetal Linn HEPATITIS B SURFACE ANTIBODY , QUANTon 08-31-2021 Hepatitis B Surf AB Quant 202.1 mIU/mL Normal Immunity>9.9 [facility] Comment on above: Result Comment: Stat us of Immunity Anti-HBs Level Inconsistent with Immunity 0.0 - 9.9 Consistent with Immunity >9.9 Performed By: #### H EPBSRF #### [facility] [address] [place] [address] Dr. Hetal Linn MMR IMMUNITYon 08-31-2021 Mumps Abs, IgG 24.8 AU/mL Normal Immune >10.9 [facility] Comment on above: Result Comment: Nega tive <9.0 Equivocal 9.0 - 10.9 Positive >10.9 A positive result generally indicates past exposure to Mumps virus or previous vaccination. Performed By: #### M MRIMMU #### [facility] [address] [place] [address] Dr. Hetal Linn Rubella Antibodies, IgG 1.14 index Normal Immune >0.99 [facility] Comment on above: Result Comment: Non- immune <0.90 Equivocal 0.90 - 0.99 Immune >0.99 Performed By: #### M MRIMMU #### [facility] [address] [place] [address] Dr. Hetal Linn Rubeola Ab, IgG 26.6 AU/mL Normal Immune >16.4 The [facility] Comment on above: Result Comment: Nega tive <13.5 Equivocal 13.5 - 16.4 Positive >16.4 Presence of antibodies to Rubeola is presumptive evidence of immunity except when acute infection is suspected. Performed By: #### M MRIMMU #### [facility] [address] [place] [address] Dr. Hetal Linn VARICELLA IGG ABon Varicella Zoster IgG 1376 index Normal Immune >165 [facility] Comment on above: Result Comment: Nega tive <135 Equivocal 135 - 165 Positive >165 A positive result generally indicates exposure to the pathogen or administration of specific immunoglobulins, but it is not indication of active infection or stage of disease. Performed By: #### V ARCEL #### [facility] [address] [place] [address] Dr. Hetal Linn Addendum Reporton 04-10-2020 Addendum Report Missing Attachment Chartable Reference Lab Reports Can be viewed in source system Addendum Discussion [facility], MLSILVANA, #[id number], Date reported: 04/10/2020: Diagnosis: A. Skin of [...] irritation but melanocytic atypia is not observed. T-[id number] ONAL M-[id number] ONAL T-[id number] ONAL [id number] IONAL T-[id number] ONAL M-[id number] ONAL M-[id number] ONAL M-[id number] ONAL T-[id number] ONAL Ronna Jenkins MD (Electronically signed by) Verified: 04/10/20 13:15 ADD Pathologist Requested Consult Comment by Ronna Jenkins M.D.: The above consultation report was reviewed. I essentially concur with the diagnosis given. Normal [facility] Comment on above: Performed By: #### C #### [address] [address] Surgery Office/Clinic Noteon 04-04-2020 Surgery Office/Clinic Note Chief Complaint Mole removal x2. History of Present Illness Patient presents for excision of two raised darkly pigmented nevi. Review of Systems Constitutional: No Unexpected weight loss No History of diabetes Respiratory: No Shortness of breath Cardiovascular: NoChest pain or pressure, NoEdema, NoHistory of [place]/CAD, NoHistory of A-Fib : NoHesitancy, NoNocturia, NoPrior [...] information in this document, created by the director medical safety for me, accurately reflects the services I [...] by Shaina Kang 04/04/2020 12:16 EDT Normal [facility] Surgical Pathology Reporton 04-04-2020 Surgical Pathology Report [...] case is going to [facility] for consultation. T-[id number] ONAL [id number] IONAL M-[id number] ONAL T-[id number] ONAL [id number] IONAL Ronna Jenkins MD (Electronically signed by) Verified: 04/09/20 10:08 Normal [facility] Comment on above: Performed By: #### S IA #### [facility] ([facility]) [address] [place] [id number] .eGFRon 08-04-2019 eGFR AA >60 Normal >=60 [facility] Comment on above: Result Comment: Resu lt = 0-14.9 mL/min/1.73 m2 Kidney failure or Dialysis Result = 15-29 mL/min/1.73 m2 Severe decrease in GFR Result = 30-59 mL/min/1.73 m2 Moderate decrease in GFR Result >= 60 mL/min/1.73 m2 Normal or increased GFR Performed By: #### E GFR #### [place] [id number] eGFR Non-AA >60 Normal >=60 [facility] Comment on above: Result Comment: Resu lt [...] dosing. Performed By: #### E GFR #### [place] [id number] CBC w/ Diffon 08-04-2019 Erythrocyte distribution width (RBC) [Ratio] 12.9 % Normal 11.6-14.8 [facility] Comment on above: Performed By: #### C BC #### [address] [address] Hematocrit (Bld) [Volume fraction] 40.4 % Normal 36.0-46.0 [facility] Comment on above: Performed By: #### C BC #### [address] [address] Hemoglobin (Bld) [Mass/Vol] 13.5 g/dL Normal 12.0-16.0 [facility] Comment on above: Performed By: #### C BC #### [address] [address] MCH (RBC) [Entitic mass] 32.0 pg Normal 27.0-35.0 [facility] Comment on above: Performed By: #### C BC #### [address] [address] MCHC (RBC) [Mass/Vol] 33.5 % Normal 31.0-37.0 [facility] Comment on above: Performed By: #### C BC #### [address] [address] MCV (RBC) [Entitic vol] 95.7 fL Normal 80.0-100.0 [facility] Comment on above: Performed By: #### C BC #### [address] [address] Platelet mean volume (Bld) [Entitic vol] 9.8 fL Normal 6.7-10.6 [facility] Comment on above: Performed By: #### C BC #### [address] [address] Platelets (Bld) [#/Vol] 226 x10*3/mcL Normal 150-350 [facility] Comment on above: Performed By: #### C BC #### [address] [address] RBC (Bld) [#/Vol] 4.23 x10*6/mcL Normal 3.80-5.20 [facility] Comment on above: Performed By: #### C BC #### [address] [address] WBC (Bld) [#/Vol] 7.4 x10*3/mcL Normal 4.5-11.0 [facility] Comment on above: Performed By: #### C BC #### [address] [address] CMPon 08-04-2019 Albumin [Mass/Vol] 4.0 g/dL Normal 3.2-4.9 [facility] Comment on above: Result Comment: [facility] Laboratory updated the methodology used for albumin testing on 06/16/18. Albumin measurement was performed using a bromcresol purple dye-binding assay. Performed By: #### C OMP #### [address] [address] Albumin/Globulin [Mass ratio] 1.2 {ratio} Normal 1.1-2.2 [facility] Comment on above: Performed By: #### C OMP #### [address] [address] Alk Phos 51 IU/L Normal 32-91 [facility] Comment on above: Performed By: #### C OMP #### [address] [address] ALT [Catalytic activity/Vol] 13 U/L Low 14-54 [facility] Comment on above: Performed By: #### C OMP #### [address] [address] Anion gap [Moles/Vol] 10 mmol/L Normal 7-17 [facility] Comment on above: Performed By: #### C OMP #### [address] [address] AST [Catalytic activity/Vol] 17 U/L Normal 15-41 [facility] Comment on above: Performed By: #### C OMP #### [address] [address] Bili Total 0.8 mg/dL Normal 0.3-1.2 [facility] Comment on above: Performed By: #### C OMP #### [address] [address] Calcium [Mass/Vol] 8.9 mg/dL Normal 8.5-10.3 [facility] Comment on above: Performed By: #### C OMP #### [address] [address] Chloride [Moles/Vol] 107 mmol/L Normal 98-110 [facility] Comment on above: Performed By: #### C OMP #### [address] [address] CO2 [Moles/Vol] 27 mmol/L Normal 22-32 [facility] Comment on above: Performed By: #### C OMP #### [address] [address] Creatinine [Mass/Vol] 0.84 mg/dL Normal 0.44-1.03 [facility] Comment on above: Performed By: #### C OMP #### [address] [address] Glucose [Mass/Vol] 84 mg/dL Normal 74-118 [facility] Comment on above: Performed By: #### C OMP #### [address] [address] Potassium [Moles/Vol] 4.3 mmol/L Normal 3.4-4.8 [facility] Comment on above: Performed By: #### C OMP #### [address] [address] Protein [Mass/Vol] 7.2 g/dL Normal 6.5-8.1 [facility] Comment on above: Performed By: #### C OMP #### [address] [address] Sodium [Moles/Vol] 140 mmol/L Normal 133-142 [facility] Comment on above: Performed By: #### C OMP #### [address] [address] Urea nitrogen [Mass/Vol] 10 mg/dL Normal 8-26 [facility] Comment on above: Performed By: #### C OMP #### [address] [address] Urea nitrogen/Creatinine [Mass ratio] 11.9 mg/mg Normal 10.0-20.0 [facility] Comment on above: Performed By: #### C OMP #### [address] [address] Diff Autoon 08-04-2019 Baso Absolute 0.0 x10*3/mcL Normal 0.0-0.2 [facility] Comment on above: Performed By: #### . Automated Diff #### [address] [address] Basophils/100 WBC (Bld) 0.2 % Normal 0.0-1.5 [facility] Comment on above: Performed By: #### . Automated Diff #### [address] [address] Eos Absolute 0.0 x10*3/mcL Normal 0.0-0.4 [facility] Comment on above: Performed By: #### . Automated Diff #### [address] [address] Eosinophils/100 WBC (Bld) 0.6 % Normal 0.0-5.4 [facility] Comment on above: Performed By: #### . Automated Diff #### [address] [address] Lymphocytes (Bld) [#/Vol] 2.3 x10*3/mcL Normal 1.0-4.8 [facility] Comment on above: Performed By: #### . Automated Diff #### [address] [address] Lymphocytes/100 WBC (Bld) 30.5 % Normal 27.2-40.8 [facility] Comment on above: Performed By: #### . Automated Diff #### [address] [address] [place] Absolute 0.5 x10*3/mcL Normal 0.1-1.1 [facility] Comment on above: Performed By: #### . Automated Diff #### [address] [address] Monocytes/100 WBC (Bld) 7.0 % Normal 3.7-11.9 [facility] Comment on above: Performed By: #### . Automated Diff #### [address] [address] Neutro Absolute 4.6 x10*3/mcL Normal 1.8-7.7 [facility] Comment on above: Performed By: #### . Automated Diff #### [address] [address] Neutro Auto 61.7 % Normal 47.2-70.8 [facility] Comment on above: Performed By: #### . Automated Diff #### [address] [address] Lipid Panelon 08-04-2019 Cholesterol in LDL [Mass/Vol] 79 mg/dL Normal 0-99 [facility] Comment on above: Result Comment: The equation being used in this calculation is LDL = (Chol - HDL) - (Trig / 5) The optimal value of LDL for individual patients may vary. The patient's history of Artherosclerosis and other cardiac risk factors should be considered. Performed By: #### L BONILLA #### [address] [address] Cardiac Risk 3.1 Normal [facility] Comment on above: Result Comment: Men Women 1/2 Average 3.43 3.27 Average 4.97 4.44 2x Average 9.55 7.05 3x Average 23.99 11.04 Performed By: #### L BONILLA #### [address] [address] Cholesterol [Mass/Vol] 131 mg/dL Normal 25-199 [facility] Comment on above: Result Comment: 0 - 17 years of age: Desirable 0-170 Borderline High 170-199 High >=200 18 years and older: Acceptable <200 Borderline High 200-239 High >=240 Performed By: #### L BONILLA #### [address] [address] Cholesterol in HDL [Mass/Vol] 42.0 mg/dL Normal 40.0-60.0 [facility] Comment on above: Performed By: #### L BONILLA #### [address] [address] Cholesterol in VLDL [Mass/Vol] 10 mg/dL Normal 8-39 [facility] Comment on above: Performed By: #### L BONILLA #### [address] [address] Triglyceride [Mass/Vol] 48 mg/dL Normal [facility] Comment on above: Result Comment: 0 - 17 years of age: Trig 90 - 129 Borderline High Trig => 130 High 18 years and older: Trig 150 - 199 Borderline High Trig 200 - 499 High Trig =>500 Very High Performed By: #### L BONILLA #### [address] [address] TSHon 08-04-2019 TSH Qn 1.45 mcIU/mL Normal 0.45-5.33 [facility] Comment on above: Result Comment: Refe rence Ranges for individuals from to 18 years of age were obtained from The Marychuy Edmondson Handbook (20 ed) published by [facility]. Reference Ranges for Females: Females, 1st Trimester 0.05 ? 3.7 uIU/mL Females, 2nd Trimester 0.31 ? 4.35 uIU/mL Females, 3rd Trimester 0.41 ? 5.18 uIU/mL Performed By: #### T SH #### [address] [address] Total T3on 08-04-2019 T3 Total 0.95 ng/mL Normal 0.87-1.78 [facility] Comment on above: Performed By: #### T 3R #### [address] [place] [address] Total T4on 08-04-2019 T4 Total 6.6 mcg/dL Normal 5.0-11.5 [facility] Comment on above: Performed By: #### T 4 #### [facility] [address] [place] [address] Vital Signs Date Time Vital Sign Value Performing Clinician Liliana park 03-07-2025 10:39-0400 Body mass index (BMI) [Ratio] 26.52 kg/m2 Harsha Dimitry DO Work Phone: [facility] 03-07-2025 10:39-0400 Body weight 70.08 kg Harsha Dimitry DO Work Phone: [facility] 03-07-2025 10:39-0400 Diastolic blood pressure 74 mm[Hg] Harsha Dimitry DO Work Phone: [facility] 03-07-2025 10:39-0400 Systolic blood pressure 106 mm[Hg] Harsha Dimitry DO Work Phone: [facility] 02-07-2025 09:49-0400 Body mass index (BMI) [Ratio] 25.06 kg/m2 Fawn PINON Work Phone: [facility] 02-07-2025 09:49-0400 Body weight 66.22 kg Fawn Perdomo PA Work Phone: [facility] 02-07-2025 09:49-0400 Diastolic blood pressure 70 mm[Hg] Fawn Perdomo PA Work Phone: [facility] 02-07-2025 09:49-0400 Systolic blood pressure 112 mm[Hg] Fawn Perdomo PA Work Phone: [facility] 01-10-2025 09:27-0500 Body mass index (BMI) [Ratio] 24.2 kg/m2 Harsha Dimitry DO Work Phone: [facility] 01-10-2025 09:27-0500 Body weight 63.96 kg Harsha Dimitry DO Work Phone: [facility] 01-10-2025 09:27-0500 Diastolic blood pressure 72 mm[Hg] Harsha Dimitry DO Work Phone: [facility] 01-10-2025 09:27-0500 Systolic blood pressure 102 mm[Hg] Harsha Dimitry DO Work Phone: [facility] 12-09-2024 10:33-0500 Body mass index (BMI) [Ratio] 23.69 kg/m2 Nom Nurse [facility] 12-09-2024 10:33-0500 Body weight 62.6 kg Nom Nurse [facility] 12-09-2024 10:33-0500 Diastolic blood pressure 70 mm[Hg] [facility] Nurse [facility] 12-09-2024 10:33-0500 Systolic blood pressure 118 mm[Hg] [facility] Nurse [facility] 12-23-2023 14:45-0500 Body mass index (BMI) [Ratio] 29.49 kg/m2 Harsha Dimitry DO Work Phone: [facility] 12-23-2023 14:45-0500 Body weight 77.93 kg Harsha Dimitry DO Work Phone: [facility] 12-23-2023 14:45-0500 Diastolic blood pressure 76 mm[Hg] Harsha Dimitry DO Work Phone: [facility] 12-23-2023 14:45-0500 Systolic blood pressure 118 mm[Hg] Harsha Dimitry DO Work Phone: [facility] 12-16-2023 14:06-0500 Body mass index (BMI) [Ratio] 29.32 kg/m2 Harsha Dimitry DO Work Phone: [facility] 12-16-2023 14:06-0500 Body weight 77.47 kg Harsha Dimitry DO Work Phone: [facility] 12-16-2023 14:06-0500 Diastolic blood pressure 70 mm[Hg] Harsha Dimitry DO Work Phone: [facility] 12-16-2023 14:06-0500 Systolic blood pressure 120 [...] of Start: 03-07-2025 End: 03-07-2025 ambulatory HARSHA DIMITRY Not Available Start: 02-27-2025 End: 02-27-2025 Clinisync [...] preventive med est patient 18-39 yrs Fawn [place] PA Work Phone: [facility] Comment [...] Start: 12-04-2021 End: 12-05-2021 ambulatory [facility] Start: 09-27-2021 Encounter for genera l adult medical examination without abnormal findings BRIAN VARNER [facility] Start: 08-30-2021 End: 08-31-2021 ambulatory BRIAN VARNER Facility:[facility] Start: 08-30-2021 End: 08-31-2021 Encounter for general adult medical examination without abnormal findings BRIANLEIGH VARNER Facility:[facility] Start: 08-04-2019 End: 08-05-2019 Patient encounter procedure MASON DELEON Facility:[facility] Procedures Date Procedure Procedure Detail Performing [...] AM EDT Routine [facility] [address] [place] [id number] Fawn Perdomo PA [address] [place] [address] [facility] Start: 03-07-2025 End: 03-07-2025 [...] first trimester Expected: 12/09/2024 (Approximate), Expires: 12/09/2025 [facility] Comment on above: Expected: 12/09/2024 (Approximate), Expires: 12/09/2025 Start: 12-23-2023 End: 12-23-2023 Patient encounter procedure 12/23/2023 2:30 PM EST Routine [facility] [address] [place] [id number] Harsha Moraes DO [address] [place] [address] Third trimester [facility] Comment on above: Third trimester preg rajinder Start: 12-23-2023 End: 12-23-2024 US biophysical profile w non stress test US biophysical profile w non stress test Imaging Routine Post term over 40 weeks Expected: 12/23/2023 (Approximate), Expires: 12/23/2024 [facility] Work Phone: Comment on above: Expected: 12/23/2023 (Approximate), Expires: 12/23/2024 Bacteria identified in Urine by Culture Urine culture Microbiology Routine Missed menses Ordered: 12/09/2024 [facility] Comment on above: Ordered: 12/09/2024 CBC W Auto Different ial panel - Blood CBC and differential Lab Routine Missed menses , unspecified gestational age Ordered: 12/09/2024 [facility] Comment on above: Ordered: 12/09/2024 CHLAMYDIA TRACHOMATI S (GENITO/STI) CHLAMYDIA TRACHOMATIS (GENITO/STI) Lab Routine Exposure to STD Ordered: 02/07/2025 [facility] Comment on above: Ordered: 02/07/2025 Cytology Cervical or vaginal smear or scraping study Pap Smear Pathology and Cytology Routine Well woman exam with routine gynecological exam Ordered: 02/07/2025 [facility] Work Phone: Comment on above: Ordered: 02/07/2025 Hemoglobin A1c/Hemoglobin.total in Blood Hemoglobin A1c Lab Routine Missed menses , unspecified gestational age Ordered: 12/09/2024 [facility] Comment on above: Ordered: 12/09/2024 Hepatitis B virus surface Ag [Presence] in Serum or Plasma by Immunoassay Hepatitis B surface antigen Lab Routine Missed menses , unspecified gestational age Ordered: 12/09/2024 [facility] Comment on above: Ordered: 12/09/2024 Hepatitis C virus Ab [Presence] in Serum or Plasma by Immunoassay Hepatitis C antibody Lab Routine Missed menses , unspecified gestational age Ordered: 12/09/2024 [facility] Comment on above: Ordered: 12/09/2024 HIV-1/HIV-2 antigen/antibody combination immunoassay HIV-1 and HIV-2 antibodies Lab Routine Missed menses , unspecified gestational age Ordered: 12/09/2024 [facility] Comment on above: Ordered: 12/09/2024 Neisseria gonorrhoea e DNA [Presence] in Unspecified specimen by LAZARA with probe detection Neisseria gonorrhea DNA probe, direct Lab Routine Exposure to STD Ordered: 02/07/2025 [facility] Comment on above: Ordered: 02/07/2025 Reagin Ab [Presence] in Serum by RPR RPR Lab Routine Missed menses , unspecified gestational age Ordered: 12/09/2024 [facility] Comment on above: Ordered: 12/09/2024 Rubella antibody, IgG Rubella an tibody, IgG Lab Routine Missed menses , unspecified gestational age Ordered: 12/09/2024 [facility] Comment on above: Ordered: 12/09/2024 SURESWAB(R) ADVANCED VAGINITIS PLUS, TMA SURESWAB(R) ADVANCED VAGINITIS PLUS, TMA Pathology and Cytology Routine Exposure to STD Ordered: 02/07/2025 [facility] Comment on above: Ordered: 02/07/2025 Payers Date Payer Category Payer [facility] [id number] 2022 Unknown [id number] 2019 Unknown 1995 Unknown [id number] [id number] 1995 Unknown [id number] [id number] 1995 Unknown [id number] [id number]. [id number] 1995 Unknown [id number] [id number]. 2.1259 1995 Unknown [id number] [id number] 1995 Unknown [id number]. 2.1259 1995 Unknown [id number] [id number]. 2.9 1995 Unknown [id number] [id number] 1959 Unknown [id number] Social History Date Type Detail Facility Start: [...] Start: 04-23-2023 Sexual orientation Heterosexual (fin ding) [facility] Clinical Notes 12-16-2023 to 03-07-2025 Payton Mauro, [facility] - 03/07/2025 10:20 AM ZI Bear - 02/07/2025 9:30 AM Uriah Franco [facility] - 01/10/2025 9:10 AM Rahel Garay MA [...] nursing note reviewed. Exam conducted with a housing development specialist present. Vitals: Estimated body mass index is [...] Harsha Moraes DO documented in this encounter [facility] 02-07-2025 History of Presen t illness Narrative [...] nursing note reviewed. Exam conducted with a housing development specialist present. Vitals: Estimated body mass index is [...] of: ZI Collins documented in this encounter [facility] 01-10-2025 History of Presen t illness Narrative [...] nursing note reviewed. Exam conducted with a housing development specialist present. Vitals: Estimated body mass index is [...] or undercooked meat, and stay away from [facility]. Patient has been consulted regarding any further do's and don'ts of . Patient voiced understanding and all questions and concerns were answered. Orders Placed This Encounter Procedures POCT urinalysis dipstick manually resulted Follow Up: Patient is to return in 4 weeks for routine OB appointment. Documented by Audra Franco LPN on behalf of: Harsha Moraes DO documented in this encounter [facility] 12-09-2024 History of Presen t illness Narrative [...] or undercooked meat, and stay away from [facility]. Patient has also been advised to not [...] [place]ia Garay MA documented in this encounter [facility] 12-23-2023 History of Presen t illness Narrative [...] nursing note reviewed. Exam conducted with a housing development specialist present. Vitals: Estimated body mass index is [...] Harsha Moraes DO documented in this encounter [facility] 12-16-2023 History of Presen t illness Narrative [...] nursing note reviewed. Exam conducted with a housing development specialist present. Vitals: Estimated body mass index is [...] Harsha Moraes DO documented in this encounter [facility] Evaluation note Diagnosis Third trimester state, [...] section and content) DATE CREATED AUTHOR 04/13/2020 [facility] DATE CREATED AUTHOR AUTHOR'S ORGANIZ ATION 12/17/2021 [facility] DATE CREATED AUTHOR AUTHOR'S ORGANIZ ATION 07/04/2022 [facility] DATE CREATED AUTHOR AUTHOR'S ORGANIZ ATION 03/08/2025 [facility] EPIC Reason for Visit (unrecogniz ed section and content) Reason Comments Routine Visit Care Teams (unrecognized sec tion and content) Customs Officer Relationship Specialty Start Date End Date Mason Deleon MD [address] [place] [address] PCP - General 05/15/23 Customs Officer Relationship Specialty Start Date End Date Mason Deleon MD [address] [place] [address] PCP - General 05/15/23 Customs Officer Relationship Specialty Start Date End Date Mason Deleon MD [address] [place] [address] PCP - General 05/15/23 Customs Officer Relationship Specialty Start Date End Date Mason Deleon MD [address] [place] [address] PCP - General 05/15/23 Customs Officer Relationship Specialty Start Date End Date Mason Deleon MD [address] [place] [address] PCP - General 05/15/23 FOR RECORDS PERTAINING [...] BE BASED ON THE PRIMARY CLINICAL RECORDS. [facility] [employer] [facility]. provides no warranty or guarantee of the accuracy or completeness of information in this document.
== END 2025-03-25 09:56 | disposition home or self-care (01) ==
LOC: LAB 09:56
PROVIDERS: PCP Family Medicine; Visit Provider Physician Assistant
DX: Z34.92 Encounter for supervision of normal pregnancy, unspecified, second trimester (principal); Z36.1 Encounter for antenatal screening for raised alphafetoprotein level
CPT/HCPCS: 36415; 82105

== ENCOUNTER 2025-04-22 08:01 | Outpatient (OUT) | payer BC, SELFPAY ==
--- OUTSIDE RECORDS SUMMARY | 2025-04-22 08:06 | XMS_ITS | CCD ---
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 Name Role Phone MASON DELEON Attending Unavailable Mason Deleon Primary Care Unavailable BEBETO AMEZQUITA Referring Unavailable MASON DELEON Primary Care Unavailable BRIAN VARNER Attending Unavailable BRIAN VARNER Consulting Unavailable BRIAN VARNER Admitting Unavailable DR MASON DELEON Primary Care Unavailable Mason Deleon MD Primary Care Provider [phone] Mason Deleon MD Primary Care Provider [phone] Mason Deleon MD Primary Care Provider [phone] HARSHA MORAES Attending Unavailable FAWN PERDOMO Attending Unavailable HARSHA MORAES Attending Unavailable FAWN PERDOMO Attending [...] conditions (not mental disorders or infectious disease) (6 sources) Alpha-fetoprotein blood test status; Translations: [Encounter [...] [21 weeks gestation of ] 03-07-2025 Episodic Residual codes; unclassified (2 sources) Gestation period, 25 weeks; Translations: [25 weeks gestation of ] 04-05-2025 Episodic Results Test Name Value Interpretation Reference Range Facility Urinalysis macro (dipstick) panel (U)on 04-05-2025 Bilirubin, UA Negative Negative - 4(70) +++ mg/dL [facility] Blood, UA Negative Negative - 50 Gulshan/mcL [facility] Clarity, UA Clear [facility] re Color, UA Yellow [facility] Glucose, UA Negative Negative - 1999(110) ++++ mg/dL [facility] Interpretation and review of laboratory results [facility] Ketones, UA Negative Negative - 160(16) ++++ mg/dL [facility] Leukocytes, UA Negative Negative - 500+++ Stefan/mcL [facility] Nitrite, UA Negative Negative - Positive [facility] pH, UA 6 5 - 9 [facility] Protein, UA Negative Negative - 1999(20) ++++ mg/dL [facility] Spec Grav, UA 1.025 1 - 1.03 [facility] care Urobilinogen, UA 0.2 0.2 - 12 mg/dL [facility] US OB INCOMPLETE ANATOMYon 0 03-25-[address] [address] Ultrasound Report Signed Patient: SURJIT AVINA MR#: [id number] : 1995 Acct:[id number] Age/Sex: 29 / F ADM Date: 03/25/25 Loc: US Attending Dr: Harsha Moraes D.O. Ordering Physician: Harsha Moraes D.O. Date of Service: 03/25/25 Procedure(s): US OB incomplete anatomy Accession Number(s): [id number] cc: Harsha Moraes D.O.; Mason Deleon M.D. The [place] [id number] Patient Name: SURJIT AVINA MRN: [facility]:[id number] date: 1995 Sex: F Assigned Patient Location: US Current Patient Location: US Accession/Order Number: [id number] Exam Date: 03/25/2025 10:55 Report Date: 03/25/2025 10:57 At the request of: HARSHA MORAES DO Procedure: US OB incomplete anatomy Limited obstetrical ultrasound HISTORY: Follow-up assessment for left ventricular outflow track and right ventricular outflow track Fetus in cephalic presentation with longitudinal lie. The amniotic fluid is subjectively normal. The heart rate is 150 bpm. Left ventricular outflow track and right ventricular outflow track and 4 chambered heart unremarkable. US/US OB incomplete anatomy IMPRESSION: Unremarkable left ventricular outflow track and right ventricular outflow track and 4 chambered heart. Impression dictated by: Rick Garsia M.D. 03/25/2025 10:57 AM Dictation Location: [place] [address] Electronically authenticated by: [id number] Y Date: 03/25/2025 10:57 Dictated By: Rick Garsia D.O. Signed By: 03/25/25 1100 DD/ 1057 TD/TT: Inspector General: [facility] Radiology, Radiologist, - 03/25/2025 [place] [address] Ultrasound Report Signed Patient: SURJIT AVINA MR#: [id number] : 1995 Acct:[id number] Age/Sex: 29 / F ADM Date: 03/25/25 Loc: US Attending Dr: Harsha Moraes D.O. Ordering Physician: Harsha Moraes D.O. Date of Service: 03/25/25 Procedure(s): OB incomplete anatomy Accession Number(s): [id number] cc: Harsha Moraes D.O.; Mason Deleon M.D. [place] [address] Patient Name: SURJIT AVINA MRN: [id number] date: 1995 Sex: F Assigned Patient Location: US Current Patient Location: US Accession/Order Number: [id number] Exam Date: 03/25/2025 10:55 Report Date: 03/25/2025 10:57 At the request of: HARSHA MORAES DO Procedure: US OB incomplete anatomy Limited obstetrical ultrasound HISTORY: Follow-up assessment for left ventricular outflow track and right ventricular outflow track Fetus in cephalic presentation with longitudinal lie. The amniotic fluid is subjectively normal. The heart rate is 150 bpm. Left ventricular outflow track and right ventricular outflow track and 4 chambered heart unremarkable. US/US OB incomplete anatomy IMPRESSION: Unremarkable left ventricular outflow track and right ventricular outflow track and 4 chambered heart. Impression dictated by: Rick Garsia M.D. 03/25/2025 10:57 AM Dictation Location: [place] [address] Electronically authenticated by: [id number] Y Date: 03/25/2025 10:57 Dictated By: Rick Garsia D.O. Signed By: 03/25/25 1100 DD/ 1057 TD/TT: Inspector General: [facility] Radiology Study observation (narrative) [facility] OB INCOMPLETE ANATOMYOrde red By: Radiologist Radiology on 03-25-2025 [facility] [employer] Work Phone: Urinalysis macro (dipstick) panel (U)on 03-07-2025 Bilirubin, UA Negative Negative - 4(70) +++ mg/dL [facility] Blood, UA Negative Negative - 50 Gulshan/mcL [facility] Clarity, UA Clear [facility] re Color, UA Yellow [facility] Glucose, UA Negative Negative - 1999(110) ++++ mg/dL [facility] Interpretation and review of laboratory results Normal [facility] re Ketones, UA Negative Negative - 160(16) ++++ mg/dL [facility] Leukocytes, UA Negative Negative - 500+++ Stefan/mcL [facility] Nitrite, UA Negative Negative - Positive [facility] pH, UA 5.5 5 - 9 [facility] Protein, UA Negative Negative - 1999(20) ++++ mg/dL [facility] Spec Grav, UA 1.03 1 - 1.03 [facility] Urobilinogen, UA 0.2 0.2 - 12 mg/dL [facility] US OB CERVICAL LENGTHon 02-08 [place] [address] Ultrasound Report Signed Patient: SURJIT AVINA MR#: [id number] : 1995 Acct:[id number] Age/Sex: 29 / F ADM Date: 02/25/25 Loc: US Attending Dr: Fawn Perdomo Ordering Physician: Fawn Perdomo Date of Service: 02/25/25 Procedure(s): US OB cervical length Accession Number(s): [id number] cc: Fawn Perdomo; Mason Deleon M.D. [place] [id number] Patient Name: SURJIT AVINA MRN: [id number] date: 1995 Sex: F Assigned Patient Location: US Current Patient Location: Accession/Order Number: [id number] Exam Date: 02/27/2025 09:44 Report Date: 02/27/2025 [...] Rick Garsia M.D.02/27/2025 9:52 AM Dictation Location: [place] [address] Electronically authenticated by: [id number] Y Date: 02/27/2025 09:52 Dictated By: Rick Garsia D.O. Signed By: 02/27/25 0954 DD/ 0952 TD/TT: Inspector General: [facility] Radiology, Radiologist, - 02/27/2025 [place] [address] Ultrasound Report Signed Patient: SURJIT AVINA MR#: [id number] : 1995 Acct:[id number] Age/Sex: 29 / F ADM Date: 02/25/25 Loc: US Attending Dr: Fawn Perdomo Ordering Physician: Fawn Perdomo Date of Service: 02/25/25 Procedure(s): US OB cervical length Accession Number(s): [id number] cc: Fawn Perdomo; Mason Deleon M.D. The [address] [address] Patient Name: SURJIT AVINA MRN: [facility]:[id number] date: 1995 Sex: F Assigned Patient Location: US Current Patient Location: Accession/Order Number: [id number] Exam Date: 02/27/2025 09:44 Report Date: 02/27/2025 [...] Rick Garsia M.D.02/27/2025 9:52 AM Dictation Location: [place] [address] Electronically authenticated by: [id number] Y Date: 02/27/2025 09:52 Dictated By: Rick Garsia D.O. Signed By: 02/27/25 0954 DD/ TD/TT: Inspector General: [facility] Radiology Study observation (narrative) [facility] OB CERVICAL LENGTHOrdered By: Radiologist Radiology on 02-27-2025 [facility] [email or web address] Work Phone: IGP,APTIMA HPV,AGE GDLNon AGE GDLN ACOG TESTING Note . [facility] Comment on above: TESTS RESULT FLAG UN ITS REF RANGE LAB Clinician Provided Cytology Information Source.............Cervix Other.............. No. of containers..01 ThinPrep Vial Age Algo ACOG Tracie... FLAG LEGEND: L-Low Normal,H-High Normal,LL-Alert Low,HH-Alert High <-Panic Low,>-Panic High,A-Abnormal,AA-Critical Abnormal Performed at: 01 =G [facility] [address] Socorro Benavidez MD, IGP, RFX APTIMA HPV ASCU Note . [facility] Comment on above: TESTS RESULT FLAG UN ITS REF RANGE LAB DIAGNOSIS: 02 NEGATIVE FOR INTRAEPITHELIAL LESION OR MALIGNANCY. Specimen adequacy: 02 Satisfactory for evaluation. No endocervical component is identified. An endocervical component is not commonly seen in the patient. Performed by: 02 Pema Gonzalez Transfer Controller ([facility]) . 02 Note: Note 02 The Pap [...] <-Panic Low,>-Panic High,A-Abnormal,AA-Critical Abnormal Performed at: [address] [address] Socorro Benavidez MD, Performed at: = - [facility] [id number] Lease Attendant: Socorro Benavidez MD, Phone: [phone] Performed at: [address] [id number] Lease Attendant: Socorro Benavidez MD, Phone: [phone] [facility] CERVIX [facility] e RECURRENT VAGINITIS (HTRX)on 02-08-2025 ATOP[facility]UM V[facility]INAE 0 [facility] ATOPOBIUM VAGINAE Not detected [facility] BVAB 2,3 (BACTERIAL VAGINOSIS ASSOCIATED BACTERIA 2, 3); MOBILUNCUS SPP 26.639 Abnormal [facility] BVAB 2,3 (BACTERIAL VAGINOSIS ASSOCIATED BACTERIA 2, 3); MOBILUNCUS SPP Detected Abnormal [facility] VIVIANA ALBICANS, PARAPSILOSIS, TROPICALIS 0 [facility] VIVINAA ALBICANS, PARAPSILOSIS, TROPICALIS Not detected [facility] V[facility]NA GLABRATA [facility]IV[facility] GLABRATA Not detected [facility] VIVIANA KRUSEI 0 [facility]alt hcare VIVIANA KRUSEI Not detected [facility] CHLAMYDIA TRACHOMATIS 0 [facility] CHLAMYDIA TRACHOMATIS Not detected [facility] GARDNERELLA VAGINALIS 0 [facility] GARDNERELLA VAGINALIS Not detected [facility] Interpretation and review of laboratory results Abnormal [facility] Healthca re MEGASPHAERA (TYPES 1, 2) 0 [facility] Healthcare MEGASPHAERA (TYPES 1, 2) Not detected [facility] MYCOPLASMA GENITALIUM 0 [facility] MYCOPLASMA GENITALIUM Not detected [facility] NEISSERIA GONORRHOEAE 0 [facility] NEISSERIA GONORRHOEAE Not detected [facility] TRICHOMONAS VAGINALIS 0 [facility] TRICHOMONAS VAGINALIS Not detected [facility] Urinalysis macro (dipstick) panel (U)on 02-07-2025 Bilirubin, UA Negative Negative - 4(70) +++ mg/dL [facility] Blood, UA Negative Negative - 50 Gulshan/mcL [facility] Clarity, UA Clear [facility] re Color, UA Yellow [facility] Glucose, UA Negative Negative - 1999(110) ++++ mg/dL [facility] Interpretation and review of laboratory results Normal [facility] Health[facility] re Ketones, UA Negative Negative - 160(16) ++++ mg/dL [facility] Leukocytes, UA Trace Negative - 500+++ Stefan/mcL [facility] Nitrite, UA Negative Negative - Positive [facility] pH, UA 5.5 5 - 9 [facility] Protein, UA Negative Negative - 1999(20) ++++ mg/dL [facility] Spec Grav, UA 1.025 1 - 1.03 [facility] Urobilinogen, UA 0.2 0.2 - 12 mg/dL [facility] Urinalysis macro (dipstick) panel (U)on 01-10-2025 Bilirubin, UA Positive Negative - 4(70) +++ mg/dL [facility] Comment on above: small Blood, UA Negative Negative - 50 Gulshan/mcL [facility] Healthcare Clarity, UA Clear [facility] re Color, UA Yellow [facility] Healthcar e Glucose, UA Negative Negative - 1999(110) ++++ mg/dL [facility] Interpretation and review of laboratory results Abnormal [facility] re Ketones, UA Negative Negative - 160(16) ++++ mg/dL [facility] Leukocytes, UA Negative Negative - 500+++ Stefan/mcL [facility] Nitrite, UA Negative Negative - Positive [facility] pH, UA 5.5 5 - 9 [facility] Protein, UA Positive Negative - 2000(20) ++++ mg/dL [facility] Comment on above: 30mg/dL Spec Grav, UA 1.03 1 - 1.03 [facility] Urobilinogen, UA 0.2 0.2 - 12 mg/dL [facility] Health[facility] e ALL CBC WITH AUTO DIFFon BASOPHILS ABSOLUTE AUTO 0 [facility] Basophils/100 WBC (Bld) 0.4 % 0.2 - 2.0 % [facility] Eosinophils/100 WBC (Bld) 0.7 % Low 0.9 - 7.0 % [facility] Erythrocyte distribution width (RBC) [Ratio] 12.5 % 11.0 - 15.0 % [facility] Hematocrit (Bld) [Volume fraction] 37.5 % 36.0 - 48.0 % [facility] Hemoglobin (Bld) [Mass/Vol] 12.6 g/dL 12.0 - 16.0 g/dL [facility] IMMATURE GRANULOCYTES ABS AUTO 0.03 [facility] Immature granulocytes/100 WBC (Bld) 0.4 % 0.0 - 0.5 % [facility] Interpretation and review of laboratory results Abnormal [facility] re LYMPHOCYTES ABSOLUTE AUTO 1.9 [facility] Lymphocytes/100 WBC (Bld) 22.5 % 20.5 - 60.0 % [facility] MCH (RBC) [Entitic mass] 30.7 pg 26.7 - 34.0 pg [facility] MCHC (RBC) [Mass/Vol] 33.6 g/dL 29.9 - 35.2 g/dL [facility] MCV (RBC) [Entitic vol] 91.5 fL 81.0 - 99.0 fL [facility] MONOCYTES ABSOLUTE AUTO 0.5 [facility] Monocytes/100 WBC (Bld) 5.6 % 1.7 - 12.0 % [facility] NEUTROPHILS ABSOLUTE AUTO 5.8 [facility] Neutrophils/100 WBC (Bld) 70.4 % 43.0 - 75.0 % [facility] Platelet mean volume (Bld) [Entitic vol] 10.1 fL 9.5 - 13.5 fL [facility] Healthcare [facility] EO # 0.1 [facility] PLT 305 [facility] RBC 4.1 Low [facility] WBC 8.3 [facility] HCG ( test) Ql (U)o n 12-09-2024 Interpretation and review of laboratory results Abnormal [facility] re Preg Test, Ur Positive Negative [facility] care [facility] US OB TRANSVAGINALon 025 US [...] report is generated using voice recognition reporting ([employer]). On occasion PowerScribe erroneously drops words from the report or [...] UA Negative Negative - 4(70) +++ mg/dL [facility] Blood, UA Negative Negative - 50 Gulshan/mcL [facility] Healthcare Clarity, UA Clear [facility] Color, UA Yellow [facility] Glucose, UA Negative Negative - 1999(110) ++++ mg/dL [facility] Interpretation and review of laboratory results Abnormal [facility] re Ketones, UA Positive Negative - 160(16) ++++ mg/dL [facility] Comment on above: trace Leukocytes, UA Negative Negative - 500+++ Stefan/mcL [facility] Nitrite, UA Negative Negative - Positive [facility] pH, UA 5.5 5 - 9 [facility] Healthcar e Protein, UA Positive Negative - 1999(20) ++++ mg/dL [facility] Comment on above: 30 Spec Grav, UA 1.03 1 - 1.03 [facility] Health care Urobilinogen, UA 0.2 0.2 - 12 mg/dL [facility] Urinalysis macro (dipstick) panel (U)on 12-23-2023 Bilirubin, UA Negative Negative - 4(70) +++ mg/dL [facility] Blood, UA Negative Negative - 50 Gulshan/mcL [facility] Healthcare Clarity, UA Clear [facility] Color, UA Yellow [facility] Healthcar e Glucose, UA Negative Negative - 1999(110) ++++ mg/dL [facility] Interpretation and review of laboratory results Normal [facility] Ketones, UA Negative Negative - 160(16) ++++ mg/dL [facility] Leukocytes, UA Negative Negative - 500+++ Stefan/mcL [facility] Healthcare Nitrite, UA Negative Negative - Positive [facility] pH, UA 5.5 5 - 9 [facility] Protein, UA Negative Negative - 1999(20) ++++ mg/dL [facility] Spec Grav, UA 1.020 1 - 1.03 [facility] care Urobilinogen, UA 1.0 0.2 - 12 mg/dL [facility] Urinalysis macro (dipstick) panel (U)on 12-16-2023 Bilirubin, UA Negative Negative - 4(70) +++ mg/dL [facility] Blood, UA Negative Negative - 50 Gulshan/mcL [facility] Clarity, UA Clear [facility] re Color, UA Yellow [facility] Glucose, UA Negative Negative - 1999(110) ++++ mg/dL [facility] Interpretation and review of laboratory results Normal [facility] Ketones, UA Negative Negative - 160(16) ++++ mg/dL [facility] Leukocytes, UA Negative Negative - 500+++ Stefan/mcL [facility] Nitrite, UA Negative Negative - Positive [facility] pH, UA 5.5 5 - 9 [facility] Protein, UA Negative Negative - 1999(20) ++++ mg/dL [facility] Spec Grav, UA 1.005 1 - 1.03 [facility] Urobilinogen, UA 0.2 0.2 - 12 mg/dL [facility] HPV DNA High Riskon 12-06-19 22 HPV Interp [facility] Comment on above: Result [...] purposes. Performed By: #### H PVH #### [employer] [address] [place] [address] Lease Attendant: Ulisses Gold MD HPV Type 16 Not detected [facility] [place] [facility] Comment on above: Performed By: #### H PVH #### [employer] [address] [place], [place] [id number] Lease Attendant: Ulisses Gold MD HPV Type 18 Not detected Normal [facility] Comment on above: Performed By: #### H PVH #### [facility] [address] [place] [address] Lease Attendant: Ulisses Gold MD Other High Risk HPV Not detected Normal [facility] Comment on above: Performed By: #### H PVH #### [facility] [place] [address] Lease Attendant: Ulisses Gold MD HPV DNA High Riskon 12-05-19 22 Source .GENITAL - NOT SPECIFIED Normal [facility] Comment on above: Performed By: #### H PVH #### [place] [address] [place] [address] Lease Attendant: Ulisses Gold MD HPV Sample .THIN PREP [facility] Comment on above: Performed By: #### H PVH #### [email or web address] [address] [address] Lease Attendant: Ulisses Gold MD Cytologyon 12-04-2021 Cytology (NOTE) INTERPRETATION Cervical material, (ThinPrep vial, Imaging-assisted review): Specimen Adequacy: Satisfactory for evaluation. -Endocervical/transfor mation zone component is absent. Descriptive Diagnosis: Negative for intraepithelial lesion or malignancy. 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 Normal [facility] Comment on above: Performed By: #### Q NTTBG #### [facility] [address] [place] [address] Dr. Hetal Linn Criteria Comment Normal [facility] Comment on above: Result Comment: The QuantiFERON-TB Gold Plus result is determined by subtracting the Nil value from either TB antigen (Ag) tube. The mitogen tube serves as a control for the test. Performed By: #### Q NTTBG #### [facility] [address] [place] [address] [address] Hetal Linn Mitogen Value >10.00 Normal The [facility] Comment on above: Performed By: #### Q NTTBG #### [facility] [address] [place] [address] Dr. Hetal Linn Nill Value 0.06 IU/mL [facility] Comment on above: Performed By: #### Q NTTBG #### [facility] [address] [place] [address] Dr. Hetal Linn Quantiferon Gold Plus Negative Normal Negative [facility] Comment on above: Result Comment: Chem iluminescence immunoassay methodology Performed By: #### Q NTTBG #### [facility] [address] [place] [address] Dr. Hetal Linn TB1 Ag Value 0.10 IU/mL Normal [facility] Comment on above: Performed By: #### Q NTTBG #### [facility] [address] [place] [address] Dr. Hetal Linn TB2 Ag Value 0.08 IU/mL Normal [facility] Comment on above: Performed By: #### Q NTTBG #### [facility] [address] [place] [address] Dr. Hetal Linn HEPATITIS B SURFACE ANTIBODY , QUANTon 08-31-2021 Hepatitis B Surf AB Quant 202.1 mIU/mL Normal Immunity>9.9 [facility] Comment on above: Result Comment: Stat us of Immunity Anti-HBs Level Inconsistent with Immunity 0.0 - 9.9 Consistent with Immunity >9.9 Performed By: #### H EPBSRF #### [facility] [address] [place] [address] Dr. Hetal Linn MMR IMMUNITYon 08-31-2021 Mumps Abs, IgG 24.8 AU/mL Normal Immune >10.9 [facility] Comment on above: Result Comment: Nega tive <9.0 Equivocal 9.0 - 10.9 Positive >10.9 A positive result generally indicates past exposure to Mumps virus or previous vaccination. Performed By: #### M MRIMMU #### [facility] [address] [place] [address] Dr. Hetal Linn Rubella Antibodies, IgG 1.14 index Normal Immune >0.99 [facility] Comment on above: Result Comment: Non- immune <0.90 Equivocal 0.90 - 0.99 Immune >0.99 Performed By: #### M MRIMMU #### [facility] [address] [place], [place] [address] Dr. Hetal Linn Rubeola Ab, IgG 26.6 AU/mL Normal Immune >16.4 The [facility] Comment on above: Result Comment: Nega tive <13.5 Equivocal 13.5 - 16.4 Positive >16.4 Presence of antibodies to Rubeola is presumptive evidence of immunity except when acute infection is suspected. Performed By: #### M MRIMMU #### [facility] [address] [place], [place] [address] Dr. Hetal Linn VARICELLA IGG ABon 1 Varicella Zoster IgG 1376 index Normal Immune >165 [facility] Comment on above: Result Comment: Nega tive <135 Equivocal 135 - 165 Positive >165 A positive result generally indicates exposure to the pathogen or administration of specific immunoglobulins, but it is not indication of active infection or stage of disease. Performed By: #### V ARCEL #### [facility] [address] [place] [address] [address] Hetal Linn Addendum Reporton 04-10-2020 Addendum Report Missing Attachment Chartable Reference Lab Reports Can be viewed in source system Addendum Discussion [facility], MLABS, #[id number], Date reported: 04/10/2020: Diagnosis: A. Skin of [...] irritation but melanocytic atypia is not observed. [id number] ONAL M-[id number] ONAL T-[id number] ONAL [id number] IONAL T-[id number] ONAL M-83500ZMTUHUDVZPYZGVG ONAL M-[id number] ONAL M-81647SXYICSSEWYLYMWI ONAL T-[id number] ONAL Ronna Jenkins MD (Electronically signed by) Verified: 04/10/20 13:15 ADD Pathologist Requested Consult Comment by Ronna Jenkins M.D.: The above consultation report was reviewed. I essentially concur with the diagnosis given. Normal [facility] Comment on above: Performed By: #### C #### [facility] [address] [place] [address] Surgery Office/Clinic Noteon 04-04-2020 Surgery Office/Clinic Note Chief Complaint Mole removal x2. History of Present Illness Patient presents for excision of two raised darkly pigmented nevi. Review of Systems Constitutional: No Unexpected weight loss No History of diabetes Respiratory: No Shortness of breath Cardiovascular: NoChest pain or pressure, NoEdema, NoHistory of [place]/CAD, NoHistory of A-Fib : NoHesitancy, NoNocturia, NoPrior [...] information in this document, created by the biomedical engineering director for me, accurately reflects the services I [...] 04/04/20 18:28 EDT Electronically signed by Lexi Bronw 04/03/2020 14:13 EDT Electronically signed by Shaina Kang 04/04/2020 12:16 EDT Normal [facility] Surgical Pathology Reporton 04-04-2020 Surgical [...] case is going to [facility] for consultation. [id number] ONAL [id number] IONAL [id number] ONAL [id number] ONAL [id number] IONAL Ronna Jenkins MD (Electronically signed by) Verified: 04/09/20 10:08 Normal [facility] Comment on above: Performed By: #### S IN #### [facility] (DEFAULT) [address] [place] [address] .eGFRon 08-04-2019 eGFR AA >60 Normal >=60 [facility] Comment on above: Result Comment: Resu lt = 0-14.9 mL/min/1.73 m2 Kidney failure or Dialysis Result = 15-29 mL/min/1.73 m2 Severe decrease in GFR Result = 30-59 mL/min/1.73 m2 Moderate decrease in GFR Result >= 60 mL/min/1.73 m2 Normal or increased GFR Performed By: #### E GFR #### [address] [address] eGFR Non-AA >60 Normal >=60 [facility] Comment on above: Result Comment: [...] dosing. Performed By: #### E GFR #### [address] [address] CBC w/ Diffon 08-04-2019 Erythrocyte distribution width (RBC) [Ratio] 12.9 % Normal 11.6-14.8 [facility] Comment on above: Performed By: #### C BC #### [address] [address] Hematocrit (Bld) [Volume fraction] 40.4 % Normal 36.0-46.0 [facility] Comment on above: Performed By: #### C BC #### [address] [address] Hemoglobin (Bld) [Mass/Vol] 13.5 g/dL Normal 12.0-16.0 [facility] Comment on above: Performed By: #### C BC #### [address] [address] MCH (RBC) [Entitic mass] 32.0 pg Normal 27.0-35.0 [facility] Comment on above: Performed By: #### C BC #### [address] [address] MCHC (RBC) [Mass/Vol] 33.5 % Normal 31.0-37.0 [facility] Comment on above: Performed By: #### C BC #### [address] [address] MCV (RBC) [Entitic vol] 95.7 fL Normal 80.0-100.0 [facility] Comment on above: Performed By: #### C BC #### [address] [address] Platelet mean volume (Bld) [Entitic vol] 9.8 fL Normal 6.7-10.6 [facility] Comment on above: Performed By: #### C BC #### [address] [address] Platelets (Bld) [#/Vol] 226 x10*3/mcL Normal 150-350 [facility] Comment on above: Performed By: #### C BC #### [address] [address] RBC (Bld) [#/Vol] 4.23 x10*6/mcL Normal 3.80-5.20 [facility] Comment on above: Performed By: #### C BC #### [address] [address] WBC (Bld) [#/Vol] 7.4 x10*3/mcL Normal 4.5-11.0 [facility] Comment on above: Performed By: #### C BC #### [address] [address] CMPon 08-04-2019 Albumin [Mass/Vol] 4.0 g/dL Normal 3.2-4.9 [facility] Comment on above: Result Comment: [facility] Laboratory updated the methodology used for albumin testing on 06/16/18. Albumin measurement was performed using a bromcresol purple dye-binding assay. Performed By: #### C OMP #### [address] [address] Albumin/Globulin [Mass ratio] 1.2 {ratio} Normal 1.1-2.2 [facility] Comment on above: Performed By: #### C OMP #### [address] [address] Alk Phos 51 IU/L Normal 32-91 [facility] Comment on above: Performed By: #### C OMP #### [address] [address] ALT [Catalytic activity/Vol] 13 U/L Low 14-54 [facility] Comment on above: Performed By: #### C OMP #### [address] [address] Anion gap [Moles/Vol] 10 mmol/L Normal 7-17 [facility] Comment on above: Performed By: #### C OMP #### [address] [address] AST [Catalytic activity/Vol] 17 U/L Normal 15-41 [facility] Comment on above: Performed By: #### C OMP #### [address] [address] Bili Total 0.8 mg/dL Normal 0.3-1.2 [facility] Comment on above: Performed By: #### C OMP #### [address] [address] Calcium [Mass/Vol] 8.9 mg/dL Normal 8.5-10.3 [facility] Comment on above: Performed By: #### C OMP #### [address] [address] Chloride [Moles/Vol] 107 mmol/L Normal 98-110 [facility] Comment on above: Performed By: #### C OMP #### [address] [address] CO2 [Moles/Vol] 27 mmol/L Normal 22-32 [facility] Comment on above: Performed By: #### C OMP #### [address] [address] Creatinine [Mass/Vol] 0.84 mg/dL Normal 0.44-1.03 [facility] Comment on above: Performed By: #### C OMP #### [address] [address] Glucose [Mass/Vol] 84 mg/dL Normal 74-118 [facility] Comment on above: Performed By: #### C OMP #### [address] [address] Potassium [Moles/Vol] 4.3 mmol/L Normal 3.4-4.8 [facility] Comment on above: Performed By: #### C OMP #### [address] [address] Protein [Mass/Vol] 7.2 g/dL Normal 6.5-8.1 [facility] Comment on above: Performed By: #### C OMP #### [address] [address] Sodium [Moles/Vol] 140 mmol/L Normal 133-142 [facility] Comment on above: Performed By: #### C OMP #### [address] [address] Urea nitrogen [Mass/Vol] 10 mg/dL Normal 8-26 [facility] Comment on above: Performed By: #### C OMP #### [address] [address] Urea nitrogen/Creatinine [Mass ratio] 11.9 mg/mg Normal 10.0-20.0 [facility] Comment on above: Performed By: #### C OMP #### [address] [address] Diff Autoon 08-04-2019 Baso Absolute 0.0 x10*3/mcL Normal 0.0-0.[address] [facility] Comment on above: Performed By: #### . Automated Diff #### [address] [address] Basophils/100 WBC (Bld) 0.2 % Normal 0.0-1.5 [facility] Comment on above: Performed By: #### . Automated Diff #### [address] [address] Eos Absolute 0.0 x10*3/mcL Normal 0.0-0.4 [facility] Comment on above: Performed By: #### . Automated Diff #### [address] [address] Eosinophils/100 WBC (Bld) 0.6 % Normal 0.0-5.4 [facility] Comment on above: Performed By: #### . Automated Diff #### [address] [address] Lymphocytes (Bld) [#/Vol] 2.3 x10*3/mcL Normal 1.0-4.8 [facility] Comment on above: Performed By: #### . Automated Diff #### [address] [address] Lymphocytes/100 WBC (Bld) 30.5 % Normal 27.2-40.8 [facility] Comment on above: Performed By: #### . Automated Diff #### [address] [address] [place] Absolute 0.5 x10*3/mcL Normal 0.1-1.[address] [facility] Comment on above: Performed By: #### . Automated Diff #### [address] [address] Monocytes/100 WBC (Bld) 7.0 % Normal 3.7-11.9 [facility] Comment on above: Performed By: #### . Automated Diff #### [address] [address] Neutro Absolute 4.6 x10*3/mcL Normal 1.8-7.7 [facility] Comment on above: Performed By: #### . Automated Diff #### [address] [address] Neutro Auto 61.7 % Normal 47.2-70.8 [facility] Comment on above: Performed By: #### . Automated Diff #### [address] [address] Lipid Panelon 08-04-2019 Cholesterol in LDL [Mass/Vol] 79 mg/dL Normal 0-99 [facility] Comment on above: Result Comment: The equation being used in this calculation is LDL = (Chol - HDL) - (Trig / 5) The optimal value of LDL for individual patients may vary. The patient's history of Artherosclerosis and other cardiac risk factors should be considered. Performed By: #### L BONILLA #### [address] [address] Cardiac Risk 3.1 Normal [facility] Comment on above: Result Comment: Men Women 1/2 Average 3.43 3.27 Average 4.97 4.44 2x Average 9.55 7.05 3x Average 23.99 11.04 Performed By: #### L BONILLA #### [address] [address] Cholesterol [Mass/Vol] 131 mg/dL Normal 25-199 [facility] Comment on above: Result Comment: 0 - 17 years of age: Desirable 0-170 Borderline High 170-199 High >=200 18 years and older: Acceptable <200 Borderline High 200-239 High >=240 Performed By: #### L BONILLA #### [address] [address] Cholesterol in HDL [Mass/Vol] 42.0 mg/dL Normal 40.0-60.0 [facility] Comment on above: Performed By: #### L BONILLA #### [address] [address] Cholesterol in VLDL [Mass/Vol] 10 mg/dL Normal 8-39 [facility] Comment on above: Performed By: #### L BONILLA #### [address] [address] Triglyceride [Mass/Vol] 48 mg/dL Normal [facility] Comment on above: Result Comment: 0 - 17 years of age: Trig 90 - 129 Borderline High Trig => 130 High 18 years and older: Trig 150 - 199 Borderline High Trig 200 - 499 High Trig =>500 Very High Performed By: #### L BONILLA #### [address] [address] TSHon 08-04-2019 TSH Qn 1.45 mcIU/mL Normal 0.45-5.33 [facility] Comment on above: Result Comment: Refe rence Ranges for individuals from to 18 years of age were obtained from The Marychuy Edmondson Handbook (20 ed) published by [facility]. Reference Ranges for Females: Females, 1st Trimester 0.05 ? 3.7 uIU/mL Females, 2nd Trimester 0.31 ? 4.35 uIU/mL Females, 3rd Trimester 0.41 ? 5.18 uIU/mL Performed By: #### T SH #### [address] [address] Total T3on 08-04-2019 T3 Total 0.95 ng/mL Normal 0.87-1.78 [facility] Comment on above: Performed By: #### T 3R #### [address] [address] Total T4on 08-04-2019 T4 Total 6.6 mcg/dL Normal 5.0-11.5 [facility] Comment on above: Performed By: #### T 4 #### [address] [address] Vital Signs Date Time Vital Sign Value Performing Clinician Liliana park 04-05-2025 08:34-0400 Body mass index (BMI) [Ratio] 27.72 kg/m2 Fawn PINON Work Phone: [facility] 04-05-2025 08:34-0400 Body weight 73.26 kg Fawn PINON Work Phone: [facility] 04-05-2025 08:34-0400 Diastolic blood pressure 70 mm[Hg] Fawn PINON Work Phone: [facility] 04-05-2025 08:34-0400 Systolic blood pressure 112 mm[Hg] Fawn PINON Work Phone: [facility] 03-07-2025 10:39-0400 Body mass index (BMI) [Ratio] 26.52 kg/m2 Harsha Dimitry DO Work Phone: [facility] 03-07-2025 10:39-0400 Body weight 70.08 kg Harsha Dimitry DO Work Phone: [facility] 03-07-2025 10:39-0400 Diastolic blood pressure 74 mm[Hg] Harsha Dimitry DO Work Phone: [facility] 03-07-2025 10:39-0400 Systolic blood pressure 106 mm[Hg] Harsha Dimitry DO Work Phone: [facility] 02-07-2025 09:49-0400 Body mass index (BMI) [Ratio] 25.06 kg/m2 Fawn PINON Work Phone: [facility] 02-07-2025 09:49-0400 Body weight 66.22 kg Fawn PINON Work Phone: [facility] 02-07-2025 09:49-0400 Diastolic blood pressure 70 mm[Hg] Fawn PINON Work Phone: [facility] 02-07-2025 09:49-0400 Systolic blood pressure 112 mm[Hg] Fawn PINON Work Phone: [facility] 01-10-2025 09:27-0500 Body mass index (BMI) [Ratio] 24.2 kg/m2 Harsha Dimitry DO Work Phone: [facility] 01-10-2025 09:27-0500 Body weight 63.96 kg Harsha Dimitry DO Work Phone: [facility] 01-10-2025 09:27-0500 Diastolic blood pressure 72 mm[Hg] Harsha Dimitry DO Work Phone: [facility] 01-10-2025 09:27-0500 Systolic blood pressure 102 mm[Hg] Harsha Dimitry DO Work Phone: [facility] 12-09-2024 10:33-0500 Body mass index (BMI) [Ratio] 23.69 kg/m2 Noms Nurse [facility] 12-09-2024 10:33-0500 Body weight 62.6 kg Nom Nurse [facility] 12-09-2024 10:33-0500 Diastolic blood pressure 70 mm[Hg] Nom Nurse [facility] 12-09-2024 10:33-0500 Systolic blood pressure 118 mm[Hg] Nom Nurse [facility] 12-23-2023 14:45-0500 Body mass index (BMI) [Ratio] 29.49 kg/m2 Harsha Dimitry DO Work Phone: [facility] 12-23-2023 14:45-0500 Body weight 77.93 kg Harsha Dimitry DO Work Phone: [facility] 12-23-2023 14:45-0500 Diastolic blood pressure 76 mm[Hg] Harsha Dimitry DO Work Phone: [facility] 12-23-2023 14:45-0500 Systolic blood pressure 118 mm[Hg] Harsha Dimitry DO Work Phone: [facility] 12-16-2023 14:06-0500 Body mass index (BMI) [Ratio] 29.32 kg/m2 Harsha Dimitry DO Work Phone: [facility] 12-16-2023 14:06-0500 Body weight 77.47 kg Harsha Dimitry DO Work Phone: [facility] 12-16-2023 14:06-0500 Diastolic blood pressure 70 mm[Hg] Harsha Dimitry DO Work Phone: [facility] 12-16-2023 14:06-0500 Systolic blood pressure 120 mm[Hg] Harsha Dimitry DO Work Phone: [facility] Encounters Encounter Date Encounter Type Care Provider Facility Start: 04-05-2025 End: 04-05-2025 Johnny PINON Work Phone: [facility] Start: 04-05-2025 End: 04-05-2025 Bamboo flowsheet Fawn PINON Work Phone: [facility] Start: 04-05-2025 End: 04-05-2025 flow sheet Fawn PINON Work Phone: [facility] Comment on above: Second trimester pre gnancy; 25 weeks gestation of ; Diabetes mellitus screening Start: 04-05-2025 End: 04-05-2025 ambulatory FAWN PERDOMO Not Available Start: 03-25-2025 End: 03-25-2025 Clinisync Result Encounter Harsha Dimitry DO Work Phone: [facility] Unsolicited Start: 03-25-2025 End: 03-25-2025 Clinisync Result Encounter Harsha Dimitry DO Work Phone: [facility] Unsolicited Start: 03-07-2025 End: 03-07-2025 Bamboo flowsheet Harsha [...] Patient encounter procedure Fawn PINON Work Phone: [facility] Start: 02-07-2025 End: 02-07-2025 Periodic preventive med est patient 18-39 yrs Fawn PINON Work Phone: [facility] Comment on [...] Bamboo flowsheet Harsha Dimitry DO Work Phone: [facility] Start: 01-10-2025 End: 01-10-2025 flow [...] rajinder Start: 12-04-2021 End: 12-05-2021 ambulatory BEBETO AMEZQUITA [facility] Start: 09-27-2021 Encounter for genera l adult medical examination without abnormal findings BRIAN VARNER [facility] Start: 08-30-2021 End: 08-31-2021 ambulatory BRIAN VARNER Facility:[facility] Start: 08-30-2021 End: 08-31-2021 Encounter for general adult medical examination without abnormal findings BRIAN VARNER Facility: Start: 08-04-2019 End: 08-05-2019 Patient encounter procedure MASON SIN MAGGYAllan Facility:[facility] Procedures Date Procedure Procedure Detail Performing Clinician Start: 04-05-2025 Urnls dip stick/tabl et rgnt non-auto w/o micrscp Fawn PINON Work Phone: Start: 03-25-2025 US OB INCOMPLETE ANATOMY Harsha Dimitry DO Work Phone: Start: 03-07-2025 Urnls dip stick/tabl et rgnt [...] Care Activity Detail Author Start: 04-05-2025 End: 04-05-2026 CBC panel - Blood by Automated count CBC Lab Routine Diabetes mellitus screening Expected: 04/05/2025 (Approximate), Expires: 04/05/2026 [facility] Work Phone: Comment on above: Expected: 04/05/2025 (Approximate), Expires: 04/05/2026 Start: 04-05-2025 End: 04-05-2026 Measurement of glucose 1 hour after glucose challenge for glucose tolerance test Glucose tolerance, 1 hour Lab Routine Diabetes mellitus screening Expected: 04/05/2025 (Approximate), Expires: 04/05/2026 [facility] Comment on above: Expected: 04/05/2025 (Approximate), Expires: 04/05/2026 Start: 04-05-2025 End: 04-05-2025 Patient encounter procedure [facility] Comment on above: Arrived Start: 03-07-2025 End: 03-07-2025 Patient encounter procedure [...] gestational age Expected: 12/09/2024 (Approximate), Expires: 12/09/2025 [facility] Comment on above: Expected: 12/09/2024 (Approximate), Expires: 12/09/2025 Start: 12-09-2024 End: 12-09-2025 Blood type and Indirect antibody screen panel - Blood Type and screen Lab Routine Missed menses , unspecified gestational age Expected: 12/09/2024 (Approximate), Expires: 12/09/2025 [facility] Work Phone: Comment on above: Expected: 12/09/2024 (Approximate), Expires: 12/09/2025 Start: 12-09-2024 End: 12-09-2025 Drugs of abuse panel - Urine by Screen method Rapid drug screen, urine Lab Routine , unspecified gestational age Encounter for supervision of normal first in first trimester Expected: 12/09/2024 (Approximate), Expires: 12/09/2025 [facility] Comment on above: Expected: 12/09/2024 (Approximate), Expires: 12/09/2025 Start: 12-23-2023 End: 12-23-2023 Patient encounter procedure 12/23/2023 2:30 PM EST Routine [facility] [address] [place] [id number] Harsha Moraes, [address] [place] [address] Third trimester [facility] Comment on above: Third trimester preg rajinder Start: 12-23-2023 End: 12-23-2024 US biophysical profile w non stress test US biophysical profile w non stress test Imaging Routine Post term over 40 weeks Expected: 12/23/2023 (Approximate), Expires: 12/23/2024 [facility] Work Phone: Comment on above: Expected: 12/23/2023 (Approximate), Expires: 12/23/2024 Bacteria identified in Urine by Culture Urine culture Microbiology Routine Missed menses Ordered: 12/09/2024 [facility] Comment on above: Ordered: 12/09/2024 CBC W Auto Different ial panel - Blood CBC and differential Lab Routine Missed menses , unspecified gestational age Ordered: 12/09/2024 [facility] Comment on above: Ordered: 12/09/2024 CHLAMYDIA TRACHOMATI S (GENITO/STI) CHLAMYDIA TRACHOMATIS (GENITO/STI) Lab Routine Exposure to STD Ordered: 02/07/2025 [facility] Comment on above: Ordered: 02/07/2025 Cytology Cervical or vaginal smear or scraping study Pap Smear Pathology and Cytology Routine Well woman exam with routine gynecological exam Ordered: 02/07/2025 [facility] Work Phone: Comment on above: Ordered: 02/07/2025 Hemoglobin A1c/Hemoglobin.total in Blood Hemoglobin A1c Lab Routine Missed menses , unspecified gestational age Ordered: 12/09/2024 [facility] Comment on above: Ordered: 12/09/2024 Hepatitis B virus surface Ag [Presence] in Serum or Plasma by Immunoassay Hepatitis B surface antigen Lab Routine Missed menses , unspecified gestational age Ordered: 12/09/2024 [facility] Comment on above: Ordered: 12/09/2024 Hepatitis C virus Ab [Presence] in Serum or Plasma by Immunoassay Hepatitis C antibody Lab Routine Missed menses , unspecified gestational age Ordered: 12/09/2024 [facility] Comment on above: Ordered: 12/09/2024 HIV-1/HIV-2 antigen/antibody combination immunoassay HIV-1 and HIV-2 antibodies Lab Routine Missed menses , unspecified gestational age Ordered: 12/09/2024 [facility] Comment on above: Ordered: 12/09/2024 Neisseria gonorrhoea e DNA [Presence] in Unspecified specimen by LAZARA with probe detection Neisseria gonorrhea DNA probe, direct Lab Routine Exposure to STD Ordered: 02/07/2025 [facility] Comment on above: Ordered: 02/07/2025 Reagin Ab [Presence] in Serum by RPR RPR Lab Routine Missed menses , unspecified gestational age Ordered: 12/09/2024 [facility] Comment on above: Ordered: 12/09/2024 Rubella antibody, IgG Rubella an tibody, IgG Lab Routine Missed menses , unspecified gestational age Ordered: 12/09/2024 [facility] Comment on above: Ordered: 12/09/2024 SURESWAB(R) ADVANCED VAGINITIS PLUS, TMA SURESWAB(R) ADVANCED VAGINITIS PLUS, TMA Pathology and Cytology Routine Exposure to STD Ordered: 02/07/2025 [facility] Comment on above: Ordered: 02/07/2025 Payers Date Payer Category Payer [facility] [id number] 2022 Unknown [id number] 2019 Unknown 1995 Unknown [id number] [id number] 1995 Unknown [id number] [id number]. 2.173 1995 Unknown [id number] [id number]. 2.593 1995 Unknown [id number]. 2.1259 1995 Unknown [id number] [id number]. 2.1259 1995 Unknown [id number] [id number]. 2.1259 1995 Unknown [id number] [id number]. 2.1259 1995 Unknown [id number] [id number]. 2.1259 1995 Unknown [id number] [id number]. 2.1259 1959 Unknown [id number] Social History Date Type Detail Facility Start: 06-18-2023 Tobacco smoking status MSIS Never sm oked tobacco [facility] Start: [...] occasion? Never [facility] Start: 04-03-2023 [facility] Start: 1995 Sex Assigned At Female [facility] Start: 04-23-2023 Gender identity Identifies as female gender (finding) [facility] Start: 04-23-2023 Sexual orientation Heterosexual (fin ding) [facility] Clinical Notes 12-16-2023 to 04-05-2025 ZI Collins - 04/05/2025 8:30 AM Orestes Mauro, ENAM[employer] SPRAYER - 03/07/2025 10:20 AM ZI Bear - 02/07/2025 9:30 AM Uriah Franco, E[employer]ER - 01/10/2025 9:10 AM EST Note Date & Type Note Facility 04-05-2025 History of Presen t illness Narrative Reason [...] Exam Constitutional: Appearance: Normal appearance. She is normal weight. HENT: Head: Normocephalic. Cardiovascular: Rate and Rhythm: Normal rate. Pulses: Normal pulses. Pulmonary: Effort: Pulmonary effort is normal. Breath sounds: Normal breath sounds. Abdominal: Palpations: Abdomen is soft. Musculoskeletal: General: Normal range of motion. Neurological: General: No focal deficit present. Mental Status: She is alert and oriented to person, place, and time. Psychiatric: Mood and Affect: Mood normal. Behavior: Behavior normal. Thought Content: Thought content normal. Judgment: Judgment normal. Vitals and nursing note reviewed. Vitals: Estimated body mass index is 27.72 kg/m as calculated from the following: Height as of 05/22/23: 5' 4 . Weight as of this encounter: 161 lb 8 oz. BP: 112/70 Patient's last menstrual period was 10/08/2024. ASSESSMENT & PLAN ICD-10-CM 1. Second trimester Z34.92 POCT urinalysis dipstick manually resulted 2. 25 weeks gestation of Z3A.25 3. Diabetes mellitus screening Z13.1 CBC Glucose tolerance, 1 hour CBC Glucose tolerance, 1 hour Return OB: Patient presents today for a routine obstetrics appointment. Patient is currently 25w4d . Patient states she is doing well but has complaints of being tired due to current . Patient has verbalizes frequent movement. Orders Placed This Encounter Procedures CBC Glucose tolerance, 1 hour POCT urinalysis dipstick manually resulted Follow Up: Patient is to return to office in 4 week for routine OB appointment. Documented by ZI Collins on behalf of: ZI Collins documented in this encounter [facility] 03-07-2025 History of Presen t illness Narrative [...] nursing note reviewed. Exam conducted with a lap grinder present. Vitals: Estimated body mass index is [...] Harsha Moraes DO documented in this encounter [facility] 02-07-2025 History of Presen t illness Narrative [...] nursing note reviewed. Exam conducted with a lap grinder present. Vitals: Estimated body mass index is [...] of: ZI Collins documented in this encounter [facility] 01-10-2025 History of Presen t illness Narrative [...] nursing note reviewed. Exam conducted with a lap grinder present. Vitals: Estimated body mass index is [...] or undercooked meat, and stay away from [facility]. Patient has been consulted regarding any further do's and don'ts of . Patient voiced understanding and all questions and concerns were answered. Orders Placed This Encounter Procedures POCT urinalysis dipstick manually resulted Follow Up: Patient is to return in 4 weeks for routine OB appointment. Documented by Audra Franco LPN on behalf of: Harsha Moraes DO documented in this encounter [facility] 12-09-2024 History of Presen t illness Narrative [...] or undercooked meat, and stay away from [facility]. Patient has also been advised to [...] [place] Garay MA documented in this encounter [facility] 12-23-2023 History of Presen t illness Narrative [...] nursing note reviewed. Exam conducted with a lap grinder present. Vitals: Estimated body mass index is [...] Payton Mauro LPN on behalf of: Harsha oMraes DO documented in this encounter [facility] 12-16-2023 History of Presen t illness Narrative [...] nursing note reviewed. Exam conducted with a lap grinder present. Vitals: Estimated body mass index is [...] Harsha Moraes DO documented in this encounter [facility] Evaluation note Diagnosis Third trimester state, [...] HealthcareEvaluation note* Diagnosis Second trimester state, incidental 25 weeks gestation of Diabetes mellitus screening Screening for diabetes mellitus documented in this encounter [facility] Summary Purpose Family History No Family History Records FoundNo Family History Records FoundNo Family History Records FoundNo Family History Records Found Advance Directives No Advanced Directives Records FoundNo Advanced Directives Records FoundNo Advanced Directives Records FoundNo Advanced Directives Records Found Additional Source Comments INFORMATION SOURCE (unrecogn ized section and content) DATE CREATED AUTHOR 04/13/2020 [facility] DATE CREATED AUTHOR AUTHOR'S ORGANIZ ATION 12/17/2021 [facility] DATE CREATED AUTHOR AUTHOR'S ORGANIZ ATION 07/04/2022 [facility] DATE CREATED AUTHOR AUTHOR'S ORGANIZ ATION 04/08/2025 [facility] dical Specialists EPIC Reason for Visit (unrecogniz ed section and content) Reason Comments Routine Visit Care Teams (unrecognized sec tion and content) 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 Relationship Specialty Start Date End Date Mason Deleon MD [address] [phone] PCP - General 05/15/23 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 Relationship Specialty Start Date End Date Mason Deleon MD [address] [place] [address] PCP - General 05/15/23 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 Relationship 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 Start Date End Date Mason Deleon MD [address] [place] [address] PCP - General 05/15/23 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 Relationship 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 Start Date End Date Mason Deleon MD [address] [place] [address] PCP - General 05/15/23 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 Relationship 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 Start Date End Date Mason Deleon MD [address] [place] [address] PCP - General 05/15/23 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 [facility]. provides no warranty or guarantee of the accuracy or completeness of information in this document.
[2025-04-22 09:30] LABS: Basophils Percent Auto 0.3 % (0.2-2.0); Eosinophils Percent Auto 0.5 % (0.9-7.0); Hematocrit 34.6 % (36.0-48.0); Hemoglobin 11.5 g/dL (12.0-16.0); Immature Granulocytes Abs Auto 0.05 10^3/uL (0.00-0.03); Immature Granulocytes Pct Auto 0.6 % (0.0-0.5); Lymphocytes Absolute Auto 1.6 10^3/uL (1.2-3.8); Lymphocytes Percent Auto 18.5 % (20.5-60.0); Mean Corpuscular HGB Conc 33.2 g/dL (29.9-35.2); Mean Corpuscular Hemoglobin 30.1 pg (26.7-34.0); Mean Corpuscular Volume 90.6 fL (81.0-99.0); Mean Platelet Volume 10.9 fL (9.5-13.5); Monocytes Absolute Auto 0.6 10^3/uL (0.3-0.8); Monocytes Percent Auto 6.5 % (1.7-12.0); Neutrophils Absolute Auto 6.5 10^3/uL (1.4-6.5); Neutrophils Percent Auto 73.6 % (43.0-75.0); Platelet Count 211 10^3/uL (150-450); Red Blood Count 3.82 10^6/uL (4.20-5.40); Red Cell Distribution Width 13.8 % (11.0-15.0); White Blood Count 8.8 10^3/uL (4.0-11.0)
[2025-04-22 10:13] LABS: Glucose 1 Hour 103 mg/dL (<130)
== END 2025-04-22 08:02 | disposition home or self-care (01) ==
PROVIDERS: PCP Family Medicine; Visit Provider Physician Assistant
DX: Z13.1 Encounter for screening for diabetes mellitus (principal)
CPT/HCPCS: 36415; 82950; 85025

== ENCOUNTER 2025-06-19 12:31 | Outpatient (REF) | payer BC, SELFPAY ==
--- OUTSIDE RECORDS SUMMARY | 2025-06-19 09:00 | XMS_ITS | Encounter Summary ---
Author Organization [facility] Address [address] [place] [address] Care Team Providers Care Fish Hatchery Specialist Name Role Phone Victorino Deleon MD Primary Care Provider [phone] Reason for Visit * Reason Comments Routine Visit Encounter Details Date Type Department Care Team (Late st Contact Info) Description 06/19/2025 9:00 AM EDT Routine [facility] [address] [place] [phone] Franck Moraes DO [address] [place] [address] Third trimester ([facility]); 36 weeks gestation of ([facility]) Social History Tobacco Use Types Packs/Day Years Used Date Smoking Tobacco: Never Alcohol Use Standard Drinks/Week Comments Yes 0 (1 standard drink = 0.6 oz pur e alcohol) AUDIT-C Answer Date Recorded Frequency of Alcohol Consumption Not on file 08/31/2023 Average Number of Drinks Not on file 023 Q3: How often do you have si x or more drinks on one occasion? Never 08/31/2023 Estimated Date of Delivery Comme nts Yes 07/15/2025 Based on last me nstrual period of 10/08/2024 Sex and Gender Information Value Date Recorded Sex Assigned at Female 04/23/2023 10:52 AM EDT Legal Sex Female 11:22 PM EDT Gender Identity Female 04/23/2023 10:52 AM EDT Sexual Orientation Straight 04/23/2023 10 :52 AM EDT documented as of this encounter Last Filed Vital Signs Vital Sign Reading Time Taken Comments Blood Pressure 110/70 06/19/2025 9:07 AM EDT Pulse - - Temperature - - Respiratory Rate - - Oxygen Saturation - - Inhaled Oxygen Concentration - - Weight 79.9 kg (176 lb 4 oz) 06/19/2025 9:07 AM EDT Height - - Body Mass Index 30.25 05/22/2023 9:24 AM EDT documented in this encounter Plan of Treatment Upcoming Encounters Date Type Department Care Team (Late st Contact Info) Description 06/27/2025 10:00 AM EDT Routine [facility] [address] [place] [address] Fawn Panchal PA [address] [place] [address] Scheduled Orders Name Type Priority Associated Diagnoses Orde r Schedule CULTURE, GROUP B STREP WITH SUSCEPTIBLITY Lab Routine Third trimester ([facility]) Expected: 06/19/2025, Expires: 06/19/2026 documented as of this encounter Procedures Procedure Name Priority Date/Time Associated Diagnosis Comments POCT URINALYSIS DIPSTICK Routine 06/19/2025 9:15 AM EDT Third trimester ([facility]) documented in this encounter Results * (ABNORMAL) POCT urinalysis dipstick manually resulted (06/19/2025 9:15 AM EDT) Color, UA Yellow Clarity, UA Clear Glucose, UA Negative Negative - 1999(110) ++++ mg/dL Bilirubin, UA Negative Negative - 4(70) +++ mg/dL Ketones, UA Negative Negative - 160(16) ++++ mg/dL Spec Grav, UA 1.015 1 - 1.03 Blood, UA Positive Negative - 50 Gulshan/mcL Comment:Trace pH, UA 6.0 5 - 9 Protein, UA Negative Negative - 1999(20) ++++ mg/dL Urobilinogen, UA 0.2 0.2 - 12 mg/dL Leukocytes, UA Negative Negative - 500+++ Stfean/mcL Nitrite, UA Negative Negative - Positive Urine 06/19/2025 9:15 AM EDT Franck Moraes DO POINT OF CARE TEST ENTER/EDIT OR DERABLES Final Result documented in this encounter Visit Diagnoses Diagnosis Third trimester ([facility]) state, incidental 36 weeks gestation of ([facility]) documented in this encounter Care Teams Fish Hatchery Specialist Relationship Specialty Start Date End Date Victorino Deleon MD [address] [place] [address] PCP - General 05/15/23 documented as of this encounter
--- OUTSIDE RECORDS SUMMARY | 2025-06-19 12:33 | XMS_ITS | Clinical Summary ---
Author Organization [facility] Address [address] [place] [address] Care Team Providers Care Ceramic Painter Name Role Phone Victorino Deleon MD Primary Care Provider [phone] Allergies No known active allergies Medications magnesium oxide (Mag-Ox) 200 mg split tablet 05/09/2025 Active Active Problems Problem Noted Date Diagnosed Date Third trimester ([facility]) 11/19/2023 Estimated Date of Delivery Comme nts Yes 07/15/2025 Based on last me nstrual period of 10/08/2024 Encounters Date Type Department Care Team Description 06/19/2025 9:00 AM EDT Routine [facility] [place] [facility] [place] [address] Harsha Morase DO Third trimester ([facility]); 36 weeks gestation of ([facility]) 06/19/2025 Bamboo flowsheet [facility] [address] [place], [place] [address] [address] Harsha Moraes DO 06/14/2025 Travel 06/08/2025 9:50 [place] [address] Fawn Panchal PA Third trimester ([facility]); 34 weeks gestation of ([facility]) 06/08/2025 [place]amboo [place] [address] Fawn Panchal PA 05/25/2025 9:40 AM EDT Routine [facility]NAIRN [facility] [address] Harsha Moraes, DO Third trimester ([facility]); 32 weeks gestation of ([facility]) 05/25/2025 9:00 AM EDT Ancillary Procedure [facility] [address] [place] [address] [place] [address] Size of fetus inconsistent with dates in third trimester ([facility]) 05/22/2025 Travel 05/10/2025 9:50 AM EDT Routine [facility] [address] [place] [address] [place] [address] Fawn Panchal PA Size of fetus inconsistent with dates in third trimester ([facility]) (Primary Dx); Third trimester ([facility]); 30 weeks gestation of ([facility]) 05/10/2025 Bamboo flowsheet [facility] [address] [place] [address] [place] [address] Fawn Panchal PA 05/07/2025 Travel 04/26/2025 1:50 PM EDT Routine [facility] Barbosa [facility] [address] Harsha Moraes DO Third trimester ([facility]); 28 weeks gestation of ([facility]) 04/26/2025 Bamboo flowsheet [facility] [address] [place] [address] [place] [address] Harsha Moraes DO 04/25/2025 Travel 04/22/2025 Clinisync Result Encounter NOMS External Department Unsolicited Fawn Panchal PA 04/05/2025 8:30 AM EDT Routine [facility] [address] [place] [address] [place] [phone] Fawn Panchal PA Second trimester ([facility]); 25 weeks gestation of ([facility]); Diabetes mellitus screening 04/05/2025 Bamboo flowsheet [facility] [address] [facility] [address] Fawn Panchal PA 03/30/2025 Travel 03/25/2025 Clinisync Result Encounter NOMS External Department Unsolicited Harsha Moraes DO from Last 3 Months Family History Relation Name Status Comments Father Alive Mother Alive Social History Tobacco Use Types Packs/Day Years Used Date Smoking Tobacco: Never Tobacco Cessation:Counseling Given: Not Answered Alcohol Use Standard Drinks/Week Comments Yes 0 [...] Orientation Straight 04/23/2023 10 :52 AM EDT Last Filed Vital Signs Vital Sign Reading Time Taken Comments Blood Pressure 110/70 06/19/2025 9:07 AM EDT Pulse - - Temperature - - Respiratory Rate - - Oxygen Saturation - - Inhaled Oxygen Concentration - - Weight 79.9 kg (176 lb 4 oz) 06/19/2025 9:07 AM EDT Height 162.6 cm (5' 4 ) 05/22/2023 9:24 AM EDT Body Mass Index 30.25 05/22/2023 9:24 AM EDT Plan of Treatment Upcoming Encounters Date Type Department Care Team (Late st Contact Info) Description 06/27/2025 10:00 AM EDT Routine [facility] [address] [place] [address] Fawn Panchal PA [address] [place] [address] [address] [place], [id number] Procedures Procedure Name Priority Date/Time Associated Diagnosis Comments POCT URINALYSIS DIPSTICK Routine 06/19/2025 9:15 AM EDT Third trimester ([facility]) POCT URINALYSIS DIPSTICK Routine 06/08/2025 10:01 AM EDT Third trimester ([facility]) US OB FOLLOW UP TRANSABDOMINAL APPROACH Routine 05/25/2025 9:34 AM EDT Size of fetus inconsistent with dates in third trimester ([facility]) POCT URINALYSIS DIPSTICK Routine 05/10/2025 10:14 AM EDT Third trimester ([facility]) 30 weeks gestation of ([facility]) POCT URINALYSIS DIPSTICK Routine 04/26/2025 2:04 PM EDT Third trimester ([facility]) GLUCOSE 1 HOUR Routine 04/22/2025 9:15 AM EDT ALL CBC WITH AUTO DIFF Routine 9:15 AM EDT POCT URINALYSIS DIPSTICK Routine 04/05/2025 8:39 AM EDT Second trimester ([facility]) US OB INCOMPLETE ANATOMY 03/25/2025 10:57 AM EDT AFP, SERUM, OPEN SPINA BIFIDA Routine 03/25/2025 9:52 AM EDT from Last 3 Months Results * (ABNORMAL) POCT urinalysis dipstick manually resulted (06/19/2025 9:15 AM EDT) Only the most recent of5 resultswithin the time period is included. Color, UA Yellow Clarity, UA Clear Glucose, [...] mg/dL Leukocytes, UA Negative Negative - 500+++ Stefan/mcL Nitrite, UA Negative Negative - Positive Urine 06/19/2025 9:15 AM EDT [facility] POINT OF CARE TEST ENTER/EDIT OR DERABLES Final Result * US OB follow up transabdominal approach (05/25/2025 9:34 AM EDT) Anatomical Region Laterality Modality Body Ultrasound 05/25/2025 10:0 2 AM EDT Impressions 05/25/2025 10:16 AM EDT 1. Single, live intrauterine , current sonographic age of 34 weeks and 1 day, with an estimated date of delivery of July 05, 2025. 2. Current estimated weight 2211 grams (4 pounds, 14 ounces) * Estimated Weight (g) by Percentile is based upon an accurate estimated age based on last menstrual period. TRANSCRIBED BY: ELECTRONICALLY SIGNED BY: Martín Ledezma MD Narrative 05/25/2025 10:16 AM EDT FINDINGS: A single, live intrauterine is present with normal cardiac rate of 157 beats per minute. Normal activity and amniotic fluid volume. Morphology is grossly normal. The cervix is not visualized due to cephalic presentation. The current sonographic age is 34 weeks and 1 day, based on the following measurements: BPD 8.8 cm (35 weeks, 5 days) Head Circumference 31.2 cm (35 weeks, 0 days) Abdominal Circumference 29.4 cm (33 weeks, 3 days) Femur Length 6.3 cm (32 weeks, 4 days) Presentation Cephalic Weight (g) by Percentile 65.9 % * These measurements result in an estimated date of delivery of July 05, 2025 The current estimated weight is 2211 grams +/- 331g (4 pounds, 14 ounces). Procedure Note Martín Ledezma MD - 05/25/2025 FINDINGS: A single, live intrauterine is present with normal cardiacrate of 157 beats per minute. Normal activity and amniotic fluidvolume. Morphology is grossly normal. The cervix is not visualized due tocephalic presentation. The current sonographic age is 34 weeks and 1 day,based on the following measurements: BPD 8.8 cm (35 weeks, 5 days) Head Circumference 31.2 cm (35 weeks, 0 days) Abdominal Circumference 29.4 cm (33 weeks, 3 days) Femur Length 6.3 cm (32 weeks, 4 days) Presentation Cephalic Weight (g) by Percentile 65.9 % * These measurements result in an estimated date of delivery of June The current estimated weight is 2211 grams +/- 331g (4pounds, 14 ounces). IMPRESSION: 1. Single, live intrauterine , current sonographic age of 34weeks and 1 day, with an estimated date of delivery of July 05, 2025. 2. Current estimated weight 2211 grams (4 pounds, 14 ounces) * Estimated Weight (g) by Percentile is based upon an accurateestimated age based on last menstrual period. TRANSCRIBED BY: ELECTRONICALLY SIGNED BY: Martín Ledezma MD us Fawn [facility] IMG OB US PROCEDURES Final Resul t * GLUCOSE 1 HOUR (04/22/2025 9:15 AM EDT) GLUCOSE 1 HOUR 103 <130 mg/dL [facility] 04/22/2025 9:15 AM EDT 04/22/2025 9:15 AM EDT Narrative [facility] - 04/22/2025 10:22 AM EDT us Fawn [facility] LAB BLOOD ORDERABLES Final Resul t [facility] * (ABNORMAL) ALL CBC WITH AUTO DIFF (04/22/2025 9:15 AM EDT) [facility] TB WBC 8.8 4.0 - 11.0 10 3/uL TBH TBH RBC 3.82(L) 4.20 - 5.40 10 6/uL TBH TBH HGB 11.5(L) 12.0 - 16.0 g/dL TBH TBH HCT 34.6(L) 36.0 - 48.0 % TBH TBH MCV 90.6 81.0 - 99.0 fL TBH TBH MCH 30.1 26.7 - 34.0 pg TBH TBH MCHC 33.2 29.9 - 35.2 g/dL TBH TBH RDW 13.8 11.0 - 15.0 % TBH TBH PLT 211 150 - 450 10 3/uL TBH TBH MPV 10.9 9.5 - 13.5 fL TBH NEUTROPHILS PERCENT AUTO 73.6 43.0 - 75.0 % TBH LYMPHOCYTES PERCENT AUTO 18.5(L) 20.5 - 60.0 % TBH MONOCYTES PERCENT AUTO 6.5 1.7 - 12.0 % TBH TBH EO % 0.5(L) 0.9 - 7.0 % TBH BASOPHILS PERCENT AUTO 0.3 0.2 - 2.0 % TBH IMMATURE GRANULOCYTES PCT AUTO 0.6(H) 0.0 - 0.5 % TBH NEUTROPHILS ABSOLUTE AUTO 6.5 1.4 - 6.5 10 3/uL TBH LYMPHOCYTES ABSOLUTE AUTO 1.6 1.2 - 3.8 10 3/uL TBH MONOCYTES ABSOLUTE AUTO 0.6 0.3 - 0.8 10 3/uL TBH TBH EO # 0.0 0.0 - 0.7 10 3/uL TBH BASOPHILS ABSOLUTE AUTO 0.0 0.0 - 0.1 10 3/uL TBH IMMATURE GRANULOCYTES ABS AUTO 0.05(H) 0.00 - 0.03 10 3/uL [facility] 04/22/2025 9:15 AM EDT 04/22/2025 9:15 AM EDT Narrative [facility] - 04/22/2025 9:37 AM EDT us Fawn GOODMAN Final Result [facility] TB * OB INCOMPLETE ANATOMY (03/25/2025 10:57 AM EDT) Anatomical Region Laterality Modality Other 03/25/2025 10:5 7 AM EDT Narrative 03/25/2025 11:00 [place] [address] Ultrasound Report Signed Patient: SURJIT AVINA MR#: [id number] : 1995 Acct:[id number] Age/Sex: 29 / F ADM Date: 03/25/25 Loc: US Attending Dr: Harsha Moraes D.O. Ordering Physician: Harsha Moraes D.O. Date of Service: 03/25/25 Procedure(s): US OB incomplete anatomy Accession Number(s): [id number] cc: Harsha Moraes D.O.; Victorino Deleon M.D. [place] [address] Patient Name: SURJIT AVINA MRN: [id number] date: 1995 Sex: F Assigned Patient Location: Current Patient Location: Accession/Order Number: [id number] Exam Date: 03/25/2025 10:55 Report Date: 03/25/2025 [...] Garsia M.D. 03/25/2025 10:57 AM Dictation Location: [place] [address] Electronically authenticated by: [id number] Y Date: 03/25/2025 10:57 Dictated By: Rick Garsia D.O. Signed By: 03/25/251099 DD/ 56 TD/TT: Infection Prevention Coordinator: Procedure Note Radiology, Radiologist, - 03/25/2025 [place] [address] Ultrasound Report Signed Patient: SURJIT AVINA JMR#: [id number] : 1995Acct:[id number] Age/Sex: 29 / FADM Date: 03/25/25 Loc: US Attending Dr: Harsha Moraes D.O. Ordering Physician: Harsha Moraes D.O. Date of Service: 03/25/25 Procedure(s): US OB incomplete anatomy Accession Number(s): [id number] cc: Harsha Moraes D.O.; Victorino Deleon M.D. [address] [place] [address] Patient Name: SURJIT AVINA MRN: [id number] date: 1995 Sex: F Assigned Patient Location: US Current Patient Location: US Accession/Order Number: [id number] Exam Date: 03/25/2025 10:55 Report Date: 03/25/2025 10:57 At the request of: HARSHA MORAES DO Procedure: US OB incomplete anatomy Limited obstetrical ultrasound HISTORY: Follow-up assessment for left ventricular outflow track and right ventricular outflow track Fetus in cephalic presentation with longitudinal lie. The amniotic fluidis subjectively normal. The heart rate is 150 bpm. Left ventricular outflow track and right ventricular outflow track and 4 chambered heart unremarkable. US/US OB incomplete anatomy IMPRESSION: Unremarkable left ventricular outflow track and rightventricular outflow track and 4 chambered heart. Impression dictated by: Rick Garsia M.D. 03/25/2025 10:57 AM [facility]ictation [facility] Electronically authenticated by: [id number] Y Date: 0:57 Dictated By: Rick Garsia D.O. Signed By:03/25/251099 DD/ 1057 TD/TT: Infection Prevention Coordinator: Harsha Torrezzio DO [facility] IMAGING Final Result * AFP, SERUM, OPEN SPINA BIFIDA (03/25/2025 9:52 AM EDT) RESULTS Report . [facility] TEST RESULTS: *Screen Negative* . [facility] GEST. AGE ON COLLECTION DATE 22.6 . weeks [facility] GESTAT. AGE BASED ON LMP . [facility] Comment: Recalculations are not recommended when gestational dating by LMP and ultrasound are within 10 days. [age] [facility] RACE . [facility] WEIGHT 146 . lbs [facility] INSULIN DEP DIABETES No . [facility] MULTIPLE GESTATION No . H AFP VALUE 106.4 . ng/mL [facility] AFP MOM 1.31 . [facility] OSBR RISK 1 IN 4664 . [facility] INTERPRETATION Comment . [facility] Comment: Interpretation: Screen Negative This result is screen negative for OSB. The AFP MoM calculated is based on the gestational age provided. MS-AFP can identify up to 80% of open neural tube defects. Closed neural tube defects and some open defects may not be detected by this test. This test does not screen for Down Syndrome or Trisomy 18. If screening for Down Syndrome or Trisomy 18 is desired, contact [facility] to discuss available options. The [employer] recommends amniocentesis be offered to women age 35 and older. COMMENT: Comment . [facility] Comment: Mirlande Crum, Ph.D., [facility] Director References: Available Upon Request. Multiples Of Median Cutoffs For AFP Elevations Smyth 2.5 Black 2.8 IDD 2.0 Twins 4.5 Abbreviation Definitions IDD - Insulin Dep Diabetes OSBR - Open Spina Bifida Risk For further inquiries contact [facility] at [phone]. This test was developed and its performance characteristics determined by [employer]. It has not been cleared or approved by the Food and Drug Administration. Performed at: [facility] [address], [place] [id number] Learning Services Coordinator: Maged Wylie [facility], Phone: [phone] 03/25/2025 9:52 AM EDT 03/25/2025 10:11 AM EDT Narrative [facility] - 03/29/2025 12:12 AM EDT N N LMP [id number] N 1 Y 146 N N N N N White/ Fawn [facility] LAB BLOOD ORDERABLES Final Resul t MAXINE [facility] from Last 3 Months Insurance BCBS Care Teams Ceramic Painter Relationship Specialty Start Date End Date Victorino Deleon MD [address] [place] [phone] PCP - General 05/15/23
--- OUTSIDE RECORDS SUMMARY | 2025-06-19 12:33 | XMS_ITS | Encounter Summary ---
Author Organization [facility] Address [address] [place] [address] Care Team Providers Care Venture Capitalist Name Role Phone Victorino Deleon MD Primary Care Provider [phone] Encounter Details Date Type Department Care Team (Latest Contact Info) Description 06/14/2025 Travel Social History Tobacco Use Types Packs/Day Years [...] AM EDT documented as of this encounter Plan of Treatment Upcoming Encounters Date Type Department Care Team (Late st Contact Info) Description 06/27/2025 10:00 AM EDT Routine [facility] [address] [place] [phone] Fawn Panchal PA [address] [place] [address] documented as of this encounter Visit Diagnoses Not on filedocumented in this encounter Care Teams Venture Capitalist Relationship Specialty Start Date End Date Victorino Deleon MD [address] [place] [phone] PCP - General 05/15/23 documented as of this encounter
--- OUTSIDE RECORDS SUMMARY | 2025-06-19 12:33 | XMS_ITS | Encounter Summary ---
Author Organization [facility] Address [address] [place] [address] Care Team Providers Care Computer Instructor Name Role Phone Victorino Deleon MD Primary Care Provider [phone] Encounter Details Date Type Department Care Team (Late Contact Info) Description 11/30/2024 Abstract [facility] [address] [place] [phone] Franck Moraes DO [address] [facility] [address] [place] [address] Social History Tobacco Use Types Packs/Day Years [...] more drinks on one occasion? Never 08/31/2023 Comments No Sex and Gender Information Value Date Recorded Sex Assigned at Female 04/23/2023 10:52 AM EDT Legal Sex Female 11:22 PM EDT Gender Identity Female 04/23/2023 10:52 AM EDT Sexual Orientation Straight 04/23/2023 10 :52 AM EDT documented as of this encounter Plan of Treatment Upcoming Encounters Date Type Department Care Team (Late Contact Info) Description 06/27/2025 10:00 AM EDT Routine [facility] [address] [place] [phone] Fawn Panchal PA [address] [place] [address] [place] [address] documented as of this encounter Visit Diagnoses Not on filedocumented in this encounter Care Teams Computer Instructor Relationship Specialty Start Date End Date Victorino Deleon MD [address] [facility] [place] [address] PCP - General 05/15/23 documented as of this encounter
--- OUTSIDE RECORDS SUMMARY | 2025-06-19 12:33 | XMS_ITS | Clinical Summary ---
Author Organization [facility] Address [address], [address] [place] [address] Care Team Providers Care Carton Filling Machine Operator Name Role Phone Victorino Deleon MD Primary Care Provider [phone] Allergies No known active allergies Medications No known medications Active Problems No known active problems Family History Medical History Relation Name Comments No Known Problems Father No Known Problems Mother Relation Name Status Comments Father Alive Mother Alive Social History Tobacco Use Types Packs/Day Years Used Date Smoking Tobacco: Never Smokeless Tobacco: Never Alcohol Use Standard Drinks/Week Comments Yes 0 (1 standard drink = 0.6 oz pur e alcohol) social PHQ-2 Answer Date Recorded PHQ-9 Total Score 0 12/04/2021 Comments No Sex and Gender Information Value Date Recorded Sex Assigned at Not on file Legal Sex Female 11:12 AM EDT Gender Identity Not on file Sexual Orientation Not on file Last Filed Vital Signs Vital Sign Reading Time Taken Comments Blood Pressure 126/74 12/10/2022 10:13 AM EST Pulse - - Temperature - - Respiratory Rate - - Oxygen Saturation - - Inhaled Oxygen Concentration - - Weight 65.3 kg (144 lb) 12/10/2022 10:13 AM EST Height 162.6 cm (5' 4 ) 12/10/2022 10:13 AM EST Body Mass Index 24.72 12/10/2022 10:13 AM EST Plan of Treatment Health Maintenance Due Date Last Done Comments Depression Screen 2007 Varicella vaccine (1 of 2 - 13+ 2-dose series) 2008 HIV screen 2010 Hepatitis C screen 2013 DTaP/Tdap/Td vaccine (1 - Tdap) 2014 Hepatitis B vaccine (1 of 3 - 19+ 3-dose series) 2014 COVID-19 Vaccine (2023-2 5 season) 2024 Pap smear 12/04/2024 12/04/2021 Flu vaccine (#1) 2025 12/08/2021 Cervical cancer screen 12/04/2026 HPV (without or with Pap) 12/04/2026 12/04/2021 HPV vaccine (No Doses Required) Completed Hepatitis A vaccine Aged Out No longe r eligible based on patient's age to complete this topic Hib vaccine Aged Out No longer eligi ble based on patient's age to complete this topic Meningococcal (ACWY) vaccine Aged Out No longer eligible based on patient's age to complete this topic Meningococcal B vaccine Aged Out No l onger eligible based on patient's age to complete this topic Pneumococcal 0-49 years Vaccine Aged Out No longer eligible based on patient's age to complete this topic Polio vaccine Aged Out No longer elig ible based on patient's age to complete this topic Procedures Procedure Name Priority Date/Time Associated Diagnosis Comments HUMAN PAPILLOMAVIRUS (HPV) DNA PROBE THIN PREP HIGH RISK Routine 12/04/2021 8:36 AM EST CORE EXTRUDER CYTOLOGY Routine 12/04/2021 8:36 AM EST from Last 3 Months or Most Recently Relevant to Health Maintenance Results * Human papillomavirus (HPV) DNA probe thin prep high risk (12/04/2021 8:36 AM EST) Specimen Description .GENITAL - NOT SPECIFIED 12/04/2021 8:36 AM Perficient HPV Sample .THIN PREP 12/04/2021 8:36 AM Perficient HPV, Genotype 16 Not Detected Not Detected 12/04/2021 8:36 AM Perficient HPV, Genotype 18 Not Detected Not Detected 12/04/2021 8:36 AM Perficient HPV, High Risk Other Not Detected Not Detected 12/04/2021 8:36 AM Perficient HPV, Interpretation 12/04/2021 8:36 AM Perficient Comment: This test amplifies and detects DNA [...] sexual abuse or for other forensic purposes. SPECIMEN FROM GENITAL SYSTEM / Unknown 12/04/2021 8:36 AM EST us Mansi Winchester PA-C HEMATOLOGY ORDERABLES nal Result [facility] [address] [place] [address], [facility] [phone] [place] [id number], [facility] [phone] * CORE EXTRUDER Cytology (12/04/2021 8:36 AM EST) Cytology Report INTERPRETATION Cervical material, (ThinPrep vial, Imaging-assisted review): Specimen Adequacy: Satisfactory for evaluation. -Endocervical/tra nsformation zone component is absent. Descriptive Diagnosis: Negative for intraepithelial lesion or malignancy. Retail Equipment Associate: RONY Ugalde(ASCP) Electronically Signed Out /12/17/2021 Procedure/Addendum [...] review) Clinical History Intrauterine device Z01.419 Routine application spec exam without abnormal findings Co-Test: ThinPrep Pap with high risk HPV testing GYNECOLOGIC CYTOLOGY REPORT Patient Name: SURJIT AVINA. Med Rec: [id number] Path Number: [id number] [facility] [place] ANATOMIC PATHOLOGY [address] [place], [place] [phone] [facility] CERVICAL MATERIAL 12/04/2021 8:36 AM EST 12/05/2021 8:36 AM EST Mansi Winchester PA-C PATHOLOGY/CYTOLOGY ORDER BIRDIE Final Result [facility] [address] [place] [address], [facility] [phone] [phone] from Last 3 Months or Most Recently Relevant to Health Maintenance Insurance BC[employer] Care Teams Carton Filling Machine Operator Relationship Specialty Start Date End Date Victorino Deleon MD [address] [place] [address] PCP - General Family Medicine 12/04/21
--- OUTSIDE RECORDS SUMMARY | 2025-06-19 12:33 | XMS_ITS | Encounter Summary ---
Author Organization [facility] Address [address] [place] [address] Care Team Providers Care Distance Learning Coordinator Name Role Phone Victorino Deleon MD Primary Care Provider [phone] Encounter Details Date Type Department Care Team (Late Contact Info) Description 07/16/2023 Abstract [facility] [address] [facility] [facility] [place] [address] Fawn Panchal PA [address] [place], [facility] Social History Tobacco Use Types Packs/Day Years Used Date Smoking Tobacco: Never Alcohol Use Standard Drinks/Week Comments Yes 0 (1 standard drink = 0.6 oz pur e alcohol) Comments Yes Sex and Gender Information Value Date Recorded Sex Assigned at Female 04/23/2023 10:52 AM EDT Legal Sex Female 11:22 PM EDT Gender Identity Female 04/23/2023 10:52 AM EDT Sexual Orientation Straight 04/23/2023 10 :52 AM EDT COVID-19 Exposure Response Date Recorded In the last 10 days, have yo u been in contact with someone who was confirmed or suspected to have Coronavirus/COVID-19? No / Unsure 07/13/2023 11:46 AM EDT documented as of this encounter Plan of Treatment Upcoming Encounters Date Type Department Care Team (Late st Contact Info) Description 06/27/2025 10:00 AM EDT Routine [facility] [address] [place] [address] [place] [phone] Fawn Panchal PA [address] [place] [address] [place] [address] documented as of this encounter Visit Diagnoses Not on filedocumented in this encounter Care Teams Distance Learning Coordinator Relationship Specialty Start Date End Date Victorino Deleon MD [address] [place] [address] PCP - General 05/15/23 documented as of this encounter
--- OUTSIDE RECORDS SUMMARY | 2025-06-19 12:33 | XMS_ITS | Encounter Summary ---
Author Organization [facility] Address [address] [place] [address] Care Team Providers Care Waist Pleater Name Role Phone Victorino Deleon MD Primary Care Provider [phone] Encounter Details Date Type Department Care Team (Late st Contact Info) Description 11/04/2023 Clinisync Result Encounter [facility] External Department Unsolicited Harsha Moraes, DO [address] [place] [address] Social History Tobacco Use Types Packs/Day Years [...] drinks on one occasion? Never 08/31/2023 Comments Yes Sex and Gender Information Value [...] suspected to have Coronavirus/COVID-19? No / Unsure 10/12/2023 10:45 AM EST documented as of this encounter Plan of Treatment Upcoming Encounters Date Type Department Care Team (Late st Contact Info) Description 06/27/2025 10:00 AM EDT Routine [facility] [address] [place] [address] Fawn Panchal PA [address] [place], [facility]11 documented as of this encounter Procedures Procedure Name Priority Date/Time Associated Diagnosis Comments US OB GROWTH 11/04/2023 9:42 PM EST documented in this encounter Results * US OB GROWTH (11/04/2023 9:42 PM EST) Anatomical Region Laterality Modality Other 11/04/2023 9:42 PM EST Narrative 11/04/2023 9:44 PM EST The [address] [address] Ultrasound Report Signed Patient: SURJIT AVINA MR#: [id number] : 1995 Acct:[id number] Age/Sex: 28 / F ADM Date: 11/04/23 Loc: US Attending Dr: Harsha Moraes D.O. Ordering Physician: Harsha Moraes D.O. Date of Service: 11/04/23 Procedure(s): US OB growth Accession Number(s): [id number] cc: Harsha Moraes D.O.; Victorino Deleon M.D. The [address] [address] Patient Name: SURJIT AVINA MRN: [id number] date: 1995 Sex: F Assigned Patient Location: US Current Patient Location: US Accession/Order Number: [id number] Exam Date: 11/04/2023 10:18 Report Date: 11/04/2023 21:42 At the request of: HARSHA MORAES Procedure: US OB growth EXAMINATION: US OB growth HISTORY: SIZE INCONSISTENT WITH DATES O26.849 COMPARISON: Ultrasound OB anatomy 08/08/2023 FINDINGS: Heart Rate: 142.0 bpm Number: 1.0 Position: CEPHALIC Amniotic Fluid Volume: 12.8 cm Maximum Vertical Pocket: 6.3 cm BIOMETRY: BPD: 8.8 cm cm; 35 weeks 3 days; 95% HC: 32.1 cmcm; 36 weeks 1 days ; 93% AC: 27.7 cm cm; 31 weeks 5 days 23% FL: 6.2 cm cm; 32 weeks 2 days; 27% EFW: 2023.7 grams; 38% FL/AC: 22.5 FL/BPD: 71.1 HC/AC: 1.2 GESTATIONAL AGE: Age by EDC: 32 weeks 5 days ADRIANA by EDC: 12/25/2023 Age by US: 33 weeks 6 days ADRIANA by US: 12/17/2023 US/US OB growth IMPRESSION: 1. Single live intrauterine with growth detailed above. 2. Limited head measurements due to position. Electronically authenticated by: JIMMIE HERNANDEZ Date: 11/04/2023 21:42 Dictated By: Jimmie Hernandez M.D. Signed By: 11/04/232143 DD/ 41 TD/TT: Account Service Associate: Procedure Note Radiology, Radiologist, MD - 11/04/2023 [place] [address] Ultrasound Report Signed Patient: SURJIT AVINA JMR#: [id number] : 1995Acct:[id number] Age/Sex: 28 / FADM Date: 11/04/23 Loc: US Attending Dr: Harsha Moraes D.O. Ordering Physician: Harsha Moraes D.O. Date of Service: 11/04/23 Procedure(s): US OB growth Accession Number(s): [id number] cc: Harsha Moraes D.O.; Victorino Deleon M.D. The [place] [id number] Patient Name: SURJIT AVINA MRN: [id number] date: 1995 Sex: F Assigned Patient Location: US Current Patient Location: US Accession/Order Number: [id number] Exam Date: 11/04/2023 10:18 Report Date: 11/04/2023 21:42 At the request of: HARSHA MORAES Procedure: US OB growth EXAMINATION: US OB growth HISTORY: SIZE INCONSISTENT WITH DATES O26.849 COMPARISON: Ultrasound OB anatomy 08/08/2023 FINDINGS: Heart Rate: 142.0 bpm Number: 1.0 Position: CEPHALIC Amniotic Fluid Volume: 12.8 cm Maximum Vertical Pocket: 6.3 cm BIOMETRY: BPD: 8.8 cm cm; 35 weeks 3 days; 95% HC: 32.1 cmcm; 36 weeks 1 days ; 93% AC: 27.7 cm cm; 31 weeks 5 days 23% FL: 6.2 cm cm; 32 weeks 2 days; 27% EFW: 2023.7 grams; 38% FL/AC: 22.5 FL/BPD: 71.1 HC/AC: 1.2 GESTATIONAL AGE: Age by EDC: 32 weeks 5 days ADRIANA by EDC: 12/25/2023 Age by US: 33 weeks 6 days ADRIANA by US: 12/17/2023 US/US OB growth IMPRESSION: 1. Single live intrauterine with growth detailed above. 2. Limited head measurements due to position. Electronically authenticated by: JIMMIE HERNANDEZ Date: 11/04/2023 21:42 Dictated By: Jimmie Hernandez M.D. Signed By:11/04/232143 DD/ 41 TD/TT: Account Service Associate: us Harsha Moraes DO [facility] Final Result documented in this encounter Visit Diagnoses Not on filedocumented in this encounter Care Teams Waist Pleater Relationship Specialty Start Date End Date Victorino Deleon MD [address] [place] [address] PCP - General 05/15/23 documented as of this encounter
--- OUTSIDE RECORDS SUMMARY | 2025-06-19 12:33 | XMS_ITS | Encounter Summary ---
Author Organization [facility] Address [address] [place] [address] Care Team Providers Care Worm Grower Name Role Phone Victorino Deleon MD Primary Care Provider [phone] Encounter Details Date Type Department Care Team (Late st Contact Info) Description 12/19/2024 Abstract [facility] [address] [place] [phone] Franck Moraes DO [address] [facility] [place] [address] Social History Tobacco Use Types Packs/Day Years [...] AM EDT Routine [facility] [address] [place] [address] Fawn Panchal PA [address] [facility] [facility] [place] [address] documented as of this encounter Visit Diagnoses Not on filedocumented in this encounter Care Teams Worm Grower Relationship Specialty Start Date End Date Victorino Deleon MD [address] [facility] [place] [address] PCP - General 05/15/23 documented as of this encounter
--- OUTSIDE RECORDS SUMMARY | 2025-06-19 12:33 | XMS_ITS | Encounter Summary ---
Author Organization [facility] Address [address] [place] [address] Care Team Providers Care Emergency Preparedness Coordinator Name Role Phone Victorino Deleon MD Primary Care Provider [phone] Encounter Details Date Type Department Care Team (Late st Contact Info) Description 03/01/2025 Results Follow-Up [facility] [address] [place] [address] Priya Ahuja LPN [address] [place] [phone] Social History Tobacco Use Types Packs/Day Years [...] AM EDT documented as of this encounter Miscellaneous Notes * Result Encounter Note - Priya Ahuja LPN - 03/01/2025 2:34 PM EDT Pt notified, new order sent to [facility], and results added to fs documented in this encounter Plan of Treatment Upcoming Encounters Date Type Department Care Team (Late st Contact Info) Description 06/27/2025 10:00 AM EDT Routine [facility] [address] [facility] [place] [address] Fawn Panchal PA [address] [facility] [address] [place], [place] [phone] documented as of this encounter Visit Diagnoses Not on filedocumented in this encounter Care Teams Emergency Preparedness Coordinator Relationship Specialty Start Date End Date Victorino Deleon MD [address] [facility] [place] [address] PCP - General 05/15/23 documented as of this encounter
--- OUTSIDE RECORDS SUMMARY | 2025-06-19 12:33 | XMS_ITS | Encounter Summary ---
Author Organization [facility] Address [address] [place] [address] Care Team Providers Care Green End Worker Name Role Phone Victorino Deleon MD Primary Care Provider [phone] Encounter Details Date Type Department Care Team (Late st Contact Info) Description 08/10/2023 Clinisync Result Encounter [facility] External Department Unsolicited Fawn Perdomo PA [address] [place] [address] Social History Tobacco Use Types Packs/Day Years [...] suspected to have Coronavirus/COVID-19? No / Unsure 08/10/2023 8:48 AM EDT documented as of this encounter Plan of Treatment Upcoming Encounters Date Type Department Care Team (Late st Contact Info) Description 06/27/2025 10:00 AM EDT Routine [facility] [address] [facility] [place] [phone] Fawn Perdomo PA [address] [place] [address] documented as of this encounter Procedures Procedure Name Priority Date/Time Associated Diagnosis Comments US OB ANATOMY 08/10/2023 8:59 AM EDT documented in this encounter Results * US OB ANATOMY (08/10/2023 8:59 AM EDT) Anatomical Region Laterality Modality Other 08/10/2023 8:59 AM EDT Narrative 08/10/2023 8:59 AM EDT [address] [address] Ultrasound Report Signed Patient: SURJIT AVINA MR#: [id number] : 1995 Acct:[id number] Age/Sex: 28 / F ADM Date: 08/08/23 Loc: US Attending Dr: Fawn Perdomo Ordering Physician: Fawn Perdomo Date of Service: 08/08/23 Procedure(s): US OB anatomy Accession Number(s): [id number] cc: Fawn Perdomo; Victorino Deleon M.D. [address] [address] Patient Name: SURJIT AVINA MRN: [id number] date: 1995 Sex: F Assigned Patient Location: Current Patient Location: Accession/Order Number: [id number] Exam Date: 08/08/2023 09:05 Report Date: 08/10/2023 08:59 At the request of: FAWN PERDOMO Procedure: US OB anatomy EXAMINATION: US OB anatomy, US OB cervical length HISTORY: ENCOUNTER FOR ANATOMIC SURVEY Z36. 89 COMPARISON: No relevant comparison available. TECHNIQUE: Transabdominal sonographic examination was performed for obstetrical and evaluation. FINDINGS: Number: 1 Heart Rate: 149.2 bpm H.B. /min Amniotic Fluid Volume: Subjectively normal position: Cephalic presentation, variable lie Placental Location: ANTERIOR, grade 0. Placental edge is 7.0 cm from the internal os Cervix Length: 4.5 cm , closed Normal anatomy: Lateral ventricles, cerebellum, posterior fossa, nose, lips, orbits, four-chamber heart, RVOT, LVOT, diaphragm, stomach, kidneys, abdominal cord insertion, bladder, umbilical arteries, three-vessel cord, spine, extremities BIOMETRY: BPD: 4.8 cm 20 weeks 4 days , 69% HC: 18.3 cm 20 weeks 5 days, 68% AC: 15.2 cm 20 weeks 3 days, 52% FL: 3.1 cm 19 weeks 4 days, 23% EFW:331.7 grams; , 12 ounces, 42% FL/AC: 20.4 FL/BPD: 64.0 HC/AC: 1.2 GESTATIONAL AGE: Age by EDC: 20 weeks 1 days ADRIANA by EDC: 12/25/2023 Age by current US: 20 weeks 2 days ADRIANA by current US: 12/24/2023 US/US OB anatomy IMPRESSION: Normal anatomy scan Closed cervix measuring 4.5 cm in length *Reference: [employer] Practice Guideline for the performance of Obstetric Ultrasound Examinations, August 09, 2007. Electronically authenticated by: CARLOS MULLIGAN Date: 08/10/2023 08:59 Dictated By: Carlos Mulligan M.D. Signed By: 08/10/23901 DD/ 0859 TD/TT: Slide Fasteners Inspector: Procedure Note Radiology, Radiologist, MD - 08/10/2023 [place] [address] Ultrasound Report Signed Patient: SURJIT AVINA R#: [id number] : 1995Acct:[id number] Age/Sex: 28 FADM Date: 08/08/23 Loc: US Attending Dr: Fawn Perdomo Ordering Physician: Fawn Perdomo Date of Service: 08/08/23 Procedure(s): US OB anatomy Accession Number(s): [id number] cc: Fawn Perdomo; Victorino Deleon M.D. The [place] [id number] Patient Name: SURJIT AVINA MRN: [id number] date: 1995 Sex: F Assigned Patient Location: US Current Patient Location: Accession/Order Number: [id number] Exam Date: 08/08/2023 09:05 Report Date: 08/10/2023 08:59 At the request of: FAWN PERDOMO Procedure: US OB anatomy EXAMINATION: US OB anatomy, US OB cervical length HISTORY: ENCOUNTER FOR ANATOMIC SURVEY Z36. 89 COMPARISON: No relevant comparison available. TECHNIQUE: Transabdominal sonographic examination was performed for obstetrical and evaluation. FINDINGS: Number: 1 Heart Rate: 149.2 bpm H.B. /min Amniotic Fluid Volume: Subjectively normal position: Cephalic presentation, variable lie Placental Location: ANTERIOR, grade 0. Placental edge is 7.0 cm from the internal os Cervix Length: 4.5 cm , closed Normal anatomy: Lateral ventricles, cerebellum, posterior fossa, nose,lips, orbits, four-chamber heart, RVOT, LVOT, diaphragm, stomach, kidneys,abdominal cord insertion, bladder, umbilical arteries, three-vessel cord, spine, extremities BIOMETRY: BPD: 4.8 cm 20 weeks 4 days , 69% HC: 18.3 cm 20 weeks 5 days, 68% AC: 15.2 cm 20 weeks 3 days, 52% FL: 3.1 cm 19 weeks 4 days, 23% EFW:331.7 grams; , 12 ounces, 42% FL/AC: 20.4 FL/BPD: 64.0 HC/AC: 1.2 GESTATIONAL AGE: Age by EDC: 20 weeks 1 days ADRIANA by EDC: 12/25/2023 Age by current US: 20 weeks 2 days ADRIANA by current US: 12/24/2023 US/US OB anatomy IMPRESSION: Normal anatomy scan Closed cervix measuring 4.5 cm in length *Reference: [employer] Practice Guideline for the performance of Obstetric Ultrasound Examinations, August 09, 2007. Electronically authenticated by: CARLOS MULLIGAN Date: 08/10/2023 08:59 Dictated By: Carlos Mulligan M.D. Signed By:08/10/23901 DD/ 8 TD/TT: Slide Fasteners Inspector: us Fawn PINON [facility] Final Result documented in this encounter Visit Diagnoses Not on filedocumented in this encounter Care Teams Green End Worker Relationship Specialty Start Date End Date Victorino Deleon MD [address] [place] [address] PCP - General 05/15/23 documented as of this encounter
--- OUTSIDE RECORDS SUMMARY | 2025-06-19 12:33 | XMS_ITS | Encounter Summary ---
Author Organization [facility] Address [address] [place] [address] Care Team Providers Care Supervisor Doping Name Role Phone Victorino Deleon MD Primary Care Provider [phone] Encounter Details Date Type Department Care Team (Late st Contact Info) Description 06/19/2025 Bamboo flowsheet [facility] [address] [facility] [place] [address] Franck Moraes DO [address] [facility] [address] [place], [facility] Social History Tobacco Use Types Packs/Day Years [...] AM EDT Routine [facility] [address] [facility] [place] [phone] Fawn Panchal PA [address] [facility] [address] [place], [place] [phone] documented as of this encounter Visit Diagnoses Not on filedocumented in this encounter Care Teams Supervisor Doping Relationship Specialty Start Date End Date Victorino Deleon MD [address] [facility] [place] [address] PCP - General 05/15/23 documented as of this encounter
--- OUTSIDE RECORDS SUMMARY | 2025-06-19 12:33 | XMS_ITS | Encounter Summary ---
Author Organization [facility] Address [address] [place] [address] Care Team Providers Care Natural Sciences Department Chair Name Role Phone Victorino Deleon MD Primary Care Provider [phone] Encounter Details Date Type Department Care Team (Late Contact Info) Description 06/08/2025 Bamboo flowsheet [facility] [address] [facility] [place] [address] Fawn Panchal PA [address] [facility] [address] [place], [facility] Social History Tobacco Use Types Packs/Day [...] EDT Routine [facility] [address] [facility] [place] [address] Fawn Panchal PA [address] [facility] [place] [address] documented as of this encounter Visit Diagnoses Not on filedocumented in this encounter Care Teams Natural Sciences Department Chair Relationship Specialty Start Date End Date Victorino Deleon MD [address] [facility] [place] [address] PCP - General 05/15/23 documented as of this encounter
--- OUTSIDE RECORDS SUMMARY | 2025-06-19 12:33 | XMS_ITS ---
Author Organization [facility] (ClinicalSummary Clone) Address Unknown Care Team Providers Care Food Consultant Name Role Phone Unavailable Primary Care Physician Unavailab le Results * [UNITY] ANEUPLOIDY NIPT Performed by: [employer] Component Value Range Date Fraction 10.6% 12/18/2024 04 :32 pm UTC Sex Chromosome Aneuploidy NOT DETECTED 04:32 pm UTC Monosomy X LOW RISK <1 in 10,000 2024 04:32 pm UTC Trisomy 13 LOW RISK <1 in 10,000 2024 04:32 pm UTC Trisomy 18 LOW RISK <1 in 10,000 2024 04:32 pm UTC Trisomy 21 LOW RISK <1 in 10,000 2024 04:32 pm UTC Sex MALE 12/18/2024 04:3 2 pm UTC Gestation RUIZ 12/18/19 25 04:32 pm UTC For detailed report, see PDF See PDF 12/18/2024 04:32 pm UTC 12/18/2024 04:3 2 pm UTC Social History Observation Value Start Date End Date
--- OUTSIDE RECORDS SUMMARY | 2025-06-19 12:33 | XMS_ITS | Encounter Summary ---
Author Organization [facility] Address [address] [place] [address] Care Team Providers Care Byproduct Engineer Name Role Phone Victorino Deleon MD Primary Care Provider [phone] Encounter Details Date Type Department Care Team (Late st Contact Info) Description 02/14/2025 Orders Only [facility] [address] [place] [address] Lani Huizar LPN [address] [place] [address] Social History Tobacco Use Types Packs/Day Years [...] Description 06/27/2025 10:00 AM EDT Routine [facility] [address] [facility] [address] [address] Fawn Panchal PA [address] [facility] [place] [address] documented as of this encounter Procedures Procedure Name Priority Date/Time Associated Diagnosis Comments PAP SMEAR Routine 02/07/2025 12:00 AM EDT documented in this encounter Results * Pap Smear (02/07/2025 12:00 AM EDT) Swab Cervical swab / Unknown us Dimitry Nurse [facility] LAB CYTOLOGY ORDERABLES Final Result EXTERNAL LAB documented in this encounter Visit Diagnoses Not on filedocumented in this encounter Care Teams Byproduct Engineer Relationship Specialty Start Date End Date Victorino Deleon MD [address] [facility] [place] [address] PCP - General 05/15/23 documented as of this encounter
--- OUTSIDE RECORDS SUMMARY | 2025-06-19 12:33 | XMS_ITS | Encounter Summary ---
Author Organization [facility] Address [address] [place] [address] Care Team Providers Care Manager Market Development Name Role Phone Victorino Deleon MD Primary Care Provider [phone] Encounter Details Date Type Department Care Team (Late st Contact Info) Description 08/10/2023 Clinisync Result Encounter [facility] External Department Unsolicited Fawn Perdomo PA [address] [place] [address] Social History Tobacco Use Types Packs/Day Years [...] AM EDT Routine [facility] [address] [place] [phone] Fawn Perdomo PA [address] [place] [address] documented as of this encounter Procedures Procedure Name Priority Date/Time Associated Diagnosis Comments US OB CERVICAL LENGTH 08/10/2023 8:59 AM EDT documented in this encounter Results * US OB CERVICAL LENGTH (08/10/2023 8:59 AM EDT) Anatomical Region Laterality Modality Other 08/10/2023 8:59 AM EDT Narrative 08/10/2023 8:59 AM EDT [address] [address] Ultrasound Report Signed Patient: SURJIT AVINA MR#: [id number] : 1995 Acct:[id number] Age/Sex: 28 / F ADM Date: 08/08/23 Loc: US Attending Dr: Fawn Perdomo Ordering Physician: Fawn Perdomo Date of Service: 08/08/23 Procedure(s): US OB cervical length Accession Number(s): [id number] cc: Fawn Perdomo; Victorino Deleon M.D. [address] [address] Patient Name: SURJIT AVINA MRN: [id number] date: 1995 Sex: F Assigned Patient Location: US Current Patient Location: Accession/Order Number: [id number] Exam Date: 08/08/2023 09:05 Report Date: 08/10/2023 08:59 At the request of: FAWN PERDOMO Procedure: US OB cervical length EXAMINATION: US OB anatomy, US OB cervical [...] ADRIANA by current US: 12/24/2023 US/US OB cervical length IMPRESSION: Normal anatomy scan Closed cervix measuring 4.5 cm in length *Reference: [facility] Practice Guideline for the performance of Obstetric Ultrasound Examinations, August 09, 2007. Electronically authenticated by: CARLOS MULLIGAN Date: 08/10/2023 08:59 Dictated By: Carlos Mulligan M.D. Signed By: 08/10/23901 DD/ 0859 TD/TT: Coating And Baking Operator: Procedure Note Radiology, Radiologist, - 08/10/2023 [place] [address] Ultrasound Report Signed Patient: SURJIT AVINA R#: [id number] : 1995Acct:[id number] Age/Sex: 28 / FADM Date: 08/08/23 Loc: US Attending Dr: Fawn Perdomo Ordering Physician: Fawn Perdomo Date of Service: 08/08/23 Procedure(s): US OB cervical length Accession Number(s): [id number] cc: Fawn Perdomo; Victorino Deleon M.D. The [address] [address] Patient Name: SURJIT AVINA MRN: [id number] date: 1995 Sex: F Assigned Patient Location: US Current Patient Location: Accession/Order Number: [id number] Exam Date: 08/08/2023 09:05 Report Date: 08/10/2023 08:59 At the request of: FAWN PERDOMO Procedure: US OB cervical length EXAMINATION: US OB anatomy, US OB cervical [...] ADRIANA by current US: 12/24/2023 US/US OB cervical length IMPRESSION: Normal anatomy scan Closed cervix measuring 4.5 cm in length *Reference: [facility] Practice Guideline for the performance of Obstetric Ultrasound Examinations, August 09, 2007. Electronically authenticated by: CARLOS MULLIGAN Date: 08/10/2023 08:59 Dictated By: Carlos Mulligan M.D. Signed By:08/10/23901 DD/ 8 TD/TT: Coating And Baking Operator: us Fawn [facility] Final Result documented in this encounter Visit Diagnoses Not on filedocumented in this encounter Care Teams Manager Market Development Relationship Specialty Start Date End Date Victorino Deleon MD [address] [place] [address] PCP - General 05/15/23 documented as of this encounter
== END 2025-06-19 12:32 | disposition home or self-care (01) ==
LOC: LAB 12:31
PROVIDERS: PCP Family Medicine; Visit Provider Obstetrics & Gynecology
DX: Z34.93 Encounter for supervision of normal pregnancy, unspecified, third trimester (principal); Z3A.36 36 weeks gestation of pregnancy
CPT/HCPCS: 87081

== ENCOUNTER 2025-07-17 23:31 | Inpatient (IN) | payer BC, SELFPAY ==
--- OUTSIDE RECORDS SUMMARY | 2025-07-03 13:30 | XMS_ITS | Encounter Summary ---
Author Organization [facility] Address [address] [place] [address] Care Team Providers Care Credit Specialist Name Role Phone Victorino Deleon MD Primary Care Provider [phone] Reason for Visit * Reason Comments Routine Visit Encounter Details Date Type Department Care Team (Late st Contact Info) Description 07/03/2025 1:30 PM EDT Routine [facility] [address] [place] [phone] Franck Moraes DO [address] [facility] [place] [address] Third trimester ([facility]); 38 weeks gestation of ([facility]) Social History Tobacco Use Types Packs/Day Years [...] Sign Reading Time Taken Comments Blood Pressure 112/74 07/03/2025 1:47 PM EDT Pulse - - Temperature - - Respiratory Rate - - Oxygen Saturation - - Inhaled Oxygen Concentration - - Weight 82 kg (180 lb 12.8 oz) 07/03/2025 1:47 PM EDT Height - - Body Mass Index 31.03 05/22/2023 9:24 AM EDT documented in this encounter Progress Notes * Cora Pugh NP - 07/03/2025 1:30 PM EDT Reason for Appointment: Patient ID: Yeni Avina is a 30 y.o. female who presents for Routine Visit Patient presents today for Return OB appointment. MEDICATIONS Current Outpatient Medications Medication Instructions magnesium oxide (Mag-Ox) 200 mg split tablet ALLERGIES No Known Allergies PROBLEMS Active Ambulatory Problems Diagnosis Date Noted Third trimester ([facility]) 11/19/2023 37 weeks gestation of ([facility]) 06/27/2025 Resolved Ambulatory Problems Diagnosis Date Noted No Resolved Ambulatory Problems No Additional Past Medical History HISTORY PAST MEDICAL HISTORY SOCIAL HISTORY History reviewed. No pertinent past medical history. Social History Tobacco Use Smoking status: Never [...] Appearance: Normal appearance. She is well-developed. Genitourinary: Breasts: Breasts are soft. Right: Normal. Left: Normal. Cardiovascular: Rate and Rhythm: Normal rate and [...] nursing note reviewed. Exam conducted with a facility operations manager present. Vitals: Estimated body mass index is 31.03 kg/m?? as calculated from the following: Height as of 05/22/23: 5' 4 . Weight as of this encounter: 180 lb 12.8 oz. BP: 112/74 Patient's last menstrual period was 10/08/2024. ASSESSMENT & PLAN ICD-10-CM 1. Third trimester ([facility]) Z34.93 POCT urinalysis dipstick manually resulted 2. 38 weeks gestation of ([facility]) Z3A.38 POCT urinalysis dipstick manually resulted Return OB: Patient presents today for a routine obstetrics appointment. Patient is currently 38w2d . Patient states she is doing well but has complaints of being tired due to current . Patient has verbalizes frequent movement. labor precautions was discussed/given and patient was instructed to perform kick counts three times a day. Orders Placed This Encounter Procedures POCT urinalysis dipstick manually resulted Follow Up: Patient is to return to office in 2 week for routine OB appointment. Documented by Cora Pugh NP on behalf of: Franck Moraes DO documented in this encounter Plan of Treatment Not on file documented as of this encounter Procedures Procedure Name Priority Date/Time Associated Diagnosis Comments POCT URINALYSIS DIPSTICK Routine 07/03/2025 2:06 PM EDT Third trimester ([facility]) 38 weeks gestation of ([facility]) documented in this encounter Results * (ABNORMAL) POCT urinalysis dipstick manually resulted (07/03/2025 2:06 PM EDT) Color, UA Yellow Clarity, UA Clear Glucose, UA Negative Negative - 2000(110) ++++ mg/dL Bilirubin, UA Negative Negative - 4(70) +++ mg/dL Ketones, UA Negative Negative - 160(16) ++++ mg/dL Spec Grav, UA 1.025 1 - 1.03 Blood, UA Positive Negative - 50 Gulshan/mcL pH, UA 5.5 5 - 9 Protein, UA Negative Negative - 2000(20) ++++ mg/dL Urobilinogen, UA 1.0 0.2 - 12 mg/dL Leukocytes, UA Trace Negative - 500+++ Stefan/mcL Nitrite, UA Negative Negative - Positive Urine 07/03/2025 2:06 PM EDT Franck Moraes DO POINT OF CARE TEST ENTER/EDIT OR DERABLES Final Result documented in this encounter Visit Diagnoses Diagnosis Third trimester ([facility]) state, incidental 38 weeks gestation of ([facility]) documented in this encounter Care Teams Credit Specialist Relationship Specialty Start Date End Date Victorino Deleon MD [address] [place] [phone] PCP - General 05/15/23 documented as of this encounter
--- OUTSIDE RECORDS SUMMARY | 2025-07-11 09:00 | XMS_ITS | Encounter Summary ---
Author Organization [facility] Address [address] [place] [address] Care Team Providers Care Light Armored Reconnaissance Officer Name Role Phone Victorino Deleon MD Primary Care Provider [phone] Reason for Visit * Reason Comments Routine Visit Encounter Details Date Type Department Care Team (Late st Contact Info) Description 07/11/2025 9:00 AM EDT Routine [facility] [address] [facility] [place] [address] Franck Moraes DO [address] [facility] [address] [place] [address] Third trimester ([facility]); 39 weeks gestation of ([facility]) Social History Tobacco Use Types Packs/Day Years [...] Sign Reading Time Taken Comments Blood Pressure - - Pulse - - Temperature - - Respiratory Rate - - Oxygen Saturation - - Inhaled Oxygen Concentration - - Weight 82.6 kg (182 lb) 07/11/2025 9:13 AM EDT Height - - Body Mass Index 31.24 05/22/2023 9:24 AM EDT documented in this encounter Progress Notes * Payton Mauro LPN - 07/11/2025 9:00 AM EDT Reason for Appointment: Patient ID: Yeni Avina is a 30 y.o. female who presents for Routine Visit Patient presents today for Return OB appointment. MEDICATIONS Current Outpatient Medications Medication Instructions magnesium oxide (Mag-Ox) 200 mg split tablet ALLERGIES No Known Allergies PROBLEMS Active Ambulatory Problems Diagnosis Date Noted Third trimester ([facility]) 11/19/2023 37 weeks gestation of ([facility]) 06/27/2025 Resolved Ambulatory Problems Diagnosis Date Noted [...] nursing note reviewed. Exam conducted with a scratch polisher present. Vitals: Estimated body mass index is 31.24 kg/m?? as calculated from the following: Height as of 05/22/23: 5' 4 . Weight as of this encounter: 182 lb. BP: Patient's last menstrual period was 10/08/2024. ASSESSMENT & PLAN ICD-10-CM 1. Third trimester ([facility]) Z34.93 POCT urinalysis dipstick manually resulted 2. 39 weeks gestation of ([facility]) Z3A.39 Return OB: Patient presents today for a routine obstetrics appointment. Patient is currently 39w3d . Patient states she is doing well [...] by Payton Mauro LPN on behalf of: Franck Moraes DO documented in this encounter Plan of Treatment Not on file documented as of this encounter Procedures Procedure Name Priority Date/Time Associated Diagnosis Comments POCT URINALYSIS DIPSTICK Routine 07/11/2025 9:38 AM EDT Third trimester ([facility]) documented in this encounter Results * (ABNORMAL) POCT urinalysis dipstick manually resulted (07/11/2025 9:38 AM EDT) Color, UA Yellow Clarity, UA Clear Glucose, UA Negative Negative - 2000(110) ++++ mg/dL Bilirubin, UA Negative Negative - 4(70) +++ mg/dL Ketones, UA Negative Negative - 160(16) ++++ mg/dL Spec Grav, UA 1.015 1 - 1.03 Blood, UA Positive Negative - 50 Gulshan/mcL pH, UA 6.0 5 - 9 Protein, UA Negative Negative - 2000(20) ++++ mg/dL Urobilinogen, UA 1.0 0.2 - 12 mg/dL Leukocytes, UA Negative Negative - 500+++ Stefan/mcL Nitrite, UA Negative Negative - Positive Urine 07/11/2025 9:38 AM EDT Franck Moraes DO POINT OF CARE TEST ENTER/EDIT OR DERABLES Final Result documented in this encounter Visit Diagnoses Diagnosis Third trimester ([facility]) state, incidental 39 weeks gestation of ([facility]) documented in this encounter Care Teams Light Armored Reconnaissance Officer Relationship Specialty Start Date End Date Victorino Deleon MD [address] [place] [address] PCP - General 05/15/23 documented as of this encounter
--- OUTSIDE RECORDS SUMMARY | 2025-07-17 14:20 | XMS_ITS | Encounter Summary ---
Author Organization [facility] Address [address] [place] [address] Care Team Providers Care Rehabilitation Teacher Name Role Phone Victorino Deleon MD Primary Care Provider [phone] Reason for Visit * Reason Comments Routine Visit Encounter Details Date Type Department Care Team (Late st Contact Info) Description 07/17/2025 2:20 PM EDT Routine [facility] [address] [place] [id number] Franck Moraes DO [address] [place] [id number] 40 weeks gestation of ([facility] Third trimester ([facility]); UTI symptoms Social History Tobacco Use Types Packs/Day Years [...] Sign Reading Time Taken Comments Blood Pressure 124/80 07/17/2025 2:31 PM EDT Pulse - - Temperature - - Respiratory Rate - - Oxygen Saturation - - Inhaled Oxygen Concentration - - Weight 81.6 kg (180 lb) 07/17/2025 2:31 PM EDT Height - - Body Mass Index 30.9 05/22/2023 9:24 AM EDT documented in this encounter Plan of Treatment Scheduled Orders Name Type Priority Associated Diagnoses Orde r Schedule Urine culture Microbiology Routine UTI symptoms Ordered: 07/17/2025 documented as of this encounter Procedures Procedure Name Priority Date/Time Associated Diagnosis Comments POCT URINALYSIS DIPSTICK Routine 07/17/2025 2:39 PM EDT 40 weeks gestation of ([facility]) Third trimester ([facility]) documented in this encounter Results * (ABNORMAL) POCT urinalysis dipstick manually resulted (07/17/2025 2:39 PM EDT) Color, UA Yellow Clarity, UA Clear Glucose, UA Positive Negative - 2000(110) ++++ mg/dL Bilirubin, UA Negative Negative - 4(70) +++ mg/dL Ketones, UA Negative Negative - 160(16) ++++ mg/dL Spec Grav, UA 1.020 1 - 1.03 Blood, UA Positive Negative - 50 Gulshan/mcL Comment:3+ pH, UA 6.0 5 - 9 Protein, UA Positive Negative - 2000(20) ++++ mg/dL Urobilinogen, UA 1.0 0.2 - 12 mg/dL Leukocytes, UA Positive Negative - 500+++ Stefan/mcL Comment:1+ Nitrite, UA Negative Negative - Positive Urine 07/17/2025 2:39 PM EDT Franck Moraes DO POINT OF CARE TEST ENTER/EDIT OR DERABLES Final Result documented in this encounter Visit Diagnoses Diagnosis 40 weeks gestation of ([facility]) Third trimester ([facility]) state, incidental UTI symptoms documented in this encounter Care Teams Rehabilitation Teacher Relationship Specialty Start Date End Date Victorino Deleon MD [address] [place] [id number] PCP - General 05/15/23 documented as of this encounter
--- OUTSIDE RECORDS SUMMARY | 2025-07-17 23:34 | XMS_ITS | CCD ---
Author Organization [facility] Care Team Providers Care Inspector Multifocal Lens Name Role Phone MASON DELEON Attending Unavailable Mason Deleon Primary Care Unavailable BEBETO AMEZQUITA Referring Unavailable MASON DELEON Primary Care Unavailable BRIAN VARNER Attending Unavailable BRIAN VARNER Consulting Unavailable BRIAN VARNER Admitting Unavailable DR MASON DELEON Primary Care Unavailable Mason Deleon MD Primary Care Provider [phone] Mason Deleon MD Primary Care Provider [phone] Mason Deleon MD Primary Care Provider [phone] HARSHA MORAES Attending Unavailable LEANNE, FAWN Attending Unavailable DIMITRY, HARSHA Attending Unavailable LEANNE, FAWN Attending Unavailable DIMITRY, HARSHA Attending Unavailable LEANNE, FAWN Attending Unavailable DIMITRY, HARSHA Attending Unavailable LEANNE, FAWN Attending Unavailable DIMITRY, HARSHA Attending Unavailable LEANNE, FAWN Attending Unavailable DIMITRY, HARSHA Attending Unavailable DIMITRY, HARSHA Attending Unavailable Medications Current Medications Medication Drug Class(es) Dates Sig (Normalized) Sig (Original) magnesium oxide (Mag-Ox) 200 mg split tablet (17 sources) Start: 05-09-2025 magnesium oxide (Mag-Ox) 200 mg split tablet 05/09/2025 Active ondansetron 4 mg disintegrating oral tablet (14 [...] 3 11/29/2024 03/07/2025 Discontinued (Therapy completed) Problems Active Problems Problem Classification Problem Date Documented Date Episodic/Chronic Immunizations and screening for infectious disease (2 sources) Exposure to sexually transmissible disorder; Translations: [Contact with and (suspected) exposure to infections with a predominantly sexual mode of transmission] 02-07-2025 Episodic Menstrual disorders (1 source) Missed period; Translations: [Irregular menstruation, unspecified] 12-09-2024 Chronic Other complications of (2 sources) size does not accord with dates; Translations: [Uterine size-date discrepancy, third trimester] 05-10-2025 Episodic Other screening for suspected conditions (not [...] [25 weeks gestation of ] 04-05-2025 Episodic Residual codes; unclassified (2 sources) Gestation period, 28 weeks; Translations: [28 weeks gestation of ] 04-26-2025 Episodic Residual codes; unclassified (2 sources) Gestation period, 30 weeks; Translations: [30 weeks gestation of ] 05-10-2025 Episodic Residual codes; unclassified (2 sources) Gestation period, 32 weeks; Translations: [32 weeks gestation of ] 05-25-2025 Episodic Residual codes; unclassified (2 sources) Gestation period, 34 weeks; Translations: [34 weeks gestation of ] 06-08-2025 Episodic Residual codes; unclassified (2 sources) Gestation period, 36 weeks; Translations: [36 weeks gestation of ] 06-19-2025 Episodic Residual codes; unclassified (10 sources) Gestation period, 37 weeks; Translations: [37 weeks gestation of ] Onset: 06-27-2025 06-27-2025 Episodic Residual codes; unclassified (2 sources) Gestation period, 38 weeks; Translations: [38 weeks gestation of ] 07-03-2025 Episodic Residual codes; unclassified (2 sources) Gestation period, 39 weeks; Translations: [39 weeks gestation of ] 07-11-2025 Episodic Past or Other Problems Problem Classification Problem Date Documented Da te Episodic/Chronic Other and delivery including normal (20 sources) Third trimester ; Translations: [Encounter for supervision of normal , unspecified, third trimester] Onset: 11-19-2023 12-10-2023 Episodic Results Test Name Value Interpretation Reference Range Facility Urinalysis macro (dipstick) panel (U)on 07-11-2025 Bilirubin, UA Negative Negative - 4(70) +++ mg/dL [facility] Blood, UA Positive Negative - 50 Gulshan/mcL [facility] Clarity, UA Clear [facility] re Color, UA Yellow [facility] Glucose, UA Negative Negative - 1999(110) ++++ mg/dL [facility] Interpretation and review of laboratory results Abnormal [facility] re Ketones, UA Negative Negative - 160(16) ++++ mg/dL [facility] Leukocytes, UA Negative Negative - 500+++ Stefan/mcL [facility] Nitrite, UA Negative Negative - Positive [facility] pH, UA 6 5 - 9 [facility] e Protein, UA Negative Negative - 1999(20) ++++ mg/dL [facility] Spec Grav, UA 1.015 1 - 1.03 [facility] Urobilinogen, UA 1.0 0.2 - 12 mg/dL [facility] Urinalysis macro (dipstick) panel (U)on 07-03-2025 Bilirubin, UA Negative Negative - 4(70) +++ mg/dL [facility] Blood, UA Positive Negative - 50 Gulshan/mcL [facility] Clarity, UA Clear [facility] re Color, UA Yellow [facility] Glucose, UA Negative Negative - 1999(110) ++++ mg/dL [facility] Interpretation and review of laboratory results Abnormal [facility] re Ketones, UA Negative Negative - 160(16) ++++ mg/dL [facility] Leukocytes, UA Trace Negative - 500+++ Stefan/mcL [facility] Healthcare Nitrite, UA Negative Negative - Positive [facility] Healthcare pH, UA 5.5 5 - 9 [facility] Protein, UA Negative Negative - 1999(20) ++++ mg/dL [facility] Healthcare Spec Grav, UA 1.025 1 - 1.03 [facility] care Urobilinogen, UA 1.0 0.2 - 12 mg/dL [facility] Urinalysis macro (dipstick) panel (U)on 06-27-2025 Bilirubin, UA Negative Negative - 4(70) +++ mg/dL [facility] Blood, UA Positive Negative - 50 Gulshan/mcL [facility] Healthcare Clarity, UA Cloudy [facility] Color, UA Yellow [facility] Glucose, UA Negative Negative - 1999(110) ++++ mg/dL [facility] Interpretation and review of laboratory results Abnormal [facility] re Ketones, UA Negative Negative - 160(16) ++++ mg/dL [facility] Leukocytes, UA Negative Negative - 500+++ Stefan/mcL [facility] Healthcare Nitrite, UA Negative Negative - Positive [facility] pH, UA 6.5 5 - 9 [facility] e Protein, UA Negative Negative - 1999(20) ++++ mg/dL [facility] Spec Grav, UA 1.015 1 - 1.03 [facility] care Urobilinogen, UA 2.0 0.2 - 12 mg/dL [facility] Urinalysis macro (dipstick) panel (U)on 06-19-2025 Bilirubin, UA Negative Negative - 4(70) +++ mg/dL [facility] Blood, UA Positive Negative - 50 Gulshan/mcL [facility] Healthcare Comment on above: Trace Clarity, UA Clear [facility] Color, UA Yellow [facility] Glucose, UA Negative Negative - 1999(110) ++++ mg/dL [facility] Interpretation and review of laboratory results Abnormal [facility] re Ketones, UA Negative Negative - 160(16) ++++ mg/dL [facility] Healthcare Leukocytes, UA Negative Negative - 500+++ Stefan/mcL [facility] Healthcare Nitrite, UA Negative Negative - Positive [facility] pH, UA 6 5 - 9 [facility] Protein, UA Negative Negative - 1999(20) ++++ mg/dL [facility] Spec Grav, UA 1.015 1 - 1.03 [facility] Urobilinogen, UA 0.2 0.2 - 12 mg/dL [facility] Urinalysis macro (dipstick) panel (U)on 06-08-2025 Bilirubin, UA Negative Negative - 4(70) +++ mg/dL [facility] Blood, UA Positive Negative - 50 Gulshan/mcL [facility] Clarity, UA Clear [facility] re Color, UA Yellow [facility] [employer] e Glucose, UA Negative Negative - 1999(110) ++++ mg/dL [facility] Interpretation and review of laboratory results Abnormal [facility] re Ketones, UA Negative Negative - 160(16) ++++ mg/dL [facility] Leukocytes, UA Positive Negative - 500+++ Stefan/mcL [facility] Comment on above: 15 Nitrite, UA Negative Negative - Positive [facility] pH, UA 6 5 - 9 [facility] [employer] [facility] Protein, UA Negative Negative - 1999(20) ++++ mg/dL [facility] Spec Grav, UA 1.025 1 - 1.03 [facility] Urobilinogen, UA 1.0 0.2 - 12 mg/dL [facility] US OB FOLLOW UP TRANSABDOMIN AL APPROACHon 05-25-2025 US OB FOLLOW UP TRANSABDOMINAL APPROACH FINDINGS: A single, live intrauterine is present [...] BY: ELECTRONICALLY SIGNED BY: Martín Ledezma MD Normal Not Available Comment on above: Order Comment: US OB SCAN FOR GROWTH Estimated Date of Delivery: 07/15/25 Gestational Age as of 05/10/2025: 30w4d Urinalysis macro (dipstick) panel (U)on 05-10-2025 Bilirubin, UA Negative Negative - 4(70) +++ mg/dL [facility] Blood, UA Negative Negative - 50 Gulshan/mcL [facility] Healthcare Clarity, UA Clear [facility] Color, UA Yellow [facility] Glucose, UA Negative Negative - 1999(110) ++++ mg/dL [facility] Interpretation and review of laboratory results Abnormal [facility] re Ketones, UA Negative Negative - 160(16) ++++ mg/dL [facility] Leukocytes, UA Positive Negative - 500+++ Stefan/mcL [facility] Healthcare Nitrite, UA Negative Negative - Positive [facility] pH, UA 7 5 - 9 [facility] Protein, UA Trace Negative - 1999(20) ++++ mg/dL [facility] Spec Grav, UA 1.02 1 - 1.03 [facility] care Urobilinogen, UA 1.0 0.2 - 12 mg/dL [facility] Healthcare [facility] Urinalysis macro (dipstick) panel (U)on 04-26-2025 Bilirubin, UA Negative Negative - 4(70) +++ mg/dL [facility] Blood, UA Positive Negative - 50 Gulshan/mcL [facility] Healthcare Comment on above: small Clarity, UA Clear [facility] Color, UA Yellow [facility] Glucose, UA Negative Negative - 1999(110) ++++ mg/dL [facility] Healthcare Interpretation and review of laboratory results Normal [facility] re Ketones, UA Negative Negative - 160(16) ++++ mg/dL [facility] Healthcare Leukocytes, UA Negative Negative - 500+++ Stefan/mcL [facility] Nitrite, UA Negative Negative - Positive [facility] pH, UA 6 5 - 9 [facility] Protein, UA Negative Negative - 1999(20) ++++ mg/dL [facility] Spec Grav, UA 1.01 1 - 1.03 [facility] Urobilinogen, UA 0.2 0.2 - 12 mg/dL [facility] ALL CBC WITH AUTO DIFFon BASOPHILS ABSOLUTE AUTO 0 [facility] Basophils/100 WBC (Bld) 0.3 % 0.2 - 2.0 % [facility] Eosinophils/100 WBC (Bld) 0.5 % Low 0.9 - 7.0 % [facility] Erythrocyte distribution width (RBC) [Ratio] 13.8 % 11.0 - 15.0 % [facility] Hematocrit (Bld) [Volume fraction] 34.6 % Low 36.0 - 48.0 % [facility] e Hemoglobin (Bld) [Mass/Vol] 11.5 g/dL Low 12.0 - 16.0 g/dL [facility] IMMATURE GRANULOCYTES ABS AUTO 0.05 High [facility] Immature granulocytes/100 WBC (Bld) 0.6 % High 0.0 - 0.5 % [facility] Interpretation and review of laboratory results Abnormal [facility] re LYMPHOCYTES ABSOLUTE AUTO 1.6 [facility] Lymphocytes/100 WBC (Bld) 18.5 % Low 20.5 - 60.0 % [facility] MCH (RBC) [Entitic mass] 30.1 pg 26.7 - 34.0 pg [facility] MCHC (RBC) [Mass/Vol] 33.2 g/dL 29.9 - 35.2 g/dL [facility] MCV (RBC) [Entitic vol] 90.6 fL 81.0 - 99.0 fL [facility] MONOCYTES ABSOLUTE AUTO 0.6 [facility] Monocytes/100 WBC (Bld) 6.5 % 1.7 - 12.0 % [facility] NEUTROPHILS ABSOLUTE AUTO 6.5 [facility] Neutrophils/100 WBC (Bld) 73.6 % 43.0 - 75.0 % [facility] Platelet mean volume (Bld) [Entitic vol] 10.9 fL 9.5 - 13.5 fL [facility] TBH EO # 0 [facility] PLT 211 [facility] RBC 3.82 Low [facility] WBC 8.8 [facility] Urinalysis macro (dipstick) panel (U)on 04-05-2025 Bilirubin, UA Negative Negative - 4(70) +++ mg/dL [facility] Blood, UA Negative Negative - 50 Gulshan/mcL [facility] Clarity, UA Clear [facility] re Color, UA Yellow [facility] Glucose, UA Negative Negative - 1999(110) ++++ mg/dL [facility] Interpretation and review of laboratory results Normal [facility] re Ketones, UA Negative Negative - 160(16) ++++ mg/dL [facility] Leukocytes, UA Negative Negative - 500+++ Stefan/mcL [facility] Nitrite, UA Negative Negative - Positive [facility] pH, UA 6 5 - 9 [facility] Protein, UA Negative Negative - 1999(20) ++++ mg/dL [facility] Spec Grav, UA 1.025 1 - 1.03 [facility] care Urobilinogen, UA 0.2 0.2 - 12 mg/dL [facility] US OB INCOMPLETE ANATOMYon 0 03-25-2025 [place] [address] Ultrasound Report Signed Patient: SURJIT AVINA MR#: [id number] : 1995 Acct:[id number] Age/Sex: 29 / F ADM Date: 03/25/25 Loc: US Attending Dr: Harsha Moraes D.O. Ordering Physician: Harsha Moraes D.O. Date of Service: 03/25/25 Procedure(s): US OB incomplete anatomy Accession Number(s): [id number] cc: Harsha Moraes D.O.; Mason Deleon M.D. [address] [address] Patient Name: SURJIT AVINA MRN: [id number] date: 1995 Sex: F Assigned Patient Location: US Current Patient Location: US Accession/Order Number: [id number] Exam Date: 03/25/2025 10:55 Report Date: 03/25/2025 [...] Garsia M.D. 03/25/2025 10:57 AM Dictation Location[facility] Electronically authenticated by: [id number] Y Date: 03/25/2025 10:57 Dictated By: Rick Garsia D.O. Signed By: 03/25/25 1100 DD/ 1057 TD/TT: Foundation Stage Teacher: [facility] Radiology, Radiologist, MD - 03/25/2025 [place] [address] Ultrasound Report Signed Patient: SURJIT AVINA MR#: [id number] : 1995 Acct:[id number] Age/Sex: 29 / F ADM Date: 03/25/25 Loc: US Attending Dr: Harsha Moraes D.O. Ordering Physician: Harsha Moraes D.O. Date of Service: 03/25/25 Procedure(s): US OB incomplete anatomy Accession Number(s): [id number] cc: Harsha Moraes D.O.; Mason Deleon M.D. The [place] [address] Patient Name: SURJIT AVINA MRN: [facility]:[id number] date: 1995 Sex: F Assigned Patient Location: US Current Patient Location: US Accession/Order Number: [id number] Exam Date: 03/25/2025 10:55 Report Date: 03/25/2025 [...] Garsia M.D. 03/25/2025 10:57 AM Dictation Location: [place] [address] Electronically authenticated by: [id number] Y Date: 03/25/2025 10:57 Dictated By: Rick Garsia D.O. Signed By: 03/25/25 1100 DD/ 1057 TD/TT: Foundation Stage Teacher: [facility] Radiology Study observation (narrative) [facility] US OB INCOMPLETE ANATOMYOrde red By: Radiologist Radiology on 03-25-2025 [facility] Work Phone: Urinalysis macro (dipstick) panel (U)on 03-07-2025 Bilirubin, UA Negative Negative - 4(70) +++ mg/dL [facility] Blood, UA Negative Negative - 50 Gulshan/mcL [facility] Clarity, UA Clear [facility] re Color, UA Yellow [facility] Glucose, UA Negative Negative - 1999(110) ++++ mg/dL [facility] Interpretation and review of laboratory results Normal [facility] re Ketones, UA Negative Negative - 160(16) ++++ mg/dL [facility] Leukocytes, UA Negative Negative - 500+++ Stefan/mcL [facility] Nitrite, UA Negative Negative - Positive [facility] pH, UA 5.5 5 - 9 [facility] Protein, UA Negative Negative - 1999(20) ++++ mg/dL [facility] Spec Grav, UA 1.03 1 - 1.03 [facility] Urobilinogen, UA 0.2 0.2 - 12 mg/dL [facility] US OB CERVICAL LENGTHon 02-[address] [address] Ultrasound Report Signed Patient: SURJIT AVINA MR#: [id number] : 1995 Acct:[id number] Age/Sex: 29 / F ADM Date: 02/25/25 Loc: Attending Dr: Fawn Perdomo Ordering Physician: Fawn Perdomo Date of Service: 02/25/25 Procedure(s): US OB cervical length Accession Number(s): [id number] cc: Fawn Perdomo; Mason Deleon M.D. [place] [address] Patient Name: SURJIT AVINA MRN: [facility]:[id number] date: 1995 Sex: F Assigned Patient Location: US Current Patient Location: Accession/Order Number: [id number] Exam Date: 02/27/2025 09:44 Report Date: 02/27/2025 [...] Rick Garsia M.D.02/27/2025 9:52 AM Dictation Location: [employer] Electronically authenticated by: [id number] Y Date: 02/27/2025 09:52 Dictated By: Rick Garsia D.O. Signed By: 02/27/25 0954 DD/ TD/TT: Foundation Stage Teacher: [facility] Radiology, Radiologist, - 02/27/[address] [address] Ultrasound Report Signed Patient: SURJIT AVINA MR#: [id number] : 1995 Acct:[id number] Age/Sex: 29 / F ADM Date: 02/25/25 Loc: US Attending Dr: Fawn Perdomo Ordering Physician: Fawn Perdoom Date of Service: 02/25/25 Procedure(s): US OB cervical length Accession Number(s): [id number] cc: Fawn Perdomo; Mason Deleon M.D. The [address] [address] Patient Name: SURJIT AVINA MRN: [facility]:[id number] date: 1995 Sex: F Assigned Patient Location: US Current Patient Location: Accession/Order Number: [id number] Exam Date: 02/27/2025 09:44 Report Date: 02/27/2025 [...] Rick Garsia M.D.02/27/2025 9:52 AM Dictation Location: [employer] Electronically authenticated by: [id number] Y Date: 02/27/2025 09:52 Dictated By: Rick Garsia D.O. Signed By: 02/27/25953 DD/ 1 TD/TT: Foundation Stage Teacher: [facility] [employer] Radiology Study observation (narrative) [facility] US OB CERVICAL LENGTHOrdered By: Radiologist Radiology on 02-27-2025 [facility] Work Phone: IGP,APTIMA HPV,AGE GDLNon AGE GDLN ACOG TESTING Note . [facility] [employer] Comment on above: TESTS RESULT FLAG UN ITS REF RANGE LAB Clinician Provided Cytology Information Source.............Cervix Other.............. No. of containers..01 ThinPrep Vial Age Algo ACOG Tracie... FLAG LEGEND: L-Low Normal,H-High Normal,LL-Alert Low,HH-Alert High <-Panic Low,>-Panic High,A-Abnormal,AA-Critical Abnormal Performed at: 01 =G [facility] [place] [address] Socorro Benavidez MD, IGP, RFX APTIMA HPV ASCU Note . [facility] Comment on above: TESTS RESULT FLAG U NITS REF RANGE LAB DIAGNOSIS: 02 NEGATIVE FOR INTRAEPITHELIAL LESION OR MALIGNANCY. Specimen adequacy: 02 Satisfactory for evaluation. No endocervical component is identified. An endocervical component is not commonly seen in the patient. Performed by: Kelly Gonzalez, Chef Manager ([facility]) . 02 Note: Note 02 [...] <-Panic Low,>-Panic High,A-Abnormal,AA-Critical Abnormal Performed at: [address] [address] Socorro Benavidez MD, Performed at: = - [facility] [id number] Machine Operator Hop Picker: Socorro Benavidez MD, Phone: [phone] Performed at: [facility] [id number] Machine Operator Hop Picker: Socorro Benavidez MD, Phone: [phone] SPATULA-ALONE CERVIX [facility] RECURRENT VAGINITIS (HTRX)on 02-08-2025 ATOPOBIUM VAGINAE 0 [facility] ATOPOBIUM VAGINAE Not detected [facility] BVAB 2,3 (BACTERIAL VAGINOSIS ASSOCIATED BACTERIA 2, 3); MOBILUNCUS SPP 26.639 Abnormal [facility] BVAB 2,3 (BACTERIAL VAGINOSIS ASSOCIATED BACTERIA 2, 3); MOBILUNCUS SPP Detected Abnormal [facility] VIVIANA ALBICANS, PARAPSILOSIS, TROPICALIS 0 [facility] VIVIANA ALBICANS, PARAPSILOSIS, TROPICALIS Not detected [facility] VIVIANA GLABRATA 0 [facility] VIVIANA GLABRATA Not detected [facility] ealthcare VIVIANA KRUSEI 0 [facility] VIVIANA KRUSEI Not detected [facility] CHLAMYDIA TRACHOMATIS 0 [facility] CHLAMYDIA TRACHOMATIS Not detected [facility] GARDNERELLA VAGINALIS 0 [facility] GARDNERELLA VAGINALIS Not detected [facility] Interpretation and review of laboratory results Abnormal [facility] re MEGASPHAERA (TYPES 1, 2) 0 [facility] Healthcare MEGASPHAERA (TYPES 1, 2) Not detected [facility] MYCOPLASMA GENITALIUM 0 [facility] MYCOPLASMA GENITALIUM Not detected [facility] NEISSERIA GONORRHOEAE 0 [facility] NEISSERIA GONORRHOEAE Not detected [facility] TRICHOMONAS VAGINALIS 0 [facility] TRICHOMONAS VAGINALIS Not detected [facility] Urinalysis macro (dipstick) panel (U)on 02-07-2025 Bilirubin, UA Negative Negative - 4(70) +++ mg/dL [facility] Blood, UA Negative Negative - 50 Gulshan/mcL [facility] Clarity, UA Clear [facility] re Color, UA Yellow [facility] Glucose, UA Negative Negative - 1999(110) ++++ mg/dL [facility] Interpretation and review of laboratory results Normal [facility] Ketones, UA Negative Negative - 160(16) ++++ mg/dL [facility] Leukocytes, UA Trace Negative - 500+++ Stefan/mcL [facility] Nitrite, UA Negative Negative - Positive [facility] pH, UA 5.5 5 - 9 [facility] Protein, UA Negative Negative - 1999(20) ++++ mg/dL [facility] Spec Grav, UA 1.025 1 - 1.03 [facility] Urobilinogen, UA 0.2 0.2 - 12 mg/dL [facility] Urinalysis macro (dipstick) panel (U)on 01-10-2025 Bilirubin, UA Positive Negative - (70) +++ mg/dL [facility] Comment on above: small Blood, UA Negative Negative - 50 Gulshan/mcL [facility] Clarity, UA Clear [facility] re Color, UA Yellow [facility] Glucose, UA Negative Negative - 1999(110) ++++ mg/dL [facility] Interpretation and review of laboratory results Abnormal [facility] re Ketones, UA Negative Negative - 160(16) ++++ mg/dL [facility] Leukocytes, UA Negative Negative - 500+++ Stefan/mcL [facility] Nitrite, UA Negative Negative - Positive [facility] pH, UA 5.5 5 - 9 [facility] Protein, UA Positive Negative - 1999(20) ++++ mg/dL [facility] Comment on above: 30mg/dL Spec Grav, UA 1.03 1 - 1.03 [facility] Urobilinogen, UA 0.2 0.2 - 12 mg/dL [facility] ALL CBC WITH AUTO DIFFon BASOPHILS ABSOLUTE AUTO 0 [facility] Basophils/100 WBC (Bld) 0.4 % 0.2 - 2.0 % [facility] Eosinophils/100 WBC (Bld) 0.7 % Low 0.9 - 7.0 % [facility] Erythrocyte distribution width (RBC) [Ratio] 12.5 % 11.0 - 15.0 % [facility] Hematocrit (Bld) [Volume fraction] 37.5 % 36.0 - 48.0 % [facility] Hemoglobin (Bld) [Mass/Vol] 12.6 g/dL 12.0 - 16.0 g/dL [facility] IMMATURE GRANULOCYTES ABS AUTO 0.03 [facility] Immature granulocytes/100 WBC (Bld) 0.4 % 0.0 - 0.5 % [facility] Interpretation and review of laboratory results Abnormal [facility] re LYMPHOCYTES ABSOLUTE AUTO 1.9 [facility] Lymphocytes/100 WBC (Bld) 22.5 % 20.5 - 60.0 % [facility] MCH (RBC) [Entitic mass] 30.7 pg 26.7 - 34.0 pg [facility] MCHC (RBC) [Mass/Vol] 33.6 g/dL 29.9 - 35.2 g/dL [facility] MCV (RBC) [Entitic vol] 91.5 fL 81.0 - 99.0 fL [facility] MONOCYTES ABSOLUTE AUTO 0.5 [facility] Monocytes/100 WBC (Bld) 5.6 % 1.7 - 12.0 % [facility] NEUTROPHILS ABSOLUTE AUTO 5.8 [facility] Neutrophils/100 WBC (Bld) 70.4 % 43.0 - 75.0 % [facility] Platelet mean volume (Bld) [Entitic vol] 10.1 fL 9.5 - 13.5 fL [facility] TBH EO # 0.1 [facility] TB PLT 305 [facility] e TB RBC 4.1 Low [facility] TBH WBC 8.3 [facility] CLINISYNC [facility] HCG ( test) Ql (U)o n 12-09-2024 Interpretation and review of laboratory results Abnormal [facility] re Preg Test, Ur Positive Negative [facility] US OB TRANSVAGINALon 025 [...] report is generated using voice recognition reporting (tibdit). On occasion tibdit erroneously drops words from the report or [...] UA Negative Negative - 4(70) +++ mg/dL [facility] Blood, UA Negative Negative - 50 Gulshan/mcL [facility] Clarity, UA Clear [facility] re Color, UA Yellow [facility] Glucose, UA Negative Negative - 1999(110) ++++ mg/dL [facility] Interpretation and review of laboratory results Abnormal [facility] Ketones, UA Positive Negative - 160(16) ++++ mg/dL [facility] Comment on above: trace Leukocytes, UA Negative Negative - 500+++ Stefan/mcL [facility] Nitrite, UA Negative Negative - Positive [facility] pH, UA 5.5 5 - 9 [facility] Protein, UA Positive Negative - 1999(20) ++++ mg/dL [facility] Comment on above: 30 Spec Grav, UA 1.03 1 - 1.03 [facility] Urobilinogen, [...] UA Negative Negative - 4(70) +++ mg/dL [facility] Blood, UA Negative Negative - 50 Gulshan/mcL [facility] Clarity, UA Clear [facility] Color, UA Yellow [facility] Glucose, UA Negative Negative - 1999(110) ++++ mg/dL [facility] Healthcare Interpretation and review of laboratory [...] DNA High Riskon 12-06-19 22 HPV Interp [facility] Comment on above: Result Comment: [...] purposes. Performed By: #### H PVH #### [address] [address] Machine Operator Hop Picker: Ulisses Gold MD HPV Type 16 Not detected [facility] Comment on above: Performed By: #### H PVH #### [address] [address] Machine Operator Hop Picker: Ulisses Gold MD HPV Type 18 Not detected [facility] Comment on above: Performed By: #### H PVH #### [address] [address] Machine Operator Hop Picker: Ulisses Gold MD Other High Risk HPV Not detected [facility] Comment on above: Performed By: #### H PVH #### [facility] [address] [address] Machine Operator Hop Picker: Ulisses Gold MD HPV DNA High Riskon 12-05-19 22 Source .GENITAL - NOT SPECIFIED [facility] Comment on above: Performed By: #### H PVH #### [address] [address] Machine Operator Hop Picker: Ulisses Gold MD HPV Sample .THIN PREP [facility] Comment on above: Performed By: #### H PVH #### [facility] [employer] [address] [place] [address] [id number] Machine Operator Hop Picker: Ulisses Gold MD Cytologyon 12-04-2021 Cytology (NOTE) INTERPRETATION Cervical material, (ThinPrep vial, Imaging-assisted review): Specimen Adequacy: Satisfactory for evaluation. -Endocervical/transfor mation zone component is absent. Descriptive Diagnosis: Negative for intraepithelial lesion or malignancy. Chef Manager: RONY Ugalde(ASCP) Electronically Signed Out /12/17/2021 Procedure/Addendum [...] review) Clinical History Intrauterine device Z01.419 Routine obstetrics gyn exam without abnormal findings Co-Test: ThinPrep Pap with high risk HPV testing GYNECOLOGIC CYTOLOGY REPORT Patient Name: SURJIT AVINA Yash. Med Rec: [id number] Path Number: [id number] [employer] [facility] ANATOMIC PATHOLOGY [address] [place] [address]. [place], [place] [id number] [facility] Comment on above: Performed By: #### P PPVP #### [employer] [address] [place] [address] Machine Operator Hop Picker: Ulisses Gold MD QUANTIFERON TB GOLD PLUS (NO N-INC)on 09-05-2021 Comment Incubation performed. Normal [facility] Comment on above: Performed By: #### Q NTTBG #### [facility] [address] [place] [address] Dr. Hetal Linn Criteria Comment Normal [facility] Comment on above: Result Comment: The QuantiFERON-TB Gold Plus result is determined by subtracting the Nil value from either TB antigen (Ag) tube. The mitogen tube serves as a control for the test. Performed By: #### Q NTTBG #### [facility] [address] [place] [address] Dr. Hetal Linn Mitogen Value >10.00 Normal [facility] Comment on above: Performed By: #### Q NTTBG #### [facility] [address] [place] [address] Dr. Hetal Linn Nill Value 0.06 IU/mL Normal [facility] Comment on above: Performed By: #### Q NTTBG #### [facility] [address] [place] [address] Dr. Hetal Linn Quantiferon Gold Plus Negative Normal Negative [facility] Comment on above: Result Comment: Chem iluminescence immunoassay methodology Performed By: #### Q NTTBG #### [facility] [address] [place] [address] Dr. Hetal Linn TB1 Ag Value 0.10 IU/mL [facility] Comment on above: Performed By: #### Q NTTBG #### [facility] [address] [place] [address] Dr. Hetal Linn TB2 Ag Value 0.08 IU/mL [facility] Comment on above: Performed By: #### Q NTTBG #### [facility] [address] [place] [address] Dr. Hetal Linn HEPATITIS B SURFACE ANTIBODY , QUANTon 08-31-2021 Hepatitis B Surf AB Quant 202.1 mIU/mL Normal Immunity>9.9 [facility] Comment on above: Result Comment: Stat us of Immunity Anti-HBs Level Inconsistent with Immunity 0.0 - 9.9 Consistent with Immunity >9.9 Performed By: #### H EPBSRF #### [facility] [address] [place] [address] Dr. Hetal Linn MMR IMMUNITYon 08-31-2021 Mumps Abs, IgG 24.8 AU/mL Normal Immune >10.9 [facility] Comment on above: Result Comment: Nega tive <9.0 Equivocal 9.0 - 10.9 Positive >10.9 A positive result generally indicates past exposure to Mumps virus or previous vaccination. Performed By: #### M MRIMMU #### [facility] [address] [place] [address] Dr. Hetal Linn Rubella Antibodies, IgG 1.14 index Normal Immune >0.99 [facility] Comment on above: Result Comment: Non- immune <0.90 Equivocal 0.90 - 0.99 Immune >0.99 Performed By: #### M MRIMMU #### [facility] [address] [place] [address] Dr. Hetal Linn Rubeola Ab, IgG 26.6 AU/mL Normal Immune >16.4 [facility] Comment on above: Result Comment: Nega tive <13.5 Equivocal 13.5 - 16.4 Positive >16.4 Presence of antibodies to Rubeola is presumptive evidence of immunity except when acute infection is suspected. Performed By: #### M MRIMMU #### [facility] [address] [place] [address] Dr. Hetal Linn VARICELLA IGG ABon Varicella Zoster IgG 1376 index Normal Immune >165 [facility] Comment on above: Result Comment: Nega tive <135 Equivocal 135 - 165 Positive >165 A positive result generally indicates exposure to the pathogen or administration of specific immunoglobulins, but it is not indication of active infection or stage of disease. Performed By: #### V ARCEL #### [facility] [address] [place], [place] [address] Dr. Hetal Linn Addendum Reporton 04-10-2020 Addendum Report Missing Attachment Chartable Reference Lab Reports Can be viewed in source system Addendum Discussion [facility], SHAKA, #[id number], Date reported: 04/10/2020: Diagnosis: A. Skin of [...] irritation but melanocytic atypia is not observed. [id number] ONAL [id number] ONAL [id number] ONAL [id number] IONAL T-[id number] ONAL M-[id number] ONAL [id number] ONAL [id number] ONAL [id number] ONAL Ronna Jenkins MD (Electronically signed by) Verified: 04/10/20 13:15 ADD Pathologist Requested Consult Comment by Ronna Jenkins M.D.: The above consultation report was reviewed. I essentially concur with the diagnosis given. Normal [facility] Comment on above: Performed By: #### C BC #### [facility] [address] [place] [address] Surgery Office/Clinic Noteon 04-04-2020 Surgery Office/Clinic Note Chief Complaint Mole removal x2. History of Present Illness Patient presents for excision of two raised darkly pigmented nevi. Review of Systems Constitutional: No Unexpected weight loss No History of diabetes Respiratory: No Shortness of breath Cardiovascular: NoChest pain or pressure, NoEdema, NoHistory of ID/CAD, NoHistory of A-Fib : NoHesitancy, NoNocturia, NoPrior [...] in this document, created by the medical lab tech instructor for me, accurately reflects the services I personally performed and the decisions made by me. Problem List/Past Medical History Ongoing Mole Historical No qualifying data Medications ibuprofen Allergies No Known Allergies Social History Tobacco Never (less than 100 in lifetime) Use:. Family History Colon cancer: Grandfather (P). Esophageal cancer: Grandfather (M). Electronically signed by Charanjit Dimas MD 04/04/20 18:28 EDT Electronically signed by KevinMartínLexi M 04/03/2020 14:13 EDT Electronically signed by Shaina Kang 04/04/2020 12:16 EDT Normal [facility] Surgical Pathology Reporton 04-04-2020 Surgical Pathology [...] case is going to [facility] for consultation. [id number] ONAL [id number] IONAL [id number] ONAL [id number] ONAL [id number] IONAL Ronna Jenkins MD (Electronically signed by) Verified: 04/09/20 10:08 Normal [facility] Comment on above: Performed By: #### S IN #### [facility] (DEFAULT) [address] [place] [address] .eGFRon 08-04-2019 eGFR AA >60 Normal >=60 [facility] Comment on above: Result Comment: Resu lt = 0-14.9 mL/min/1.73 m2 Kidney failure or Dialysis Result = 15-29 mL/min/1.73 m2 Severe decrease in GFR Result = 30-59 mL/min/1.73 m2 Moderate decrease in GFR Result >= 60 mL/min/1.73 m2 Normal or increased GFR Performed By: #### E GFR #### [facility] [address] [place], [place] [id number] eGFR Non-AA >60 Normal >=60 [facility] Comment on above: Result Comment: Resu [...] dosing. Performed By: #### E GFR #### [address] [address] CBC w/ Diffon 08-04-2019 Erythrocyte distribution width (RBC) [Ratio] 12.9 % Normal 11.6-14.8 [facility] Comment on above: Performed By: #### C BC #### [address] [address] Hematocrit (Bld) [Volume fraction] 40.4 % Normal 36.0-46.0 [facility] Comment on above: Performed By: #### C BC #### [address] [address] Hemoglobin (Bld) [Mass/Vol] 13.5 g/dL Normal 12.0-16.0 [facility] Comment on above: Performed By: #### C BC #### [address] [address] MCH (RBC) [Entitic mass] 32.0 pg Normal 27.0-35.0 [facility] Comment on above: Performed By: #### C BC #### [address] [address] MCHC (RBC) [Mass/Vol] 33.5 % Normal 31.0-37.0 [facility] Comment on above: Performed By: #### C BC #### [address] [address] MCV (RBC) [Entitic vol] 95.7 fL Normal 80.0-100.0 [facility] Comment on above: Performed By: #### C BC #### [address] [address] Platelet mean volume (Bld) [Entitic vol] 9.8 fL Normal 6.7-10.6 [facility] Comment on above: Performed By: #### C BC #### [address] [address] Platelets (Bld) [#/Vol] 226 x10*3/mcL Normal 150-350 [facility] Comment on above: Performed By: #### C BC #### [address] [address] RBC (Bld) [#/Vol] 4.23 x10*6/mcL Normal 3.80-5.20 [facility] Comment on above: Performed By: #### C BC #### [address] [address] WBC (Bld) [#/Vol] 7.4 x10*3/mcL Normal 4.5-11.0 [facility] Comment on above: Performed By: #### C BC #### [address] [address] CMPon 08-04-2019 Albumin [Mass/Vol] 4.0 g/dL Normal 3.2-4.9 [facility] Comment on above: Result Comment: [facility] Laboratory updated the methodology used for albumin testing on 06/16/18. Albumin measurement was performed using a bromcresol purple dye-binding assay. Performed By: #### C OMP #### [address] [address] Albumin/Globulin [Mass ratio] 1.2 {ratio} Normal 1.1-2.2 [facility] Comment on above: Performed By: #### C OMP #### [address] [address] Alk Phos 51 IU/L Normal 32-91 [facility] Comment on above: Performed By: #### C OMP #### [address] [address] ALT [Catalytic activity/Vol] 13 U/L Low 14-54 [facility] Comment on above: Performed By: #### C OMP #### [address] [address] Anion gap [Moles/Vol] 10 mmol/L Normal 7-17 [facility] Comment on above: Performed By: #### C OMP #### [address] [address] AST [Catalytic activity/Vol] 17 U/L Normal 15-41 [facility] Comment on above: Performed By: #### C OMP #### [address] [address] Bili Total 0.8 mg/dL Normal 0.3-1.2 [facility] Comment on above: Performed By: #### C OMP #### [address] [address] Calcium [Mass/Vol] 8.9 mg/dL Normal 8.5-10.3 [facility] Comment on above: Performed By: #### C OMP #### [address] [address] Chloride [Moles/Vol] 107 mmol/L Normal 98-110 [facility] Comment on above: Performed By: #### C OMP #### [address] [address] CO2 [Moles/Vol] 27 mmol/L Normal 22-32 [facility] Comment on above: Performed By: #### C OMP #### [address] [address] Creatinine [Mass/Vol] 0.84 mg/dL Normal 0.44-1.03 [facility] Comment on above: Performed By: #### C OMP #### [address] [address] Glucose [Mass/Vol] 84 mg/dL Normal 74-118 [facility] Comment on above: Performed By: #### C OMP #### [address] [address] Potassium [Moles/Vol] 4.3 mmol/L Normal 3.4-4.8 [facility] Comment on above: Performed By: #### C OMP #### [address] [address] Protein [Mass/Vol] 7.2 g/dL Normal 6.5-8.1 [facility] Comment on above: Performed By: #### C OMP #### [address] [address] Sodium [Moles/Vol] 140 mmol/L Normal 133-142 [facility] Comment on above: Performed By: #### C OMP #### [address] [address] Urea nitrogen [Mass/Vol] 10 mg/dL Normal 8-26 [facility] Comment on above: Performed By: #### C OMP #### [address] [address] Urea nitrogen/Creatinine [Mass ratio] 11.9 mg/mg Normal 10.0-20.0 [facility] Comment on above: Performed By: #### C OMP #### [address] [address] Diff Autoon 08-04-2019 Baso Absolute 0.0 x10*3/mcL Normal 0.0-0.2 [facility] Comment on above: Performed By: #### . Automated Diff #### [address] [address] Basophils/100 WBC (Bld) 0.2 % Normal 0.0-1.5 [facility] Comment on above: Performed By: #### . Automated Diff #### [address] [address] Eos Absolute 0.0 x10*3/mcL Normal 0.0-0.4 [facility] Comment on above: Performed By: #### . Automated Diff #### [address] [address] Eosinophils/100 WBC (Bld) 0.6 % Normal 0.0-5.4 [facility] Comment on above: Performed By: #### . Automated Diff #### [address] [address] Lymphocytes (Bld) [#/Vol] 2.3 x10*3/mcL Normal 1.0-4.8 [facility] Comment on above: Performed By: #### . Automated Diff #### [address] [address] Lymphocytes/100 WBC (Bld) 30.5 % Normal 27.2-40.8 [facility] Comment on above: Performed By: #### . Automated Diff #### [address] [address] [place] Absolute 0.5 x10*3/mcL Normal 0.1-1.1 [facility] Comment on above: Performed By: #### . Automated Diff #### [address] [address] Monocytes/100 WBC (Bld) 7.0 % Normal 3.7-11.9 [facility] Comment on above: Performed By: #### . Automated Diff #### [address] [address] Neutro Absolute 4.6 x10*3/mcL Normal 1.8-7.7 [facility] Comment on above: Performed By: #### . Automated Diff #### [address] [address] Neutro Auto 61.7 % Normal 47.2-70.8 [facility] Comment on above: Performed By: #### . Automated Diff #### [address] [address] Lipid Panelon 08-04-2019 Cholesterol in LDL [Mass/Vol] 79 mg/dL Normal 0-99 [facility] Comment on above: Result Comment: The equation being used in this calculation is LDL = (Chol - HDL) - (Trig / 5) The optimal value of LDL for individual patients may vary. The patient's history of Artherosclerosis and other cardiac risk factors should be considered. Performed By: #### L BONILLA #### [address] [address] Cardiac Risk 3.1 Normal [facility] Comment on above: Result Comment: Men Women 1/2 Average 3.43 3.27 Average 4.97 4.44 2x Average 9.55 7.05 3x Average 23.99 11.04 Performed By: #### L BONILLA #### [address] [address] Cholesterol [Mass/Vol] 131 mg/dL Normal 25-199 [facility] Comment on above: Result Comment: 0 - 17 years of age: Desirable 0-170 Borderline High 170-199 High >=200 18 years and older: Acceptable <200 Borderline High 200-239 High >=240 Performed By: #### L BONILLA #### [address] [address] Cholesterol in HDL [Mass/Vol] 42.0 mg/dL Normal 40.0-60.0 [facility] Comment on above: Performed By: #### L BONILLA #### [address] [address] Cholesterol in VLDL [Mass/Vol] 10 mg/dL Normal 8-39 [facility] Comment on above: Performed By: #### L BONILLA #### [address] [address] Triglyceride [Mass/Vol] 48 mg/dL Normal [facility] Comment on above: Result Comment: 0 - 17 years of age: Trig 90 - 129 Borderline High Trig => 130 High 18 years and older: Trig 150 - 199 Borderline High Trig 200 - 499 High Trig =>500 Very High Performed By: #### L BONILLA #### [address] [address] TSHon 08-04-2019 TSH Qn 1.45 mcIU/mL Normal 0.45-5.33 [facility] Comment on above: Result Comment: Refe rence Ranges for individuals from to 18 years of age were obtained from The Mary[employer] Edmondson Handbook (20 ed) published by [employer]. Reference Ranges for Females: Females, 1st Trimester 0.05 ? 3.7 uIU/mL Females, 2nd Trimester 0.31 ? 4.35 uIU/mL Females, 3rd Trimester 0.41 ? 5.18 uIU/mL Performed By: #### T SH #### [address] [address] Total T3on 08-04-2019 T3 Total 0.95 ng/mL Normal 0.87-1.78 [facility] Comment on above: Performed By: #### T 3R #### [facility] [address] [place] [address] Total T4on 08-04-2019 T4 Total 6.6 mcg/dL Normal 5.0-11.5 [facility] Comment on above: Performed By: #### T 4 #### [facility] [address] [place] [address] Vital Signs Date Time Vital Sign Value Performing Clinician Ranjithi lity 07-11-2025 09:13-0400 Body mass index (BMI) [Ratio] 31.24 kg/m2 Harsha Dimitry DO Work Phone: [facility] 07-11-2025 09:13-0400 Body weight 82.56 kg Harsha Dimitry DO Work Phone: [facility] 07-03-2025 13:47-0400 Body mass index (BMI) [Ratio] 31.03 kg/m2 Harsha Dimitry DO Work Phone: [facility] 07-03-2025 13:47-0400 Body weight 82.01 kg Harsha Dimitry DO Work Phone: [facility] 07-03-2025 13:47-0400 Diastolic blood pressure 74 mm[Hg] Harsha Dimitry DO Work Phone: [facility] 07-03-2025 13:47-0400 Systolic blood pressure 112 mm[Hg] Harsha Dimitry DO Work Phone: [facility] 06-27-2025 10:06-0400 Body mass index (BMI) [Ratio] 30.69 kg/m2 Fawn PINON Work Phone: [facility] 06-27-2025 10:06-0400 Body weight 81.1 kg Fawn PINON Work Phone: [facility] 06-27-2025 10:06-0400 Diastolic blood pressure 82 mm[Hg] Fawn PINON Work Phone: [facility] 06-27-2025 10:06-0400 Systolic blood pressure 118 mm[Hg] Fawn Perdomo PA Work Phone: [facility] 06-19-2025 09:07-0400 Body mass index (BMI) [Ratio] 30.25 kg/m2 Harsha Dimitry DO Work Phone: [facility] 06-19-2025 09:07-0400 Body weight 79.95 kg Harsha Dimitry DO Work Phone: [facility] 06-19-2025 09:07-0400 Diastolic blood pressure 70 mm[Hg] Harsha Dimitry DO Work Phone: [facility] 06-19-2025 09:07-0400 Systolic blood pressure 110 mm[Hg] Harsha Dimitry DO Work Phone: [facility] 06-08-2025 09:57-0400 Body mass index (BMI) [Ratio] 29.7 kg/m2 Fawn PINON Work Phone: [facility] 06-08-2025 09:57-0400 Body weight 78.47 kg Fawn Leanne PA Work Phone: [facility] 06-08-2025 09:57-0400 Diastolic blood pressure 70 mm[Hg] Fawn Perdomo PA Work Phone: [facility] 06-08-2025 09:57-0400 Systolic blood pressure 118 mm[Hg] Fawn Perdomo PA Work Phone: [facility] 05-25-2025 09:44-0400 Body mass index (BMI) [Ratio] 29.35 kg/m2 Harsha Dimitry DO Work Phone: [facility] 05-25-2025 09:44-0400 Body weight 77.56 kg Harsha Dimitry DO Work Phone: [facility] 05-25-2025 09:44-0400 Diastolic blood pressure 74 mm[Hg] Harsha Dimitry DO Work Phone: [facility] 05-25-2025 09:44-0400 Systolic blood pressure 110 mm[Hg] Harsha Dimitry DO Work Phone: [facility] 05-10-2025 10:10-0400 Body mass index (BMI) [Ratio] 28.67 kg/m2 Fawn Leanne PA Work Phone: [facility] 05-10-2025 10:10-0400 Body weight 75.75 kg Fawn Leanne PA Work Phone: [facility] 05-10-2025 10:10-0400 Diastolic blood pressure 70 mm[Hg] Fawn Denver PA Work Phone: [facility] 05-10-2025 10:10-0400 Systolic blood pressure 108 mm[Hg] Fawn Leanne PA Work Phone: [facility] 04-26-2025 13:55-0400 Body mass index (BMI) [Ratio] 28.32 kg/m2 Harsha Dimitry DO Work Phone: [facility] 04-26-2025 13:55-0400 Body weight 74.84 kg Harsha Dimitry DO Work Phone: [facility] 04-26-2025 13:55-0400 Diastolic blood pressure 72 mm[Hg] Harsha Dimitry DO Work Phone: [facility] 04-26-2025 13:55-0400 Systolic blood pressure 110 mm[Hg] Harsha Dimitry DO Work Phone: [facility] 04-05-2025 08:34-0400 Body mass index (BMI) [Ratio] 27.72 kg/m2 Fawn Leanne PA Work Phone: [facility] 04-05-2025 08:34-0400 Body weight 73.26 kg Fawn Leanne PA Work Phone: [facility] 04-05-2025 08:34-0400 Diastolic blood pressure 70 mm[Hg] Fawn Leanne PA Work Phone: [facility] 04-05-2025 08:34-0400 Systolic blood pressure 112 mm[Hg] Fawn Perdomo PA Work Phone: [facility] 03-07-2025 10:39-0400 Body mass index (BMI) [Ratio] 26.52 kg/m2 Harsha Dimitry DO Work Phone: [facility] 03-07-2025 10:39-0400 Body weight 70.08 kg Harsha Dimitry DO Work Phone: [facility] 03-07-2025 10:39-0400 Diastolic blood pressure 74 mm[Hg] Harsha Dimitry DO Work Phone: [facility] 03-07-2025 10:39-0400 Systolic blood pressure 106 mm[Hg] Harsha Dimitry DO Work Phone: [facility] 02-07-2025 09:49-0400 Body mass index (BMI) [Ratio] 25.06 kg/m2 Fawn PINON Work Phone: [facility] 02-07-2025 09:49-0400 Body weight 66.22 kg Fawn PINON Work Phone: [facility] 02-07-2025 09:49-0400 Diastolic blood pressure 70 mm[Hg] Fawn PINON Work Phone: [facility] 02-07-2025 09:49-0400 Systolic blood pressure 112 mm[Hg] Fawn Perdomo PA Work Phone: [facility] 01-10-2025 09:27-0500 Body mass index (BMI) [Ratio] 24.2 kg/m2 Harsha Dimitry DO Work Phone: [facility] 01-10-2025 09:27-0500 Body weight 63.96 kg Harsha Dimitry DO Work Phone: [facility] 01-10-2025 09:27-0500 Diastolic blood pressure 72 mm[Hg] Harsha Dimitry DO Work Phone: [facility] 01-10-2025 09:27-0500 Systolic blood pressure 102 mm[Hg] Harsha Dimitry DO Work Phone: [facility] 12-09-2024 10:33-0500 Body mass index (BMI) [Ratio] 23.69 kg/m2 Nom Nurse [facility] 12-09-2024 10:33-0500 Body weight 62.6 kg [facility] Nurse [facility] 12-09-2024 10:33-0500 Diastolic blood pressure 70 mm[Hg] [facility] Nurse [facility] 12-09-2024 10:33-0500 Systolic blood pressure 118 mm[Hg] [facility] Nurse [facility] 12-23-2023 14:45-0500 Body mass index (BMI) [Ratio] 29.49 kg/m2 Harsha Dimitry DO Work Phone: [facility] 12-23-2023 14:45-0500 Body weight 77.93 kg Harsha Dimitry DO Work Phone: [facility] 12-23-2023 14:45-0500 Diastolic blood pressure 76 mm[Hg] Harsha Dimitry DO Work Phone: [facility] 12-23-2023 14:45-0500 Systolic blood pressure 118 mm[Hg] Harsha Dimitry DO Work Phone: [facility] 12-16-2023 14:06-0500 Body mass index (BMI) [Ratio] 29.32 kg/m2 Harsha Dimitry DO Work Phone: [facility] 12-16-2023 14:06-0500 Body weight 77.47 kg Harsha Dimitry DO Work Phone: [facility] 12-16-2023 14:06-0500 Diastolic blood pressure 70 mm[Hg] Harsha Dimitry DO Work Phone: [facility] 12-16-2023 14:06-0500 Systolic blood pressure 120 mm[Hg] Harsha Dimitry DO Work Phone: [facility] Healthcare Encounters Encounter Date Encounter Type Care Provider Facility Start: 07-17-2025 End: 07-17-2025 Bamboo flowsheet Harsha Dimitry DO Work Phone: [facility] Tianna CELIS Start: 07-17-2025 End: 07-17-2025 Bamboo flowsheet Harsha Dimitry DO Work Phone: [facility] Start: 07-11-2025 End: 07-11-2025 Bamboo flowsheet Harsha Dimitry DO Work Phone: [facility] Start: 07-11-2025 End: 07-11-2025 Bamboo flowsheet Harsha Dimitry DO Work Phone: [facility] Start: 07-11-2025 End: 07-11-2025 ambulatory HARSHA DIMITRY Not Available Start: 07-11-2025 End: 07-11-2025 flow sheet Harsha Dimitry DO Work Phone: [facility] Comment on above: Third trimester preg rajinder ([facility]); 39 weeks gestation of ([facility]) Start: 07-03-2025 End: 07-03-2025 flow sheet Harsha Dimitry DO Work Phone: [facility] Comment on above: Third trimester preg rajinder ([facility]); 38 weeks gestation of ([facility]) Start: 07-03-2025 End: 07-03-2025 ambulatory HARSHA DIMITRY Not Available Start: 06-27-2025 End: 06-27-2025 Bamboo flowsheet Fawn PINON Work Phone: [facility] Start: 06-27-2025 End: 06-27-2025 Bamboo flowsheet Fawn PINON Work Phone: [facility] Start: 06-27-2025 End: 06-27-2025 flow sheet Fawn PINON Work Phone: [facility] Comment on above: Third trimester preg rajinder ([facility]); 37 weeks gestation of ([facility]) Start: 06-27-2025 End: 06-27-2025 ambulatory FAWN PERDOMO Not Available Start: 06-19-2025 End: 08-11-2025 Bamboo flowsheet Harsha Dimitry DO Work Phone: [facility] Start: 06-19-2025 End: 06-19-2025 Bamboo flowsheet Harsha Dimitry DO Work Phone: [facility] Start: 06-19-2025 End: 06-19-2025 flow sheet Harsha Dimitry DO Work Phone: [facility] Comment on above: Third trimester preg rajinder ([facility]); 36 weeks gestation of ([facility]) Start: 06-19-2025 End: 06-19-2025 ambulatory HARSHA DIMITRY Not Available Start: 06-08-2025 End: 06-08-2025 Bamboo flowsheet Fawn PINON Work Phone: [facility] Start: 06-08-2025 End: 06-08-2025 Bamboo flowsheet Fawn PINON Work Phone: [facility] Start: 06-08-2025 End: 06-08-2025 ambulatory FAWN PERDOMO Not Available Start: 06-08-2025 End: 06-08-2025 flow sheet Fawn PINON Work Phone: [facility] Comment on above: Third trimester preg rajinder ([facility]); 34 weeks gestation of ([facility]) Start: 05-25-2025 End: 05-25-2025 flow sheet Harsha Dimitry DO Work Phone: [facility] Comment on above: Third trimester preg rajinder ([facility]); 32 weeks gestation of ([facility]) Start: 05-25-2025 End: 05-25-2025 ambulatory HARSHA DIMITRY Not Available Start: 05-10-2025 End: 05-10-2025 Bamboo flowsheet Fawn PINON Work Phone: [facility] Start: 05-10-2025 End: 05-10-2025 Bamboo flowsheet Fawn PINON Work Phone: [facility] Start: 05-10-2025 End: 05-10-2025 ambulatory FAWN PERDOMO Not Available Start: 05-10-2025 End: 05-10-2025 flow sheet Fawn PINON Work Phone: [facility] Comment on above: Size of fetus incons istent with dates in third trimester ([facility]) (Primary Dx); Third trimester ([facility]); 30 weeks gestation of ([facility]) Start: 04-26-2025 End: 04-26-2025 Bamboo flowsheet Harsha Dimitry DO Work Phone: [facility] Start: 04-26-2025 End: 04-26-2025 Bamboo flowsheet Harsha Dimitry DO Work Phone: [facility] Start: 04-26-2025 End: 04-26-2025 flow sheet Harsha Dimitry DO Work Phone: [facility] Comment on above: Third trimester preg rajinder ([facility]); 28 weeks gestation of ([facility]) Start: 04-26-2025 End: 04-26-2025 ambulatory HARSHA DIMITRY Not Available Start: 04-22-2025 End: 04-22-2025 Clinisync Result Encounter Fawn PINON Work Phone: [facility] Unsolic[facility] Start: 04-22-2025 End: 04-22-2025 Clinisync Result Encounter Fawn PINON Work Phone: [facility] Start: 04-05-2025 End: 04-05-2025 Bamboo flowsheet Fawn PINON Work Phone: [facility] Start: 04-05-2025 End: 04-05-2025 Bamboo [...] of Start: 03-07-2025 End: 03-07-2025 ambulatory HARSHA ARMASO Not Available Start: 02-27-2025 End: 02-27-2025 Clinisync [...] 02-07-2025 End: 02-07-2025 Patient encounter procedure Fawn Perdomo ZI Work Phone: [facility] Start: 02-07-2025 End: [...] rajinder Start: 12-04-2021 End: 12-05-2021 ambulatory BEBETO CHONGKERCAROLA [facility] Start: 09-27-2021 Encounter for genera l adult medical examination without abnormal findings BRIAN VARNER [facility] Start: 08-30-2021 End: 08-31-2021 ambulatory BRIAN VARNER Facility:[facility] Start: 08-30-2021 End: 08-31-2021 Encounter for general adult medical examination without abnormal findings BRIAN VARNER Facility:[facility] Start: 08-04-2019 End: 08-05-2019 Patient encounter procedure MASON DELEON Facility:[facility] Procedures Date Procedure Procedure Detail Performing Clinician Start: 07-11-2025 Urnls dip stick/tabl et rgnt non-auto w/o micrscp Harsha Dimitry DO Work Phone: Start: 07-03-2025 Urnls dip stick/tabl et rgnt non-auto w/o micrscp Harsha Dimitry DO Work Phone: Start: 06-27-2025 Urnls dip stick/tabl et rgnt non-auto w/o micrscp Fawn PINON Work Phone: Start: 06-19-2025 Urnls dip stick/tabl et rgnt non-auto w/o micrscp Harsha Dimitry DO Work Phone: Start: 06-08-2025 Urnls dip stick/tabl et rgnt non-auto w/o micrscp Fawn PINON Work Phone: Start: 05-10-2025 Urnls dip stick/tabl et rgnt non-auto w/o micrscp Fawn PINON Work Phone: Start: 04-26-2025 Urnls dip stick/tabl et rgnt non-auto w/o micrscp Harsha Dimitry DO Work Phone: Start: 04-22-2025 ALL CBC WITH AUTO DIFF Fawn PINON Work Phone: Start: 04-05-2025 Urnls dip stick/tabl et rgnt [...] Treatment Date Care Activity Detail Author Start: 07-17-2025 End: 07-17-2025 Patient encounter procedure [facility] Comment on above: Arrived Start: 07-11-2025 End: 07-11-2025 Patient encounter procedure 07/11/2025 9:00 AM EDT Routine [facility] [address] [place] [id number] Harsha Moraes DO [address] [place] [address] [facility] Start: 07-04-2025 End: 07-04-2025 Patient encounter procedure 07/04/2025 11:00 AM EDT Rout[facility] [address] [place] [address] Harsha Moraes DO [address] [place] [address] [facility] Start: 06-27-2025 End: 06-27-2025 Patient encounter procedure [facility] Comment on above: Arrived Start: 06-19-2025 End: 06-19-2026 CULTURE, GROUP B STREP WITH SUSCEPTIBLITY CULTURE, GROUP B STREP WITH SUSCEPTIBLITY Lab Routine Third trimester ([facility]) Expected: 06/19/2025, Expires: 06/19/2026 [facility] Work Phone: Comment on above: Expected: 06/19/2025 , Expires: 06/19/2026 Start: 06-19-2025 End: 06-19-2025 Patient encounter procedure [facility] Comment on above: Arrived Start: 06-08-2025 End: 06-08-2025 Patient encounter procedure 06/08/2025 9:50 AM EDT Rout[facility] [address] [facility] [place] [id number] Fawn Perdomo, PA [address] [place] [address] [facility] Start: 05-10-2025 End: 09-10-2025 US for US OB follow up transabdominal approach Imaging Routine Size of fetus inconsistent with dates in third trimester ([facility]) Expected: 05/10/2025, Expires: 09/10/2025 [facility] Work Phone: Comment on above: Expected: 05/10/2025 , Expires: 09/10/2025 Start: 05-10-2025 End: 05-10-2025 Patient encounter procedure 05/10/2025 9:50 AM EDT Routine [facility] [address] [place] [phone] Fawn Perdomo, PA [address] [place] [address] [facility] Start: 04-26-2025 End: 04-26-2025 Patient encounter procedure [facility] Comment on above: Arrived Start: 04-05-2025 End: 04-05-2026 CBC panel - Blood by Automated count CBC Lab Routine Diabetes mellitus screening Expected: 04/05/2025 (Approximate), Expires: 04/05/2026 [facility] Work Phone: Comment on above: Expected: 04/05/2025 (Approximate), Expires: 04/05/2026 Start: 04-05-2025 End: 04-05-2026 Measurement of glucose 1 hour after glucose challenge for glucose tolerance test Glucose tolerance, 1 hour Lab Routine Diabetes mellitus screening Expected: 04/05/2025 (Approximate), Expires: 04/05/2026 [facility] Comment on above: Expected: 04/05/2025 (Approximate), Expires: [...] gestational age Expected: 12/09/2024 (Approximate), Expires: 12/09/2025 [facility] Comment on above: Expected: 12/09/2024 (Approximate), Expires: 12/09/2025 Start: 12-09-2024 End: 12-09-2025 Blood type and Indirect antibody screen panel - Blood Type and screen Lab Routine Missed menses , unspecified gestational age Expected: 12/09/2024 (Approximate), Expires: 12/09/2025 [facility] Work Phone: Comment on above: Expected: 12/09/2024 (Approximate), Expires: 12/09/2025 Start: 12-09-2024 End: 12-09-2025 Drugs of abuse panel - Urine by Screen method Rapid drug screen, urine Lab Routine , unspecified gestational age Encounter for supervision of normal first in first trimester Expected: 12/09/2024 (Approximate), Expires: 12/09/2025 [facility] Comment on above: Expected: 12/09/2024 (Approximate), Expires: 12/09/2025 Start: 12-23-2023 End: 12-23-2023 Patient encounter procedure 12/23/2023 2:30 PM EST Routine [facility] [address] [place] [phone] Harsha Moraes, DO [address] [place] [address] Third trimester [facility] Comment on above: Third trimester preg rajinder Start: 12-23-2023 End: 12-23-2024 US biophysical profile w non stress test US biophysical profile w non stress test Imaging Routine Post term over 40 weeks Expected: 12/23/2023 (Approximate), Expires: 12/23/2024 [facility] Work Phone: Comment on above: Expected: 12/23/2023 (Approximate), Expires: 12/23/2024 Bacteria identified in Urine by Culture Urine culture Microbiology Routine Missed menses Ordered: 12/09/2024 [facility] Comment on above: Ordered: 12/09/2024 CBC W Auto Different ial panel - Blood CBC and differential Lab Routine Missed menses , unspecified gestational age Ordered: 12/09/2024 [facility] Comment on above: Ordered: 12/09/2024 CHLAMYDIA TRACHOMATI S (GENITO/STI) CHLAMYDIA TRACHOMATIS (GENITO/STI) Lab Routine Exposure to STD Ordered: 02/07/2025 [facility] Comment on above: Ordered: 02/07/2025 Cytology Cervical or vaginal smear or scraping study Pap Smear Pathology and Cytology Routine Well woman exam with routine gynecological exam Ordered: 02/07/2025 [facility] Work Phone: Comment on above: Ordered: 02/07/2025 Hemoglobin A1c/Hemoglobin.total in Blood Hemoglobin A1c Lab Routine Missed menses , unspecified gestational age Ordered: 12/09/2024 [facility] Comment on above: Ordered: 12/09/2024 Hepatitis B virus surface Ag [Presence] in Serum or Plasma by Immunoassay Hepatitis B surface antigen Lab Routine Missed menses , unspecified gestational age Ordered: 12/09/2024 [facility] Comment on above: Ordered: 12/09/2024 Hepatitis C virus Ab [Presence] in Serum or Plasma by Immunoassay Hepatitis C antibody Lab Routine Missed menses , unspecified gestational age Ordered: 12/09/2024 [facility] Comment on above: Ordered: 12/09/2024 HIV-1/HIV-2 antigen/antibody combination immunoassay HIV-1 and HIV-2 antibodies Lab Routine Missed menses , unspecified gestational age Ordered: 12/09/2024 [facility] Comment on above: Ordered: 12/09/2024 Neisseria gonorrhoea e DNA [Presence] in Unspecified specimen by LAZARA with probe detection Neisseria gonorrhea DNA probe, direct Lab Routine Exposure to STD Ordered: 02/07/2025 [facility] Comment on above: Ordered: 02/07/2025 Reagin Ab [Presence] in Serum by RPR RPR Lab Routine Missed menses , unspecified gestational age Ordered: 12/09/2024 [facility] Comment on above: Ordered: 12/09/2024 Rubella antibody, IgG Rubella an tibody, IgG Lab Routine Missed menses , unspecified gestational age Ordered: 12/09/2024 [facility] Comment on above: Ordered: 12/09/2024 SURESWAB(R) ADVANCED VAGINITIS PLUS, TMA SURESWAB(R) ADVANCED VAGINITIS PLUS, TMA Pathology and Cytology Routine Exposure to STD Ordered: 02/07/2025 [facility] Comment on above: Ordered: 02/07/2025 Payers Date Payer Category [facility]ayer [facility] [id number] 2022 Unknown [id number] 2019 Unknown 1995 Unknown [id number] [id number]. 2.196 1995 Unknown [id number] 2.16.840.1.221002.3.579. 2.173 1995 Unknown [id number] 2.16.840.1.741047.3.579. 2.593 1995 Unknown [id number] 2.16.840.1.585180.3.579. 2.1259 1995 Unknown [id number] 2.16.840.1.951101.3.579. 2.1259 1995 Unknown [id number] 2.16.840.1.715588.3.579. 2.1259 1995 Unknown [id number] 2.16.840.1.162425.3.579. 2.9 1995 Unknown [id number] 2.16.840.1.094926.3.579. 2.1259 1995 Unknown [id number] 2.16.840.1.848428.3.579. 2.1259 1995 Unknown [id number] 2.16.840.1.931461.3.579. 2.1259 1995 Unknown [id number] 2.16.840.1.051932.3.579. 2.9 1995 Unknown [id number] 2.16.840.1.126798.3.579. 2.1259 1995 Unknown [id number] 2.16.840.1.662374.3.579. 2.1259 1995 Unknown [id number] 2.16.840.1.462846.3.579. 2.1258 1995 Unknown [id number] 2.16.840.1.197796.3.579. 2.1258 1995 Unknown [id number] 2.16.840.1.745992.3.579. 2.1258 1995 Unknown [id number] 2.16.840.1.328486.3.579. 2.1258 1995 Unknown [id number] 2.16.840.1.078932.3.579. 2.9 1959 Unknown [id number] Social History Date Type Detail Facility Start: 06-18-2023 Tobacco smoking status NHIS Never sm oked tobacco [facility] Start: 12-16-2023 End: 07-11-2025 Alcohol intake Current drinker of alcohol (finding) [facility] Start: 08-31-2023 End: 12-09-2024 History of Social function [facility] Start: 08-31-2023 End: 12-09-2024 Alcohol Use Disorder Identification Test - Consumption [...] Heterosexual (fin ding) [facility] Clinical Notes 12-16-2023 to 07-11-2025 Payton Mauro LPN - 07/11/2025 9:00 AM Breanna Pugh NP - 07/03/2025 1:30 PM ZI Bear - 06/27/2025 10:00 AM Breanna Pugh NP - 06/19/2025 9:00 AM EDT Note Date & Type Note Facility 07-11-2025 History of Presen t illness Narrative Reason for Appointment: Patient ID: Surjit Avina is a 30 y.o. female who presents for Routine Visit Patient presents today for Return OB appointment. MEDICATIONS Current Outpatient Medications Medication Instructions magnesium oxide (Mag-Ox) 200 mg split tablet ALLERGIES No Known Allergies PROBLEMS Active Ambulatory Problems Diagnosis Date Noted Third trimester ([facility]) 11/19/2023 37 weeks gestation of ([facility]) 06/27/2025 Resolved Ambulatory Problems Diagnosis Date [...] nursing note reviewed. Exam conducted with a blanket washer present. Vitals: Estimated body mass index is 31.24 kg/m as calculated from the following: Height as of 05/22/23: 5' 4 . Weight as of this encounter: 182 lb. BP: Patient's last menstrual period was 10/08/2024. ASSESSMENT & PLAN ICD-10-CM 1. Third trimester ([facility]) Z34.93 POCT urinalysis dipstick manually resulted 2. 39 weeks gestation of ([facility]) Z3A.39 Return OB: Patient presents today for [...] Harsha Moraes DO documented in this encounter [facility] 07-03-2025 History of Presen t illness Narrative Reason for Appointment: Patient ID: Surjit Avina is a 30 y.o. female who presents for Routine Visit Patient presents today for Return OB appointment. MEDICATIONS Current Outpatient Medications Medication Instructions magnesium oxide (Mag-Ox) 200 mg split tablet ALLERGIES No Known Allergies PROBLEMS Active Ambulatory Problems Diagnosis Date Noted Third trimester ([facility]) 11/19/2023 37 weeks gestation of ([facility]) 06/27/2025 Resolved Ambulatory Problems Diagnosis Date [...] nursing note reviewed. Exam conducted with a blanket washer present. Vitals: Estimated body mass index is 31.03 kg/m as calculated from the following: Height as of 05/22/23: 5' 4 . Weight as of this encounter: 180 lb 12.8 oz. BP: 112/74 Patient's last menstrual period was 10/08/2024. ASSESSMENT & PLAN ICD-10-CM 1. Third trimester ([facility]) Z34.93 POCT urinalysis dipstick manually resulted 2. 38 weeks gestation of ([facility]) Z3A.38 POCT urinalysis dipstick manually resulted [...] by Cora Pugh NP on behalf of: Harsha Moraes DO documented in this encounter [facility] 06-27-2025 History of Presen t illness Narrative Reason for Appointment: Patient ID: Surjit Avina is a 30 y.o. female who presents for Routine Visit Patient presents today for Return OB appointment. MEDICATIONS Current Outpatient Medications Medication Instructions magnesium oxide (Mag-Ox) 200 mg split tablet ALLERGIES No Known Allergies PROBLEMS Active Ambulatory Problems Diagnosis Date Noted Third trimester ([facility]) 11/19/2023 37 weeks gestation of ([facility]) 06/27/2025 Resolved Ambulatory Problems Diagnosis Date [...] reviewed. Vitals: Estimated body mass index is 30.69 kg/m as calculated from the following: Height as of 05/22/23: 5' 4 . Weight as of this encounter: 178 lb 12.8 oz. BP: 118/82 Patient's last menstrual period was 10/08/2024. ASSESSMENT & PLAN ICD-10-CM 1. Third trimester ([facility]) Z34.93 POCT urinalysis dipstick manually resulted 2. 37 weeks gestation of ([facility]) Z3A.37 POCT urinalysis dipstick manually resulted Return OB: Patient presents today for a routine obstetrics appointment. Patient is currently 37w3d . Patient states she is doing well [...] of: ZI Collins documented in this encounter [facility] 06-19-2025 History of Presen t illness Narrative Reason for Appointment: Patient ID: Surjit Avina is a 30 y.o. female who presents for Routine Visit Patient presents today for 1 Week Post Op Follow Up appointment. MEDICATIONS Current Outpatient Medications Medication Instructions magnesium oxide (Mag-Ox) 200 mg split tablet ALLERGIES No Known Allergies PROBLEMS Active Ambulatory Problems Diagnosis Date Noted Third trimester ([facility]) 11/19/2023 Resolved Ambulatory Problems Diagnosis Date Noted [...] nursing note reviewed. Exam conducted with a blanket washer present. Vitals: Estimated body mass index is 30.25 kg/m as calculated from the following: Height as of 05/22/23: 5' 4 . Weight as of this encounter: 176 lb 4 oz. BP: 110/70 Patient's last menstrual period was 10/08/2024. ASSESSMENT & PLAN ICD-10-CM 1. Third trimester ([facility]) Z34.93 CULTURE, GROUP B STREP WITH SUSCEPTIBLITY POCT urinalysis dipstick manually resulted CULTURE, GROUP B STREP WITH SUSCEPTIBLITY 2. 36 weeks gestation of ([facility]) Z3A.36 Return OB: Patient presents today for a routine obstetrics appointment. Patient is currently 36w2d . Patient states she is doing well but has complaints of being tired due to current . Patient has verbalizes frequent movement. labor precautions was discussed/given and patient was instructed to perform kick counts three times a day. Orders Placed This Encounter Procedures CULTURE, GROUP B STREP WITH SUSCEPTIBLITY POCT urinalysis dipstick manually resulted Follow Up: Patient is to return to office in 1 week for routine OB appointment. Documented by Cora Pugh NP on behalf of: Harsha Moraes DO documented in this encounter [facility] 06-08-2025 History of Presen t illness Narrative Reason for Appointment: Patient ID: Surjit Avina is a 29 y.o. female who presents for Routine Visit Patient presents today for Return OB appointment. MEDICATIONS Current Outpatient Medications Medication Instructions magnesium oxide (Mag-Ox) 200 mg split tablet ALLERGIES No Known Allergies PROBLEMS Active Ambulatory Problems Diagnosis Date Noted Third trimester ([facility]) 11/19/2023 Resolved Ambulatory Problems Diagnosis Date Noted [...] SYSTEMS Review of Systems: Review of Systems OBJECTIVE Objective: OBGyn Exam Vitals: Estimated body mass index is 29.7 kg/m as calculated from the following: Height as of 7/14/23: 5' 4 . Weight as of this encounter: 173 lb. BP: 118/70 Patient's last menstrual period was 10/08/2024. ASSESSMENT & PLAN ICD-10-CM 1. Third trimester ([facility]) Z34.93 POCT urinalysis dipstick manually resulted 2. 34 weeks gestation of ([facility]) Z3A.34 Return OB: Patient presents today for a routine obstetrics appointment. Patient is currently 34w5d . Patient states she is doing well [...] week for routine OB appointment. Documented by Albania Garay MA on behalf of: ZI Collins documented in this encounter [facility] 05-25-2025 History of Presen t illness Narrative Reason for Appointment: Patient ID: Surjit Avina is a 29 y.o. female who presents for Routine Visit Patient presents today for Return OB appointment. MEDICATIONS Current Outpatient Medications Medication Instructions magnesium oxide (Mag-Ox) 200 mg split tablet ALLERGIES No Known Allergies PROBLEMS Active Ambulatory Problems Diagnosis Date Noted Third trimester ([facility]) 11/19/2023 Resolved Ambulatory Problems Diagnosis Date Noted [...] Negative. Endocrine: Negative. Allergic/Immunologic: Negative. OBJECTIVE Objective: OBGyn Exam Vitals: Estimated body mass index is 29.35 kg/m as calculated from the following: Height as of 05/22/23: 5' 4 . Weight as of this encounter: 171 lb. BP: 110/74 Patient's last menstrual period was 10/08/2024. ASSESSMENT & PLAN ICD-10-CM 1. Third trimester ([facility]) Z34.93 2. 32 weeks gestation of ([facility]) Z3A.32 Patient presents today for a routine obstetrics appointment. Patient is currently 32w5d with a Estimated Date of Delivery: 07/15/25. Patient to return to clinic in 2 weeks for routine OB care. Documented by Audra Franco LPN. on behalf of: Harsha Moraes DO documented in this encounter [facility] 05-10-2025 History of Presen t illness Narrative Reason for Appointment: Patient ID: Surjit Avina is a 29 y.o. female who presents for Routine Visit Patient presents today for Return OB appointment. MEDICATIONS No current outpatient medications ALLERGIES No Known Allergies PROBLEMS Active Ambulatory Problems Diagnosis Date Noted Third trimester ([facility]) 11/19/2023 Resolved Ambulatory Problems Diagnosis Date Noted [...] reviewed. Vitals: Estimated body mass index is 28.67 kg/m as calculated from the following: Height as of 05/22/23: 5' 4 . Weight as of this encounter: 167 lb. BP: 108/70 Patient's last menstrual period was 10/08/2024. ASSESSMENT & PLAN ICD-10-CM 1. Third trimester ([facility]) Z34.93 Urine dip 2. 30 weeks gestation of ([facility]) Z3A.30 Urine dip Return OB: Patient presents today for a routine obstetrics appointment. Patient is currently 30w4d . Patient states she is doing well but has complaints of being tired due to current . Patient has verbalizes frequent movement. labor precautions was discussed/given and patient was instructed to perform kick counts three times a day. Orders Placed This Encounter Procedures US OB follow up transabdominal approach Urine dip Follow Up: Patient is to return to office in 2 week for routine OB appointment. Documented by ZI Collins on behalf of: ZI Collins documented in this encounter [facility] 04-26-2025 History of Presen t illness Narrative Reason for Appointment: Patient ID: Surjit Avina is a 29 y.o. female who presents for Routine Visit Patient presents today for Return OB appointment. MEDICATIONS No current outpatient medications ALLERGIES No Known Allergies PROBLEMS Active Ambulatory Problems Diagnosis Date Noted Third trimester ([facility]) 11/19/2023 Resolved Ambulatory Problems Diagnosis Date Noted [...] Negative. Endocrine: Negative. Allergic/Immunologic: Negative. OBJECTIVE Objective: OBGyn Exam Vitals: Estimated body mass index is 28.32 kg/m as calculated from the following: Height as of 05/22/23: 5' 4 . Weight as of this encounter: 165 lb. BP: 110/72 Patient's last menstrual period was 10/08/2024. ASSESSMENT & PLAN ICD-10-CM 1. Third trimester ([facility]) Z34.93 POCT urinalysis dipstick manually resulted 2. 28 weeks gestation of ([facility]) Z3A.28 Return OB: Patient presents today for a routine obstetrics appointment. Patient is currently 28w4d . Patient states she is doing well [...] Harsha Moraes DO documented in this encounter [facility] 04-05-2025 History of Presen t illness Narrative [...] of: ZI Collins documented in this encounter [facility] 03-07-2025 History of Presen t illness Narrative [...] nursing note reviewed. Exam conducted with a blanket washer present. Vitals: Estimated body mass index is [...] Harsha Moraes DO documented in this encounter [facility] 02-07-2025 History of Presen t illness [...] nursing note reviewed. Exam conducted with a blanket washer present. Vitals: Estimated body mass index is [...] of: ZI Collins documented in this encounter [facility] 01-10-2025 History of Presen t illness [...] nursing note reviewed. Exam conducted with a blanket washer present. Vitals: Estimated body mass index is [...] or undercooked meat, and stay away from [facility]. Patient has been consulted regarding any further do's and don'ts of . Patient voiced understanding and all questions and concerns were answered. Orders Placed This Encounter Procedures POCT urinalysis dipstick manually resulted Follow Up: Patient is to return in 4 weeks for routine OB appointment. Documented by Audra Franco LPN on behalf of: Harsha Moraes DO documented in this encounter [facility] 12-09-2024 History of Presen t illness [...] or undercooked meat, and stay away from [facility]. Patient has also been advised to not [...] Albania Garay MA documented in this encounter [facility] 12-23-2023 History of Presen t illness [...] nursing note reviewed. Exam conducted with a blanket washer present. Vitals: Estimated body mass index is [...] Harsha Moraes DO documented in this encounter [facility] 12-16-2023 History of Presen t illness [...] nursing note reviewed. Exam conducted with a blanket washer present. Vitals: Estimated body mass index is 29.32 kg/m as calculated from the following: Height as of 23: 5' 4 . Weight as of this [...] in this encounter [facility] Evaluation note Diagnosis Third trimester state, [...] diabetes mellitus [facility] Diagnosis Third trimester ([facility]) state, incidental 28 weeks gestation of ([facility]) [facility] Diagnosis Size of fetus inconsistent with dates in third trimester ([facility])- Primary Third trimester ([facility]) state, incidental 30 weeks gestation of ([facility]) [facility] Diagnosis Third trimester ([facility]) state, incidental 32 weeks gestation of ([facility]) [facility] Diagnosis Third trimester ([facility]) state, incidental 34 weeks gestation of ([facility]) [facility] Diagnosis Third trimester ([facility]) state, incidental 36 weeks gestation of ([facility]) [facility] Diagnosis Third trimester ([facility]) state, incidental 37 weeks gestation of ([facility]) [facility] Diagnosis Third trimester ([facility]) state, incidental 38 weeks gestation of ([facility]) [facility] Diagnosis Third trimester ([facility]) state, incidental 39 weeks gestation of ([facility]) documented in this encounter [facility] Summary Purpose Family History No Family History Records FoundNo Family History Records FoundNo Family History Records FoundNo Family History Records Found Advance Directives No Advanced Directives Records FoundNo Advanced Directives Records FoundNo Advanced Directives Records FoundNo Advanced Directives Records Found Additional Source Comments INFORMATION SOURCE (unrecogn ized section and content) DATE CREATED AUTHOR 04/13/2020 [facility] DATE CREATED AUTHOR AUTHOR'S ORGANIZ ATION 12/17/2021 [facility] DATE CREATED AUTHOR AUTHOR'S ORGANIZ ATION 07/04/2022 [facility] DATE CREATED AUTHOR AUTHOR'S ORGANIZ ATION 07/11/2025 [facility] EPIC Reason for Visit (unrecogniz ed section and content) Reason Comments Routine Visit Care Teams (unrecognized sec tion and content) Inspector Multifocal Lens Relationship Specialty Start Date End Date Mason Deleon MD [address] [place] [address] PCP - General 05/15/23 Inspector Multifocal Lens Relationship Specialty Start Date End Date Mason Deleon MD [address] [place] [phone] PCP - General 05/15/23 Inspector Multifocal Lens Relationship Specialty Start Date End Date Mason Deleon MD [address] [place] [address] PCP - General 05/15/23 Inspector Multifocal Lens Relationship Specialty Start Date End Date Mason Deleon MD [address] [place] [address] PCP - General 05/15/23 Inspector Multifocal Lens Relationship Specialty Start Date End Date Mason Deleon MD [address] [place] [address] PCP - General 05/15/23 Inspector Multifocal Lens Relationship Specialty Start Date End Date Mason Deleon MD PCP - General 05/15/23 Inspector Multifocal Lens Relationship Specialty Start Date End Date Mason Deleon MD [address] [place] [address] PCP - General 05/15/23 Inspector Multifocal Lens Relationship Specialty Start Date End Date Mason Deleon MD [address] [place] [address] PCP [facility] 05/15/23 Inspector Multifocal Lens Relationship Specialty Start Date End Date Mason Deleon MD [address] [place] [address] [facility] 05/15/23 FOR RECORDS PERTAINING TO PATIENTS WHO [...] BE BASED ON THE PRIMARY CLINICAL RECORDS. [facility]. provides no warranty or guarantee of the accuracy or completeness of information in this document.
--- OUTSIDE RECORDS SUMMARY | 2025-07-17 23:35 | XMS_ITS | Encounter Summary ---
Author Organization [facility] Address [address] [place] [address] Care Team Providers Care Siebel Developer Name Role Phone Victorino Deleon MD Primary Care Provider [phone] Encounter Details Date Type Department Care Team (Late st Contact Info) Description 11/04/2023 Clinisync Result Encounter [facility] External Department Unsolicited Harsha Moraes, DO [address] [place] [address] Social History Tobacco Use Types Packs/Day Years [...] as of this encounter Plan of Treatment Not on file documented as of this encounter Procedures Procedure Name Priority Date/Time Associated Diagnosis Comments US OB GROWTH 11/04/2023 9:42 PM EST documented in this encounter Results * US OB GROWTH (11/04/2023 9:42 PM EST) Anatomical Region Laterality Modality Other 11/04/2023 9:42 PM EST Narrative 11/04/2023 9:44 [place] [address] Ultrasound Report Signed Patient: SURJIT AVINA MR#: [id number] : 1995 Acct:[id number] Age/Sex: 28 / F ADM Date: 11/04/23 Loc: US Attending Dr: Harsha Moraes D.O. Ordering Physician: Harsha Moraes D.O. Date of Service: 11/04/23 Procedure(s): US OB growth Accession Number(s): [id number] cc: Harsha Moraes D.O.; Victorino Deleon M.D. [address] [place] [address] Patient Name: SURJIT AVINA MRN: [id number] date: 1995 Sex: F Assigned Patient Location: Current Patient Location: US Accession/Order Number: [id number] Exam Date: 11/04/2023 10:18 Report Date: 11/04/2023 [...] M.D. Signed By: 11/04/232143 DD/ 41 TD/TT: Lmft: Procedure Note Radiology, Radiologist, MD - 11/04/2023 [place] [address] Ultrasound Report Signed Patient: SURJIT AVINA R#: [id number] : 1995Acct:[id number] Age/Sex: 28 / FADM Date: 11/04/23 Loc: US Attending Dr: Harsha Moraes D.O. Ordering Physician: Harsha Moraes D.O. Date of Service: 11/04/23 Procedure(s): US OB growth Accession Number(s): [id number] cc: Harsha Moraes D.O.; Victorino Deleon M.D. The [place] [phone] Patient Name: SURJIT AIVNA MRN: [facility]:[id number] date: 1995 Sex: F Assigned Patient Location: US Current Patient Location: US Accession/Order Number: [id number] Exam Date: 11/04/2023 10:18 Report Date: 11/04/2023 [...] Hernandez M.D. Signed By:11/04/232143 DD/ 41 TD/TT: Lmft: us Harsha Dimitry DO [facility] Final Result documented in this encounter Visit Diagnoses Not on filedocumented in this encounter Care Teams Siebel Developer Relationship Specialty Start Date End Date Victorino Deleon MD [address] [place] [address] PCP - General 05/15/23 documented as of this encounter
--- OUTSIDE RECORDS SUMMARY | 2025-07-17 23:35 | XMS_ITS | Encounter Summary ---
Author Organization [facility] Address [address] [place] [address] Care Team Providers Care Networking Administrator Name Role Phone Victorino Deleon MD Primary Care Provider [phone] Encounter Details Date Type Department Care Team ([facility] st Contact Info) Description 11/30/2024 Abstract [facility] [address] [phone] Franck Moraes DO [address] [place] [address] Social History Tobacco Use Types Packs/Day Years [...] on file documented as of this encounter Visit Diagnoses Not on filedocumented in this encounter Care Teams Networking Administrator Relationship Specialty Start Date End Date Victorino Deleon MD [address] [place] [address] PCP - General 05/15/23 documented as of this encounter
--- OUTSIDE RECORDS SUMMARY | 2025-07-17 23:35 | XMS_ITS | Clinical Summary ---
Author Organization [facility] Address [address] [place] [address] Care Team Providers Care Wrapper Selector Name Role Phone Victorino Deleon MD Primary Care Provider [phone] Allergies No known active allergies Medications magnesium oxide (Mag-Ox) 200 mg split tablet 05/09/2025 Active Active Problems Problem Noted Date Diagnosed Date 37 weeks gestation of ([facility]) 2024 Third trimester ([facility]) 11/19/2023 Estimated Date of Delivery Comme nts Yes 07/15/2025 Based on last me nstrual period of 10/08/2024 Encounters Date Type Department Care Team Description 07/17/2025 2:20 PM EDT Routine [facility] [place] [address] Franck Moraes DO 40 weeks gestation of ([facility]); Third trimester ([facility]); UTI symptoms 07/17/2025 Bamboo flowsheet [facility] [place] [address] Franck Moraes DO 07/11/2025 9:00 [place] [address] Franck Moraes DO Third trimester ([facility]); 39 weeks gestation of ([facility]) 07/11/2025 Travel 07/11/2025 Bamboo flowsheet [facility] [address] [place] [address] Franck Moraes, 07/03/2025 1:30 PM EDT Routine [facility] [address] [place] [address] Franck Moraes, Third trimester ([facility]); 38 weeks gestation of ([facility]) 06/27/2025 10:00 AM EDT Routine [facility] [address] [place] [address] Fawn Panchal PA Third trimester ([facility]); 37 weeks gestation of ([facility]) 06/27/2025 Travel 06/27/2025 Bamboo flowsheet [facility] [address] [place] [address] Fawn Panchal PA 06/20/2025 Travel 06/19/2025 9:00 AM EDT Routine [facility] [address] [place] [address] Franck Moraes, Third trimester ([facility]); 36 weeks gestation of ([facility]) 06/19/2025 Bamboo flowsheet [facility] [address] [place] [address] Franck Moraes, 06/14/2025 Travel 06/08/2025 9:50 AM EDT Routine [facility] [address] [place] [address] Fawn Panchal PA Third trimester ([facility]); 34 weeks gestation of ([facility]) 06/08/2025 Bamboo flowsheet [facility] [address] [place] [address] Fawn Panchal PA 05/25/2025 9:40 AM EDT Routine [facility] [address] Franck Moraes DO Third trimester ([facility]); 32 weeks gestation of ([facility]) 05/25/2025 9:00 AM EDT Ancillary Procedure [facility] [address] Size of fetus inconsistent with dates in third trimester ([facility]) 05/22/2025 Travel 05/10/2025 9:50 AM EDT Routine [facility] [address] Fawn Panchal PA Size of fetus inconsistent with dates in third trimester ([facility]) (Primary Dx); Third trimester ([facility]); 30 weeks gestation of ([facility]) 05/10/2025 Bamboo flowsheet [facility] [address] [place] [address] [place] [address] Fawn Panchal PA 05/07/2025 Travel 04/26/2025 1:50 PM EDT Routine [facility] [place] [address] Franck Moraes DO Third trimester ([facility]); 28 weeks gestation of ([facility]) 04/26/2025 Bamboo flowsheet [facility] [address] [place] [address] [place] [address] Franck Moraes DO 04/25/2025 Travel 04/22/2025 Clinisync Result Encounter [facility] External Department Unsolicited Fawn Panchal PA from Last 3 Months Family History Relation [...] (180 lb) 07/17/2025 2:31 PM EDT Height 162.6 cm (5' 4 ) 05/22/2023 9:24 AM EDT Body Mass Index 30.9 05/22/2023 9:24 AM EDT Plan of Treatment Not on file Procedures Procedure Name Priority Date/Time Associated Diagnosis Comments POCT URINALYSIS DIPSTICK Routine 07/17/2025 2:39 PM EDT 40 weeks gestation of ([facility]) Third trimester ([facility]) POCT URINALYSIS DIPSTICK Routine 07/11/2025 9:38 AM EDT Third trimester ([facility]) POCT URINALYSIS DIPSTICK Routine 07/03/2025 2:06 PM EDT Third trimester ([facility]) 38 weeks gestation of ([facility]) POCT URINALYSIS DIPSTICK Routine 06/27/2025 10:22 AM EDT Third trimester ([facility]) 37 weeks gestation of ([facility]) POCT URINALYSIS DIPSTICK Routine 06/19/2025 9:15 AM EDT Third trimester ([facility]) CULTURE, GROUP B STREP WITH SUSCEPTIBLITY Routine 06/19/2025 9:02 AM EDT Third trimester ([facility]) POCT URINALYSIS DIPSTICK Routine 06/08/2025 10:01 AM EDT Third trimester ([facility]) US OB FOLLOW UP TRANSABDOMINAL APPROACH Routine 05/25/2025 9:34 AM EDT Size of fetus inconsistent with dates in third trimester ([facility]) POCT URINALYSIS DIPSTICK Routine 05/10/2025 10:14 AM EDT Third trimester ([facility]) 30 weeks gestation of ([facility]) POCT URINALYSIS DIPSTICK Routine 04/26/2025 2:04 PM EDT Third trimester ([facility]) GLUCOSE 1 HOUR Routine 04/22/2025 9:15 AM EDT ALL CBC WITH AUTO DIFF Routine 9:15 AM EDT from Last 3 Months Results * (ABNORMAL) POCT urinalysis dipstick manually resulted (07/17/2025 2:39 PM EDT) Only the most recent of8 resultswithin the time period is included. Color, UA Yellow Clarity, UA Clear Glucose, UA Positive Negative - 1999(110) ++++ mg/dL Bilirubin, UA Negative Negative - 4(70) +++ mg/dL Ketones, UA Negative Negative - 160(16) ++++ mg/dL Spec Grav, UA 1.020 1 - 1.03 Blood, UA Positive Negative - 50 Gulshan/mcL Comment:3+ pH, UA 6.0 5 - 9 Protein, UA Positive Negative - 1999(20) ++++ mg/dL Urobilinogen, UA 1.0 0.2 - 12 mg/dL Leukocytes, UA Positive Negative - 500+++ Stefan/mcL Comment:1+ Nitrite, UA Negative Negative - Positive Urine 07/17/2025 2:39 PM EDT us Franck Dimitry DO POINT OF CARE TEST ENTER/EDIT OR DERABLES Final Result * CULTURE, GROUP B STREP WITH SUSCEPTIBLITY (06/19/2025 9:02 AM EDT) Swab 06/19/2025 9:02 AM EDT us Franck Dimitry DO LAB BLOOD ORDERABLES Final Resul t EXTERNAL LAB * US OB follow up transabdominal approach [...] [facility] LAB BLOOD ORDERABLES Final Resul t [facility] * (ABNORMAL) ALL CBC WITH AUTO DIFF (04/22/2025 9:15 AM EDT) TB WBC 8.8 4.0 - 11.0 10 [...] - 04/22/2025 9:37 AM EDT us Fawn [facility] Final Result [facility] from Last 3 Months Insurance BCBS Care Teams Wrapper Selector Relationship Specialty Start Date End Date Victorino Deleon MD [address] [place] [phone] PCP - General 05/15/23
--- OUTSIDE RECORDS SUMMARY | 2025-07-17 23:35 | XMS_ITS | Encounter Summary ---
Author Organization [facility] Address [address] [place] [address] Care Team Providers Care Sheltered Workshop Worker Name Role Phone Victorino Deleon MD Primary Care Provider [phone] Encounter Details Date Type Department Care Team (Late st Contact Info) Description 08/10/2023 Clinisync Result Encounter [facility] External Department Unsolicited Fawn Perdomo PA [address] [place] [address] Dr [place]ff, [facility] Social History Tobacco Use Types Packs/Day Years [...] AM EDT Narrative 08/10/2023 8:59 AM EDT [address] [address] Ultrasound Report Signed Patient: SURJIT AVINA MR#: [id number] : 1995 Acct:[id number] Age/Sex: 28 / F ADM Date: 08/08/23 Loc: US Attending Dr: Fawn Perdomo Ordering Physician: Fawn Perdomo Date of Service: 08/08/23 Procedure(s): US OB cervical length Accession Number(s): [id number] cc: Fawn Perdomo; Victorino Deleon M.D. [address] [id number] Patient Name: SURJIT AVINA MRN: [id number] date: 1995 Sex: F Assigned Patient Location: US Current Patient Location: Accession/Order Number: [id number] Exam Date: 08/08/2023 09:05 Report Date: 08/10/2023 [...] Carlos Mulligan M.D. Signed By: 08/10/23901 DD/ 8 TD/TT: Plating Inspector: Procedure Note Radiology, Radiologist, MD - 08/10/2023 [place] [address] Ultrasound Report Signed Patient: SURJIT AVINA JMR#: [id number] : 1995Acct:[id number] Age/Sex: 28 FADM Date: 08/08/23 Loc: US Attending Dr: Fawn Perdomo Ordering Physician: Fawn Perdomo Date of Service: 08/08/23 Procedure(s): US OB cervical length Accession Number(s): [id number] cc: Fawn Perdomo; Victorino Deleon M.D. The [address] [address] Patient Name: SURJIT AVINA MRN: [id number] date: 1995 Sex: F Assigned Patient Location: US Current Patient Location: Accession/Order Number: [id number] Exam Date: 08/08/2023 09:05 Report Date: 08/10/2023 [...] By: Carlos Mulligan M.D. Signed By:08/10/23901 DD/ 0859 TD/TT: Plating Inspector: us Fawn [facility] Final Result documented in this encounter Visit Diagnoses Not on filedocumented in this encounter Care Teams Sheltered Workshop Worker Relationship Specialty Start Date End Date Victorino Deleon MD [address] [place] [address] PCP - General 05/15/23 documented as of this encounter
--- OUTSIDE RECORDS SUMMARY | 2025-07-17 23:35 | XMS_ITS | Encounter Summary ---
Author Organization [facility] Address [address] [place] [address] Care Team Providers Care Information Director Name Role Phone Victorino Deleon MD Primary Care Provider [phone] Encounter Details Date Type Department Care Team (Late st Contact Info) Description 07/11/2025 Bamboo flowsheet [facility] [place] [facility] [address] [place] [address] Franck Moraes DO [address] [place], [facility]11 Social History Tobacco Use Types Packs/Day [...] on filedocumented in this encounter Care Teams Information Director Relationship Specialty Start Date End Date Victorino Deleon MD [address] [place] [phone] PCP - General 05/15/23 documented as of this encounter
--- OUTSIDE RECORDS SUMMARY | 2025-07-17 23:35 | XMS_ITS | Clinical Summary ---
Author Organization [facility] Address [address], [address] [place] [address] Care Team Providers Care Automation Specialist Name Role Phone Victorino Deleon MD Primary Care Provider [phone] Allergies No known active allergies Medications No [...] HIGH RISK Routine 12/04/2021 8:36 AM EST MOVABLE BULKHEAD INSTALLER CYTOLOGY Routine 12/04/2021 8:36 AM EST from Last 3 Months or Most Recently Relevant to Health Maintenance Results * Human papillomavirus (HPV) DNA probe thin prep high risk (12/04/2021 8:36 AM EST) Specimen Description .GENITAL - NOT SPECIFIED 12/04/2021 8:36 AM [email or web address] HPV Sample .THIN PREP 12/04/2021 8:36 AM [email or web address] HPV, Genotype 16 Not Detected Not Detected 12/04/2021 8:36 AM [email or web address] HPV, Genotype 18 Not Detected Not Detected 12/04/2021 8:36 AM [email or web address] HPV, High Risk Other Not Detected Not Detected 12/04/2021 8:36 AM [email or web address] HPV, Interpretation 12/04/2021 8:36 AM [email or web address] Comment: This test amplifies and detects DNA [...] Mansi Winchester PA-C HEMATOLOGY ORDERABLES nal Result [facility] [address] [place] [address], [facility] [phone] [place] [id number], [facility] [phone] * MOVABLE BULKHEAD INSTALLER Cytology (12/04/2021 8:36 AM EST) Cytology Report INTERPRETATION Cervical material, (ThinPrep vial, Imaging-assisted review): Specimen Adequacy: Satisfactory for evaluation. -Endocervical/tra nsformation zone component is absent. Descriptive Diagnosis: Negative for intraepithelial lesion or malignancy. Manager Android: RONY Ugalde(ASCP) Electronically Signed Out /12/17/2021 Procedure/Addendum [...] review) Clinical History Intrauterine device Z01.419 Routine design maker exam without abnormal findings Co-Test: ThinPrep Pap with high risk HPV testing GYNECOLOGIC CYTOLOGY REPORT Patient Name: SURJIT AVINA. Med Rec: [id number] Path Number: [id number] [facility] [address] [place], [place] [phone] [facility] CERVICAL MATERIAL 12/04/2021 8:36 AM EST 12/05/2021 8:36 AM EST Mansi Winchester PA-C PATHOLOGY/CYTOLOGY ORDER BIRDIE Final Result [facility] [address] [place] [address], [facility] [phone] [phone] from Last 3 Months or Most Recently Relevant to Health Maintenance Insurance BCBS Care Teams Automation Specialist Relationship Specialty Start Date End Date Victorino Deleon MD [address] [place] [address] PCP - General Family Medicine 12/04/21
--- OUTSIDE RECORDS SUMMARY | 2025-07-17 23:35 | XMS_ITS | Encounter Summary ---
Author Organization [facility] Address [address] [place] [address] Care Team Providers Care Kai Whakaruruhau Name Role Phone Victorino Deleon MD Primary Care Provider [phone] Encounter Details Date Type Department Care Team (Late st Contact Info) Description 08/10/2023 Clinisync Result Encounter [facility] External Department Unsolicited Fawn Perdomo PA [address] [place] [address] Dr Neff, [facility] Social History Tobacco Use Types Packs/Day Years [...] AM EDT Narrative 08/10/2023 8:59 AM EDT [address] [address] Ultrasound Report Signed Patient: SURJIT AVINA MR#: [id number] : 1995 Acct:[id number] Age/Sex: 28 / F ADM Date: 08/08/23 Loc: US Attending Dr: Fawn Perdomo Ordering Physician: Fawn Perdomo Date of Service: 08/08/23 Procedure(s): US OB anatomy Accession Number(s): [id number] cc: Fawn Perdomo; Victorino Deleon M.D. [address] [address] Patient Name: SURJIT AVINA MRN: [id number] date: 1995 Sex: F Assigned Patient Location: US Current Patient Location: Accession/Order Number: [id number] Exam Date: 08/08/2023 09:05 Report Date: 08/10/2023 [...] M.D. Signed By: 08/10/23901 DD/ 8 TD/TT: Electronic Induction Hardener: Procedure Note Radiology, Radiologist, - 08/10/2023 [place] [address] Ultrasound Report Signed Patient: SURJIT AVINA R#: [id number] : 1995Acct:[id number] Age/Sex: 28 / FADM Date: 08/08/23 Loc: US Attending Dr: aFwn Perdomo Ordering Physician: Fawn Perdomo Date of Service: 08/08/23 Procedure(s): US OB anatomy Accession Number(s): [id number] cc: Fawn Perdomo; Victorino Deleon M.D. The [address] [address] Patient Name: SURJIT AVINA MRN: [id number] date: 1995 Sex: F Assigned Patient Location: US Current Patient Location: Accession/Order Number: [id number] Exam Date: 08/08/2023 09:05 Report Date: 08/10/2023 [...] Mulligan M.D. Signed By:08/10/23901 DD/ 0859 TD/TT: Electronic Induction Hardener: us Fawn [facility] Final Result documented in this encounter Visit Diagnoses Not on filedocumented in this encounter Care Teams Kai Whakaruruhau Relationship Specialty Start Date End Date Victorino Deleon MD [address] [place] [address] PCP - General 05/15/23 documented as of this encounter
--- OUTSIDE RECORDS SUMMARY | 2025-07-17 23:35 | XMS_ITS | Encounter Summary ---
Author Organization [facility] Address [address] [place] [address] Care Team Providers Care Dehairing Machine Tender Name Role Phone Victorino Deleon MD Primary Care Provider [phone] Encounter Details Date Type Department Care Team (Late st Contact Info) Description 07/17/2025 Bamboo flowsheet [facility] [place] [facility] [address] [place] [address] Franck Moraes DO [address] [place], [id number] Social History Tobacco Use Types Packs/Day Years [...] on filedocumented in this encounter Care Teams Dehairing Machine Tender Relationship Specialty Start Date End Date Victorino Deleon MD [address] [place] [phone] PCP - General 05/15/23 documented as of this encounter
--- OUTSIDE RECORDS SUMMARY | 2025-07-17 23:35 | XMS_ITS | Encounter Summary ---
Author Organization [facility] Address [address] [place] [address] Care Team Providers Care Caser Name Role Phone Victorino Deleon MD Primary Care Provider [phone] Encounter Details Date Type Department Care Team (Latest Contact Info) Description 07/11/2025 Travel Social History Tobacco Use Types Packs/Day [...] on filedocumented in this encounter Care Teams Caser Relationship Specialty Start Date End Date Victorino Deleon MD [address] [facility] [place] [address] PCP - General 05/15/23 documented as of this encounter
--- OUTSIDE RECORDS SUMMARY | 2025-07-17 23:35 | XMS_ITS | Encounter Summary ---
Author Organization [facility] Address [address] [place] [address] Care Team Providers Care Social Contact Worker Name Role Phone Victorino Deleon MD Primary Care Provider [phone] Encounter Details Date Type Department Care Team (Late st Contact Info) Description 12/19/2024 Abstract [facility] [place] [facility] [address] [place] [phone] Franck Moraes DO [address] [place] [address] Social History Tobacco Use Types Packs/Day Years [...] on filedocumented in this encounter Care Teams Social Contact Worker Relationship Specialty Start Date End Date Victorino Deleon MD [address] [place] [address] PCP - General 05/15/23 documented as of this encounter
--- OUTSIDE RECORDS SUMMARY | 2025-07-17 23:35 | XMS_ITS | Encounter Summary ---
Author Organization [facility] Address [address] [place] [address] Care Team Providers Care Straw Hat Washer Operator Name Role Phone Victorino Deleon MD Primary Care Provider [phone] Encounter Details Date Type Department Care Team (Late st Contact Info) Description 02/14/2025 Orders Only [facility] [address] [place] [address] Lani Huizar LPN [address] [place] [address] Social History Tobacco Use Types Packs/Day Years [...] on filedocumented in this encounter Care Teams Straw Hat Washer Operator Relationship Specialty Start Date End Date Victorino Deleon MD [address] [place] [address] PCP - General 05/15/23 documented as of this encounter
--- OUTSIDE RECORDS SUMMARY | 2025-07-17 23:35 | XMS_ITS | Encounter Summary ---
Author Organization [facility] Address [address] [place] [address] Care Team Providers Care Recycling Assistant Name Role Phone Victorino Deleon MD Primary Care Provider [phone] Encounter Details Date Type Department Care Team ([facility] st Contact Info) Description 07/16/2023 Abstract [facility] [place] [facility] [address] [place] [phone] Fawn Panchal PA [address] [place] [address] Social History Tobacco Use Types Packs/Day Years [...] on filedocumented in this encounter Care Teams Recycling Assistant Relationship Specialty Start Date End Date Victorino Deleon MD [address] [place] [address] PCP - General 05/15/23 documented as of this encounter
[2025-07-17] MEDS: 0.9 % SODIUM CHLORIDE 1,000 ML 1000 ML IV (23:55)
[2025-07-17 23:57] VITALS: BP 134/76; PULSE 86; TEMP 36.5
[2025-07-18] VITALS (13 sets, daily range): BP systolic 104–138; BP diastolic 65–89; PULSE 88–113; TEMP 36.8
[2025-07-18 00:17] LABS: Hematocrit 32.6 % (36.0-48.0); Hemoglobin 11.0 g/dL (12.0-16.0); Mean Corpuscular HGB Conc 33.7 g/dL (29.9-35.2); Mean Corpuscular Hemoglobin 28.6 pg (26.7-34.0); Mean Corpuscular Volume 84.9 fL (81.0-99.0); Platelet Count 250 10^3/uL (150-450); Red Blood Count 3.84 10^6/uL (4.20-5.40); White Blood Count 14.2 10^3/uL (4.0-11.0)
[2025-07-18] MEDS: OXYTOCIN/0.9 % SODIUM CHLORIDE 20 UNITS/1,000 ML PLAST..BAG 125 UNIT IV (00:56)
[2025-07-18] MEDS: LIDOCAINE HCL 1% 200 MG/20 ML MDV INJ (00:59)
--- NOTE | 2025-07-18 01:14 | PM.OBPRCVD ---
Procedure Intrapartal events: None Induction method: none Delivery monitor: none Route of delivery: Episiotomy Description: none L&D Laceration Description: periurethral - 1st degree Delivery repair: Vicryl Estimated blood loss (mL): 300 Anesthesia type: None Disposition: floor Delivery date: 07/18/25 Gender: male presentation: vertex Placental delivery description: Spontaneous cord description: 3 Vessels
[2025-07-18] MEDS: IBUPROFEN 600 MG TABLET PO ×3 (01:44→18:05)
[2025-07-18] MEDS: GLYCERIN/WITCH HAZEL PADS 1 PAD TOPICAL (01:46)
[2025-07-18] MEDS: BENZOCAINE/MENTHOL 85 GRAM SPRAY BOTTLE 1 APPLIC TOPICAL (01:46)
--- NOTE | 2025-07-18 13:48 | SWNOTE1 ---
SW stopped in to pt's room to complete assessment. Pt had family in room along with and other children. Pt voiced they are doing great and have everything they need at this time.
[2025-07-19 00:07] VITALS: BP 109/64; PULSE 79
[2025-07-19 00:08] VITALS: BP 109/64; PULSE 79; TEMP 36.8
[2025-07-19] MEDS: IBUPROFEN 600 MG TABLET PO ×2 (00:14→05:58)
[2025-07-19 06:27] LABS: Hematocrit 29.3 % (36.0-48.0); Hemoglobin 9.6 g/dL (12.0-16.0); Immature Granulocytes Abs Auto 0.11 10^3/uL (0.00-0.03); Immature Granulocytes Pct Auto 1.0 % (0.0-0.5); Lymphocytes Absolute Auto 2.8 10^3/uL (1.2-3.8); Mean Corpuscular HGB Conc 32.8 g/dL (29.9-35.2); Mean Corpuscular Hemoglobin 28.2 pg (26.7-34.0); Mean Corpuscular Volume 85.9 fL (81.0-99.0); Platelet Count 228 10^3/uL (150-450); Red Blood Count 3.41 10^6/uL (4.20-5.40); White Blood Count 10.5 10^3/uL (4.0-11.0)
[2025-07-19] MEDS: DOCUSATE SODIUM 100 MG CAPSULE PO (09:02)
[2025-07-19 09:11] VITALS: BP 135/73; PULSE 94; TEMP 36.4
--- NOTE | 2025-07-19 11:03 | PC.NURSE ---
Declined full review of teaching topics as feels copnfident in ability to care for self and NB. States latchingis improving and no longer concerned. Aware to call for support as needed.
--- NOTE | 2025-07-19 12:32 | P.DS_ITS ---
DS: Providers Provider Date of admission: 07/17/25 23:31 Primary care physician: Victorino Deleon MD Admitting clinician: Franck Moraes Attending physician on admission: Franck Moraes Consults: 07/18/25 Consult to Anesthesiology Routine Consulting Provider: Franck Moraes Reason for consultation: epidural Has provider been notified: Yes Attending physician on discharge: EDVIN WILDER Discharging clinician: EDVIN WILDER Anticipated date of discharge: 07/19/25 DS: Diagnosis Discharge Diagnosis (1) iron deficiency anemia: Assessment and plan: Ferrous Sulfate bid x 1 month (2) Spontaneous vaginal delivery: OB - DS: Summary Hospital Course Hospital Course: She was admitted in labor and went on to deliver over a periurethal laceration which was repaired a 7 pound male with Apgars 9 and 9 at 1 and 5 minutes. She is anemic and has been started on iron twice daily Complications complications: none Infant Delivery method: spontaneous vaginal delivery Gender: male Discharge plan: home Status at Discharge Cognitive/behavioral status at discharge: stable Functional status at discharge: independent ambulation Time Spent with Patient Time attestation: Total time spent providing and/or coordinating discharge services: Time spent: less than 30 minutes Exam Constitutional Vital Signs, click to edit/add: Last Vital Signs Temp 97.6 F 07/19/25 09:11 Pulse 94 H 07/19/25 09:11 Resp 16 07/19/25 00:08 BP 135/73 07/19/25 09:11 O2 Del Method Room Air 07/19/25 00:08 Documenting provider has reviewed patient's vital signs: yes Common normals: no apparent distress General appearance: cooperative, comfortable and well kempt Orientation/consciousness: Yes awake, Yes oriented to person, Yes oriented to place and Yes oriented to time HENMT Common normals: normocephalic Eye Common normals: EOMs intact bilaterally Neck & C-Spine Common normals: full ROM Respiratory Common normals: normal respiratory effort and no retractions Cardio Common normals: regular rate GI Common normals: soft to palpation and non-tender Other: fundus non-tender below umbilicus Common normals: no CVA tenderness Extremity Common normals: no pedal edema Neuro Common normals: oriented x3 Speech: speech normal Psych Common normals: thought process normal, cooperative, affect normal and speech normal DS: Data Data Completed and Pending Labs on day of discharge: Labs from last 24 hours 07/19/25 06:15 WBC 10.5 RBC 3.41 L Hgb 9.6 L Hct 29.3 L MCV 85.9 MCH 28.2 MCHC 32.8 RDW 15.3 H Plt Count 228 MPV 10.9 Neut % (Auto) 63.6 Lymph % (Auto) 26.7 [place] % (Auto) 7.5 Eos % (Auto) 0.8 L Baso % (Auto) 0.4 Neut # (Auto) 6.7 H Lymph # (Auto) 2.8 [place] # (Auto) 0.8 Eos # (Auto) 0.1 Baso # (Auto) 0.0 Abs Immat Gran (auto) 0.11 H Imm/Tot Granulo (auto) 1.0 H Discharge Plan Discharge Disposition: Home, Self-Care Condition: Good Discharge Medications: New ferrous sulfate 325 mg (65 mg iron) Tablet 325 mg PO BID Qty: 60 0RF ibuprofen 600 mg Tablet 600 mg PO Q6H PRN (Reason: Moderate Pain) Qty: 30 0RF Activity: resume usual activities as tolerated Diet: regular diet Print Language: Setswana Forms: Vaginal Delivery - Discharge, Portal Instructions Follow Up Appointments: Follow up with as needed. Follow up with Dr. Ivana Moraes
== END 2025-07-19 14:50 | disposition home or self-care (01) | DRG 807 ==
PROVIDERS: Admitting Provider Obstetrics & Gynecology; PCP Family Medicine; Visit Provider Obstetrics & Gynecology
DX: O70.0 First degree perineal laceration during delivery (principal); Z37.0 Single live birth; Z3A.39 39 weeks gestation of pregnancy; O90.81 Anemia of the puerperium; D50.9 Iron deficiency anemia, unspecified
CPT/HCPCS: 36415; 59050; 59410; 80307; 85025; 85027; 86850; 86900; 86901

== ENCOUNTER 2025-08-09 10:06 | Emergency (ER) | payer BC, SELFPAY ==
--- OUTSIDE RECORDS SUMMARY | 2025-07-17 14:17 | XMS_ITS ---
Author Name Auto Generated Organization OHIP Support Name Relationship Address Phone DAVID MORALES Next of Kin [address] [place] [address] [address] [place] [address] + DAVID MORALES Next of Kin [address] [place] [address] [address] [place] [address] + ANDREW, DAVID Next of Kin [address] [place] [address] [address] [place] [address] + ANDREW, DAVID Next of Kin [address] [facility] [address] [place] [address] + ANDREW, DAVID Next of Kin [address] [facility] [address] [place] [address] + ANDREW, DAVID Next of Kin [address] [facility] [address] [place] [address] + ANDREW, DAVID Next of Kin [address] [facility] [address] [place] [address] + ANDREW, DAVID Next of Kin [address] [facility] [address] [place] [address] + ANDREW, DAVID Next of Kin [address] [facility] [address] [place] [address] + ANDREW, DAVID Next of Kin [address] [facility] [address] [place] [address] + ANDREW, DAVID Next of Kin [address] [facility] [address] [place] [address] + ANDREW, DAVID Next of Kin [address] [facility] [address] [place] [address] + ANDREW, DAVID Next of Kin [address] [facility] [address] [place] [address] + ANDREW, DAVID Next of Kin [address] [place] [address] [place] [address] + DAVID MORALES Next of Haroon [address] [place] [address] [place] [address] + DAVID MORALES Next of Haroon [address] [place] [address] [address] [place] [address] + Care Team Providers Care Licensed Optical Dispenser Name Role Phone DON, HARSHA Attending Unavailable LEANNE, KIKE Attending Unavailable DON, HARSHA Attending Unavailable LEANNE, KIKE Attending Unavailable DON, HARSHA Attending Unavailable LEANNE, KIKE Attending Unavailable DON, HARSHA Attending Unavailable LEANNE, KIKE Attending Unavailable DON, HARSHA Attending Unavailable LEANNE, KIKE Attending Unavailable DON, HARSHA Attending Unavailable DON, HARSHA Attending Unavailable DON, HARSHA Attending Unavailable PROBLEMS No Problem Records Found PROCEDURES No Procedure Records Found RESULTS US OB FOLLOW UP TRANSABDOMINAL APPROACH Observed: 05/25/2025 8:58 AM Status: F Source: [facility] EPIC Order Comment: US OB SCAN FO R GROWTH Estimated Date of Delivery: 07/15/25 Gestational Age as of 05/10/2025: 30w4d FINDINGS: A single, live intrauterine is present [...] grams +/- 331g (4 pounds, 14 ounces). IMPRESSION: 1. Single, live intrauterine , current sonographic age of 34 weeks and 1 day, with an estimated date of delivery of July 05, 2025. 2. Current estimated weight 2211 grams (4 pounds, 14 ounces) * Estimated Weight (g) by Percentile is based upon an accurate estimated age based on last menstrual period. TRANSCRIBED BY: ELECTRONICALLY SIGNED BY: Martín Ledezma MD OB TRANSVAGINAL Observed: 12/09/2024 9:54 AM Status: F Source: [facility] Order Comment: US OB TRANSVA GINAL No LMP recorded. TITLE OF EXAM: OB Ultrasound : REASON FOR EXAM: Dating. COMPARISON: None TECHNIQUE: [...] report is generated using voice recognition reporting (Turpitude). On occasion Pixstacribe erroneously drops words from the report or replaces the spoken word with similar sounding words. Please call with any questions/concerns regarding this report.* Dictated and transcribed 12/09/24/dpd This report has been electronically signed and approved by the interpreting radiologist. ALLERGIES No Allergies Records Found ENCOUNTERS ADMIT/DISCHARGE ACCOUNT NUMBER ADMITTING ENCOUNTER CLASS LOCATION SOURCE 07/17/2025/ 5 [id number] Ambulatory Building:[facility] S [facility] OB [facility] 07/11/2025/ 5 [id number] Ambulatory Building:[facility] S [facility] 07/03/2025/ 5 [id number] Ambulatory Building:[facility] 06/27/2025/ 5 [id number] Ambulatory Building:[facility] 06/19/2025/ 5 [id number] Ambulatory Building:[facility] 06/08/2025/ 5 [id number] Ambulatory Building:[facility] 05/25/2025/ 5 [id number] Ambulatory Building:[facility] 05/25/2025/ 5 [id number] Ambulatory Building:[facility] 05/10/2025/ 5 [id number] Ambulatory Building:[facility] 04/26/2025/ 5 [id number] Ambulatory Building:[facility] 04/05/2025/ 5 [id number] Ambulatory Building:[facility] 03/07/2025/ 5 [id number] Ambulatory Building:[facility] 02/07/2025/ 5 [id number] Ambulatory Building:[facility] 01/10/2025/ 5 [id number] Ambulatory Building:[facility] 12/09/2024/ 5 [id number] Ambulatory Building:[facility] 12/09/2024/ 5 [id number] Ambulatory Building:[facility] PAYERS ENCOUNTER GUARANTOR PAYER SUBSCRIBER SOURCE 07/17/2025 SURJIT BARKER: [id number] [address] [address]Agr: () Primary Insurance:[facility] licy Number: [id number] ctive Date:2022-11-09 DAVID BARKER: [id number] [address] [address] [facility] 07/11/2025 [facility] [address] [address]Nhf: (HP) Primary Insurance:BCBSPo licy Number: [id number] ctive Date:2022-11-09 [facility] [id number] [address] [address] [facility] EPIC 07/03/2025 [facility]: [address] [address]Der: (HP) Primary Insurance:BCBSPo licy Number: [id number] ctive Date:2022-11-09 [facility]: [id number] [address] [facility] EPIC 06/27/2025 [facility]: [address] [address]Psq: (HP) Primary Insurance:BCBSPo licy Number: [id number] ctive Date:2022-11-09 [facility]: [id number] [address] [facility] EPIC 06/19/2025 [facility]: [address] [address]Akm: (HP) Primary Insurance:BCBSPo licy Number: [id number] ctive Date:2022-11-09 [facility]: [id number] [address] [facility] EPIC 06/08/2025 [facility]: [address] [address]Inv: (HP) Primary Insurance:BCBSPo licy Number: [id number] ctive Date:2022-11-09 DAVID [facility]: [id number] [place] [address] [facility] EPIC 05/25/2025 SURJIT [facility]: [address] [address]Xpo: (HP) Primary Insurance:BCBSPo licy Number: [id number] ctive Date:2022-11-09 [facility]: [id number] [place] [address] [facility] 05/25/2025 SURJIT [facility]: [address] [address]Nha: (HP) Primary Insurance:BCBSPo licy Number: [id number] ctive Date:2022-11-09 [facility] R[facility]GELINDOB: [id number] [address] [place] [address] [facility] EPIC 05/10/2025 SURJIT [facility]: [address] [address]May: (HP) Primary Insurance:BCBSPo licy Number: [id number] ctive Date:2022-11-09 DAVID [facility]: [id number] [address] [place] [address] [facility] 04/26/2025 SURJIT [facility]: [address] [address]Jrs: (HP) Primary Insurance:BCBSPo licy Number: [id number] ctive Date:2022-11-09 [facility]: [id number] [address] [place] [address] [facility] EP[facility] 04/05/2025 SURJIT [facility]: [address] [address]Dxn: (HP) Primary Insurance:BCBSPo licy Number: [id number] ctive Date:2022-11-09 [facility]: [id number] [address] [facility] EP[facility] 03/07/2025 [facility]: [address] [address]Kus: (HP) Primary Insurance:BCBSPo licy Number: [id number] ctive Date:2022-11-09 [facility]: [id number] [address] [facility] EPIC 02/07/2025 [facility]: [address] [address]Zbm: (HP) Primary Insurance:BCBSPo licy Number: [id number] ctive Date:2022-11-09 [facility]: [id number] [address] [facility] EP[facility] 01/10/2025 [facility]: [address] [address]Wul: (HP) Primary Insurance:BCBSPo licy Number: [id number] ctive Date:2022-11-09 [facility]OB: [id number] [address] [facility] EP[facility] 12/09/2024 [facility]: [address] [address]Ang: (HP) Primary Insurance:BCBSPo licy Number: [id number] ctive Date:2022-11-09 [facility]: [id number] [address] [facility] EP[facility] 12/09/2024 [facility]: [id number] [address] [address]Zcg: () Primary Insurance:[facility] licy Number: [id number] ctive Date:2022-11-09 DAVID MORALESDOB: [id number] [address] [facility] EPIC
[2025-08-09 10:10] VITALS: BP 145/86; PULSE 86; TEMP 36.5; O2SAT 100; BMI 26.6
--- OUTSIDE RECORDS SUMMARY | 2025-08-09 10:11 | XMS_ITS | Encounter Summary ---
Author Organization [facility] Address [address] [place] [address] Care Team Providers Care Enrobing Machine Corder Name Role Phone Victorino Deleon MD Primary Care Provider [phone] Encounter Details Date Type Department Care Team (Late st Contact Info) Description 02/14/2025 Orders Only [facility] [address] [place] [address] Lani Huizar LPN [address] [place] [address] Social History Tobacco Use Types Packs/Day Years [...] on filedocumented in this encounter Care Teams Enrobing Machine Corder Relationship Specialty Start Date End Date Victorino Deleon MD [address] [place] [phone] PCP - General 05/15/23 documented as of this encounter
--- OUTSIDE RECORDS SUMMARY | 2025-08-09 10:11 | XMS_ITS | Encounter Summary ---
Author Organization [facility] Address [address] [place] [address] Care Team Providers Care Community Service Manager Name Role Phone Victorino Deleon MD Primary Care Provider [phone] Encounter Details Date Type Department Care Team (Late st Contact Info) Description 12/19/2024 Abstract [facility] [place] [facility] [address] [place] [phone] Franck Moraes DO [address] [facility] [address] [place] [address] Social History Tobacco Use Types Packs/Day Years [...] on filedocumented in this encounter Care Teams Community Service Manager Relationship Specialty Start Date End Date Victorino Deleon MD [address] [place] [phone] PCP - General 05/15/23 documented as of this encounter
--- OUTSIDE RECORDS SUMMARY | 2025-08-09 10:11 | XMS_ITS | Encounter Summary ---
Author Organization [facility] Address [address] [place] [address] Care Team Providers Care Regional Business Development Manager Name Role Phone Victorino Deleon MD Primary Care Provider [phone] Encounter Details Date Type Department Care Team (Late st Contact Info) Description 08/03/2025 Abstract [facility] [place] [facility] [address] [place] [phone] Franck Moraes DO [address] [facility] [address] [place] [address] Social History Tobacco Use Types Packs/Day Years [...] on filedocumented in this encounter Care Teams Regional Business Development Manager Relationship Specialty Start Date End Date Victorino Deleon MD [address] [place] [address] PCP - General 05/15/23 documented as of this encounter
--- OUTSIDE RECORDS SUMMARY | 2025-08-09 10:11 | XMS_ITS | Clinical Summary ---
Author Organization [facility] Address [address], [address] [place] [address] Care Team Providers Care Cork Tile Floor Layer Name Role Phone Victorino Deleon MD Primary Care Provider [phone] Allergies No known active allergies Medications No [...] of 3 - 19+ 3-dose series) 2014 Pap smear 12/04/2024 12/04/2021 Flu vaccine (#1) 2025 12/08/2021 COVID-19 Vaccine (1 - 2023-2 5 season) 2025 Cervical cancer screen 12/04/2026 HPV (without or [...] HIGH RISK Routine 12/04/2021 8:36 AM EST MACHINE STACKER CYTOLOGY Routine 12/04/2021 8:36 AM EST from Last 3 Months or Most Recently Relevant to Health Maintenance Results * Human papillomavirus (HPV) DNA probe thin prep high risk (12/04/2021 8:36 AM EST) Specimen Description .GENITAL - NOT SPECIFIED 12/04/2021 8:36 AM [email or web address] HPV Sample .THIN PREP 12/04/2021 8:36 AM [email or web address] HPV, Genotype 16 Not Detected Not Detected 12/04/2021 8:36 AM [email or web address] HPV, Genotype 18 Not Detected Not Detected 12/04/2021 8:36 AM [email or web address] HPV, High Risk Other Not Detected Not Detected 12/04/2021 8:36 AM [email or web address] HPV, Interpretation 12/04/2021 8:36 AM [email or web address] Comment: This test amplifies and detects DNA [...] Mansi Winchester PA-C HEMATOLOGY ORDERABLES nal Result [facility] [address] [place] [address], [facility] [phone] [place] [id number], [facility] [phone] * MACHINE STACKER Cytology (12/04/2021 8:36 AM EST) Cytology Report INTERPRETATION Cervical material, (ThinPrep vial, Imaging-assisted review): Specimen Adequacy: Satisfactory for evaluation. -Endocervical/tra nsformation zone component is absent. Descriptive Diagnosis: Negative for intraepithelial lesion or malignancy. Block Setter [place]: RONY Ugalde(ASCP) Electronically Signed Out /12/17/2021 Procedure/Addendum [...] review) Clinical History Intrauterine device Z01.419 Routine allied health instructor exam without abnormal findings Co-Test: ThinPrep Pap with high risk HPV testing GYNECOLOGIC CYTOLOGY REPORT Patient Name: SURJIT AVINA. Med Rec: [id number] Path Number: [id number] [facility] [address] [place], [place] [phone] [facility] CERVICAL MATERIAL 12/04/2021 8:36 AM EST 12/05/2021 8:36 AM EST Mansi Winchester PA-C PATHOLOGY/CYTOLOGY ORDER BIRDIE Final Result [facility] [address] [place] [address], [facility] [phone] [phone] from Last 3 Months or Most Recently Relevant to Health Maintenance Insurance [employer] Care Teams Cork Tile Floor Layer Relationship Specialty Start Date End Date Victorino Deleon MD [address] [place] [address] PCP - General Family Medicine 12/04/21
--- OUTSIDE RECORDS SUMMARY | 2025-08-09 10:11 | XMS_ITS | Clinical Summary ---
Author Organization [facility] Address [address] [place] [address] Care Team Providers Care Liquor Store Manager Name Role Phone Victorino Deleon MD Primary Care Provider [phone] Allergies No known active allergies Medications magnesium oxide (Mag-Ox) 200 mg split tablet 05/09/2025 Active Active Problems Problem Noted Date Diagnosed Date 37 weeks gestation of ([facility]) 2024 Third trimester ([facility]) 11/19/2023 Estimated Date of Delivery Comme nts Yes 07/15/2025 Based on last me nstrual period of 10/08/2024 Encounters Date Type Department Care Team Description 08/03/20[place] [address] Franck Moraes, 07/19/2025 Clinisync Result Encounter NOMS External Department Unsolicited Franck Moraes, 07/18/2025 [place] [address] Franck Moraes, 07/17/2025 2:20 [place] [address] Franck Moraes, DO 40 weeks gestation of ([facility]); Third trimester ([facility]); UTI symptoms 07/17/2025 Clinisync Result Encounter NOMS External Department Unsolicited Franck Moraes, DO 07/17/2025 Bamboo flowsheet [facility] CELIS [address] [place] [address] Franck Moraes, DO 07/11/2025 9:00 AM EDT Routine [facility] Barbosa [facility] [place] [address] Franck Moraes, DO Third trimester ([facility]); 39 weeks gestation of ([facility]) 07/11/2025 Travel 07/11/2025 Bamboo flowsheet [facility] CELIS [address] [place] [address] [place] [address] Franck Moraes, 07/03/2025 1:30 PM EDT Routine [facility] Tian[facility] Barbosa [facility] [place] [address] Franck Moraes, DO Third trimester ([facility]); 38 weeks gestation of ([facility]) 06/27/2025 10:00 AM EDT Routine [facility] Barbosa [facility] [place] [address] Fawn Panchal PA Third trimester ([facility]); 37 weeks gestation of ([facility]) 06/27/2025 Travel 06/27/2025 Bamboo flowsheet [facility] CELIS [address] [place] [address] Fawn Panchal PA 06/20/2025 Travel 06/19/2025 9:00 AM EDT Routine [facility] Barbosa [facility] [place] [address] Franck Moraes, DO Third trimester ([facility]); 36 weeks gestation of ([facility]) 06/19/2025 Bamboo flowsheet [facility] CEL[facility] [address] [place] [address] [place] [address] Franck Moraes DO 06/14/2025 Travel 06/08/2025 9:50 AM EDT Routine [facility] Barbosa [facility] [place] [address] Fawn Panchal PA Third trimester ([facility]); 34 weeks gestation of ([facility]) 06/08/2025 Bamboo flowsheet [facility] CEL[facility] [address] [place] [address] [place] [address] Fawn Panchal PA 05/25/2025 9:40 AM EDT Routine [facility] Barbosa [facility] [place] [address] Franck Moraes DO Third trimester ([facility]); 32 weeks gestation of ([facility]) 05/25/2025 9:00 AM EDT Ancillary Procedure [facility] [address] [place] [address] [place] [address] Size of fetus inconsistent with dates in third trimester ([facility]) 05/22/2025 Travel 05/10/2025 9:50 AM EDT Routine [facility] [address] [place] [address] [place] [address] Fawn Panchal PA Size of fetus inconsistent with dates in third trimester ([facility]) (Primary Dx); Third trimester ([facility]); 30 weeks gestation of ([facility]) 05/10/2025 Bamboo flowsheet [facility] [address] [place] [address] [place] [address] Fawn Panchal PA from Last 3 Months [...] Procedure Name Priority Date/Time Associated Diagnosis Comments ALL CBC WITH AUTO DIFF Routine 6:15 AM EDT [facility] CBC WITH PLATELET NO DIFFERENTIAL Routine 07/17/2025 11:55 PM EDT URINARY TRACT INFECTION (HTRX) Routine 07/17/2025 4:27 PM EDT POCT URINALYSIS DIPSTICK Routine 07/17/2025 2:39 PM EDT 40 weeks gestation of ([facility]) Third trimester ([facility]) POCT URINALYSIS DIPSTICK Routine 07/11/2025 9:38 AM EDT Third trimester ([facility]) POCT URINALYSIS DIPSTICK Routine 07/03/2025 2:06 PM EDT Third trimester ([facility]) 38 weeks gestation of ([facility]) POCT URINALYSIS DIPSTICK Routine 06/27/2025 10:22 AM EDT Third trimester ([facility]) 37 weeks gestation of ([facility]) POCT URINALYSIS DIPSTICK Routine 06/19/2025 9:15 AM EDT Third trimester ([facility]) CULTURE, GROUP B STREP WITH SUSCEPTIBLITY Routine 06/19/2025 9:02 AM EDT Third trimester ([facility]) POCT URINALYSIS DIPSTICK Routine 06/08/2025 10:01 AM EDT Third trimester ([facility]) US OB FOLLOW UP TRANSABDOMINAL APPROACH Routine 05/25/2025 9:34 AM EDT Size of fetus inconsistent with dates in third trimester ([facility]) POCT URINALYSIS DIPSTICK Routine 05/10/2025 10:14 AM EDT Third trimester ([facility]) 30 weeks gestation of ([facility]) from Last 3 Months Results * (ABNORMAL) ALL CBC WITH AUTO DIFF (07/19/2025 6:15 AM EDT) [facility] WBC 10.5 4.0 - 11.0 10 3/uL TBH TBH RBC 3.41(L) 4.20 - 5.40 10 6/uL TBH TBH HGB 9.6(L) 12.0 - 16.0 g/dL TBH TBH HCT 29.3(L) 36.0 - 48.0 % TBH TBH MCV 85.9 81.0 - 99.0 fL TBH TBH MCH 28.2 26.7 - 34.0 pg TBH TBH MCHC 32.8 29.9 - 35.2 g/dL TBH TBH RDW 15.3(H) 11.0 - 15.0 % TBH TBH PLT 228 150 - 450 10 3/uL TBH TBH MPV 10.9 9.5 - 13.5 fL TBH NEUTROPHILS PERCENT AUTO 63.6 43.0 - 75.0 % TBH LYMPHOCYTES PERCENT AUTO 26.7 20.5 - 60.0 % TBH MONOCYTES PERCENT AUTO 7.5 1.7 - 12.0 % TBH TBH EO % 0.8(L) 0.9 - 7.0 % TBH BASOPHILS PERCENT AUTO 0.4 0.2 - 2.0 % TBH IMMATURE GRANULOCYTES PCT AUTO 1.0(H) 0.0 - 0.5 % TBH NEUTROPHILS ABSOLUTE AUTO 6.7(H) 1.4 - 6.5 10 3/uL TBH LYMPHOCYTES ABSOLUTE AUTO 2.8 1.2 - 3.8 10 3/uL TBH MONOCYTES ABSOLUTE AUTO 0.8 0.3 - 0.8 10 3/uL TBH TBH EO # 0.1 0.0 - 0.7 10 3/uL TBH BASOPHILS ABSOLUTE AUTO 0.0 0.0 - 0.1 10 3/uL TBH IMMATURE GRANULOCYTES ABS AUTO 0.11(H) 0.00 - 0.03 10 3/uL TBH 07/19/2025 6:15 AM EDT 07/19/2025 6:22 AM EDT Narrative [facility] - 07/19/2025 6:30 AM EDT us Franck Moraes DO [facility] Final Result [facility] * (ABNORMAL) [facility] CBC WITH PLATELET NO DIFFERENTIAL (07/17/2025 11:55 PM EDT) TB WBC 14.2(H) 4.0 - 11.0 10 3/uL TBH TBH RBC 3.84(L) 4.20 - 5.40 10 6/uL TBH TBH HGB 11.0(L) 12.0 - 16.0 g/dL TBH TBH HCT 32.6(L) 36.0 - 48.0 % TBH TBH MCV 84.9 81.0 - 99.0 fL TBH TBH MCH 28.6 26.7 - 34.0 pg TBH TBH MCHC 33.7 29.9 - 35.2 g/dL TBH TBH RDW 15.0 11.0 - 15.0 % TBH TBH PLT 250 150 - 450 10 3/uL TBH TBH MPV 10.7 9.5 - 13.5 fL TB 07/17/2025 11:5 5 PM EDT 07/18/2025 12:12 AM EDT Narrative [facility] - 07/18/2025 12:18 AM EDT Franck Dimitry DO [facility] Final [facility] URINARY [facility] INFECTION (HTRX) (07/17/2025 4:27 PM EDT) [facility] ACINETOBACTER BAUMANII 0 19.961 - 24.689 ppm 07/19/2025 9:24 AM EDT [facility] ACINETOBACTER BAUMANII Not Detected 19.961 - 24.689 ppm 07/19/2025 9:24 AM EDT [facility] CITROBACTER FREUNDII 0 23.000 - 32.015 ppm 07/19/2025 9:24 AM EDT [facility] CITROBACTER FREUNDII Not Detected 23.000 - 32.015 ppm 07/19/2025 9:24 AM EDT [facility] ENTEROBACTER AEROGENES, CLOACAE 0 23.000 - 32.290 ppm 07/19/2025 9:24 AM EDT [facility] ENTEROBACTER AEROGENES, CLOACAE Not Detected 23.000 - 32.290 ppm 07/19/2025 9:24 AM EDT [facility] ENTEROCOCCUS FAECALIS, FAECIUM 0 26.000 - 33.043 ppm 07/19/2025 9:24 AM EDT [facility] ENTEROCOCCUS FAECALIS, FAECIUM Not Detected 26.000 - 33.043 ppm 07/19/2025 9:24 AM EDT [facility] ESCHERICHIA COLI 0 23.000 - 28.500 ppm 07/19/2025 9:24 AM EDT [facility] ESCHERICHIA COLI Not Detected 23.000 - 28.500 ppm 07/19/2025 9:24 AM EDT [facility] KLEBSIELLA PNEUMONIAE, OXYTOCA 0 23.000 - 31.865 ppm 07/19/2025 9:24 AM EDT [facility] KLEBSIELLA PNEUMONIAE, OXYTOCA Not Detected 23.000 - 31.865 ppm 07/19/2025 9:24 AM EDT [facility] MORGANELLA MORGANII 0 19.961 - 24.689 ppm 07/19/2025 9:24 AM EDT [facility] MORGANELLA MORGANII Not Detected 19.961 - 24.689 ppm 07/19/2025 9:24 AM EDT [facility] PROTEUS MIRABILIS, VULGARIS 0 23.000 - 28.500 ppm 07/19/2025 9:24 AM EDT [facility] PROTEUS MIRABILIS, VULGARIS Not Detected 23.000 - 28.500 ppm 07/19/2025 9:24 AM EDT [facility] PSEUDOMONAS AERUGINOSA 0 23.000 - 31.801 ppm 07/19/2025 9:24 AM EDT [facility] PSEUDOMONAS AERUGINOSA Not Detected 23.000 - 31.801 ppm 07/19/2025 9:24 AM EDT [facility] STAPHYLOCOCCUS AUREUS 0 26.000 - 31.595 ppm 07/19/2025 9:24 AM EDT [facility] STAPHYLOCOCCUS AUREUS Not Detected 26.000 - 31.595 ppm 07/19/2025 9:24 AM EDT [facility] STREPTOCOCCUS AGALACTIAE (GROUP B STREP) 0 26.000 - 32.435 ppm 07/19/2025 9:24 AM EDT [facility] STREPTOCOCCUS AGALACTIAE (GROUP B STREP) Not Detected 26.000 - 32.435 ppm 07/19/2025 9:24 AM EDT [facility] VIVIANA ALBICANS, PARAPSILOSIS, TROPICALIS 0 23.000 - 30.347 ppm 07/19/2025 9:24 AM EDT [facility] VIVIANA ALBICANS, PARAPSILOSIS, TROPICALIS Not Detected 23.000 - 30.347 ppm 07/19/2025 9:24 AM EDT [facility] VIVIANA GLABRATA 0 23.000 - 31.618 ppm 07/19/2025 9:24 AM EDT [facility] VIVIANA GLABRATA Not Detected 23.000 - 31.618 ppm 07/19/2025 9:24 AM EDT [facility] VIVIANA KRUSEI 0 23.000 - 30.873 ppm 07/19/2025 9:24 AM EDT [facility] VIVIANA KRUSEI Not Detected 23.000 - 30.873 ppm 07/19/2025 9:24 AM EDT [facility] SERRATIA MARCESCENS 0 23.000 - 31.581 ppm 07/19/2025 9:24 AM EDT [facility] SERRATIA MARCESCENS Not Detected 23.000 - 31.581 ppm 07/19/2025 9:24 AM EDT [facility] STREPTOCOCCUS PYOGENES (GROUP A STREP) 0 19.961 - 24.689 ppm 07/19/2025 9:24 AM EDT [facility] STREPTOCOCCUS PYOGENES (GROUP A STREP) Not Detected 19.961 - 24.689 ppm 07/19/2025 9:24 AM EDT [facility] STAPHYLOCOCCUS EPIDERMIDIS, HAEMOLYTICUS, LUGDUNENSIS, SAPROPHYTICUS (URINA 0 19.961 - 24.689 ppm 07/19/2025 9:24 AM EDT [facility] STAPHYLOCOCCUS EPIDERMIDIS, HAEMOLYTICUS, LUGDUNENSIS, SAPROPHYTICUS (URINA Not Detected 19.961 - 24.689 ppm 07/19/2025 9:24 AM EDT [facility] STAPHYLOCOCCUS EPIDERMIDIS, HAEMOLYTICUS, LUGDUNENSIS, SAPROPHYTICUS (URINA 0 19.961 - 24.689 ppm 07/19/2025 9:24 AM EDT [facility] STAPHYLOCOCCUS EPIDERMIDIS, HAEMOLYTICUS, LUGDUNENSIS, SAPROPHYTICUS (URINA Not Detected 19.961 - 24.689 ppm 07/19/2025 9:24 AM EDT [facility] Urine 07/17/2025 4:27 PM EDT 07/19/2025 1:43 AM EDT us Franck Dimitry DO LAB BLOOD ORDERABLES Final Resul t [facility] [address] [address] * (ABNORMAL) POCT urinalysis dipstick manually resulted (07/17/2025 2:39 PM EDT) Only the most recent of7 resultswithin the time period is included. Color, [...] Positive Urine 07/17/2025 2:39 PM EDT Franck Dimitry DO POINT OF CARE TEST [...] menstrual period. TRANSCRIBED BY: ELECTRONICALLY SIGNED BY: MD Daisy Perla 05/25/2025 10:16 AM EDT FINDINGS: A single, [...] IMG OB US PROCEDURES Final Resul t from Last 3 Months Insurance BCBS Care Teams Liquor Store Manager Relationship Specialty Start Date End Date Victorino Deleon MD [address] [place] [phone] PCP - General 05/15/23
--- OUTSIDE RECORDS SUMMARY | 2025-08-09 10:11 | XMS_ITS | Encounter Summary ---
Author Organization [facility] Address [address] [place] [address] Care Team Providers Care Regrinder Operator Name Role Phone Victorino Deleon MD Primary Care Provider [phone] Encounter Details Date Type Department Care Team (Late st Contact Info) Description 08/10/2023 Clinisync Result Encounter [facility] External Department Unsolicited Fawn Perdomo PA [address] [place] [address] Dr Neff, [facility] Social History Tobacco Use Types Packs/Day [...] AM EDT Narrative 08/10/2023 8:59 AM EDT [address] [address] Ultrasound Report Signed Patient: SURJIT AVINA MR#: [id number] : 1995 Acct:[id number] Age/Sex: 28 / F ADM Date: 08/08/23 Loc: US Attending Dr: Fawn Perdomo Ordering Physician: Fawn Perdomo Date of Service: 08/08/23 Procedure(s): US OB anatomy Accession Number(s): [id number] cc: Fawn Perdomo; Victorino Deleon M.D. [address] [address] Patient Name: SURJIT AVINA MRN: [id number] date: 1995 Sex: F Assigned Patient Location: US Current Patient Location: Accession/Order Number: [id number] Exam Date: 08/08/2023 09:05 Report Date: 08/10/2023 [...] M.D. Signed By: 08/10/23901 DD/ 8 TD/TT: Specialist Physicians: Procedure Note Radiology, Radiologist, - 08/10/2023 [place] [address] Ultrasound Report Signed Patient: SURJIT AVINA R#: [id number] : 1995Acct:[id number] Age/Sex: 28 / FADM Date: 08/08/23 Loc: US Attending Dr: Fawn Perdomo Ordering Physician: Fawn Perdomo Date of Service: 08/08/23 Procedure(s): US OB anatomy Accession Number(s): [id number] cc: Fawn Perdomo; Victorino Deleon M.D. The [address] [address] Patient Name: SURJIT AVINA MRN: [id number] date: 1995 Sex: F Assigned Patient Location: US Current Patient Location: Accession/Order Number: [id number] Exam Date: 08/08/2023 09:05 Report Date: 08/10/2023 [...] Mulligan M.D. Signed By:08/10/23901 DD/ 0859 TD/TT: Specialist Physicians: us Fawn PINON [facility] Final Result documented in this encounter Visit Diagnoses Not on filedocumented in this encounter Care Teams Regrinder Operator Relationship Specialty Start Date End Date Victorino Deleon MD [address] [place] [address] PCP - General 05/15/23 documented as of this encounter
--- OUTSIDE RECORDS SUMMARY | 2025-08-09 10:11 | XMS_ITS | Encounter Summary ---
Author Organization [facility] Address [address] [place] [address] Care Team Providers Care Handyman Name Role Phone Victorino Deleon MD Primary Care Provider [phone] Encounter Details Date Type Department Care Team (Late st Contact Info) Description 11/04/2023 Clinisync Result Encounter N[facility]S External Department Unsolicited Harsha Moraes, DO [address] [place] [address] Social History Tobacco Use Types Packs/Day Years [...] PM EST Narrative 11/04/2023 9:44 [place] [address] Ultrasound Report Signed Patient: SURJIT AVINA MR#: [id number] : 1995 Acct:[id number] Age/Sex: 28 / F ADM Date: 11/04/23 Loc: US Attending Dr: Harsha Moraes D.O. Ordering Physician: Harsha Moraes D.O. Date of Service: 11/04/23 Procedure(s): US OB growth Accession Number(s): [id number] cc: Harsha Moraes D.O.; Victorino Deleon M.D. The [place] [address] Patient Name: SURJIT AVINA MRN: [id number] date: 1995 Sex: F Assigned Patient Location: Current Patient Location: US Accession/Order Number: [id number] Exam Date: 11/04/2023 10:18 Report Date: 11/04/2023 [...] M.D. Signed By: 11/04/232143 DD/ 41 TD/TT: Application Defense Manager: Procedure Note Radiology, Radiologist, MD - 11/04/2023 [place] [address] Ultrasound Report Signed Patient: SURJIT AVINA R#: [id number] : 1995Acct:[id number] Age/Sex: 28 / FADM Date: 11/04/23 Loc: US Attending Dr: Harsha Moraes D.O. Ordering Physician: Harsha Moraes D.O. Date of Service: 11/04/23 Procedure(s): US OB growth Accession Number(s): [id number] cc: Harsha Moraes D.O.; Victorino Deleon M.D. The [place] [address] Patient Name: SURJIT AVINA MRN: [facility]:[id number] date: 1995 Sex: F Assigned Patient Location: US Current Patient Location: US Accession/Order Number: [id number] Exam Date: 11/04/2023 10:18 Report Date: 11/04/2023 [...] Hernandez M.D. Signed By:11/04/232143 DD/ 41 TD/TT: Application Defense Manager: us Harsha Dimitry DO [facility] Final Result documented in this encounter Visit Diagnoses Not on filedocumented in this encounter Care Teams Handyman Relationship Specialty Start Date End Date Victorino Deleon MD [address] [place] [address] PCP - General 05/15/23 documented as of this encounter
--- OUTSIDE RECORDS SUMMARY | 2025-08-09 10:11 | XMS_ITS | Encounter Summary ---
Author Organization [facility] Address [address] [place] [address] Care Team Providers Care Haul Driver Name Role Phone Victorino Deleon MD Primary Care Provider [phone] Encounter Details Date Type Department Care Team ([facility] st Contact Info) Description 07/16/2023 Abstract [facility] [address] [place] [phone] Fawn Panchal PA [address] [place] [address] Social History Tobacco Use Types Packs/Day Years [...] on filedocumented in this encounter Care Teams Haul Driver Relationship Specialty Start Date End Date Victorino Deleon MD [address] [place] [address] PCP - General 05/15/23 documented as of this encounter
--- OUTSIDE RECORDS SUMMARY | 2025-08-09 10:11 | XMS_ITS | Encounter Summary ---
Author Organization [facility] Address [address] [place] [address] Care Team Providers Care Roofing Supervisor Name Role Phone Victorino Deleon MD Primary Care Provider [phone] Encounter Details Date Type Department Care Team ([facility] st Contact Info) Description 11/30/2024 Abstract [facility] [address] [place] [phone] Franck Moraes DO [address] [facility] [place] [address] Social History Tobacco Use Types Packs/Day Years [...] on filedocumented in this encounter Care Teams Roofing Supervisor Relationship Specialty Start Date End Date Victorino Deleon MD [address] [place] [address] PCP - General 05/15/23 documented as of this encounter
--- OUTSIDE RECORDS SUMMARY | 2025-08-09 10:11 | XMS_ITS | Encounter Summary ---
Author Organization [facility] Address [address] [place] [address] Care Team Providers Care Dock Clerk Name Role Phone Victorino Deleon MD Primary Care Provider [phone] Encounter Details Date Type Department Care Team (Late st Contact Info) Description 07/18/2025 Abstract [facility] [address] [place] [phone] Franck Moraes DO [address] [facility] [place] [address] Social History Tobacco Use Types Packs/Day Years [...] on filedocumented in this encounter Care Teams Dock Clerk Relationship Specialty Start Date End Date Victorino Deleon MD [address] [place] [address] PCP - General 05/15/23 documented as of this encounter
--- OUTSIDE RECORDS SUMMARY | 2025-08-09 10:11 | XMS_ITS | Encounter Summary ---
Author Organization [facility] Address [address] [place] [address] Care Team Providers Care Door Furring Installer Name Role Phone Victorino Deleon MD Primary Care Provider [phone] Encounter Details Date Type Department Care Team (Late st Contact Info) Description 08/10/2023 Clinisync Result Encounter [facility]S External Department Unsolicited Fawn Perdomo PA [address] [place] [address] Dr Neff, [facility] Social History Tobacco Use Types Packs/Day Years [...] AM EDT Narrative 08/10/2023 8:59 AM EDT [address] [address] Ultrasound Report Signed Patient: SURJIT AVINA MR#: [id number] : 1995 Acct:[id number] Age/Sex: 28 / F ADM Date: 08/08/23 Loc: US Attending Dr: Fawn Perdomo Ordering Physician: Fawn Perdomo Date of Service: 08/08/23 Procedure(s): US OB cervical length Accession Number(s): [id number] cc: Fawn Perdomo; Victorino Deleon M.D. [address] [id number] Patient Name: SURJIT AVINA MRN: [id number] date: 1995 Sex: F Assigned Patient Location: US Current Patient Location: Accession/Order Number: [id number] Exam Date: 08/08/2023 09:05 Report Date: 08/10/2023 [...] M.D. Signed By: 08/10/23901 DD/ 8 TD/TT: Tongue And Quarter Stitcher: Procedure Note Radiology, Radiologist, MD - 08/10/2023 [place] [address] Ultrasound Report Signed Patient: SURJIT AVINA JMR#: [id number] : 1995Acct:[id number] Age/Sex: 28 FADM Date: 08/08/23 Loc: US Attending Dr: Fawn Perdomo Ordering Physician: Fawn Perdomo Date of Service: 08/08/23 Procedure(s): US OB cervical length Accession Number(s): [id number] cc: Fawn Perdomo; Victorino Deleon M.D. The [address] [address] Patient Name: SURJIT AVINA MRN: [id number] date: 1995 Sex: F Assigned Patient Location: US Current Patient Location: Accession/Order Number: [id number] Exam Date: 08/08/2023 09:05 Report Date: 08/10/2023 [...] Mulligan M.D. Signed By:08/10/23901 DD/ 0859 TD/TT: Tongue And Quarter Stitcher: us Fawn [facility] Final Result documented in this encounter Visit Diagnoses Not on filedocumented in this encounter Care Teams Door Furring Installer Relationship Specialty Start Date End Date Victorino Deleon MD [address] [place] [address] PCP - General 05/15/23 documented as of this encounter
[2025-08-09 10:27] LABS: Hematocrit 38.4 % (36.0-48.0); Hemoglobin 12.7 g/dL (12.0-16.0); Immature Granulocytes Abs Auto 0.02 10^3/uL (0.00-0.03); Immature Granulocytes Pct Auto 0.2 % (0.0-0.5); Lymphocytes Absolute Auto 1.0 10^3/uL (1.2-3.8); Mean Corpuscular HGB Conc 33.1 g/dL (29.9-35.2); Mean Corpuscular Hemoglobin 28.6 pg (26.7-34.0); Mean Corpuscular Volume 86.5 fL (81.0-99.0); Platelet Count 349 10^3/uL (150-450); Red Blood Count 4.44 10^6/uL (4.20-5.40); White Blood Count 8.3 10^3/uL (4.0-11.0)
--- NOTE | 2025-08-09 10:40 | CT_ITS ---
The [address] [address] Patient Name: SURJIT MORALES MRN: [id number] date: 1995 Sex: F Assigned Patient Location: ER Current Patient Location: ER Accession/Order Number: [id number] Exam Date: 08/09/2025 10:46 Report Date: 08/09/2025 11:41 At the request of: DONTE ADAMS MD Procedure: CT abdomen pelvis wo con CT ABDOMEN AND PELVIS WITHOUT CONTRAST COMPARISON: None CLINICAL DATA: Left flank pain. Patient is 3 weeks . Spiral images were obtained through the abdomen and pelvis without contrast. This CT exam was performed using one or more following dose reduction techniques: Automated exposure control, adjustment of the mA and/or kV according to patient size, or use of iterative reconstruction technique. Limited cuts through the lung bases show an incidental punctate subpleural nodule posteriorly at the right lower lobe. Evaluation of the intra-abdominal organs is slightly limited by the absence of contrast. No intrahepatic masses are identified. No calcified gallstones are seen. The spleen, pancreas and adrenal glands show no acute findings. There are no renal calculi. There is a stone at the ureteropelvic junction on the left measuring 9 x 5 mm. There is associated mild to moderate hydronephrosis. The additional ureteral dilatation or stones are present. The abdominal aorta is normal caliber. There are small retroperitoneal and mesenteric lymph nodes. No ascites or free air is seen. There is a tiny umbilical hernia containing fat. The small bowel loops are normal caliber. There is air within the stomach. There is stool along the colon. There is subtle levoscoliotic curvature. Images through the pelvis show no dilated small bowel. No appendiceal inflammation is seen. There is mild distal colonic stool. No diverticular disease is noted. The uterus is retroverted and slightly prominent related to recent . There is a trace amount of free fluid at the posterior cul-de-sac. The urinary bladder shows no abnormalities for the degree of distention. CT/CT abdomen pelvis wo con IMPRESSION: PARTIALLY OBSTRUCTING LEFT URETEROPELVIC JUNCTION STONE. RETROVERTED UTERUS. TRACE AMOUNT OF DEPENDENT FREE PELVIC FLUID. NO ADDITIONAL ACUTE FINDINGS. Impression dictated by: Payton Chase M.D. 08/09/2025 11:41 AM Dictation Location: [place] [address] Electronically authenticated by: [id number] Y Date: 08/09/2025 11:41
--- NOTE | 2025-08-09 10:40 | ED_ITS ---
HPI - Abdominal Pain General Chief Complaint: Abdominal Pain Stated Complaint: L FLANK PAIN Time Seen by Provider: 08/09/25 10:16 Source: patient Mode of arrival: walk-in History of Present Illness HPI narrative: The patient is 30 years old female who is 3 weeks she is coming to the ER with left flank pain that started this morning, the pain is 6 out of 10 there is no vomiting in the moment but the patient did have a nausea with it, no fever no chills no burning with urination, no frequency no urgency and no history of similar presentation Related Data Previous Rx's ?Medication ?Instructions ?Recorded ferrous sulfate 325 mg (65 mg 325 mg PO BID #60 tabs 0 07/19/25 iron) tablet ibuprofen 600 mg tablet 600 mg PO Q8H PRN pain #20 t abs 08/09/25 tamsulosin 0.4 mg capsule (Flomax) 0.4 mg PO DAILY #10 caps 08/09/25 Allergies Allergy/AdvReac Type Severity Reaction Status Date / Time No Known Drug Allergies Allergy Verified 12/26/23 18:07 Review of Systems ROS Status of ROS 10 or more systems reviewed and unremark able except as noted in history and below [facility] Surgical History (Updated 12/26/23 @ 18:08 by Yane Palmer) History of removal of cyst ?Z98.890 - Other specified postprocedural states (ICD-10) Social History Highest level of school completed/degree received: Associate degree: academic program Little interest or pleasure in doing things: not at all Feeling down, depressed, or hopeless: not at all Exam Narrative Exam Narrative: Nurses notes and vital signs reviewed and patient is not hypoxic. General: Well-appearing and in no apparent distress. Skin: Warm, dry, no pallor noted. No rash. Head: Normocephalic, atraumatic. Neck: Supple, non-tender. Cardiovascular: Regular Rate and Rhythm without murmur, gallop or rub. Respiratory: No accessory muscle use or respiratory distress. Lungs are clear to auscultation, no wheezing, rales or rhonchi Chest Wall: no tenderness Back: No midline thoracic or lumbar vertebral tenderness. Left CVA tenderness Musculoskeletal: normal ROM, no calf or popliteal tenderness, no lower extremity edema/swelling GI: Abdomen is soft, non-distended. Normal bowel sounds. No masses appreciated. No tenderness to palpation. No rebound, guarding, or rigidity noted. Neurological: A&O x4. No cranial nerve dysfunction observed. Constitutional Vital Signs, click to edit/add: Last Vital Signs Temp 97.7 F 08/09/25 10:10 Pulse 86 08/09/25 10:10 Resp 18 08/09/25 10:10 BP 145/86 H 08/09/25 10:10 Pulse Ox 100 08/09/25 10:10 O2 Del Method Room Air 08/09/25 10:10 Course Vital Signs Vital signs: Vital Signs Temperature 97.7 F 08/09/25 10:10 Pulse Rate 86 08/09/25 10:10 Respiratory Rate 18 08/09/25 10:10 Blood Pressure 145/86 H 08/09/25 10:10 Pulse Oximetry 100 08/09/25 10:10 Oxygen Delivery Method Room Air 08/09/25 10:10 Temperature 97.7 F 08/09/25 10:10 Pulse Rate 86 08/09/25 10:10 Respiratory Rate 18 08/09/25 10:10 Blood Pressure 145/86 H 08/09/25 10:10 Pulse Oximetry 100 08/09/25 10:10 Oxygen Delivery Method Room Air 08/09/25 10:10 MDM - Abdominal Pain MDM Narrative Medical decision making narrative: The patient presented to the ER 3 weeks with a left costophrenic angle tenderness on examination High suspicion for possible kidney stone no urine infection symptoms The patient is breast-feeding CBC and chemistry showed no acute pathology and the patient urine test showed no possible UTI The patient CT shows a partially obstructing left-sided kidney stone 9 mm almost in size The patient was feeling better after being treated with Toradol The patient also provided with a prescription for Flomax after explained to her that Flomax is not studied in breast-feeding women but she can just stop breast- feeding for the next 10 days while she is taking it, she also to continue hydration and she was instructed how to strain her urine The patient to control her pain with Tylenol and ibuprofen The patient instructed about the importance of monitoring her symptoms in case of worsening of symptoms including fever or any increase in pain the patient to come back to the ER also to follow-up with urology as outpatient Patient is referred to Dr. Johns in urology service The patient is to follow up with primary care physician in next 2-3 days or to return to the emergency department should any of the signs or symptoms worsen or new symptoms develop. The patient agrees with the following Diagnosis and Treatment plan and the patient will be discharged home. Lab Data Labs: Lab Results 08/09/25 08/09/25 Range/Units 10:20 12:30 WBC 8.3 (4.0-11.0) 10^3/uL RBC 4.44 (4.20-5.40) 10^6/uL Hgb 12.7 (12.0-16.0) g/dL Hct 38.4 (36.0-48.0) % MCV 86.5 (81.0-99.0) fL MCH 28.6 (26.7-34.0) pg MCHC 33.1 (29.9-35.2) g/dL RDW 15.5 H (11.0-15.0) % Plt Count 349 (150-450) 10^3/uL MPV 10.9 (9.5-13.5) fL Neut % (Auto) 83.6 H (43.0-75.0) % Lymph % (Auto) 11.7 L (20.5-60.0) % [place] % (Auto) 4.1 (1.7-12.0) % Eos % (Auto) 0.2 L (0.9-7.0) % Baso % (Auto) 0.2 (0.2-2.0) % Neut # (Auto) 6.9 H (1.4-6.5) 10^3/uL Lymph # (Auto) 1.0 L (1.2-3.8) 10^3/uL [place] # (Auto) 0.3 (0.3-0.8) 10^3/uL Eos # (Auto) 0.0 (0.0-0.7) 10^3/uL Baso # (Auto) 0.0 (0.0-0.1) 10^3/uL Abs Immat Gran (auto) 0.02 (0.00-0.03) 10^3/uL Imm/Tot Granulo (auto) 0.2 (0.0-0.5) % Sodium 134 L (136-145) mmol/L Potassium 3.6 (3.5-5.1) mmol/L Chloride 102 (98-107) mmol/L Carbon Dioxide 21.5 (21.0-32.0) mmol/L Anion Gap 14.1 BUN 12.0 (7.0-18.0) mg/dL Creatinine 0.79 (0.55-1.02) mg/dL Est GFR ( Amer) >60 (>=60 mL/min/1.73m^2) Est GFR (Non-Af Amer) >60 (>=60 mL/min/1.73m^2) BUN/Creatinine Ratio 15.2 Glucose 92 (74-106) mg/dL Calcium 8.7 (8.5-10.1) mg/dL Total Bilirubin 0.3 (0.2-1.0) mg/dL AST <5 L (15-37) U/L ALT 35 (14-59) U/L Alkaline Phosphatase 114 (46-116) U/L Total Protein 7.5 (6.4-8.2) g/dL Albumin 3.6 (3.4-5.0) g/dL Globulin 3.9 g/dL Albumin/Globulin Ratio 0.9 Urine Color Yellow (YELLOW) Urine Clarity Clear (CLEAR) Urine pH 5.5 (5.0-9.0) Ur Specific [place] >=1.030 A (1.005-1.025) Urine Protein 30 A (NEG/TRACE) mg/dL Urine Glucose (UA) Negative (NEGATIVE) mg/dL Urine Ketones 15 A (NEGATIVE) mg/dL Urine Occult Blood Large A (NEGATIVE) Urine Nitrite Negative (NEGATIVE) Urine Bilirubin Negative (NEGATIVE) Urine Urobilinogen 0.2 (0.2-1.0) EU/dL Ur Leukocyte Esterase Trace A (NEGATIVE) Urine RBC 50-75 A (0-2) #/HPF Urine WBC 2-5 A (NONE SEEN) #/HPF Ur Squamous Epith Cells Few A (NONE/RARE) #/LPF Urine Crystals None seen (None Seen) #/HPF Urine Bacteria Small A (NONE SEEN) #/HPF Urine Casts None seen (NONE SEEN) #/LPF Urine Mucus Small A (NONE SEEN) Ur Culture Indicated? Yes-[facility] [place] Discharge Plan Discharge Chief Complaint: Abdominal Pain Clinical Impression: Kidney calculus, Hydronephrosis Patient Disposition: Home, Self-Care Time of Disposition Decision: 13:17 Condition: Good Mode of Transportation: Private Vehicle Prescriptions / Home Meds: New tamsulosin [Flomax] 0.4 mg capsule 0.4 mg PO DAILY Qty: 10 0RF ibuprofen 600 mg tablet 600 mg PO Q8H PRN (Reason: pain) Qty: 20 0RF No Action ferrous sulfate 325 mg (65 mg iron) Tablet 325 mg PO BID Qty: 60 0RF Print Language: Spanish Instructions: Kidney Stones (ED), How to Strain Your Urine (ED), Hydronephrosis (ED) Additional Instructions: Please make sure that you hydrate well for the next 2 days Please come back to the ER in case of any increasing pain fever or any other concerns Make sure you follow-up with urology as outpatient Referrals: Victorino Deleon MD [Primary Care Provider, Family Practice] - 1 week Alfredo Johns MD [Physician, Urology] - As soon as possible Discharge Date/Time: 08/09/25 13:27
[2025-08-09 10:46] LABS: Alanine Aminotransferase 35 U/L (14-59); Albumin Globulin Ratio 0.9; Albumin Level 3.6 g/dL (3.4-5.0); Alkaline Phosphatase 114 U/L (46-116); Anion Gap 14.1; Aspartate Amino Transferase <5 U/L (15-37); Blood Urea Nitrogen 12.0 mg/dL (7.0-18.0); Calcium 8.7 mg/dL (8.5-10.1); Carbon Dioxide 21.5 mmol/L (21.0-32.0); Chloride 102 mmol/L (98-107); Estimated GFR (African America >60 (>=60 mL/min/1.73m^2); Estimated GFR (Non-African Ame >60 (>=60 mL/min/1.73m^2); Globulin 3.9 g/dL; Glucose 92 mg/dL (74-106); Potassium 3.6 mmol/L (3.5-5.1); Sodium 134 mmol/L (136-145); Total Protein 7.5 g/dL (6.4-8.2)
[2025-08-09] MEDS: KETOROLAC TROMETHAMINE 30 MG/ML VIAL 15 MG IVP (11:05)
[2025-08-09 12:44] LABS: Glucose Urine UA NEGATIVE (NEGATIVE)
[2025-08-09 12:57] LABS: Cast Seen? NONE SEEN #/LPF (NONE SEEN); Crystals Seen? None Seen #/HPF (None Seen); Urine Culture Indicated YES-FRMC
== END 2025-08-09 13:27 | disposition home or self-care (01) ==
PROVIDERS: Emergency Provider Emergency Medicine; PCP Family Medicine
DX: O90.89 Other complications of the puerperium, not elsewhere classified (principal); N13.2 Hydronephrosis with renal and ureteral calculous obstruction
CPT/HCPCS: 36415; 74176; 80053; 81001; 85025; 87086; 87088; 96374; 99284; J1885